=== PATIENT | male | born 1940 | race Caucasian/White ===

== ENCOUNTER 2016-09-27 16:12 | Emergency (ER) | payer OTHER, MEDICARE ==
[~2016-09-27] VITALS: Ht 172.7 cm; Wt 63.5 kg
[~2016-09-27 16:12] MED LIST: /AUGM875TA OR; /ESOM40CA OR; /TIOT18INH; /TIOT18INH INH; /WARF25TA OR; ACET500C OR; ALBU83IN IN; ALBUTEROL INH; ANTI12.5; BABY81CH; CLAR5CHW OR; DEPA250T2 OR; DIVALPROEX ER PO; EFFE150C; EFFE150C OR; FISH1000 OR; FISHCAP PO; FLON0.05; FLUNISOLIDE 0.025%; FOLI1TAB; FORMOTEROL FUMARATE INH; FORMOTEROL INH; HYDROCODONE 7.5/500; HYDROCODONE 7.5/500 PO; LEVI20TA OR; LORATADINE PO; LOVA40TA OR; LYRI200C OR; LYRI75CA; LYRI75CA OR; MOMETASONE INH; MONTELUKAST; MONTELUKAST PO; MYSO50TA; NASONEX; NASONEX OR; NEUR300C OR; NEUR400C OR; NIAC500C; NIAC500T OR; OMEGA 3; OMEP20TA7 OR; PERC5TAB8; PERC5TAB8 OR; PRED10TA2 OR; PREG100CA OR; PRIM250T3 OR; RYZOLT OR; RYZOLT PO; SING10TA31 OR; SODI-399; SODIUM CHLORIDE; SOMA350T; TAGA200T; TEGR200T; TERA5CAP3 OR; TERAZOSIN HCL OR; THEO200T7 OR; THEOPHYLLINE PO; TIOTROPIUM; TIOTROPIUM INH; VARDENAFIL PO; VENL75TA2 OR; VITAMIN B COMPLE1; VITAMIN B COMPLE1 OR; ZEBE5TAB; ZEBE5TAB OR; ZEGERID; ZOCO40TA
[2016-09-27] MEDS ORDERED: LYRI100C10 PO (16:36)
[2016-09-27] MEDS ORDERED: PANT40TA2 PO (16:36)
[2016-09-27] MEDS ORDERED: HYDR10T PO (16:36)
[2016-09-27] MEDS ORDERED: B-12100010 PO (16:36)
[2016-09-27] MEDS ORDERED: FERR325T69 PO (16:36)
[2016-09-27] MEDS ORDERED: GABA-283 PO (16:36)
[2016-09-27] MEDS ORDERED: TRAM50TA2 PO (16:36)
[2016-09-27] MEDS ORDERED: VITA400C29 PO (16:36)
[2016-09-27] MEDS ORDERED: FISH1000 PO (16:36)
[2016-09-27] MEDS ORDERED: LIDO5DIS36 TD (16:36)
[2016-09-27] MEDS ORDERED: MOME50SP2 (16:36)
[2016-09-27] MEDS ORDERED: LORA10CA PO (16:36)
[2016-09-27] MEDS ORDERED: predniSONE 20 MG TAB PO ONE (17:15)
[2016-09-27] MEDS ORDERED: IPRATROPIUM 0.5MG/ALBUTEROL 2.5MG INH SOL UD 3ML (DUONEB)(J7620) NEB ONE (17:15)
--- NOTE | 2016-09-27 18:22 | REP ---
PA and lateral chest: Comparison is 07/12/2011. There are no infiltrates or effusions. I suspect there are bulla, particularly in the upper lobes, unchanged. There is mild parenchymal scarring in the upper lobes. Cardiac size is normal. The basil and mediastinum. There is scoliosis convex right. There is a right shoulder prosthesis. Impression: There are chronic findings without change from the prior study. There are no acute infiltrates or effusions. There are no masses. Signed by Adolfo Woodward MD 09/27/2016 06:13 P
[2016-09-27] MEDS ORDERED: PRED20TA PO (18:32)
[2016-09-27 18:41] VITALS: BP 112/71
== END 2016-09-27 18:47 | disposition home or self-care (01) ==
LOC: M ED 18:15
DX: J44.1 Chronic obstructive pulmonary disease with (acute) exacerbation (principal); I10 Essential (primary) hypertension; E78.00 Pure hypercholesterolemia, unspecified; K44.9 Diaphragmatic hernia without obstruction or gangrene; F43.10 Post-traumatic stress disorder, unspecified; F41.9 Anxiety disorder, unspecified; F32.9 Major depressive disorder, single episode, unspecified; Z87.891 Personal history of nicotine dependence; Z79.899 Other long term (current) drug therapy

== ENCOUNTER → 2016-12-05 | Outpatient (REF) | payer MEDICARE ==
[~2016-12-05] MED LIST changes: +B-12100010 PO; +FERR325T69 PO; +FISH1000 PO; +GABA-283 PO; +HYDR10T PO; +LIDO5DIS36 TD; +LORA10CA PO; +LYRI100C10 PO; +MOME50SP2; +PANT40TA2 PO; +PRED20TA PO; +TRAM50TA2 PO; +VITA400C29 PO
== END ==
LOC: M LAB REF 16:57
PROVIDERS: ATTEND Internal Medicine
DX: J44.9 Chronic obstructive pulmonary disease, unspecified (principal)

== ENCOUNTER → 2017-06-07 | Outpatient (REF) | payer MEDICARE ==
[~2017-06-07] MED LIST changes: +HYDR-643 PO; -HYDR10T PO; -LIDO5DIS36 TD; +LIDO5DIS41 TD; -LYRI100C10 PO; +PREG100CA PO; +VITA-110 PO; -VITA400C29 PO
== END ==
LOC: M LAB REF 18:07
PROVIDERS: ATTEND Internal Medicine
DX: J44.9 Chronic obstructive pulmonary disease, unspecified (principal)

== ENCOUNTER → 2017-12-11 | Outpatient (REF) | payer MEDICARE ==
[2017-12-11 19:32] LABS: THEOPHYLLINE LEVEL 6.5 UG/ML (10.0-20.0)
== END ==
LOC: M LAB REF 17:07
DX: J44.9 Chronic obstructive pulmonary disease, unspecified (principal)
CPT/HCPCS: 80198

== ENCOUNTER 2018-05-22 14:27 | Inpatient (IN) | payer MEDICARE ==
[2018-05-22 15:23] LABS: VENOUS BASE EXCESS 7.4 (-2.0-2.0); VENOUS HCO3 34.5 MEQ/L (23.0-27.0); VENOUS O2 SATURATION 61.9 % (60.0-80.0); VENOUS PARTIAL PRESSURE CO2 60.4 mmHg (38.0-50.0); VENOUS PARTIAL PRESSURE O2 30.7 mmHg (30.0-50.0); VENOUS PH 7.375 UNITS (7.330-7.430); VENOUS STANDARD HCO3 30.3 MEQ/L; VENOUS TOTAL CO2 36.4 MEQ/L (24.0-28.0)
[2018-05-22 15:26] LABS: BASO # 0.1 10^3/uL (0.0-0.2); BASO % 0.5 % (0.0-1.0); HEMATOCRIT 36.2 % (42.0-52.0); HEMOGLOBIN 12.2 g/dl (13.5-17.5); IMMATURE GRANULOCYTE % 0.5 % (0-3.0); LYMPH # 0.6 10^3/uL (1.5-4.5); LYMPH % 4.8 % (24.0-44.0); MEAN CORPUSCULAR HEMOGLOBIN 32.4 pg (27.0-33.0); MEAN CORPUSCULAR HGB CONC 33.7 g/dl (32.0-36.5); MONO # 1.2 10^3/uL (0.0-0.8); MONO % 9.6 % (0.0-5.0); NEUTROPHILS # 10.3 10^3/uL (1.8-7.7); NEUTROPHILS % 84.6 % (36.0-66.0); PLATELET COUNT, AUTOMATED 227 10^3/uL (150-450); RED BLOOD COUNT 3.77 10^6/uL (4.30-6.10); RED CELL DISTRIBUTION WIDTH 12.4 % (11.5-14.5); WHITE BLOOD COUNT 12.2 10^3/uL (4.0-10.0)
[2018-05-22 15:39] LABS: INR 1.11; PROTHROMBIN TIME 14.5 SECONDS (12.1-14.4)
[2018-05-22] MEDS: IPRATROPIUM 0.5MG/ALBUTEROL 2.5MG INH SOL UD 3ML (DUONEB)(J7620) NEB ×3 (15:45→23:05)
[2018-05-22] MEDS: ALBUTEROL SULFATE 2.5 MG/0.5 ML INH NEB SOLN INH (15:45)
[2018-05-22] MEDS: dexameTHASONE 20 MG/5 ML VIAL (J1100) IV (15:57)
[2018-05-22] MEDS: NS 500 ML IV ×2 (15:57→16:52)
[2018-05-22] MEDS: ACETAMINOPHEN TAB 650MG DOSE (2X325MG) PO (15:57)
[2018-05-22 15:58] LABS: LACTIC ACID SEPSIS PROTOCOL 1.7 MMOL/L (0.4-2.0)
[2018-05-22 16:07] LABS: ALBUMIN 3.4 GM/DL (3.2-5.2); ALBUMIN/GLOBULIN RATIO 1.03 (1.00-1.93); ALKALINE PHOSPHATASE 80 U/L (45-117); ALT/SGPT 23 U/L (12-78); ANION GAP 8 MEQ/L (8-16); AST/SGOT 20 U/L (7-37); BILIRUBIN,DIRECT 0.1 MG/DL (0.0-0.2); BILIRUBIN,TOTAL 0.3 MG/DL (0.2-1.0); BLOOD UREA NITROGEN 16 MG/DL (7-18); CALCIUM LEVEL 8.6 MG/DL (8.8-10.2); CARBON DIOXIDE LEVEL 31 MEQ/L (21-32); CHLORIDE LEVEL 99 MEQ/L (98-107); CK-MB VALUE MASS < 1.0 NG/ML (<3.6); CPK CREATINE PHOSPHOKINASE 110 U/L (39-308); CREATININE FOR GFR 0.95 MG/DL (0.70-1.30); GLOMERULAR FILTRATION RATE > 60.0 (>42); GLUCOSE, FASTING 104 MG/DL (70-100); MB/CK RELATIVE INDEX 0.91 (< OR =4); NT-PRO BNP 47 PG/ML (<450); POTASSIUM SERUM 4.3 MEQ/L (3.5-5.1); SODIUM LEVEL 138 MEQ/L (136-145); TOTAL PROTEIN 6.7 GM/DL (6.4-8.2); TROPONIN I < 0.02 NG/ML (< 0.10)
[2018-05-22 16:08] LABS: INFLUENZA A AMPLIFICATION NEGATIVE (NEGATIVE); INFLUENZA B AMPLIFICATION NEGATIVE (NEGATIVE)
[2018-05-22] MEDS: DOXYCYCLINE HYCLATE 100 MG in D5W MINI-BAG PLUS 100 ML IV (19:45)
[2018-05-22] MEDS ORDERED: ACETYLCYSTEINE 10% 30 ML VIAL INH (20:00)
[2018-05-22 20:35] LABS: MAGNESIUM LEVEL 1.8 MG/DL (1.8-2.4)
[2018-05-22 21:11] LABS: FERRITIN 605 NG/ML (26-388); IRON (FE) 18 UG/DL (65-175); PERCENT SATURATION 7.1 % (19.7-50.0); TOTAL IRON BINDING CAPACITY 253 UG/DL (250-450)
[2018-05-22 21:21] LABS: FOLATE 8.5 NG/ML; VITAMIN B12 LEVEL 1077 PG/ML
[2018-05-22] MEDS ORDERED: ACETYLCYSTEINE 20% 4 ML VIAL (200MG/ML) INH (21:57)
[2018-05-22] MEDS: ACETYLCYSTEINE 20% 4 ML VIAL (200MG/ML) INH (23:01)
[2018-05-22] MEDS: BUDESONIDE 0.5 MG/2 ML INHALATION SUSPENSION INH (23:01)
[2018-05-23] MEDS: PREGABALIN 100 MG CAP (LYRICA) PO ×3 (00:16→21:19)
[2018-05-23] MEDS: traMADol 50 MG TAB PO ×2 (00:17→21:19)
[2018-05-23] MEDS: tiZANidine 4 MG TAB PO ×2 (00:17→21:19)
[2018-05-23] MEDS: methylPREDNISolone INJ 125 MG/2 ML VIAL (J2930) IV ×4 (00:17→23:19)
[2018-05-23] MEDS: FERROUS GLUCONATE 324 MG TAB PO ×3 (00:18→21:19)
[2018-05-23] MEDS: VENLAFAXINE 37.5 MG TAB PO (00:18)
[2018-05-23] MEDS: hydrOXYzine 10 MG TAB PO ×3 (00:18→21:19)
[2018-05-23] MEDS: CYANOCOBALAMIN 500 MCG TAB PO ×3 (00:19→21:19)
[2018-05-23] MEDS: IPRATROPIUM 0.5MG/ALBUTEROL 2.5MG INH SOL UD 3ML (DUONEB)(J7620) NEB ×5 (04:33→20:55)
[2018-05-23 05:06] LABS: ABG BASE EXCESS 0.6 (-2.0-2.0); ABG O2 SATURATION 98.4 % (95.0-99.0); ABG PARTIAL PRESSURE CO2 44.9 mmHg (35.0-45.0); ABG PARTIAL PRESSURE O2 110.6 mmHg (75.0-100.0); ABG TOTAL CO2 27.4 MEQ/L (23.0-31.0); ABG pH (ARTERIAL) 7.381 UNITS (7.350-7.450)
[2018-05-23 05:51] LABS: HEMATOCRIT 31.9 % (42.0-52.0); HEMOGLOBIN 10.8 g/dl (13.5-17.5); MEAN CORPUSCULAR HEMOGLOBIN 31.8 pg (27.0-33.0); MEAN CORPUSCULAR HGB CONC 33.9 g/dl (32.0-36.5); MEAN CORPUSCULAR VOLUME 93.8 fl (80.0-96.0); PLATELET COUNT, AUTOMATED 212 10^3/uL (150-450); RED CELL DISTRIBUTION WIDTH 12.2 % (11.5-14.5); WHITE BLOOD COUNT 6.5 10^3/uL (4.0-10.0)
[2018-05-23 06:18] LABS: ANION GAP 10 MEQ/L (8-16); BLOOD UREA NITROGEN 18 MG/DL (7-18); CALCIUM LEVEL 8.9 MG/DL (8.8-10.2); CARBON DIOXIDE LEVEL 26 MEQ/L (21-32); CHLORIDE LEVEL 102 MEQ/L (98-107); CREATININE FOR GFR 0.95 MG/DL (0.70-1.30); GLOMERULAR FILTRATION RATE > 60.0 (>42); GLUCOSE, FASTING 197 MG/DL (70-100); POTASSIUM SERUM 3.8 MEQ/L (3.5-5.1); SODIUM LEVEL 138 MEQ/L (136-145)
[2018-05-23] MEDS: HEPARIN SOD (PORCINE) 5000 UNITS/ML VIAL SC ×3 (06:49→21:20)
[2018-05-23] MEDS: OMEGA-3 1000MG CAPSULE PO (09:17)
[2018-05-23] MEDS: DOXYCYCLINE HYCLATE 100 MG in D5W MINI-BAG PLUS 100 ML IV ×2 (09:17→19:53)
[2018-05-23] MEDS: SIMVASTATIN 40 MG TAB PO (09:17)
[2018-05-23] MEDS: PANTOPRAZOLE 40MG TAB (PROTONIX) PO (09:17)
[2018-05-23] MEDS: MONTELUKAST 10 MG TAB PO (09:18)
[2018-05-23] MEDS: GABAPENTIN 400 MG CAP PO (09:18)
[2018-05-23] MEDS: VITAMIN D (CHOLECALCIFEROL) 400 INTERNATIONAL UNITS TAB PO (09:18)
[2018-05-23] MEDS: ACETYLCYSTEINE 20% 4 ML VIAL (200MG/ML) INH ×2 (09:45→20:55)
[2018-05-23] MEDS: BUDESONIDE 0.5 MG/2 ML INHALATION SUSPENSION INH ×2 (09:45→20:55)
[2018-05-23] MEDS: VENLAFAXINE **XR** 75MG CAPSULE PO ×2 (10:33→21:19)
[2018-05-23] MEDS ORDERED: ISOVUE-370 76% 100ML VIAL (Q9967) As Ordered (14:18)
[2018-05-23 22:21] LABS: CPK CREATINE PHOSPHOKINASE 189 U/L (39-308); MB/CK RELATIVE INDEX 1.53 (< OR =4); TROPONIN I < 0.02 NG/ML (< 0.10)
[2018-05-24] MEDS: IPRATROPIUM 0.5MG/ALBUTEROL 2.5MG INH SOL UD 3ML (DUONEB)(J7620) NEB ×7 (00:49→22:58)
[2018-05-24] MEDS: HEPARIN SOD (PORCINE) 5000 UNITS/ML VIAL SC ×3 (05:17→20:24)
[2018-05-24 06:55] LABS: HEMATOCRIT 30.2 % (42.0-52.0); HEMOGLOBIN 10.3 g/dl (13.5-17.5); MEAN CORPUSCULAR HEMOGLOBIN 31.9 pg (27.0-33.0); MEAN CORPUSCULAR HGB CONC 34.1 g/dl (32.0-36.5); MEAN CORPUSCULAR VOLUME 93.5 fl (80.0-96.0); PLATELET COUNT, AUTOMATED 227 10^3/uL (150-450); RED BLOOD COUNT 3.23 10^6/uL (4.30-6.10); RED CELL DISTRIBUTION WIDTH 12.4 % (11.5-14.5); WHITE BLOOD COUNT 14.1 10^3/uL (4.0-10.0)
[2018-05-24 07:21] LABS: ANION GAP 8 MEQ/L (8-16); BLOOD UREA NITROGEN 19 MG/DL (7-18); CALCIUM LEVEL 9.1 MG/DL (8.8-10.2); CARBON DIOXIDE LEVEL 27 MEQ/L (21-32); CHLORIDE LEVEL 102 MEQ/L (98-107); CREATININE FOR GFR 0.85 MG/DL (0.70-1.30); GLOMERULAR FILTRATION RATE > 60.0 (>42); GLUCOSE, FASTING 141 MG/DL (70-100); POTASSIUM SERUM 4.3 MEQ/L (3.5-5.1); SODIUM LEVEL 137 MEQ/L (136-145)
[2018-05-24] MEDS: ACETYLCYSTEINE 20% 4 ML VIAL (200MG/ML) INH ×2 (07:56→20:34)
[2018-05-24] MEDS: BUDESONIDE 0.5 MG/2 ML INHALATION SUSPENSION INH ×2 (07:56→20:34)
[2018-05-24 08:06] LABS: TRANSFERRIN 188 mg/dL (200-370)
[2018-05-24] MEDS: SIMVASTATIN 40 MG TAB PO (08:51)
[2018-05-24] MEDS: VITAMIN D (CHOLECALCIFEROL) 400 INTERNATIONAL UNITS TAB PO (08:51)
[2018-05-24] MEDS: methylPREDNISolone INJ 125 MG/2 ML VIAL (J2930) IV ×2 (08:51→15:42)
[2018-05-24] MEDS: MONTELUKAST 10 MG TAB PO (08:51)
[2018-05-24] MEDS: hydrOXYzine 10 MG TAB PO ×2 (08:51→20:25)
[2018-05-24] MEDS: DOXYCYCLINE HYCLATE 100 MG in D5W MINI-BAG PLUS 100 ML IV (08:51)
[2018-05-24] MEDS: OMEGA-3 1000MG CAPSULE PO (08:51)
[2018-05-24] MEDS: PREGABALIN 100 MG CAP (LYRICA) PO ×2 (08:52→20:25)
[2018-05-24] MEDS: VENLAFAXINE **XR** 75MG CAPSULE PO ×2 (08:52→20:25)
[2018-05-24] MEDS: FERROUS GLUCONATE 324 MG TAB PO ×2 (08:52→20:25)
[2018-05-24] MEDS: GABAPENTIN 400 MG CAP PO (08:52)
[2018-05-24] MEDS: PANTOPRAZOLE 40MG TAB (PROTONIX) PO (08:52)
[2018-05-24] MEDS: CYANOCOBALAMIN 500 MCG TAB PO ×2 (08:52→20:25)
[2018-05-24] MEDS: tiZANidine 4 MG TAB PO (20:25)
[2018-05-25] MEDS: IPRATROPIUM 0.5MG/ALBUTEROL 2.5MG INH SOL UD 3ML (DUONEB)(J7620) NEB ×6 (04:00→23:10)
[2018-05-25] MEDS: methylPREDNISolone INJ 125 MG/2 ML VIAL (J2930) IV (05:26)
[2018-05-25] MEDS: HEPARIN SOD (PORCINE) 5000 UNITS/ML VIAL SC ×3 (05:26→21:15)
[2018-05-25 06:44] LABS: HEMATOCRIT 31.6 % (42.0-52.0); HEMOGLOBIN 10.7 g/dl (13.5-17.5); MEAN CORPUSCULAR HEMOGLOBIN 31.8 pg (27.0-33.0); MEAN CORPUSCULAR HGB CONC 33.9 g/dl (32.0-36.5); PLATELET COUNT, AUTOMATED 262 10^3/uL (150-450); RED BLOOD COUNT 3.36 10^6/uL (4.30-6.10); RED CELL DISTRIBUTION WIDTH 12.4 % (11.5-14.5); WHITE BLOOD COUNT 15.4 10^3/uL (4.0-10.0)
[2018-05-25 07:00] LABS: ANION GAP 4 MEQ/L (8-16); BLOOD UREA NITROGEN 21 MG/DL (7-18); CALCIUM LEVEL 9.4 MG/DL (8.8-10.2); CARBON DIOXIDE LEVEL 32 MEQ/L (21-32); CHLORIDE LEVEL 103 MEQ/L (98-107); CREATININE FOR GFR 0.78 MG/DL (0.70-1.30); GLOMERULAR FILTRATION RATE > 60.0 (>42); GLUCOSE, FASTING 137 MG/DL (70-100); POTASSIUM SERUM 4.2 MEQ/L (3.5-5.1); SODIUM LEVEL 139 MEQ/L (136-145)
[2018-05-25] MEDS: ACETYLCYSTEINE 20% 4 ML VIAL (200MG/ML) INH ×2 (07:10→20:40)
[2018-05-25] MEDS: BUDESONIDE 0.5 MG/2 ML INHALATION SUSPENSION INH ×2 (07:10→20:39)
[2018-05-25] MEDS: VITAMIN D (CHOLECALCIFEROL) 400 INTERNATIONAL UNITS TAB PO (09:01)
[2018-05-25] MEDS: OMEGA-3 1000MG CAPSULE PO (09:01)
[2018-05-25] MEDS: VENLAFAXINE **XR** 75MG CAPSULE PO ×2 (09:01→21:14)
[2018-05-25] MEDS: MONTELUKAST 10 MG TAB PO (09:01)
[2018-05-25] MEDS: PREGABALIN 100 MG CAP (LYRICA) PO ×2 (09:02→21:14)
[2018-05-25] MEDS: FERROUS GLUCONATE 324 MG TAB PO ×2 (09:02→21:14)
[2018-05-25] MEDS: CYANOCOBALAMIN 500 MCG TAB PO ×2 (09:02→21:14)
[2018-05-25] MEDS: SIMVASTATIN 40 MG TAB PO (09:02)
[2018-05-25] MEDS: PANTOPRAZOLE 40MG TAB (PROTONIX) PO (09:02)
[2018-05-25] MEDS: GABAPENTIN 400 MG CAP PO (09:02)
[2018-05-25] MEDS: hydrOXYzine 10 MG TAB PO ×2 (09:02→21:14)
[2018-05-25] MEDS: ACETAMINOPHEN TAB 650MG DOSE (2X325MG) PO (14:32)
[2018-05-25] MEDS: tiZANidine 4 MG TAB PO (21:14)
[2018-05-25] MEDS: predniSONE 20 MG TAB PO (21:14)
[2018-05-26] MEDS: IPRATROPIUM 0.5MG/ALBUTEROL 2.5MG INH SOL UD 3ML (DUONEB)(J7620) NEB ×4 (04:00→20:50)
[2018-05-26] MEDS: HEPARIN SOD (PORCINE) 5000 UNITS/ML VIAL SC ×3 (05:47→21:28)
[2018-05-26 06:49] LABS: HEMATOCRIT 30.4 % (42.0-52.0); HEMOGLOBIN 10.2 g/dl (13.5-17.5); MEAN CORPUSCULAR HEMOGLOBIN 32.2 pg (27.0-33.0); MEAN CORPUSCULAR HGB CONC 33.6 g/dl (32.0-36.5); MEAN CORPUSCULAR VOLUME 95.9 fl (80.0-96.0); PLATELET COUNT, AUTOMATED 254 10^3/uL (150-450); RED BLOOD COUNT 3.17 10^6/uL (4.30-6.10); RED CELL DISTRIBUTION WIDTH 12.7 % (11.5-14.5); WHITE BLOOD COUNT 11.9 10^3/uL (4.0-10.0)
[2018-05-26 07:08] LABS: ANION GAP 6 MEQ/L (8-16); BLOOD UREA NITROGEN 20 MG/DL (7-18); CALCIUM LEVEL 9.1 MG/DL (8.8-10.2); CARBON DIOXIDE LEVEL 32 MEQ/L (21-32); CHLORIDE LEVEL 101 MEQ/L (98-107); CREATININE FOR GFR 0.66 MG/DL (0.70-1.30); GLOMERULAR FILTRATION RATE > 60.0 (>42); GLUCOSE, FASTING 126 MG/DL (70-100); SODIUM LEVEL 139 MEQ/L (136-145)
[2018-05-26] MEDS: hydrOXYzine 10 MG TAB PO ×2 (08:35→21:26)
[2018-05-26] MEDS: GABAPENTIN 400 MG CAP PO (08:35)
[2018-05-26] MEDS: OMEGA-3 1000MG CAPSULE PO (08:35)
[2018-05-26] MEDS: PREGABALIN 100 MG CAP (LYRICA) PO ×2 (08:35→21:27)
[2018-05-26] MEDS: SIMVASTATIN 40 MG TAB PO (08:36)
[2018-05-26] MEDS: FERROUS GLUCONATE 324 MG TAB PO ×2 (08:36→21:27)
[2018-05-26] MEDS: PANTOPRAZOLE 40MG TAB (PROTONIX) PO (08:36)
[2018-05-26] MEDS: VENLAFAXINE **XR** 75MG CAPSULE PO ×2 (08:36→21:26)
[2018-05-26] MEDS: predniSONE 20 MG TAB PO (08:36)
[2018-05-26] MEDS: VITAMIN D (CHOLECALCIFEROL) 400 INTERNATIONAL UNITS TAB PO (08:36)
[2018-05-26] MEDS: MONTELUKAST 10 MG TAB PO (08:36)
[2018-05-26] MEDS: CYANOCOBALAMIN 500 MCG TAB PO ×2 (08:36→21:27)
[2018-05-26] MEDS: BUDESONIDE 0.5 MG/2 ML INHALATION SUSPENSION INH ×2 (08:46→20:50)
[2018-05-26] MEDS: ACETYLCYSTEINE 20% 4 ML VIAL (200MG/ML) INH ×2 (08:48→20:49)
[2018-05-26] MEDS: tiZANidine 4 MG TAB PO (21:26)
[2018-05-26] MEDS: ACETAMINOPHEN TAB 650MG DOSE (2X325MG) PO (22:03)
[2018-05-27] MEDS: IPRATROPIUM 0.5MG/ALBUTEROL 2.5MG INH SOL UD 3ML (DUONEB)(J7620) NEB ×6 (04:25→19:48)
[2018-05-27] MEDS: HEPARIN SOD (PORCINE) 5000 UNITS/ML VIAL SC ×3 (06:11→22:08)
[2018-05-27 06:13] LABS: HEMATOCRIT 32.8 % (42.0-52.0); HEMOGLOBIN 10.9 g/dl (13.5-17.5); MEAN CORPUSCULAR HEMOGLOBIN 31.7 pg (27.0-33.0); MEAN CORPUSCULAR HGB CONC 33.2 g/dl (32.0-36.5); MEAN CORPUSCULAR VOLUME 95.3 fl (80.0-96.0); PLATELET COUNT, AUTOMATED 270 10^3/uL (150-450); RED BLOOD COUNT 3.44 10^6/uL (4.30-6.10); RED CELL DISTRIBUTION WIDTH 12.5 % (11.5-14.5); WHITE BLOOD COUNT 12.4 10^3/uL (4.0-10.0)
[2018-05-27 06:39] LABS: ANION GAP 5 MEQ/L (8-16); BLOOD UREA NITROGEN 19 MG/DL (7-18); CALCIUM LEVEL 9.3 MG/DL (8.8-10.2); CARBON DIOXIDE LEVEL 36 MEQ/L (21-32); CHLORIDE LEVEL 98 MEQ/L (98-107); CREATININE FOR GFR 0.73 MG/DL (0.70-1.30); GLOMERULAR FILTRATION RATE > 60.0 (>42); GLUCOSE, FASTING 90 MG/DL (70-100); POTASSIUM SERUM 3.6 MEQ/L (3.5-5.1); SODIUM LEVEL 139 MEQ/L (136-145)
[2018-05-27] MEDS: CYANOCOBALAMIN 500 MCG TAB PO ×2 (09:14→20:43)
[2018-05-27] MEDS: FERROUS GLUCONATE 324 MG TAB PO ×2 (09:14→20:43)
[2018-05-27] MEDS: SIMVASTATIN 40 MG TAB PO (09:14)
[2018-05-27] MEDS: GABAPENTIN 400 MG CAP PO (09:14)
[2018-05-27] MEDS: MONTELUKAST 10 MG TAB PO (09:15)
[2018-05-27] MEDS: hydrOXYzine 10 MG TAB PO ×2 (09:15→20:44)
[2018-05-27] MEDS: VENLAFAXINE **XR** 75MG CAPSULE PO ×2 (09:15→20:44)
[2018-05-27] MEDS: VITAMIN D (CHOLECALCIFEROL) 400 INTERNATIONAL UNITS TAB PO (09:15)
[2018-05-27] MEDS: PREGABALIN 100 MG CAP (LYRICA) PO ×2 (09:15→20:43)
[2018-05-27] MEDS: PANTOPRAZOLE 40MG TAB (PROTONIX) PO (09:15)
[2018-05-27] MEDS: predniSONE 20 MG TAB PO (09:15)
[2018-05-27] MEDS: OMEGA-3 1000MG CAPSULE PO (09:15)
[2018-05-27] MEDS: BUDESONIDE 0.5 MG/2 ML INHALATION SUSPENSION INH ×2 (10:35→19:48)
[2018-05-27] MEDS: ACETYLCYSTEINE 20% 4 ML VIAL (200MG/ML) INH ×2 (10:35→19:48)
[2018-05-27] MEDS ORDERED: ISOVUE-370 76% 100ML VIAL (Q9967) As Ordered (12:44)
[2018-05-27] MEDS: cefTRIAXone SOD 1 GM in D5W MINI-BAG PLUS 50 ML IV (13:12)
[2018-05-27] MEDS ORDERED: SODIUM CHLORIDE NASAL 0.65% SPRAY BTL (OCEAN) (13:15)
[2018-05-27] MEDS ORDERED: ALBUTEROL 90 MCG/ACT 8GM HFA INHALER INH (13:15)
[2018-05-27] MEDS ORDERED: ALBUTEROL SULFATE 2.5 MG/0.5 ML INH NEB SOLN INH (13:15)
[2018-05-27] MEDS ORDERED: ACETAMINOPHEN 325 MG TAB PO (13:15)
[2018-05-27 13:40] LABS: ABG BASE EXCESS 9.3 (-2.0-2.0); ABG HCO3 34.9 MEQ/L (22.0-26.0); ABG O2 SATURATION 94.9 % (95.0-99.0); ABG PARTIAL PRESSURE CO2 52.1 mmHg (35.0-45.0); ABG PARTIAL PRESSURE O2 70.4 mmHg (75.0-100.0); ABG TOTAL CO2 36.5 MEQ/L (23.0-31.0); ABG pH (ARTERIAL) 7.444 UNITS (7.350-7.450)
[2018-05-27] MEDS ORDERED: AZITHROMYCIN INJ 500 MG, VIAL MATE ADAPTER 1 EACH in D5W 250 ML IV (14:00)
[2018-05-27] MEDS: VANCOMYCIN HCL 1,000 MG, VIAL MATE ADAPTER 1 EACH in D5W 250 ML IV ×2 (14:41→22:08)
[2018-05-27] MEDS: ROSUVASTATIN 10 MG TAB (CRESTOR) PO (17:15)
[2018-05-27] MEDS: traMADol 50 MG TAB PO (17:17)
[2018-05-27] MEDS: PIPERACILLIN/TAZOBACTAM SOD 3.375 GM in D5W MINI-BAG PLUS 50 ML IV (20:41)
[2018-05-27] MEDS: tiZANidine 4 MG TAB PO (20:43)
[2018-05-27] MEDS: FLUTICASONE PROP 0.05% NASAL SPRAY 16 GM (FLONASE) (20:43)
[2018-05-27] MEDS: THEOPHYLLINE (THEO-24) 100MG SR **CAPSULE PO (20:43)
[2018-05-27] MEDS ORDERED: THEOPHYLLINE PO (21:00)
[2018-05-27] MEDS ORDERED: VENLAFAXINE **XR** 75MG CAPSULE PO (21:00)
[2018-05-28] MEDS: IPRATROPIUM 0.5MG/ALBUTEROL 2.5MG INH SOL UD 3ML (DUONEB)(J7620) NEB ×7 (00:12→23:38)
[2018-05-28] MEDS: PIPERACILLIN/TAZOBACTAM SOD 3.375 GM in D5W MINI-BAG PLUS 50 ML IV ×4 (02:07→20:15)
[2018-05-28 05:26] LABS: HEMATOCRIT 31.6 % (42.0-52.0); HEMOGLOBIN 10.3 g/dl (13.5-17.5); MEAN CORPUSCULAR HGB CONC 32.6 g/dl (32.0-36.5); MEAN CORPUSCULAR VOLUME 98.1 fl (80.0-96.0); PLATELET COUNT, AUTOMATED 266 10^3/uL (150-450); RED BLOOD COUNT 3.22 10^6/uL (4.30-6.10); RED CELL DISTRIBUTION WIDTH 12.7 % (11.5-14.5); WHITE BLOOD COUNT 11.7 10^3/uL (4.0-10.0)
[2018-05-28 05:50] LABS: ANION GAP 5 MEQ/L (8-16); BLOOD UREA NITROGEN 17 MG/DL (7-18); CALCIUM LEVEL 8.2 MG/DL (8.8-10.2); CARBON DIOXIDE LEVEL 36 MEQ/L (21-32); CHLORIDE LEVEL 98 MEQ/L (98-107); CREATININE FOR GFR 0.78 MG/DL (0.70-1.30); GLOMERULAR FILTRATION RATE > 60.0 (>42); GLUCOSE, FASTING 121 MG/DL (70-100); POTASSIUM SERUM 3.3 MEQ/L (3.5-5.1); SODIUM LEVEL 139 MEQ/L (136-145)
[2018-05-28] MEDS: POTASSIUM CHLORIDE 10 MEQ SR TABLET PO ×2 (06:10→08:46)
[2018-05-28] MEDS: HEPARIN SOD (PORCINE) 5000 UNITS/ML VIAL SC ×3 (06:11→21:27)
[2018-05-28] MEDS: BENZONATATE 100 MG CAP PO (06:33)
[2018-05-28] MEDS: BUDESONIDE 0.5 MG/2 ML INHALATION SUSPENSION INH ×2 (07:27→19:57)
[2018-05-28] MEDS: ACETYLCYSTEINE 20% 4 ML VIAL (200MG/ML) INH ×2 (07:28→19:57)
[2018-05-28 07:39] LABS: MAGNESIUM LEVEL 2.2 MG/DL (1.8-2.4)
[2018-05-28] MEDS: predniSONE 20 MG TAB PO (08:44)
[2018-05-28] MEDS: ACETAMINOPHEN TAB 650MG DOSE (2X325MG) PO (08:44)
[2018-05-28] MEDS: VITAMIN B COMPLEX/VIT C CAP PO (08:44)
[2018-05-28] MEDS: VITAMIN D (CHOLECALCIFEROL) 400 INTERNATIONAL UNITS TAB PO (08:44)
[2018-05-28] MEDS: OMEGA-3 1000MG CAPSULE PO (08:45)
[2018-05-28] MEDS: PANTOPRAZOLE 40MG TAB (PROTONIX) PO (08:45)
[2018-05-28] MEDS: hydrOXYzine 10 MG TAB PO ×2 (08:45→20:16)
[2018-05-28] MEDS: THEOPHYLLINE (THEO-24) 100MG SR **CAPSULE PO ×2 (08:45→20:15)
[2018-05-28] MEDS: VENLAFAXINE **XR** 75MG CAPSULE PO ×2 (08:45→20:15)
[2018-05-28] MEDS: PREGABALIN 100 MG CAP (LYRICA) PO ×2 (08:46→20:16)
[2018-05-28] MEDS: CYANOCOBALAMIN 500 MCG TAB PO ×2 (08:46→20:16)
[2018-05-28] MEDS: ASCORBIC ACID 500 MG TAB PO (08:46)
[2018-05-28] MEDS: VANCOMYCIN HCL 1,000 MG, VIAL MATE ADAPTER 1 EACH in D5W 250 ML IV ×2 (08:46→21:26)
[2018-05-28] MEDS: GABAPENTIN 400 MG CAP PO (08:46)
[2018-05-28] MEDS: SIMVASTATIN 40 MG TAB PO (08:46)
[2018-05-28] MEDS: FERROUS GLUCONATE 324 MG TAB PO ×2 (08:46→20:16)
[2018-05-28] MEDS: MONTELUKAST 10 MG TAB PO (08:46)
[2018-05-28] MEDS: ROSUVASTATIN 10 MG TAB (CRESTOR) PO (17:45)
[2018-05-28] MEDS: FLUTICASONE PROP 0.05% NASAL SPRAY 16 GM (FLONASE) (20:15)
[2018-05-28] MEDS: tiZANidine 4 MG TAB PO (20:15)
[2018-05-29] MEDS: PIPERACILLIN/TAZOBACTAM SOD 3.375 GM in D5W MINI-BAG PLUS 50 ML IV ×4 (02:55→20:15)
[2018-05-29] MEDS: IPRATROPIUM 0.5MG/ALBUTEROL 2.5MG INH SOL UD 3ML (DUONEB)(J7620) NEB ×5 (04:00→20:25)
[2018-05-29 04:48] LABS: KETONE, URINE AUTO RFX NEGATIVE (NEGATIVE); LEUKOCYTE ESTERASE UR AUTO RFX NEGATIVE (NEGATIVE); NITRITE, URINE AUTO RFX NEGATIVE (NEGATIVE); RBC, URINE AUTO RFX 5 /HPF (0-3); SPECIFIC GRAVITY UR AUTO RFX 1.013 (1.002-1.035); SQUAM EPITHELIAL CELL UR AURFX 0 /HPF (0-6); WBC, URINE AUTO RFX 1 /HPF (0-3)
[2018-05-29] MEDS: VANCOMYCIN HCL 1,000 MG, VIAL MATE ADAPTER 1 EACH in D5W 250 ML IV ×3 (05:17→21:00)
[2018-05-29] MEDS: HEPARIN SOD (PORCINE) 5000 UNITS/ML VIAL SC ×3 (05:17→21:09)
[2018-05-29 05:34] LABS: HEMATOCRIT 30.3 % (42.0-52.0); MEAN CORPUSCULAR HEMOGLOBIN 31.7 pg (27.0-33.0); MEAN CORPUSCULAR VOLUME 96.2 fl (80.0-96.0); PLATELET COUNT, AUTOMATED 278 10^3/uL (150-450); RED BLOOD COUNT 3.15 10^6/uL (4.30-6.10); RED CELL DISTRIBUTION WIDTH 12.8 % (11.5-14.5); WHITE BLOOD COUNT 10.5 10^3/uL (4.0-10.0)
[2018-05-29] MEDS: traMADol ER 100MG TABLET (ULTRAM ER) PO (05:50)
[2018-05-29 05:53] LABS: ANION GAP 4 MEQ/L (8-16); BLOOD UREA NITROGEN 13 MG/DL (7-18); CALCIUM LEVEL 8.4 MG/DL (8.8-10.2); CARBON DIOXIDE LEVEL 36 MEQ/L (21-32); CHLORIDE LEVEL 97 MEQ/L (98-107); CREATININE FOR GFR 0.88 MG/DL (0.70-1.30); GLOMERULAR FILTRATION RATE > 60.0 (>42); GLUCOSE, FASTING 106 MG/DL (70-100); POTASSIUM SERUM 3.3 MEQ/L (3.5-5.1); SODIUM LEVEL 137 MEQ/L (136-145)
[2018-05-29] MEDS: ACETAMINOPHEN TAB 650MG DOSE (2X325MG) PO (06:14)
[2018-05-29] MEDS: POTASSIUM CHLORIDE 10 MEQ SR TABLET PO (06:27)
[2018-05-29] MEDS: BUDESONIDE 0.5 MG/2 ML INHALATION SUSPENSION INH ×2 (07:11→20:25)
[2018-05-29] MEDS: ACETYLCYSTEINE 20% 4 ML VIAL (200MG/ML) INH ×2 (07:11→20:25)
[2018-05-29] MEDS: PANTOPRAZOLE 40MG TAB (PROTONIX) PO (09:09)
[2018-05-29] MEDS: MONTELUKAST 10 MG TAB PO (09:09)
[2018-05-29] MEDS: SIMVASTATIN 40 MG TAB PO (09:09)
[2018-05-29] MEDS: GABAPENTIN 400 MG CAP PO (09:09)
[2018-05-29] MEDS: predniSONE 20 MG TAB PO (09:09)
[2018-05-29] MEDS: VENLAFAXINE **XR** 75MG CAPSULE PO ×2 (09:09→20:14)
[2018-05-29] MEDS: FERROUS GLUCONATE 324 MG TAB PO ×2 (09:09→20:14)
[2018-05-29] MEDS: ASCORBIC ACID 500 MG TAB PO (09:09)
[2018-05-29] MEDS: OMEGA-3 1000MG CAPSULE PO (09:09)
[2018-05-29] MEDS: VITAMIN D (CHOLECALCIFEROL) 400 INTERNATIONAL UNITS TAB PO (09:10)
[2018-05-29] MEDS: hydrOXYzine 10 MG TAB PO ×2 (09:10→20:14)
[2018-05-29] MEDS: THEOPHYLLINE (THEO-24) 100MG SR **CAPSULE PO ×2 (09:10→20:14)
[2018-05-29] MEDS: CYANOCOBALAMIN 500 MCG TAB PO ×2 (09:10→20:14)
[2018-05-29] MEDS: PREGABALIN 100 MG CAP (LYRICA) PO ×2 (09:10→20:14)
[2018-05-29] MEDS: VITAMIN B COMPLEX/VIT C CAP PO (09:10)
[2018-05-29] MEDS: ROSUVASTATIN 10 MG TAB (CRESTOR) PO (17:17)
[2018-05-29] MEDS: tiZANidine 4 MG TAB PO (20:14)
[2018-05-29] MEDS: FLUTICASONE PROP 0.05% NASAL SPRAY 16 GM (FLONASE) (20:16)
[2018-05-29 20:17] LABS: VANCOMYCIN LEVEL TROUGH 14.9 UG/ML (10.0-20.0)
[2018-05-30] MEDS: IPRATROPIUM 0.5MG/ALBUTEROL 2.5MG INH SOL UD 3ML (DUONEB)(J7620) NEB ×6 (00:19→20:41)
[2018-05-30] MEDS: PIPERACILLIN/TAZOBACTAM SOD 3.375 GM in D5W MINI-BAG PLUS 50 ML IV ×4 (02:00→20:00)
[2018-05-30] MEDS: VANCOMYCIN HCL 1,000 MG, VIAL MATE ADAPTER 1 EACH in D5W 250 ML IV ×3 (05:00→21:00)
[2018-05-30] MEDS: HEPARIN SOD (PORCINE) 5000 UNITS/ML VIAL SC ×3 (05:34→21:23)
[2018-05-30 05:55] LABS: HEMATOCRIT 30.6 % (42.0-52.0); HEMOGLOBIN 10.2 g/dl (13.5-17.5); MEAN CORPUSCULAR HEMOGLOBIN 31.7 pg (27.0-33.0); MEAN CORPUSCULAR HGB CONC 33.3 g/dl (32.0-36.5); PLATELET COUNT, AUTOMATED 288 10^3/uL (150-450); RED BLOOD COUNT 3.22 10^6/uL (4.30-6.10); RED CELL DISTRIBUTION WIDTH 12.7 % (11.5-14.5); WHITE BLOOD COUNT 11.1 10^3/uL (4.0-10.0)
[2018-05-30 06:13] LABS: ANION GAP 5 MEQ/L (8-16); BLOOD UREA NITROGEN 15 MG/DL (7-18); CALCIUM LEVEL 8.6 MG/DL (8.8-10.2); CARBON DIOXIDE LEVEL 34 MEQ/L (21-32); CHLORIDE LEVEL 98 MEQ/L (98-107); CREATININE FOR GFR 0.85 MG/DL (0.70-1.30); GLOMERULAR FILTRATION RATE > 60.0 (>42); GLUCOSE, FASTING 106 MG/DL (70-100); POTASSIUM SERUM 3.6 MEQ/L (3.5-5.1); SODIUM LEVEL 137 MEQ/L (136-145)
[2018-05-30] MEDS: ACETYLCYSTEINE 20% 4 ML VIAL (200MG/ML) INH ×2 (07:42→20:40)
[2018-05-30] MEDS: BUDESONIDE 0.5 MG/2 ML INHALATION SUSPENSION INH ×2 (07:42→20:40)
[2018-05-30] MEDS: MONTELUKAST 10 MG TAB PO (09:20)
[2018-05-30] MEDS: GABAPENTIN 400 MG CAP PO (09:20)
[2018-05-30] MEDS: FERROUS GLUCONATE 324 MG TAB PO ×2 (09:20→21:23)
[2018-05-30] MEDS: PREGABALIN 100 MG CAP (LYRICA) PO ×2 (09:20→21:22)
[2018-05-30] MEDS: ASCORBIC ACID 500 MG TAB PO (09:20)
[2018-05-30] MEDS: VITAMIN B COMPLEX/VIT C CAP PO (09:20)
[2018-05-30] MEDS: VITAMIN D (CHOLECALCIFEROL) 400 INTERNATIONAL UNITS TAB PO (09:20)
[2018-05-30] MEDS: CYANOCOBALAMIN 500 MCG TAB PO ×2 (09:21→21:23)
[2018-05-30] MEDS: THEOPHYLLINE (THEO-24) 100MG SR **CAPSULE PO ×2 (09:21→21:23)
[2018-05-30] MEDS: OMEGA-3 1000MG CAPSULE PO (09:21)
[2018-05-30] MEDS: VENLAFAXINE **XR** 75MG CAPSULE PO ×2 (09:21→21:22)
[2018-05-30] MEDS: hydrOXYzine 10 MG TAB PO ×2 (09:21→21:22)
[2018-05-30] MEDS: predniSONE 20 MG TAB PO (09:21)
[2018-05-30] MEDS: PANTOPRAZOLE 40MG TAB (PROTONIX) PO (09:21)
[2018-05-30] MEDS: traMADol 50 MG TAB PO ×2 (10:44→23:36)
[2018-05-30] MEDS: SLF 3 ML SYR IV ×2 (14:11→21:24)
[2018-05-30] MEDS: ROSUVASTATIN 10 MG TAB (CRESTOR) PO (17:04)
[2018-05-30] MEDS: FLUTICASONE PROP 0.05% NASAL SPRAY 16 GM (FLONASE) (21:00)
[2018-05-30] MEDS: tiZANidine 4 MG TAB PO (21:23)
[2018-05-31] MEDS: IPRATROPIUM 0.5MG/ALBUTEROL 2.5MG INH SOL UD 3ML (DUONEB)(J7620) NEB ×6 (00:24→21:25)
[2018-05-31] MEDS: PIPERACILLIN/TAZOBACTAM SOD 3.375 GM in D5W MINI-BAG PLUS 50 ML IV ×4 (02:00→20:18)
[2018-05-31] MEDS: VANCOMYCIN HCL 1,000 MG, VIAL MATE ADAPTER 1 EACH in D5W 250 ML IV ×3 (05:00→21:56)
[2018-05-31 05:33] LABS: HEMATOCRIT 30.8 % (42.0-52.0); HEMOGLOBIN 10.3 g/dl (13.5-17.5); MEAN CORPUSCULAR HEMOGLOBIN 31.6 pg (27.0-33.0); MEAN CORPUSCULAR HGB CONC 33.4 g/dl (32.0-36.5); MEAN CORPUSCULAR VOLUME 94.5 fl (80.0-96.0); PLATELET COUNT, AUTOMATED 273 10^3/uL (150-450); RED BLOOD COUNT 3.26 10^6/uL (4.30-6.10); RED CELL DISTRIBUTION WIDTH 12.9 % (11.5-14.5); WHITE BLOOD COUNT 10.9 10^3/uL (4.0-10.0)
[2018-05-31 05:51] LABS: ANION GAP 4 MEQ/L (8-16); BLOOD UREA NITROGEN 12 MG/DL (7-18); CALCIUM LEVEL 8.5 MG/DL (8.8-10.2); CARBON DIOXIDE LEVEL 33 MEQ/L (21-32); CHLORIDE LEVEL 100 MEQ/L (98-107); CREATININE FOR GFR 0.85 MG/DL (0.70-1.30); GLOMERULAR FILTRATION RATE > 60.0 (>42); GLUCOSE, FASTING 102 MG/DL (70-100); POTASSIUM SERUM 4.3 MEQ/L (3.5-5.1); SODIUM LEVEL 137 MEQ/L (136-145)
[2018-05-31] MEDS: SLF 3 ML SYR IV ×4 (06:00→21:57)
[2018-05-31] MEDS: HEPARIN SOD (PORCINE) 5000 UNITS/ML VIAL SC ×3 (06:00→20:18)
[2018-05-31] MEDS: BUDESONIDE 0.5 MG/2 ML INHALATION SUSPENSION INH ×2 (07:28→21:25)
[2018-05-31] MEDS: ACETYLCYSTEINE 20% 4 ML VIAL (200MG/ML) INH ×2 (07:28→21:25)
[2018-05-31] MEDS: THEOPHYLLINE (THEO-24) 100MG SR **CAPSULE PO ×2 (08:39→20:19)
[2018-05-31] MEDS: VITAMIN D (CHOLECALCIFEROL) 400 INTERNATIONAL UNITS TAB PO (08:39)
[2018-05-31] MEDS: VITAMIN B COMPLEX/VIT C CAP PO (08:39)
[2018-05-31] MEDS: GABAPENTIN 400 MG CAP PO (08:40)
[2018-05-31] MEDS: PREGABALIN 100 MG CAP (LYRICA) PO ×2 (08:40→20:18)
[2018-05-31] MEDS: OMEGA-3 1000MG CAPSULE PO (08:40)
[2018-05-31] MEDS: CYANOCOBALAMIN 500 MCG TAB PO ×2 (08:40→20:19)
[2018-05-31] MEDS: predniSONE 20 MG TAB PO (08:40)
[2018-05-31] MEDS: hydrOXYzine 10 MG TAB PO ×2 (08:40→20:19)
[2018-05-31] MEDS: VENLAFAXINE **XR** 75MG CAPSULE PO ×2 (08:40→20:19)
[2018-05-31] MEDS: ASCORBIC ACID 500 MG TAB PO (08:40)
[2018-05-31] MEDS: PANTOPRAZOLE 40MG TAB (PROTONIX) PO (08:40)
[2018-05-31] MEDS: FERROUS GLUCONATE 324 MG TAB PO ×2 (08:41→20:19)
[2018-05-31] MEDS: MONTELUKAST 10 MG TAB PO (08:41)
[2018-05-31] MEDS: ROSUVASTATIN 10 MG TAB (CRESTOR) PO (17:10)
[2018-05-31] MEDS: ACETAMINOPHEN TAB 650MG DOSE (2X325MG) PO (17:10)
[2018-05-31] MEDS: tiZANidine 4 MG TAB PO (20:19)
[2018-06-01] MEDS: IPRATROPIUM 0.5MG/ALBUTEROL 2.5MG INH SOL UD 3ML (DUONEB)(J7620) NEB ×4 (01:06→11:13)
[2018-06-01] MEDS: FLUTICASONE PROP 0.05% NASAL SPRAY 16 GM (FLONASE) (02:08)
[2018-06-01] MEDS: PIPERACILLIN/TAZOBACTAM SOD 3.375 GM in D5W MINI-BAG PLUS 50 ML IV ×2 (02:09→08:13)
[2018-06-01] MEDS: VANCOMYCIN HCL 1,000 MG, VIAL MATE ADAPTER 1 EACH in D5W 250 ML IV (04:53)
[2018-06-01] MEDS: HEPARIN SOD (PORCINE) 5000 UNITS/ML VIAL SC (04:57)
[2018-06-01] MEDS: SLF 3 ML SYR IV (04:57)
[2018-06-01 06:40] LABS: HEMATOCRIT 31.1 % (42.0-52.0); HEMOGLOBIN 10.2 g/dl (13.5-17.5); MEAN CORPUSCULAR HEMOGLOBIN 31.8 pg (27.0-33.0); MEAN CORPUSCULAR HGB CONC 32.8 g/dl (32.0-36.5); MEAN CORPUSCULAR VOLUME 96.9 fl (80.0-96.0); PLATELET COUNT, AUTOMATED 293 10^3/uL (150-450); RED BLOOD COUNT 3.21 10^6/uL (4.30-6.10)
[2018-06-01 07:00] LABS: ANION GAP 5 MEQ/L (8-16); BLOOD UREA NITROGEN 13 MG/DL (7-18); CALCIUM LEVEL 9.1 MG/DL (8.8-10.2); CARBON DIOXIDE LEVEL 35 MEQ/L (21-32); CHLORIDE LEVEL 98 MEQ/L (98-107); CREATININE FOR GFR 1.04 MG/DL (0.70-1.30); GLOMERULAR FILTRATION RATE > 60.0 (>42); GLUCOSE, FASTING 112 MG/DL (70-100); POTASSIUM SERUM 3.7 MEQ/L (3.5-5.1); SODIUM LEVEL 138 MEQ/L (136-145)
[2018-06-01] MEDS: ACETYLCYSTEINE 20% 4 ML VIAL (200MG/ML) INH (07:20)
[2018-06-01] MEDS: BUDESONIDE 0.5 MG/2 ML INHALATION SUSPENSION INH (07:20)
[2018-06-01] MEDS: predniSONE 20 MG TAB PO (08:13)
[2018-06-01] MEDS: OMEGA-3 1000MG CAPSULE PO (08:13)
[2018-06-01] MEDS: hydrOXYzine 10 MG TAB PO (08:13)
[2018-06-01] MEDS: PREGABALIN 100 MG CAP (LYRICA) PO (08:13)
[2018-06-01] MEDS: VITAMIN D (CHOLECALCIFEROL) 400 INTERNATIONAL UNITS TAB PO (08:13)
[2018-06-01] MEDS: VITAMIN B COMPLEX/VIT C CAP PO (08:13)
[2018-06-01] MEDS: MONTELUKAST 10 MG TAB PO (08:13)
[2018-06-01] MEDS: FERROUS GLUCONATE 324 MG TAB PO (08:13)
[2018-06-01] MEDS: ASCORBIC ACID 500 MG TAB PO (08:13)
[2018-06-01] MEDS: GABAPENTIN 400 MG CAP PO (08:13)
[2018-06-01] MEDS: VENLAFAXINE **XR** 75MG CAPSULE PO (08:14)
[2018-06-01] MEDS: PANTOPRAZOLE 40MG TAB (PROTONIX) PO (08:14)
[2018-06-01] MEDS: CYANOCOBALAMIN 500 MCG TAB PO (08:15)
[2018-06-01] MEDS: THEOPHYLLINE (THEO-24) 100MG SR **CAPSULE PO (08:15)
== END 2018-06-01 12:10 | disposition home or self-care (01) | DRG 190 ==
LOC: M PCU 05-27 13:30 → M MS5PR 05-31 10:30 → M MS4PR 05-23 11:13 → M ED 14:27 → M ED INP 20:13
DX: J44.1 Chronic obstructive pulmonary disease with (acute) exacerbation (principal); J18.9 Pneumonia, unspecified organism; J96.21 Acute and chronic respiratory failure with hypoxia; J96.22 Acute and chronic respiratory failure with hypercapnia; K21.9 Gastro-esophageal reflux disease without esophagitis; D50.9 Iron deficiency anemia, unspecified; I27.20 Pulmonary hypertension, unspecified; J44.0 Chronic obstructive pulmonary disease with (acute) lower respiratory infection; Z87.891 Personal history of nicotine dependence; Z66 Do not resuscitate; Z99.81 Dependence on supplemental oxygen; Z79.899 Other long term (current) drug therapy

== ENCOUNTER → 2018-12-13 | Outpatient (REF) | payer MEDICARE ==
[~2018-12-13] MED LIST changes: -/ESOM40CA OR; -/TIOT18INH; -/TIOT18INH INH; -/WARF25TA OR; +ACET1TAB55 PO; +ALBU0.63 INH; +ALBU83IN INH; +COUM1TAB18 OR; +CRES40TA PO; +DALI1TAB2 PO; +DICL1GEL TOP; +DICY20TA11 PO; +FERR32TA PO; +FLON1SPR; -GABA-283 PO; +GABA-845 PO; +LEVO750T13 PO; +LIDO5TD TD; +LOVA40TA PO; -MOME50SP2; +MOME50SP2 NARES; +MONT10TA2 PO; +NEXI1CAP3 OR; +OCEA0.654; +OMEP-221 PO; -PANT40TA2 PO; +PANT40TA3 PO; +PRED10TA2 PO; +SPIR1CAP; +SPIR1CAP INH; +STIO1AER INH; +THEO1CAP4 PO; +THEO200T11 PO; +THEO300T13 PO; +TIZA4CAP PO; +TRAM100T21 PO; +VENL-115 PO; +VENL150C43 PO; +VENTAER INH; +VITA50005 PO; +VITA500T PO; +VITATAB11 PO
[2018-12-13 13:53] LABS: FERRITIN 128 NG/ML (26-388); IRON (FE) 41 UG/DL (65-175); TOTAL IRON BINDING CAPACITY 274 UG/DL (250-450); TOTAL PROTEIN 6.3 GM/DL (6.4-8.2)
[2018-12-13 13:55] LABS: VITAMIN B12 LEVEL 1160 PG/ML
[2018-12-18 14:26] LABS: ALBUMIN 3.92 GM/DL (3.29-5.55); ALBUMIN % 62.3 % (55.8-66.1); ALPHA-1-GLOBULINS 0.38 GM/DL (0.17-0.41); ALPHA-2-GLOBULINS 0.71 GM/DL (0.42-0.99); ALPHA-2-GLOBULINS % 11.3 % (7.1-11.8); BETA-1-GLOBULINS 0.35 GM/DL (0.28-0.60); BETA-1-GLOBULINS % 5.5 % (4.7-7.2); BETA-2-GLOBULINS 0.29 GM/DL (0.19-0.55); BETA-2-GLOBULINS % 4.6 % (3.2-6.5); GAMMA GLOBULIN % 10.3 % (11.1-18.8); GAMMA GLOBULINS 0.65 GM/DL (0.65-1.58)
== END ==
LOC: M LAB REF 12:21
PROVIDERS: ATTEND Internal Medicine
DX: D64.9 Anemia, unspecified (principal)

== ENCOUNTER → 2019-07-22 | Outpatient (REF) | payer MEDICARE | LOC: M LAB REF 16:39 | PROVIDERS: ATTEND Internal Medicine | DX: J96.11 Chronic respiratory failure with hypoxia (principal) ==

== ENCOUNTER 2019-09-24 14:49 | Inpatient (IN) | payer MEDICARE ==
[~2019-09-24] VITALS: Ht 172.7 cm; Wt 50.6 kg
[~2019-09-24 14:49] MED LIST changes: -MONT10TA2 PO; +MONT10TA4 PO
[2019-09-24 15:41] LABS: BASO # 0.1 10^3/uL (0.0-0.2); BASO % 0.9 % (0.0-1.0); EOS # 0.1 10^3/uL (0.0-0.5); EOS % 0.9 % (0.0-3.0); HEMOGLOBIN 10.8 g/dl (13.5-17.5); LYMPH # 1.2 10^3/uL (1.5-5.0); LYMPH % 15.4 % (24.0-44.0); MEAN CORPUSCULAR HEMOGLOBIN 33.1 pg (27.0-33.0); MEAN CORPUSCULAR HGB CONC 31.8 g/dl (32.0-36.5); MEAN CORPUSCULAR VOLUME 104.3 fl (80.0-96.0); MONO # 0.7 10^3/uL (0.0-0.8); MONO % 8.9 % (0.0-5.0); NEUTROPHILS # 5.6 10^3/uL (1.5-8.5); NEUTROPHILS % 73.6 % (36.0-66.0); PLATELET COUNT, AUTOMATED 238 10^3/uL (150-450); RED BLOOD COUNT 3.26 10^6/uL (4.30-6.10); WHITE BLOOD COUNT 7.5 10^3/uL (4.0-10.0)
[2019-09-24] MEDS ORDERED: COMBIVENT RESPIMAT 100-20MCG INHALER 4GM INH ONE (16:00)
[2019-09-24] MEDS ORDERED: IPRATROPIUM 0.5MG/ALBUTEROL 2.5MG INH SOL UD 3ML (DUONEB)(J7620) NEB ONE (16:00)
[2019-09-24] MEDS ORDERED: methylPREDNISolone INJ 125 MG/2 ML VIAL (J2930) IV ONE (16:00)
[2019-09-24 16:11] LABS: ALBUMIN 3.6 GM/DL (3.2-5.2); ALT/SGPT 16 U/L (12-78); BILIRUBIN,DIRECT 0.1 MG/DL (0.0-0.2); BILIRUBIN,TOTAL 0.4 MG/DL (0.2-1.0); BLOOD UREA NITROGEN 16 MG/DL (7-18); CALCIUM LEVEL 9.4 MG/DL (8.8-10.2); CARBON DIOXIDE LEVEL 39 MEQ/L (21-32); CHLORIDE LEVEL 98 MEQ/L (98-107); CREATININE FOR GFR 0.61 MG/DL (0.70-1.30); GLOMERULAR FILTRATION RATE > 60.0 (>42); GLUCOSE, FASTING 90 MG/DL (70-100); POTASSIUM SERUM 4.2 MEQ/L (3.5-5.1); SODIUM LEVEL 138 MEQ/L (136-145); TOTAL PROTEIN 6.6 GM/DL (6.4-8.2)
--- NOTE | 2019-09-24 17:16 | REP ---
CHEST, SINGLE VIEW: Single view of the chest is performed and compared to prior study 05/22/2018. Bilateral scattered fibrotic changes are stable. No definite superimposed acute infiltrate is seen. There is right apical focal pleural and parenchymal fibrosis which is stable. Heart is normal in size. There is mild calcification of the thoracic aorta. Mediastinal silhouette is unchanged. Metallic prosthesis of the right humerus is again noted. IMPRESSION: Stable chronic findings without evidence of superimposed acute infiltrate. Electronically Signed by Adolfo Gonzales MD 09/25/2019 09:25 A
[2019-09-24] MEDS ORDERED: B-12100020 PO (17:25)
[2019-09-24] MEDS ORDERED: THEO1CAP4 PO (17:25)
[2019-09-24] MEDS ORDERED: VITAD400CA PO (17:25)
[2019-09-24] MEDS ORDERED: DICY10CA13 PO (17:25)
[2019-09-24] MEDS ORDERED: LORA-622 PO (17:25)
[2019-09-24] MEDS ORDERED: TRAM50TA2 PO (17:25)
[2019-09-24] MEDS ORDERED: VITA50005 PO (17:25)
[2019-09-24] MEDS ORDERED: ARIP1TAB10 PO (17:29)
[2019-09-24] MEDS ORDERED: ASMA220A INH (17:29)
[2019-09-24] MEDS ORDERED: NYST50SS SS (17:29)
[2019-09-24] MEDS ORDERED: FLOM0.4C39 PO (17:29)
[2019-09-24] MEDS ORDERED: hydrOXYzine 10 MG TAB PO PRN (17:45)
[2019-09-24] MEDS ORDERED: SODIUM CHLORIDE NASAL 0.65% SPRAY BTL (OCEAN) PRN (17:45)
--- NOTE | 2019-09-24 18:19 | HPEPDOC ---
[facility] Medical History & Physical Date of Admission Sep 24, 2019 Date of Service: Sep 24, 2019 Attending Physician: Annette Fields MD History and Physical CHIEF COMPLAINT: Shortness of breath HISTORY OF PRESENT ILLNESS: Patient is a 79-year-old male with past nuchal history of chronic respiratory fa ilure secondary to COPD on 3-4 L nasal cannula, history of tobacco use, history of a stress dose exposure, chronic low back pain, anxiety, depression, BPH who presented to [facility] with a chief complaint of increased shortness of breath since 08/20/2019. The patient stated that he began having increased work of breathing, some anterior chest pain along with feeling weaker since the time of onset. Chest pain is described as anterior, nonradiating to the neck or down the arm, 2-3 out of 10 at worst, dull in character. Alleviating factors include rest. Pain is worsened with coughing. He states he's felt this way several times over the past several years and has needed antibiotics to feel better. He complains of coughing up a brownyellow sputum intermittently over the past one month. His cough is not new; however, the amount of sputum that he has been producing is. He was prescribed antibiotics for this and it helped get rid of it. It returned shortly after he stopped antibiotics. He denies fevers, chills, sick contacts, recent travel, diarrhea, nausea, abdominal pain. He hasn't left his house in a month and a half. The patient went to see his primary care provider today who found an oxygen level high 70s. He was then sent to the emergency room for further evaluation. In the emergency room the patient was found to have a temperature of 90.8, pulse 73, blood pressure 144/71, respiratory rate 20, O2 sat 88% on 3 L nasal cannula. He was given high dose methylprednisolone, duo nebs but the patient states that he did not get much relief from this. He did not appear in acute distress. When attempted to be walked the patient desaturated again on 4 L to below 90%. The patient admitted to being weaker than normal and complained of some dizziness. On examination the patient had poor movement of air bilaterally, wheezing and scattered rhonchi throughout both lung almaraz. The patient was admitted as acute inpatient for acute on chronic respiratory failure, acute COPD exacerbation. REVIEW OF SYSTEMS: CONSTITUTIONAL: Denies unexplained weight gain or weight loss, loss of appetite, fever, night sweats EYES: Denies eye drainage, eye pain, visual changes, dry/irritated eye EARS, NOSE, MOUTH, THROAT: Denies difficulty hearing, ringing in ears, mouth sores, loose teeth, sore throat, facial numbness or pain NECK: Denies swollen glands CARDIOVASCULAR: Denies irregular heartbeat, racing heart, chest pains, swelling of feet or legs, pain in legs with walking RESPIRATORY: Deniesnight sweats, coughing up blood GASTROINTESTINAL: Denies abdominal pain, constipation, bloody stool, diarrhea, heartburn, nausea, vomiting GENITOURINARY: Denies painful urination, bloody urine, frequent urination, urgency, leaking urine, impotence MUSCULOSKELETAL: Denies joint pain, muscle pain, leg swelling INTEGUMENTARY: Denies rash, itching, new skin lesion, change in existing skin lesion, hair loss or increase, breast changes. NEUROLOGICAL: Denies headaches, numbness or tingling PSYCHIATRIC: Denies depression, anxiety, recurrent bad thoughts, mood swings, hallucinations PAST MEDICAL HISTORY: 1. COPD on 34 liters nasal cannula at baseline 2. Chronic respiratory failure 3. History of tobacco use 4. History of asbestos exposure 5. Anxiety 6. Depression 7. PTSD PAST SURGICAL HISTORY: 1. Right shoulder surgery 2. Left hip surgery FAMILY HISTORY: Father: Not much is known about his father in general Mother: Heart murmur, at 88 years old Siblings: Brothercancer, alive. Sister.cancer, alive. SOCIAL HISTORY: Smoker of one pack per day for 63 years, quit in August 2019. He currently uses nicotine patch. The patient denies alcohol or drug use. He lives alone in [place]. He is a DNR/DNI. ALLERGIES: No known drug allergies. HOME MEDICATIONS: Please see below. PHYSICAL EXAMINATION: CONSTITUTIONAL: No acute distress, resting comfortably, AAO x 3 EYES: PERRLA, EOM intact, corrective lenses are in place HENT, MOUTH: Normocephalic, atraumatic, moist mucous membranes, nasal cannula in place NECK: SUPPLE, no JVD, no lymphadenopathy, no carotid bruit CV: Regular rate and rhythm, S1S2 normal, no murmurs/rubs/gallops RESPIRATORY: Rhonchi bilaterally, expiratory wheezing bilaterally, decreased breath sounds bilaterally GI: BS positive in 4 quadrants, soft, nontender, nondistended, no rebound or guarding, no organomegaly : Deferred MUSCULOSKELETAL: Normal ROM. No cyanosis, clubbing, swelling, joint deformity, extremity edema INTEGUMENTARY: Intact, no rashes, no lesions, no erythema NEUROLOGIC: Cranial Nerves II-XII are intact, no focal deficits PSYCHIATRIC: Mood and affect are normal LABORATORY DATA: Please see below IMAGING: Chest x-ray: Stable chronic findings without evidence of superimposed acute infiltrate. ASSESSMENT: 79-year-old male admitted under inpatient status for acute on chronic respiratory failure, acute COPD exacerbation. PLAN: 1. Acute on chronic respiratory failure secondary to COPD exacerbation. C urrently saturating the low 90s on 4 L nasal cannula, status post DuoNeb treatments and methylprednisolone IV. Continue with supplemental oxygen, ceftriaxone, azithromycin, DuoNeb's around the clock, albuterol PRN, montelukast, theophylline, acapella Q2hrs while awake, sputum culture and respiratory ordered. Contact and droplet isolation. 2. COPD, GOLD 4. Please see above for treatment of exacerbation. Do not have home daliresp, mometasone to restart here. 3. Depression/Anxiety/PTSD. Stable. C/w home medications. 4. BPH. C/w tamsulosin. 5. Vitamin D deficiency. C/w home supplements. 6. GERD. PPI. 7. Iron deficiency anemia. C/w supplementation. 8. HLD. C/w statin. 9. Vitamin B12 deficiency. C/w supplementation. 10. DVT px. Enoxaparin SC daily. DISPOSITION: Admitted under inpatient status. Plan is discharge home when medically stable. Vital Signs Vital Signs Date Time Temp Pulse Resp B/P (MAP) Pulse Ox O2 Delivery O2 Flow Rate FiO2 09/24/19 16:16 91 Nasal Cannula 09/24/19 15:58 74 18 09/24/19 15:25 09/24/19 15:25 4.0 09/24/19 14:49 98.8 Laboratory Data Labs 24H Laboratory Tests 2 09/24/19 15:24: Immature Granulocyte % (Auto) 0.3, Neutrophils (%) (Auto) 73.6H, Lymphocytes (%) (Auto) 15.4L, Monocytes (%) (Auto) 8.9H, Eosinophils (%) (Auto) 0.9, Basophils (%) (Auto) 0.9, Neutrophils # (Auto) 5.6, Lymphocytes # (Auto) 1.2L, Monocytes # (Auto) 0.7, Eosinophils # (Auto) 0.1, Basophils # (Auto) 0.1, Nucleated Red Blood Cells % (auto) 0.0, Anion Gap 1L, Glomerular Filtration Rate > 60.0, Calcium Level 9.4, Total Bilirubin 0.4, Direct Bilirubin 0.1, Aspartate Amino Transf (AST/SGOT) 15, Alanine Aminotransferase (ALT/SGPT) 16, Alkaline Phosphatase 69, Total Protein 6.6, Albumin 3.6, Albumin/Globulin Ratio 1.20 CBC/BMP Laboratory Tests 09/24/19 15:24 Microbiology Microbiology 09/24/19 Blood Culture, Received Pending Home Medications Scheduled Aripiprazole (Aripiprazole) 15 Mg Tablet, 7.5 MG PO QPM Cyanocobalamin (Vitamin B-12) (B-12) 1,000 Mcg Tablet, 1,000 MCG PO BID Dicyclomine HCl (Dicyclomine HCl) 10 Mg Capsule, 10 MG PO BID WITH BREAKFAST AND DINNER Ergocalciferol (Vitamin D2) (Vitamin D2) 50,000 Units Cap, 50,000 UNITS PO Q2WK TAKES 1ST AND 15TH Ferrous Gluconate (Ferrous Gluconate) 324 Mg Tab, 324 MG PO BID Fluticasone Propionate (Flonase Allergy Relief) 50 Mcg/Act Spr, 2 SPRAYS NA QHS Gabapentin (Gabapentin) 400 Mg Cap, 400 MG PO DAILY Loratadine (Loratadine) 10 Mg Tablet, 10 MG PO DAILY Mometasone Furoate (Asmanex) 220 Mcg Aer.pow.ba, 2 PUFF INH BID Montelukast Sodium (Montelukast Sodium) 10 Mg Tab, 10 MG PO DAILY Terrell-3 Fatty Acids/Fish Oil (Fish Oil 1,000 mg Capsule) 1,000 Mg Cap, 2,000 MG PO DAILY Omeprazole (Omeprazole) 40 Mg Cap, 40 MG PO DAILY Pregabalin (Lyrica) 100 Mg Cap, 100 MG PO BID Roflumilast (Daliresp) 500 Mcg Tab, 500 MCG PO DAILY Rosuvastatin Calcium (Crestor) 40 Mg Tab, 40 MG PO QPM DINNERTIME Tamsulosin HCl (Flomax) 0.4 Mg Capsule, 0.4 MG PO QHS Theophylline Anhydrous (Neil-24) 300 Mg Cap.er.24h, 300 MG PO BID Tiotropium Br/Olodaterol HCl (Stiolto Respimat Inhal Toone) 1 Aer Aer, 2 PUFFS INH DAILY Venlafaxine HCl (Venlafaxine HCl ER) 150 Mg Cap, 150 MG PO QHS Vitamin D (Vitamin D3) 10 Mcg Tablet, 800 UNIT PO DAILY Scheduled PRN Albuterol Sulf (Albuterol Sulfate) 2.5 Mg/3 Ml Nebu, 2.5 MG INH Q6H PRN for ESTHER RTNESS OF BREATH Albuterol Sulfate (Ventolin Hfa) 108 Mcg/Act Aer, 2 PUFFS INH Q4H PRN for SHORTNESS OF BREATH Hydroxyzine HCl (Hydroxyzine HCl) 10 Mg Tab, 10 MG PO BID PRN for ANXIETY Lidocaine (Lidocaine) 5 % Pad, 1 PATCH TD DAILY PRN for PAIN APPLIES TO BACK Nystatin (Nystatin Oral Susp) 100,000 Unit/1 Ml Oral.susp, 5 ML SS TID PRN for THRUSH Sodium Chloride ([place]) 0.65 % Spr, 2 SPRAY NA QID PRN for NASAL DRYNESS EACH NOSTRIL Tramadol HCl (Tramadol HCl) 50 Mg Tablet, 100 MG PO DAILY PRN for PAIN Allergies Coded Allergies: No Known Allergies (Unverified , 09/24/19) A-FIB/CHADSVASC A-FIB History Current/History of A-Fib/PAF?: No Current PO Anticoag Therapy: No Age/Risk Factor Scoring CHADSVASC: CHADSVASC Response (Comments) Value Age Risk Factor Age >/= 75 years old 2 Gender Risk Factor Male 0 Hx of CHF No 0 Hx of HTN No 0 Hx of Stroke/TIA/or VTE No 0 Hx of Diabetes No 0 Hx of Vascular Disease No 0 Total 2 Treatment Other anticoagulant ordered: enoxaparin Annette Fields MD Sep 24, 2019 18:19
[2019-09-24 18:23] VITALS: BP 148/83
[2019-09-24 18:40] VITALS: O2SAT 97
[2019-09-24 18:42] LABS: FERRITIN 116 NG/ML (26-388); LDH LACTATE DEHYDROGENASE 154 U/L (87-241)
[2019-09-24] MEDS: NS 1,000 ML IV SCH (19:00)
[2019-09-24] MEDS: NICOTINE 14 MG/24 HR TRANSDERMAL TD SCH (19:08)
[2019-09-24] MEDS: ENOXAPARIN 30 MG/0.3 ML SYR (J1650) SC SCH (19:08)
[2019-09-24] MEDS: cefTRIAXone SOD 1 GM in D5W MINI-BAG PLUS 50 ML IV SCH (19:08)
[2019-09-24] MEDS: IPRATROPIUM 0.5MG/ALBUTEROL 2.5MG INH SOL UD 3ML (DUONEB)(J7620) NEB SCH (19:46)
[2019-09-24] MEDS: **NOTE PATIENT COMMENT** MISC XX SCH (21:00)
[2019-09-24] MEDS: AZITHROMYCIN INJ 500 MG, VIAL MATE ADAPTER 1 EACH in D5W 250 ML IV SCH (21:20)
[2019-09-24] MEDS: CYANOCOBALAMIN 500 MCG TAB PO SCH (21:21)
[2019-09-24] MEDS: FERROUS GLUCONATE 324 MG TAB PO SCH (21:21)
[2019-09-24] MEDS: THEOPHYLLINE (THEO-24) 100MG SR **CAPSULE PO SCH (21:21)
[2019-09-24] MEDS: PREGABALIN 100 MG CAP (LYRICA) PO SCH (21:21)
[2019-09-24] MEDS: ROSUVASTATIN 10 MG TAB (CRESTOR) PO SCH (21:21)
[2019-09-24] MEDS: TAMSULOSIN 0.4 MG CAP PO SCH (21:21)
[2019-09-24] MEDS: VENLAFAXINE **XR** 75MG CAPSULE PO SCH (21:21)
[2019-09-24] MEDS: FLUTICASONE PROP 0.05% NASAL SPRAY 16 GM (FLONASE) NARES SCH (21:22)
[2019-09-24] MEDS: traMADol 50 MG TAB PO PRN (21:23)
[2019-09-24 22:00] VITALS: BP 122/79; O2SAT 97
[2019-09-24] MEDS: ALBUTEROL SULFATE 2.5 MG/0.5 ML INH NEB SOLN NEB PRN (23:30)
[2019-09-25] MEDS: methylPREDNISolone INJ 125 MG/2 ML VIAL (J2930) IV SCH ×4 (00:39→23:35)
[2019-09-25] MEDS: IPRATROPIUM 0.5MG/ALBUTEROL 2.5MG INH SOL UD 3ML (DUONEB)(J7620) NEB SCH ×4 (03:08→19:43)
[2019-09-25] MEDS: ALBUTEROL SULFATE 2.5 MG/0.5 ML INH NEB SOLN NEB PRN ×2 (05:35→23:51)
[2019-09-25 06:00] VITALS: BP 126/75
[2019-09-25 06:00] LABS: HEMOGLOBIN 10.4 g/dl (13.5-17.5); MEAN CORPUSCULAR HEMOGLOBIN 31.8 pg (27.0-33.0); MEAN CORPUSCULAR HGB CONC 31.5 g/dl (32.0-36.5); MEAN CORPUSCULAR VOLUME 100.9 fl (80.0-96.0); PLATELET COUNT, AUTOMATED 237 10^3/uL (150-450); RED BLOOD COUNT 3.27 10^6/uL (4.30-6.10); WHITE BLOOD COUNT 4.4 10^3/uL (4.0-10.0)
[2019-09-25 06:28] LABS: ALBUMIN 3.3 GM/DL (3.2-5.2); ALT/SGPT 17 U/L (12-78); BILIRUBIN,TOTAL 0.3 MG/DL (0.2-1.0); BLOOD UREA NITROGEN 16 MG/DL (7-18); CALCIUM LEVEL 8.9 MG/DL (8.8-10.2); CARBON DIOXIDE LEVEL 38 MEQ/L (21-32); CHLORIDE LEVEL 97 MEQ/L (98-107); CREATININE FOR GFR 0.61 MG/DL (0.70-1.30); GLOMERULAR FILTRATION RATE > 60.0 (>42); GLUCOSE, FASTING 131 MG/DL (70-100); SODIUM LEVEL 137 MEQ/L (136-145); TOTAL PROTEIN 6.3 GM/DL (6.4-8.2); TROPONIN I < 0.02 NG/ML (< 0.10)
[2019-09-25] MEDS: NS 1,000 ML IV SCH ×2 (08:16→18:46)
[2019-09-25] MEDS: CYANOCOBALAMIN 500 MCG TAB PO SCH ×2 (08:17→20:58)
[2019-09-25] MEDS: DICYCLOMINE 10 MG CAP PO SCH ×2 (08:17→17:20)
[2019-09-25] MEDS: THEOPHYLLINE (THEO-24) 100MG SR **CAPSULE PO SCH ×2 (08:17→20:58)
[2019-09-25] MEDS: ENOXAPARIN 30 MG/0.3 ML SYR (J1650) SC SCH (08:17)
[2019-09-25] MEDS: VITAMIN D (CHOLECALCIFEROL) 400 INTERNATIONAL UNITS TAB PO SCH (08:17)
[2019-09-25] MEDS: GABAPENTIN 400 MG CAP PO SCH (08:17)
[2019-09-25] MEDS: OMEPRAZOLE 20 MG CAP PO SCH (08:17)
[2019-09-25] MEDS: PREGABALIN 100 MG CAP (LYRICA) PO SCH ×2 (08:17→20:58)
[2019-09-25] MEDS: LORATADINE 10 MG TAB PO SCH (08:17)
[2019-09-25] MEDS: MONTELUKAST 10 MG TAB PO SCH (08:17)
[2019-09-25] MEDS: FERROUS GLUCONATE 324 MG TAB PO SCH ×2 (08:17→20:58)
[2019-09-25] MEDS: NICOTINE 14 MG/24 HR TRANSDERMAL TD SCH (08:18)
[2019-09-25] MEDS: LIDOCAINE 5% (LIDODERM) PATCH TD SCH (08:18)
--- NOTE | 2019-09-25 10:32 | ECGEPIP ---
[facility] - ED Test Date: 2019-09-24 Pat Name: ROSALIND CASE Department: Room: - Gender: Male Lamp Inspector: ARNULFO : 1940 Requested By: REG JOVEL Order Number: [id number] Reading MD: Hieu Gomes Measurements Intervals [place] Rate: 65 P: 78 CO: 154 QRS: 66 QRSD: 76 T: 78 QT: 368 QTc: 383 Interpretive Statements SINUS RHYTHM RATE CHANGE COMPARED TO 05/23/18 Electronically Signed on 09-25-2019 10:32:20 EDT by Hieu Gomes
[2019-09-25 14:00] VITALS: BP 114/59
--- NOTE | 2019-09-25 18:06 | IPNPDOC ---
Date Seen The patient was seen on 09/25/19. Progress Note SUBJECTIVE: Patient is currently on home O2 at 3 L NC; however, remains rhonchorous. Physical therapy evaluate him today and found him unsafe to return home at this current time. He has home health aides 2 times a week for 2 hours but they feel he would benefit from continued rehabilitation prior to returning home pending progress. The patient appears more comfortable sitting at the bedside chair this morning and denies chest pain, increased shortness of breath, nausea, vomiting, cough. OBJECTIVE: VITAL SIGNS: Please see below PHYSICAL EXAMINATION: CONSTITUTIONAL: No acute distress, resting comfortably at bedside chair, AAO x 3 EYES: PERRLA, EOM intact, corrective lenses are in place HENT, MOUTH: Normocephalic, atraumatic, moist mucous membranes, nasal cannula in place NECK: SUPPLE, no JVD, no lymphadenopathy, no carotid bruit CV: Regular rate and rhythm, S1S2 normal, no murmurs/rubs/gallops RESPIRATORY: Rhonchi bilaterally-improved from admission, expiratory wheezing bilaterally mild, decreased breath sounds bilaterally GI: BS positive in 4 quadrants, soft, nontender, nondistended, no rebound or guarding, no organomegaly : Deferred MUSCULOSKELETAL: Normal ROM. No cyanosis, clubbing, swelling, joint deformity, extremity edema INTEGUMENTARY: Intact, no rashes, no lesions, no erythema NEUROLOGIC: Cranial Nerves II-XII are intact, no focal deficits PSYCHIATRIC: Mood and affect are normal LABORATORY DATA: Please see below IMAGING: No new imaging. ASSESSMENT: 79-year-old male admitted under inpatient status for acute on chronic respiratory failure, acute COPD exacerbation. PLAN: 1. Acute on chronic respiratory failure secondary to COPD exacerbation. Resp panel neg. Currently saturating well on 3 L nasal cannula. Continue with supplemental oxygen, ceftriaxone, azithromycin, DuoNeb's around the clock, albuterol PRN, montelukast, theophylline, acapella Q2hrs while awake. 2. COPD exacerbation, GOLD 4. Please see above for treatment of exacerbation. Consider deescalating steroids in the AM if further improved. Do not have home daliresp, mometasone to restart here. 3. Physical deconditioning. Would benefit from continued inpatient rehab services. PT/OT. 4. Depression/Anxiety/PTSD. Stable. C/w home medications. 5. BPH. C/w tamsulosin. 6. Vitamin D deficiency. C/w home supplements. 7. GERD. PPI. 8. Iron deficiency anemia. C/w supplementation. 9. HLD. C/w statin. 10. Vitamin B12 deficiency. C/w supplementation. 11. DVT px. Enoxaparin SC daily. DISPOSITION: Admitted under inpatient status. Plan is discharge home when me dically stable. VS, I&O, 24H, Fishbone Vital Signs/I&O Vital Signs Date Time Temp Pulse Resp B/P (MAP) Pulse Ox O2 Delivery O2 Flow Rate FiO2 09/25/19 14:00 97.9 80 20 114/59 (77) 98 Nasal Cannula 3.0 I&O- Last 24 Hours up to 6 AM 09/25/19 06:00 Intake Total 1610 ml Output Total 1050 ml Balance 560 ml Laboratory Data 24H LABS Laboratory Tests 2 09/24/19 20:33: Troponin I < 0.02 09/25/19 05:37: Troponin I < 0.02, Nucleated Red Blood Cells % (auto) 0.0, Anion Gap 2L, Glomerular Filtration Rate > 60.0, Calcium Level 8.9, Total Bilirubin 0.3, Aspartate Amino Transf (AST/SGOT) 16, Alanine Aminotransferase (ALT/SGPT) 17, Al kaline Phosphatase 67, Total Protein 6.3L, Albumin 3.3, Albumin/Globulin Ratio 1.10 CBC/BMP Laboratory Tests 09/25/19 05:37 Microbiology Microbiology 09/24/19 Respiratory Virus Panel (PCR) (LORY) - Final, Complete 09/24/19 Blood Culture - Preliminary, Resulted No growth after 24 hours . All specim... Current Medications Current Medications Medications (Trade) Dose Ordered Sig/Nelson Route PRN Reason Start Time Stop Time Status Last Admin Dose Admin Albuterol Sulfate (Proventil Neb) 2.5 mg Q2HP PRN NEB SOB/WHEEZING 09/24/19 17:45 09/25/19 05:35 Albuterol/ Ipratropium (Duoneb (Ipr 0.5mg/Alb 2.5mg)) 3 ml RQ6H NEB 09/24/19 20:00 09/25/19 14:34 Azithromycin 500 mg/IV Miscellaneous Supplies 1 each/ Dextrose 255 ml @ 255 mls/hr Q24H IV 09/24/19 20:00 09/24/19 21:20 Ceftriaxone Sodium 1 gm/ Dextrose 50 ml @ 100 mls/hr Q24H IV 09/24/19 19:00 09/24/19 19:08 Cyanocobalamin (Vitamin B12) 1,000 mcg BID PO 09/24/19 21:00 09/25/19 08:17 Dicyclomine HCl (Bentyl) 10 mg BIDWM PO 09/25/19 08:00 09/25/19 17:20 Enoxaparin Sodium (Lovenox) 30 mg DAILY SC 09/24/19 09:00 09/25/19 08:17 Ferrous Gluconate (Fergon) 324 mg BID PO 09/24/19 21:00 09/25/19 08:17 Fluticasone Propionate (Flonase 0.05% Nasal [place]) 2 spray QHS NARES 09/24/19 21:00 09/24/19 21:22 Gabapentin (Neurontin) 400 mg DAILY PO 09/25/19 09:00 09/25/19 08:17 Home Med (Med Rec Complete!) ASDIRECTED XX 09/24/19 17:30 09/24/19 17:31 DC Hydroxyzine HCl (Atarax) 10 mg BIDP PRN PO ANXIETY/AGITATION 09/24/19 17:45 Lidocaine (Lidoderm Patch) 1 patch DAILY TD 09/25/19 09:00 09/25/19 08:18 Loratadine (Claritin) 10 mg DAILY PO 09/25/19 09:00 09/25/19 08:17 Methylprednisolone (SOLUmedrol) 60 mg Q8H IV 09/25/19 00:00 09/25/19 17:20 Montelukast Sodium (Singulair) 10 mg DAILY PO 09/25/19 09:00 09/25/19 08:17 Nicotine (Nicoderm Cq 14mg) 1 patch DAILY TD 09/24/19 09:00 09/25/19 08:18 Non-Formulary Medication ( See Comment Field Below ) REMOVE LIDODERM PATCH DAILY@21 XX 09/24/19 21:00 Omeprazole (PriLOSEC) 40 mg DAILY PO 09/25/19 09:00 09/25/19 08:17 Pregabalin (Lyrica) 100 mg BID PO 09/24/19 21:00 09/25/19 08:17 Rosuvastatin Calcium (Crestor) 40 mg QHS PO 09/24/19 21:00 09/24/19 21:21 Sodium Chloride 1,000 ml @ 80 mls/hr [id number] IV 09/24/19 17:45 09/25/19 08:16 Sodium Chloride ([place] Nasal [place]) 2 spray Q6HP PRN NA NASAL DRYNESS 09/24/19 17:45 Tamsulosin HCl (Flomax) 0.4 mg QHS PO 09/24/19 21:00 09/24/19 21:21 Theophylline (Neil-24) 300 mg BID PO 09/24/19 21:00 09/25/19 08:17 Tramadol HCl (Ultram) 100 mg DAILYPRN PRN PO PAIN OR DISCOMFORT 09/24/19 17:45 09/24/19 21:23 Venlafaxine HCl (Effexor Xr) 150 mg QHS PO 09/24/19 21:00 09/24/19 21:21 Vitamin D (Drisdol) 50,000 units Q14D@09 PO 10/02/19 09:00 Vitamin D (Vitamin D) 800 units DAILY PO 09/25/19 09:00 09/25/19 08:17 Allergies Coded Allergies: No Known Allergies (Unverified , 09/24/19) Annette Fields MD Sep 25, 2019 18:06
[2019-09-25] MEDS: cefTRIAXone SOD 1 GM in D5W MINI-BAG PLUS 50 ML IV SCH (18:45)
[2019-09-25] MEDS: AZITHROMYCIN INJ 500 MG, VIAL MATE ADAPTER 1 EACH in D5W 250 ML IV SCH (20:57)
[2019-09-25] MEDS: TAMSULOSIN 0.4 MG CAP PO SCH (20:58)
[2019-09-25] MEDS: VENLAFAXINE **XR** 75MG CAPSULE PO SCH (20:58)
[2019-09-25] MEDS: FLUTICASONE PROP 0.05% NASAL SPRAY 16 GM (FLONASE) NARES SCH (20:58)
[2019-09-25] MEDS: ROSUVASTATIN 10 MG TAB (CRESTOR) PO SCH (20:58)
[2019-09-25] MEDS: **NOTE PATIENT COMMENT** MISC XX SCH (20:59)
[2019-09-25] MEDS: traMADol 50 MG TAB PO PRN (21:00)
[2019-09-25 22:00] VITALS: BP 128/74; O2SAT 96
[2019-09-25] MEDS: guaiFENesin ER 600 MG TAB PO SCH (23:35)
[2019-09-26] MEDS: IPRATROPIUM 0.5MG/ALBUTEROL 2.5MG INH SOL UD 3ML (DUONEB)(J7620) NEB SCH ×2 (02:29→07:59)
[2019-09-26 06:00] VITALS: BP 130/78
[2019-09-26 06:09] LABS: HEMATOCRIT 29.4 % (42.0-52.0); HEMOGLOBIN 9.5 g/dl (13.5-17.5); MEAN CORPUSCULAR HEMOGLOBIN 32.2 pg (27.0-33.0); MEAN CORPUSCULAR HGB CONC 32.3 g/dl (32.0-36.5); MEAN CORPUSCULAR VOLUME 99.7 fl (80.0-96.0); PLATELET COUNT, AUTOMATED 235 10^3/uL (150-450); RED BLOOD COUNT 2.95 10^6/uL (4.30-6.10); WHITE BLOOD COUNT 10.3 10^3/uL (4.0-10.0)
[2019-09-26 06:32] LABS: ALBUMIN 3.4 GM/DL (3.2-5.2); ALT/SGPT 16 U/L (12-78); BILIRUBIN,TOTAL 0.2 MG/DL (0.2-1.0); BLOOD UREA NITROGEN 21 MG/DL (7-18); CALCIUM LEVEL 8.7 MG/DL (8.8-10.2); CARBON DIOXIDE LEVEL 36 MEQ/L (21-32); CHLORIDE LEVEL 98 MEQ/L (98-107); CREATININE FOR GFR 0.67 MG/DL (0.70-1.30); GLOMERULAR FILTRATION RATE > 60.0 (>42); GLUCOSE, FASTING 120 MG/DL (70-100); POTASSIUM SERUM 3.9 MEQ/L (3.5-5.1); SODIUM LEVEL 138 MEQ/L (136-145); TOTAL PROTEIN 6.2 GM/DL (6.4-8.2)
[2019-09-26] MEDS: NS 1,000 ML IV SCH (08:12)
[2019-09-26] MEDS: NICOTINE 14 MG/24 HR TRANSDERMAL TD SCH (08:12)
[2019-09-26] MEDS: THEOPHYLLINE (THEO-24) 100MG SR **CAPSULE PO SCH (08:13)
[2019-09-26] MEDS: LIDOCAINE 5% (LIDODERM) PATCH TD SCH (08:13)
[2019-09-26] MEDS: VITAMIN D (CHOLECALCIFEROL) 400 INTERNATIONAL UNITS TAB PO SCH (08:13)
[2019-09-26] MEDS: ENOXAPARIN 30 MG/0.3 ML SYR (J1650) SC SCH (08:13)
[2019-09-26] MEDS: FERROUS GLUCONATE 324 MG TAB PO SCH (08:14)
[2019-09-26] MEDS: LORATADINE 10 MG TAB PO SCH (08:14)
[2019-09-26] MEDS: DICYCLOMINE 10 MG CAP PO SCH (08:14)
[2019-09-26] MEDS: PREGABALIN 100 MG CAP (LYRICA) PO SCH (08:14)
[2019-09-26] MEDS: CYANOCOBALAMIN 500 MCG TAB PO SCH (08:14)
[2019-09-26] MEDS: guaiFENesin ER 600 MG TAB PO SCH (08:14)
[2019-09-26] MEDS: MONTELUKAST 10 MG TAB PO SCH (08:14)
[2019-09-26] MEDS: GABAPENTIN 400 MG CAP PO SCH (08:14)
[2019-09-26] MEDS: OMEPRAZOLE 20 MG CAP PO SCH (08:14)
[2019-09-26] MEDS ORDERED: predniSONE 20 MG TAB PO SCH (09:00)
[2019-09-26] MEDS: traMADol 50 MG TAB PO PRN (09:40)
[2019-09-26] MEDS ORDERED: NICO14PA TD (10:26)
[2019-09-26] MEDS ORDERED: PRED20TA PO (10:26)
--- NOTE | 2019-09-26 14:51 | DS.PDOC ---
Discharge Summary General Date of Admission Sep 24, 2019 at 17:13 Date of Discharge 09/26/19 Primary Care Physician: A Attending Physician: Annette Fields MD Discharge Summary HISTORY OF PRESENT ILLNESS: Patient is a 79-year-old male with past nuchal history of chronic respiratory failure secondary to COPD on 3-4 L nasal cannula, history of tobacco use, history of a stress dose exposure, chronic low back pain, anxiety, depression, BPH who presented to [facility] with a chief complaint of increased shortness of breath since 08/20/2019. The patient stated that he began having increased work of breathing, some anterior chest pain along with feeling weaker since the time of onset. Chest pain is described as anterior, nonradiating to the neck or down the arm, 2-3 out of 10 at worst, dull in character. Alleviating factors include rest. Pain is worsened with coughing. He states he's felt this way several times over the past several years and has needed antibiotics to feel better. He complains of coughing up a brownyellow sputum intermittently over the past one month. His cough is not new; however, the amount of sputum that he has been producing is. He was prescribed antibiotics for this and it helped get rid of it. It returned shortly after he stopped antibiotics. He denies fevers, chills, sick contacts, recent travel, diarrhea, nausea, abdominal pain. He hasn't left his house in a month and a half. The patient went to see his primary care provider today who found an oxygen level high 70s. He was then sent to the emergency room for further evaluation. In the emergency room the patient was found to have a temperature of 90.8, pulse 73, blood pressure 144/71, respiratory rate 20, O2 sat 88% on 3 L nasal cannula. He was given high dose methylprednisolone, duo nebs but the patient states that he did not get much relief from this. He did not appear in acute distress. When attempted to be walked the patient desaturated again on 4 L to below 90%. The patient admitted to being weaker than normal and complained of some dizziness. On examination the patient had poor movement of air bilaterally, wheezing and scattered rhonchi throughout both lung almaraz. The patient was admitted as acute inpatient for acute on chronic respiratory failure, acute COPD exacerbation. HOSPITAL COURSE: The patient continued with IV steroids for 48 hours. He was later transitioned to oral prednisone 60 mg daily. He was assessed by physical therapy who felt him to be unsafe to return back to his independent living situation. Recommended continued rehabilitation. He was brought down from 4 L to 3 L within 24 hours of his hospitalization, this is his home amount of oxygen. According to his daughter the patient does have some memory loss at times but is not having diagnosis of dementia at baseline. We have noticed him slightly confused during his hospital stay here; however, we cannot rule out this is secondary to high- dose steroids administration. Due to the patient's marked improvement during his hospital stay, the decision was made to discharge him to [facility] for continued rehabiliation and treatment. At the time of discharge the patient denied any increased shortness of breath, chest pain, nausea, vomiting, fevers or chills. REVIEW OF SYSTEMS: CONSTITUTIONAL: Denies unexplained weight gain or weight loss, loss of appetite, fever, night sweats EYES: Denies eye drainage, eye pain, visual changes, dry/irritated eye EARS, NOSE, MOUTH, THROAT: Denies difficulty hearing, ringing in ears, mouth sores, loose teeth, sore throat, facial numbness or pain NECK: Denies swollen glands CARDIOVASCULAR: Denies irregular heartbeat, racing heart, chest pains, swelling of feet or legs, pain in legs with walking RESPIRATORY: Denies night sweats, coughing up blood GASTROINTESTINAL: Denies abdominal pain, constipation, bloody stool, diarrhea, heartburn, nausea, vomiting GENITOURINARY: Denies painful urination, bloody urine, frequent urination, urgency, leaking urine, impotence MUSCULOSKELETAL: Denies joint pain, muscle pain, leg swelling INTEGUMENTARY: Denies rash, itching, new skin lesion, change in existing skin lesion, hair loss or increase, breast changes. NEUROLOGICAL: Denies headaches, numbness or tingling PSYCHIATRIC: Denies depression, anxiety, recurrent bad thoughts, mood swings, hallucinations PAST MEDICAL HISTORY: 1. COPD on 34 liters nasal cannula at baseline 2. Chronic respiratory failure 3. History of tobacco use 4. History of asbestos exposure 5. Anxiety 6. Depression 7. PTSD PAST SURGICAL HISTORY: 1. Right shoulder surgery 2. Left hip surgery FAMILY HISTORY: Father: Not much is known about his father in general Mother: Heart murmur, at 88 years old Siblings: Brothercancer, alive. Sister.cancer, alive. SOCIAL HISTORY: Smoker of one pack per day for 63 years, quit in August 2019. He currently uses nicotine patch. The patient denies alcohol or drug use. He lives alone in [place]. He is a DNR/DNI. ALLERGIES: No known drug allergies. HOME MEDICATIONS: Please see below. PHYSICAL EXAMINATION: CONSTITUTIONAL: No acute distress, resting comfortably, AAO x 2, pleasantly confused at times EYES: PERRLA, EOM intact, corrective lenses are in place HENT, MOUTH: Normocephalic, atraumatic, moist mucous membranes, nasal cannula in place NECK: SUPPLE, no JVD, no lymphadenopathy, no carotid bruit CV: Regular rate and rhythm, S1S2 normal, no murmurs/rubs/gallops RESPIRATORY: No wheezing, rhonchi or rales, increased aeration on auscultation GI: BS positive in 4 quadrants, soft, nontender, nondistended, no rebound or guarding, no organomegaly : Deferred MUSCULOSKELETAL: Normal ROM. No cyanosis, clubbing, swelling, joint deformity, extremity edema INTEGUMENTARY: Intact, no rashes, no lesions, no erythema NEUROLOGIC: Cranial Nerves II-XII are intact, no focal deficits LABORATORY DATA: Please see below IMAGING: Chest x-ray: Stable chronic findings without evidence of superimposed acute infiltrate. ASSESSMENT: 79-year-old male admitted under inpatient status for acute on chronic respiratory failure, acute COPD exacerbation much improved. PLAN: 1. Acute on chronic respiratory failure secondary to COPD exacerbation. Much improved. Currently saturating well on home O2 amount, 3 L NC. Continue with supplemental oxygen, DuoNeb, albuterol, montelukast, theophylline, daliresp, mometasone, prednisone taper over 1 week. 2. COPD, GOLD 4. Please see above for treatment of exacerbation. 3. Memory loss, confusion. Acute with history of some memory loss according to family. Cannot r/o increased confusion due to steroids. Pleasant;however, i mpulsive at times. Would recommend to redirect whenever possible and may see improvement as steroids are weaned. 4. Depression/Anxiety/PTSD. Stable. C/w home medications. 5. BPH. C/w tamsulosin. 6. Vitamin D deficiency. C/w home supplements. 7. GERD. PPI. 8. Iron deficiency anemia. C/w supplementation. 9. HLD. C/w statin. 10. Vitamin B12 deficiency. C/w supplementation. DISPOSITION: Plan is discharge to [facility] today. Ultimately, after rehab, plan is to hopefully discharge home to prior independent living situation. TOTAL DISCHARGE TIME: 25 mins Vital Signs/I&Os Vital Signs Date Time Temp Pulse Resp B/P (MAP) Pulse Ox O2 Delivery O2 Flow Rate FiO2 09/26/19 10:10 17 Nasal Cannula 2.0 09/26/19 06:00 98.2 84 130/78 (95) 95 I&O- Last 24 Hours up to 6 AM 09/26/19 06:00 Intake Total 4945 ml Output Total 2400 ml Balance 2545 ml Laboratory Data Labs 24H Laboratory Tests 2 09/26/19 05:42: Nucleated Red Blood Cells % (auto) 0.0, Anion Gap 4L, Glomerular Filtration Rate > 60.0, Calcium Level 8.7L, Total Bilirubin 0.2, Aspartate Amino Transf (AST/SGOT) 15, Alanine Aminotransferase (ALT/SGPT) 16, Alkaline Phosphatase 59, Total Protein 6.2L, Albumin 3.4, Albumin/Globulin Ratio 1.21 CBC/BMP Laboratory Tests 09/26/19 05:42 Microbiology Microbiology 09/24/19 Respiratory Virus Panel (PCR) ([facility]) - Final, Complete 09/24/19 Blood Culture - Preliminary, Resulted No growth after 24 hours . All specim... Discharge Medications Scheduled Aripiprazole (Aripiprazole) 15 Mg Tablet, 7.5 MG PO QPM, (Reported) Cyanocobalamin (Vitamin B-12) (B-12) 1,000 Mcg Tablet, 1,000 MCG PO BID, (Reported) Dicyclomine HCl (Dicyclomine HCl) 10 Mg Capsule, 10 MG PO BID, (Reported) WITH BREAKFAST AND DINNER Ergocalciferol (Vitamin D2) (Vitamin D2) 50,000 Units Cap, 50,000 UNITS PO Q2WK, (Reported) TAKES 1ST AND 15TH Ferrous Gluconate (Ferrous Gluconate) 324 Mg Tab, 324 MG PO BID, (Reported) Fluticasone Propionate (Flonase Allergy Relief) 50 Mcg/Act Spr, 2 SPRAYS NA QHS, (Reported) Gabapentin (Gabapentin) 400 Mg Cap, 400 MG PO DAILY, (Reported) Loratadine (Loratadine) 10 Mg Tablet, 10 MG PO DAILY, (Reported) Mometasone Furoate (Asmanex) 220 Mcg Aer.pow.ba, 2 PUFF INH BID, (Reported) Montelukast Sodium (Montelukast Sodium) 10 Mg Tab, 10 MG PO DAILY, (Reported) Nicotine (Nicotine Patch) 14 Mg Patch.td24, 1 PATCH TD DAILY [place]as[place]-3 Fatty Acids/Fish Oil (Fish Oil 1,000 mg Capsule) 1,000 Mg Cap, 2,000 MG PO DAILY, (Reported) Omeprazole (Omeprazole) 40 Mg Cap, 40 MG PO DAILY, (Reported) Prednisone (Prednisone) 20 Mg Tablet, 60 MG PO DAILY Suggest prednisone taper over 7 days: 60 mg PO x 3 days, 40 mg PO x 3 days, 20 mg PO x 1 day Pregabalin (Lyrica) 100 Mg Cap, 100 MG PO BID, (Reported) Roflumilast (Daliresp) 500 Mcg Tab, 500 MCG PO DAILY, (Reported) Rosuvastatin Calcium (Crestor) 40 Mg Tab, 40 MG PO QPM, (Reported) DINNERTIME Tamsulosin HCl (Flomax) 0.4 Mg Capsule, 0.4 MG PO QHS, (Reported) Theophylline Anhydrous (Neil-24) 300 Mg Cap.er.24h, 300 MG PO BID, (Reported) Tiotropium Br/Olodaterol HCl (Stiolto Respimat Inhal [place]) 1 Aer Aer, 2 PUFFS INH DAILY, (Reported) Venlafaxine HCl (Venlafaxine HCl ER) 150 Mg Cap, 150 MG PO QHS, (Reported) Vitamin D (Vitamin D3) 10 Mcg Tablet, 800 UNIT PO DAILY, (Reported) Scheduled PRN Albuterol Sulf (Albuterol Sulfate) 2.5 Mg/3 Ml Nebu, 2.5 MG INH Q6H PRN for SHORTNESS OF BREATH, (Reported) Albuterol Sulfate (Ventolin Hfa) 108 Mcg/Act Aer, 2 PUFFS INH Q4H PRN for SHORTNESS OF BREATH, (Reported) Hydroxyzine HCl (Hydroxyzine HCl) 10 Mg Tab, 10 MG PO BID PRN for ANXIETY, (Reported) Lidocaine (Lidocaine) 5 % Pad, 1 PATCH TD DAILY PRN for PAIN, (Reported) APPLIES TO BACK Nystatin (Nystatin Oral Susp) 100,000 Unit/1 Ml Oral.susp, 5 ML SS TID PRN for THRUSH, (Reported) Sodium Chloride ([place]) 0.65 % Spr, 2 SPRAY NA QID PRN for NASAL DRYNESS, (Reported) EACH NOSTRIL Tramadol HCl (Tramadol HCl) 50 Mg Tablet, 100 MG PO DAILY PRN for PAIN, (Reported) Allergies Coded Allergies: No Known Allergies (Unverified , 09/24/19) Annette Fields MD Sep 26, 2019 14:51
[2019-10-02] MEDS ORDERED: VITAMIN D 50,000 UNITS CAPSULE (ERGOCALCIFEROL 1.25MG) PO SCH (09:00)
== END 2019-09-26 12:54 | DRG 189 ==
LOC: M ED 14:49 → M ED INP 17:13 → ENRESERV 17:23 → M MSPAV 18:13
PROVIDERS: ADMIT Internal Medicine; ATTEND Internal Medicine
DX: J96.20 Acute and chronic respiratory failure, unspecified whether with hypoxia or hypercapnia (principal); J44.1 Chronic obstructive pulmonary disease with (acute) exacerbation; N40.0 Benign prostatic hyperplasia without lower urinary tract symptoms; M54.5 Low back pain; F41.9 Anxiety disorder, unspecified; F32.9 Major depressive disorder, single episode, unspecified; Z87.891 Personal history of nicotine dependence; F43.10 Post-traumatic stress disorder, unspecified; E55.9 Vitamin D deficiency, unspecified; D50.9 Iron deficiency anemia, unspecified; E53.8 Deficiency of other specified B group vitamins; Z79.899 Other long term (current) drug therapy; K21.9 Gastro-esophageal reflux disease without esophagitis

== ENCOUNTER → 2019-10-01 | Outpatient (REF) ==
[~2019-10-01] MED LIST changes: +ARIP1TAB10 PO; +ASMA220A INH; +B-12100020 PO; +DICY10CA13 PO; +FLOM0.4C39 PO; +LORA-622 PO; +NICO14PA TD; +NYST50SS SS; +VITA-243 PO; -VITA500T PO; +VITAD400CA PO
[2019-10-01 10:26] LABS: HEMATOCRIT 33.6 % (42.0-52.0); HEMOGLOBIN 10.5 g/dl (13.5-17.5); MEAN CORPUSCULAR HEMOGLOBIN 32.3 pg (27.0-33.0); MEAN CORPUSCULAR HGB CONC 31.3 g/dl (32.0-36.5); MEAN CORPUSCULAR VOLUME 103.4 fl (80.0-96.0); PLATELET COUNT, AUTOMATED 225 10^3/uL (150-450); RED BLOOD COUNT 3.25 10^6/uL (4.30-6.10); WHITE BLOOD COUNT 7.4 10^3/uL (4.0-10.0)
[2019-10-01 10:48] LABS: BLOOD UREA NITROGEN 14 MG/DL (7-18); CALCIUM LEVEL 8.5 MG/DL (8.8-10.2); CARBON DIOXIDE LEVEL 36 MEQ/L (21-32); CHLORIDE LEVEL 97 MEQ/L (98-107); CREATININE FOR GFR 0.76 MG/DL (0.70-1.30); GLOMERULAR FILTRATION RATE > 60.0 (>42); GLUCOSE, FASTING 180 MG/DL (70-100); POTASSIUM SERUM 3.5 MEQ/L (3.5-5.1); SODIUM LEVEL 139 MEQ/L (136-145)
== END ==
PROVIDERS: ATTEND Internal Medicine
DX: J44.9 Chronic obstructive pulmonary disease, unspecified (principal)

== ENCOUNTER → 2019-10-07 | Outpatient (REF) | payer MEDICARE ==
[2019-10-07 09:49] LABS: HEMATOCRIT 35.5 % (42.0-52.0); HEMOGLOBIN 11.2 g/dl (13.5-17.5); MEAN CORPUSCULAR HEMOGLOBIN 32.5 pg (27.0-33.0); MEAN CORPUSCULAR HGB CONC 31.5 g/dl (32.0-36.5); MEAN CORPUSCULAR VOLUME 102.9 fl (80.0-96.0); PLATELET COUNT, AUTOMATED 224 10^3/uL (150-450); RED BLOOD COUNT 3.45 10^6/uL (4.30-6.10); WHITE BLOOD COUNT 9.7 10^3/uL (4.0-10.0)
[2019-10-07 10:14] LABS: BLOOD UREA NITROGEN 11 MG/DL (7-18); CALCIUM LEVEL 8.7 MG/DL (8.8-10.2); CARBON DIOXIDE LEVEL 38 MEQ/L (21-32); CHLORIDE LEVEL 95 MEQ/L (98-107); CREATININE FOR GFR 0.82 MG/DL (0.70-1.30); GLOMERULAR FILTRATION RATE > 60.0 (>42); GLUCOSE, FASTING 140 MG/DL (70-100); POTASSIUM SERUM 3.7 MEQ/L (3.5-5.1); SODIUM LEVEL 137 MEQ/L (136-145)
== END ==
PROVIDERS: ATTEND Internal Medicine
DX: J44.9 Chronic obstructive pulmonary disease, unspecified (principal)

== ENCOUNTER → 2019-12-11 | Outpatient (REF) | payer MEDICARE ==
[~2019-12-11] MED LIST changes: +B-CO1TAB12 PO; +GABA-1171 PO; +PANT40TA29 PO; -PANT40TA3 PO
== END ==
LOC: M LAB REF 16:47
PROVIDERS: ATTEND Internal Medicine
DX: J44.1 Chronic obstructive pulmonary disease with (acute) exacerbation (principal); J96.11 Chronic respiratory failure with hypoxia

== ENCOUNTER 2020-04-02 10:48 | Inpatient (IN) | payer MEDICARE ==
[~2020-04-02] VITALS: Ht 170.2 cm; Wt 56.0 kg
[~2020-04-02 10:48] MED LIST changes: -B-CO1TAB12 PO; -GABA-1171 PO
--- NOTE | 2020-04-02 11:24 | REPVR ---
PROCEDURE INFORMATION: Exam: CT Head Without Contrast Exam date and time: 04/02/2020 11:15 AM Age: 79 years old Clinical indication: Altered mental status/memory loss TECHNIQUE: Imaging protocol: Computed tomography of the head without contrast. Radiation optimization: All CT scans at this facility use at least one of these dose optimization techniques: automated exposure control; mA and/or kV adjustment per patient size (includes targeted exams where dose is matched to clinical indication); or iterative reconstruction. COMPARISON: No relevant prior studies available. FINDINGS: Brain: There is no acute intracranial hemorrhage. There are no extra-axial fluid collections. There is mild lucency in the cerebral white matter, likely microvascular disease although non-specific. [place] white differentiation is intact. There is no mass effect or midline shift. Cerebral ventricles: The ventricles and sulci are enlarged, consistent with age-related volume loss / atrophy. No hydrocephalus. Bones/joints: No acute fracture. Paranasal sinuses: There is no significant mucosal thickening in paranasal sinuses. No air-fluid levels. 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 Mastoid air cells: No significant mastoid effusion. Vasculature: There is vascular calcification. Soft tissues: Unremarkable as visualized. Other findings: No evidence of mass. IMPRESSION: 1. No evidence of acute intracranial abnormality. No evidence of acute infarction, hemorrhage, or mass. 2. Senescent changes. Electronically signed by: Charisse Molina On 04/02/2020 11:24:05 AM
--- NOTE | 2020-04-02 11:52 | REPVR ---
PROCEDURE INFORMATION: Exam: XR Chest, 1 View Exam date and time: 04/02/2020 11:42 AM Age: 79 years old Clinical indication: Pain; Other: Altered mental status TECHNIQUE: Imaging protocol: XR of the chest Views: 1 view. COMPARISON: [facility] PORTABLE CHEST X-RAY 09/24/2019 3:07 PM FINDINGS: Lungs: The lungs are hyperexpanded and there are bullous and fibrotic changes greatest in pulmonary apices. No evidence of consolidation or pneumonia. Pleural space: No significant visible pleural effusion. No pneumothorax. Heart/Mediastinum: No significant cardiomegaly. Vasculature: The aorta is calcified and unfolded. The aorta is calcified and unfolded. Bones/joints: Degenerative changes are present in the spine. Right shoulder replacement. IMPRESSION: No acute consolidation or acute finding. Chronic changes as described. Electronically signed by: Charisse Molina On 04/02/2020 11:51:51 AM
[2020-04-02 12:04] LABS: BASO # 0.1 10^3/uL (0.0-0.2); BASO % 1.1 % (0.0-1.0); EOS # 0.2 10^3/uL (0.0-0.5); EOS % 3.3 % (0.0-3.0); HEMATOCRIT 33.3 % (42.0-52.0); HEMOGLOBIN 10.6 g/dl (13.5-17.5); LYMPH # 1.2 10^3/uL (1.5-5.0); LYMPH % 17.1 % (24.0-44.0); MEAN CORPUSCULAR HEMOGLOBIN 31.5 pg (27.0-33.0); MEAN CORPUSCULAR HGB CONC 31.8 g/dl (32.0-36.5); MEAN CORPUSCULAR VOLUME 99.1 fl (80.0-96.0); MONO # 0.7 10^3/uL (0.0-0.8); MONO % 10.2 % (0.0-5.0); NEUTROPHILS # 4.9 10^3/uL (1.5-8.5); PLATELET COUNT, AUTOMATED 246 10^3/uL (150-450); RED BLOOD COUNT 3.36 10^6/uL (4.30-6.10); WHITE BLOOD COUNT 7.3 10^3/uL (4.0-10.0)
[2020-04-02 12:10] LABS: VENOUS BASE EXCESS 9.3 (-2.0-2.0); VENOUS HCO3 38.4 MEQ/L (23.0-27.0); VENOUS O2 SATURATION 66.3 % (60.0-80.0); VENOUS PARTIAL PRESSURE CO2 80.4 mmHg (38.0-50.0); VENOUS PARTIAL PRESSURE O2 36.9 mmHg (30.0-50.0); VENOUS PH 7.297 UNITS (7.330-7.430); VENOUS STANDARD HCO3 32.4 MEQ/L; VENOUS TOTAL CO2 40.9 MEQ/L (24.0-28.0)
[2020-04-02 12:44] LABS: ALBUMIN 3.7 GM/DL (3.2-5.2); ALT/SGPT 20 U/L (12-78); BILIRUBIN,DIRECT 0.1 MG/DL (0.0-0.2); BILIRUBIN,TOTAL 0.3 MG/DL (0.2-1.0); BLOOD UREA NITROGEN 6 MG/DL (7-18); CALCIUM LEVEL 9.8 MG/DL (8.8-10.2); CARBON DIOXIDE LEVEL 38 MEQ/L (21-32); CHLORIDE LEVEL 98 MEQ/L (98-107); CREATININE FOR GFR 0.76 MG/DL (0.70-1.30); GLOMERULAR FILTRATION RATE > 60.0 (>42); GLUCOSE, FASTING 88 MG/DL (70-100); POTASSIUM SERUM 3.7 MEQ/L (3.5-5.1); SODIUM LEVEL 139 MEQ/L (136-145); TOTAL PROTEIN 6.5 GM/DL (6.4-8.2)
[2020-04-02] MEDS ORDERED: POTASSIUM CHLORIDE 10 MEQ SR TABLET PO ONE (13:15)
[2020-04-02] MEDS ORDERED: B-CO1TAB12 PO (14:55)
[2020-04-02] MEDS ORDERED: ACETAMINOPHEN TAB 650MG DOSE (2X325MG) PO PRN (15:00)
[2020-04-02] MEDS ORDERED: ALBUTEROL SULFATE 2.5 MG/0.5 ML INH NEB SOLN INH PRN (16:30)
[2020-04-02] MEDS ORDERED: FLUTICASONE PROP 0.05% NASAL SPRAY 16 GM (FLONASE) PRN (16:30)
[2020-04-02] MEDS ORDERED: ISOVUE-370 76% 100ML VIAL As Ordered ONE (17:00)
--- NOTE | 2020-04-02 17:42 | REPVR ---
PROCEDURE INFORMATION: Exam: CT Angiography Head With Contrast Exam date and time: 04/02/2020 5:09 PM Age: 79 years old Clinical indication: Other: AMS; Additional info: R/O posterior circulation issues in setting of AMS TECHNIQUE: Imaging protocol: Computed tomography angiography of the head with intravenous contrast. 3D rendering (Not supervised by radiologist): MIP and/or 3D reconstructed images were created by the technologist. Radiation optimization: All CT scans at this facility use at least one of these dose optimization techniques: automated exposure control; mA and/or kV adjustment per patient size (includes targeted exams where dose is matched to clinical indication); or iterative reconstruction. Contrast material: ISOVUE 370; Contrast volume: 75 ml; Contrast route: INTRAVENOUS (IV); COMPARISON: CT Head without contrast 04/02/2020 11:10 AM FINDINGS: ANTERIOR CIRCULATION: Right internal carotid artery: Calcific atherosclerotic changes of the intracranial right internal carotid artery without evidence of hemodynamically significant stenosis. Right middle cerebral artery: No occlusion or significant stenosis. No aneurysm. Right anterior cerebral artery: No occlusion or significant stenosis. No aneurysm. Left internal carotid artery: Calcific atherosclerotic changes of the intracranial left internal carotid artery without evidence of hemodynamically significant stenosis. Left middle cerebral artery: No occlusion or significant stenosis. No aneurysm. Left anterior cerebral artery: No occlusion or significant stenosis. No aneurysm. POSTERIOR CIRCULATION: Right vertebral artery: No occlusion or significant stenosis. No aneurysm. Left vertebral artery: No occlusion or significant stenosis. No aneurysm. Basilar artery: No occlusion or significant stenosis. No aneurysm. Right posterior cerebral artery: No occlusion or significant stenosis. No aneurysm. Left posterior cerebral artery: No occlusion or significant stenosis. No aneurysm. IMPRESSION: No intracranial arterial occlusion or significant stenosis. Electronically signed by: Christos Kaminski On 04/02/2020 17:42:01 PM
--- NOTE | 2020-04-02 17:44 | HPEPDOC ---
[facility] Medical History & Physical Date of Admission Apr 02, 2020 Date of Service: Apr 02, 2020 Primary Care Physician: Jr Ruiz Collins Attending Physician: AUGUSTINE WALTON MD History and Physical CHIEF COMPLAINT: Weakness and falls. HISTORY OF PRESENT ILLNESS: Mr. Feliciano is a 79 yo M with a PMHx of COPD, chronic neck and back pain, depression/PTSD, and anxiety that presented to the ED today with his daughter from an outpatient PCP appointment where the provider encouraged pt to go to the ED because he appeared to be altered. The pt is not a great historian so much of the information was obtained from his daughter Tomasa. The daughter says the pt fell 6 times this morning at home and has had worsening cognitive ability for about 1 month, most especially when he wakes. The pt did not injure himself from these falls - - 4 of the 6 falls were witnessed and his rear end was the main point of initial contact with carpeted surfaces. According to the daughter, he has also recently been having nighttime urinary incontinence and ambulating with a "shuffling" gait. She says he lifts his feet up off the ground and then shuffles a bit until the next step. The pt admits to blurry vision to arose during our evaluation in the ED, episodic tingling in his hands and feet, and back pain (chronic). Pt denies weight loss, fevers, chills, nausea, vomiting, or diarrhea. Pt is AAOx3. In the ED, other than hypokalemia (sK 3.2), his labs (CBC, metabolic panel, vbg, tsh, ammonia, lactic acid) were unremarkable. EKG also unremarkable and imaging (CT head and cxr) showed no acute pathology. PAST MEDICAL HISTORY: 1. COPD on 4L 24/ baseline 2. Anxiety 3. Depression 4. PTSD PAST SURGICAL HISTORY: 1. R shoulder replacement 2. L hip replacement 3. Hernia repair 4. 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 REVIEW OF SYSTEMS: CONSTITUTIONAL: Denies weight loss, fever, chills, nausea, vomiting, diarrhea. HEENT: Admits to blurred vision. Denies sore throat, rhinorrhea, ear pain. CARDIOVASCULAR: Admits to chest heaviness. Denies chest pain, tightness, palpitations. RESPIRATORY: Admits to baseline SOB. Denies worse shortness of breath, cough, sputum production. GASTROINTESTINAL: Denies nausea, vomiting, diarrhea, constipation. GENITOURINARY: Denies dysuria, hematuria. SKIN: Denies new rashes, lesions. MUSCULOSKELETAL: Admits to chronic back and neck pain. Denies other joint, muscle pain. NEUROLOGICAL: Denies dizziness, sensory changes. HOME MEDICATIONS: Please see below. PHYSICAL EXAMINATION: VITAL SIGNS: Temperature 98.3 , pulse 83, respiratory rate 24, blood pressure 109/64, pulse oximetry 94% on 4L nasal cannula. GENERAL APPEARANCE: Elderly gentleman lying comfortably upright in bed. No acute distress. A&O x3. HEENT: NC, AT, no conjunctival pallor. PERRLA. No scleral icterus, no pharyngeal erythema, MMM, no upper teeth present, and brownish discoloration over tongue surface. NECK: Thin neck with prominent vasculature but no significant JVD appreciated. No lymphadenopathy. Trachea midline. CARDIOVASCULAR: Very distant heart sounds made appreciating for m/r/g difficult. NL s1, s2. Rate and rhythm appear regular. LUNGS: Receiving 4L O2 via NC. Decreased breath sounds bilaterally, with relatively poor respiratory effort and diminished tidal volume. From what was auscultated, no rales, wheezes, or rhonchi appreciated. Symmetric chest expansion. No accessory muscle use. ABDOMEN: soft, nontender, nondistended, bowel sounds present in all quadrants. No guarding or rigidity. EXTREMITIES: Thin LE which are free of edema BL. 2+ radial and posterior pulses BL. Moderate clubbing of fingertips bilaterally. Cap refill approximately 3 sec. 5/5 Upper extremity muscle strength B/L, 4/5 LE muscle strength B/L. NEUROLOGICAL: Slight vertical nystagmus on EOMI, poor short term recall, CN III- XII in tact, no focal deficits, heel-green and finger to nose testing a bit slow but completed satisfactorily. Resting tremor noted in BL upper extremities. AAOx3. Gait not assessed in ED due to fall risk. PSYCHIATRIC: Normal mood and affect. LABORATORY DATA: See below. IMAGING: -CT HEAD 04/02/2020: Impression "1. No evidence of acute intracranial abnormality. No evidence of acute infarction, hemorrhage, or mass. 2. Senescent changes." -CXR 04/02/2020: Impression "Lungs: The lungs are hyperexpanded and there are bullous and fibrotic changes greatest in pulmonary apices. No evidence of consolidation or pneumonia. Pleural space: No significant visible pleural effusion. No pneumothorax. Heart/Mediastinum: No significant cardiomegaly. Vasculature: The aorta is calcified and unfolded. The aorta is calcified and unfolded. Bones/joints: Degenerative changes are present in the spine. Right shoulder replacement. No acute consolidation or acute finding. Chronic changes as described." MICROBIOLOGY: Please see below. ASSESSMENT: Mr. Feliciano is a 79 yo M with a PMHx of COPD, anxiety, PTSD, and depression that presented to the ED at the recommendation of his PCP with his daughter due reports from the daughter that the pt had 6 falls this morning and has had cognitive decline for the past month, found to have unremarkable head CT and CXR, concerning for progressive decline due to polypharmacy vs dementia process. PLAN: #. Progressive cognitive decline 2/2 polypharmacy vs posterior circulation issues. - At home pt was taking Effexor and Gabapentin; Holding Effexor, decreased gabapentin to 100 mg qhs. - Metabolic causes ruled out; Lactic acid 0.5, ammonia 11, TSH 1.25, Na 139, K 3.7. - No signs or symptoms of infection; WBC 7.3. - Ordered a CTA brain and brain MRI to rule out posterior circulation issues. #. O2 dependent COPD - Not currently in exacerbation. - Saturation has been at baseline. - Titrate O2 to saturation of 88-92%. - Continue home Singulair, theophylline, and albuterol. #. Recent falls 2/2 to polypharmacy vs posterior circulation issues vs orthostatic hypotension. - Fall precautions. - Ordered orthostats. - Pt on telemetry. #. Anxiety, Depression, PTSD - Continue Abilify. - Held home hydroxyzine for now. #. Chronic neck and back pain - PRN acetaminophen. - Home gabapentin dose decreased to 100 mg qhs. DVT Prophylaxis: Lovenox 40mg daily. Vital Signs Vital Signs Date Time Temp Pulse Resp B/P (MAP) Pulse Ox O2 Delivery O2 Flow Rate FiO2 04/02/20 15:12 68 18 100 Nasal Cannula 4.0 04/02/20 15:00 110/63 (79) 04/02/20 10:48 98.3 Laboratory Data Labs 24H Laboratory Tests 2 04/02/20 11:42: Immature Granulocyte % (Auto) 0.3, Neutrophils (%) (Auto) 68.0H, Lymphocytes (%) (Auto) 17.1L, Monocytes (%) (Auto) 10.2H, Eosinophils (%) (Auto) 3.3H, Basophils (%) (Auto) 1.1H, Neutrophils # (Auto) 4.9, Lymphocytes # (Auto) 1.2L, Monocytes # (Auto) 0.7, Eosinophils # (Auto) 0.2, Basophils # (Auto) 0.1, Nucleated Red Blood Cells % (auto) 0.0, Blood Gas Bicarbonate Standard 32.4, Venous Blood pH 7.297L, Venous Blood Partial Pressure CO2 80.4H, Venous Blood Partial Pressure O2 36.9, Venous Blood Total Carbon Dioxide 40.9H, Venous Blood HCO3 38.4H, Venous Blood Oxygen Saturation 66.3, Venous Blood Base Excess 9.3H, Anion Gap 3L, Glomerular Filtration Rate > 60.0, Lactic Acid Level 0.5, Calcium Level 9.8, Total Bilirubin 0.3, Direct Bilirubin 0.1, Aspartate Amino Transf (AST/SGOT) 21, Alanine Aminotransferase (ALT/SGPT) 20, Alkaline Phosphatase 78, Ammonia 11, Total Protein 6.5, Albumin 3.7, Albumin/Globulin Ratio 1.3, Thyroid Stimulating Hormone (TSH) 1.250 04/02/20 11:54: Urine Color YELLOW, Urine Appearance HAZY, Urine pH 7.0, Urine Specific Parnell 1.003, Urine Protein NEGATIVE, Urine Glucose (UA) NEGATIVE, Urine Ketones NEGATIVE, Urine Blood NEGATIVE, Urine Nitrite NEGATIVE, Urine Bilirubin NEGATIVE, Urine Urobilinogen 0.2, Urine Leukocyte Esterase NEGATIVE, Urine WBC (Auto) 1, Urine RBC (Auto) 2, Urine Hyaline Casts (Auto) 0, Urine Bacteria (Auto) NEGATIVE, Urine Squamous Epithelial Cells 0, Urine Sperm (Auto) 04/02/20 12:00: POC Glucose (Misc Panel) 83, POC Sodium (Misc Panel) 143, POC Potassium (Misc Panel) 3.2L, POC Chloride (Misc Panel) 98, POC Total CO2 (Misc Panel) 32.0H, POC Blood Urea Nitrogen (Misc Panel 4L, POC Ionized Calcium (Misc Panel) 4.9, POC Creatinine (Misc Panel) 0.6, POC Hematocrit (Misc Panel) 28.0L 04/02/20 12:04: POC Troponin I (Misc) 0.00 CBC/BMP Laboratory Tests 04/02/20 11:42 Microbiology Microbiology 04/02/20 Blood Culture, Received Pending Home Medications Scheduled Aripiprazole (Aripiprazole) 15 Mg Tablet, 7.5 MG PO DAILY B-Complex with Vitamin C (Vitamin B Complex-Vitamin C) 1 Each Tablet, 1 TAB PO DAILY Cyanocobalamin (Vitamin B-12) (B-12) 1,000 Mcg Tablet, 1,000 MCG PO BID Dicyclomine HCl (Dicyclomine HCl) 10 Mg Capsule, 10 MG PO BID WITH BREAKFAST AND DINNER Ergocalciferol (Vitamin D2) (Vitamin D2) 50,000 Units Cap, 50,000 UNITS PO Q2WK TAKES 1ST AND 15TH Ferrous Gluconate (Ferrous Gluconate) 324 Mg Tab, 324 MG PO BID Gabapentin (Gabapentin) 400 Mg Cap, 400 MG PO QHS Loratadine (Loratadine) 10 Mg Tablet, 10 MG PO DAILY Mometasone Furoate (Asmanex) 220 Mcg Aer.pow.ba, 2 PUFF INH BID Montelukast Sodium (Montelukast Sodium) 10 Mg Tab, 10 MG PO DAILY [place]-3 Fatty Acids/Fish Oil (Fish Oil 1,000 mg Capsule) 1,000 Mg Cap, 1,000 MG PO BID Omeprazole (Omeprazole) 40 Mg Cap, 40 MG PO DAILY Roflumilast (Daliresp) 500 Mcg Tab, 500 MCG PO DAILY Rosuvastatin Calcium (Crestor) 40 Mg Tab, 40 MG PO QPM DINNERTIME Tamsulosin HCl (Flomax) 0.4 Mg Capsule, 0.4 MG PO QHS Theophylline Anhydrous (Neil-24) 300 Mg Cap.er.24h, 300 MG PO BID Tiotropium Br/Olodaterol HCl (Stiolto Respimat Inhal [place]) 1 Aer Aer, 2 PUFFS INH DAILY Venlafaxine HCl (Venlafaxine HCl ER) 150 Mg Cap, 150 MG PO BID Scheduled PRN Albuterol Sulf (Albuterol Sulfate) 2.5 Mg/3 Ml Nebu, 2.5 MG INH Q6H PRN for SHORTNESS OF BREATH Albuterol Sulfate (Ventolin Hfa) 108 Mcg/Act Aer, 2 PUFFS INH Q4H PRN for SHORTNESS OF BREATH Fluticasone Propionate (Flonase Allergy Relief) 50 Mcg/Act Spr, 2 SPRAYS NA QHS PRN for ALLERGIES Hydroxyzine HCl (Hydroxyzine HCl) 10 Mg Tab, 10 MG PO BID PRN for ANXIETY Sodium Chloride ([place]) 0.65 % Spr, 2 SPRAY NA QID PRN for NASAL DRYNESS EACH NOSTRIL Allergies Coded Allergies: No Known Allergies (Unverified , 04/02/20) GME ATTESTATION GME ATTESTATION My faculty preceptor for this patient encounter was physically present during the encounter and was fully available. All aspects of the patient interview, examination, medical decision making process, and medical care plan development were reviewed and approved by the faculty preceptor. The faculty preceptor is aware and concurs with the plan as stated in the body of this note and will attest to such by his/her cosignature. ATTENDING NOTE Patient was seen and examined by me personally with the residents and the students. Agree with the above assessment and plan. CARMINA RATLIFF OMS-3 Apr 02, 2020 17:44 AUGUSTINE WALTON MD Apr 03, 2020 14:11
[2020-04-02 17:50] VITALS: BP 130/74
[2020-04-02] MEDS ORDERED: PILL CUTTER 1 EACH XX PRN (18:15)
[2020-04-02] MEDS: DICYCLOMINE 10 MG CAP PO SCH (18:35)
--- NOTE | 2020-04-02 19:34 | ECGEPIP ---
[facility] - ED Test Date: 2020-04-02 Pat Name: ROSALIND CASE Department: Room: - Gender: Male Clinical Support Manager: manny : 1940 Requested By: Laura Bar Order Number: [id number] Reading MD: Hieu Gomes Measurements Intervals [place]bain Rate: 68 P: 84 MD: 170 QRS: 66 QRSD: 86 T: 72 QT: 381 QTc: 406 Interpretive Statements SINUS RHYTHM BASELINE ARTIFACT AFFECTS INTERPRETATION SIMILAR TO 09/24/19 Electronically Signed on 04-02-2020 19:33:54 EDT by Hieu Gomes
[2020-04-02 20:00] VITALS: BP 111/65
[2020-04-02] MEDS: FERROUS GLUCONATE 324 MG TAB PO SCH (21:35)
[2020-04-02] MEDS: GABAPENTIN 100 MG CAP PO SCH (21:36)
[2020-04-02] MEDS: TAMSULOSIN 0.4 MG CAP PO SCH (21:36)
[2020-04-02] MEDS: ROSUVASTATIN 10 MG TAB (CRESTOR) PO SCH (21:36)
[2020-04-02] MEDS: THEOPHYLLINE (THEO-24) 100MG SR **CAPSULE PO SCH (21:36)
--- NOTE | 2020-04-02 21:48 | REPVR ---
PROCEDURE INFORMATION: Exam: MR Head Without Contrast Exam date and time: 04/02/2020 9:12 PM Age: 79 years old Clinical indication: Other: R/O post circulation issues in setting of AMS TECHNIQUE: Imaging protocol: MR of the head without contrast. COMPARISON: CT Head without contrast 04/02/2020 11:10 AM FINDINGS: Patient motion. Age-related volume loss. Major vascular flow voids at the skull base are preserved. No extra-axial fluid collection. Mild nonspecific white matter gliosis, probable chronic microvascular ischemia. No midline shift or intracranial mass effect. No cerebral edema or pathologic susceptibility. No diffusion restriction. Visualized paranasal sinuses and mastoid air cells are clear. IMPRESSION: No acute intracranial abnormality. Electronically signed by: Brayan Oscar On 04/02/2020 21:48:18 PM
[2020-04-02 22:00] VITALS: O2SAT 99
[2020-04-02 23:00] VITALS: O2SAT 80
[2020-04-02 23:46] VITALS: BP_SYST 117; BP_SYST 177; BP_DIAS 73
[2020-04-03] VITALS (21 sets, daily range): BP systolic 74–121; BP diastolic 50–72; O2SAT 91–99
[2020-04-03 05:30] LABS: MEAN CORPUSCULAR HEMOGLOBIN 32.2 pg (27.0-33.0); MEAN CORPUSCULAR HGB CONC 32.3 g/dl (32.0-36.5); MEAN CORPUSCULAR VOLUME 99.7 fl (80.0-96.0); PLATELET COUNT, AUTOMATED 224 10^3/uL (150-450); RED BLOOD COUNT 3.11 10^6/uL (4.30-6.10); WHITE BLOOD COUNT 6.6 10^3/uL (4.0-10.0)
[2020-04-03 05:53] LABS: ALBUMIN 3.1 GM/DL (3.2-5.2); ALT/SGPT 17 U/L (12-78); BILIRUBIN,TOTAL 0.2 MG/DL (0.2-1.0); BLOOD UREA NITROGEN 7 MG/DL (7-18); CARBON DIOXIDE LEVEL 36 MEQ/L (21-32); CHLORIDE LEVEL 101 MEQ/L (98-107); CREATININE FOR GFR 0.71 MG/DL (0.70-1.30); GLOMERULAR FILTRATION RATE > 60.0 (>42); GLUCOSE, FASTING 109 MG/DL (70-100); POTASSIUM SERUM 4.1 MEQ/L (3.5-5.1); SODIUM LEVEL 141 MEQ/L (136-145); TOTAL PROTEIN 5.7 GM/DL (6.4-8.2)
[2020-04-03] MEDS: ENOXAPARIN 40MG/0.4ML SYRINGE (J1650 PER 10MG) SC SCH (09:08)
[2020-04-03] MEDS: FERROUS GLUCONATE 324 MG TAB PO SCH ×2 (09:09→20:57)
[2020-04-03] MEDS: ARIPiprazole 15 MG TAB (AbiLIFY) PO SCH (09:09)
[2020-04-03] MEDS: DICYCLOMINE 10 MG CAP PO SCH ×2 (09:09→17:24)
[2020-04-03] MEDS: VITAMIN B COMPLEX/VIT C CAP PO SCH (09:09)
[2020-04-03] MEDS: THEOPHYLLINE (THEO-24) 100MG SR **CAPSULE PO SCH ×2 (09:09→20:56)
[2020-04-03] MEDS: MONTELUKAST 10 MG TAB PO SCH (09:09)
[2020-04-03] MEDS: LORATADINE 10 MG TAB PO SCH (09:09)
--- NOTE | 2020-04-03 14:18 | IPNPDOC ---
Text Note Date of Service The patient was seen on 04/03/20. NOTE HPI: Mr. Feliciano is a 79 yo M with a PMHx of O2 dependent COPD that presented to the ED with his daughter due to altered mental status. SUBJECTIVE: No acute events overnight. Pt states that he still feels short of breath. He complains of pain in his back and R hip. He denies any fevers, chills, sweats, nausea, vomiting, or diarrhea. Pt was AAOx3 on exam. OBJECTIVE: VITAL SIGNS: Please see below. GENERAL APPEARANCE: Elderly gentleman lying comfortably upright in bed. No acute distress. A&O x3. HEENT: NC, AT, no conjunctival pallor. PERRLA. No scleral icterus, no pharyngeal erythema, MMM, brownish discoloration over tongue surface. NECK: Thin neck with prominent vasculature but no significant JVD appreciated. No lymphadenopathy. Trachea midline. CARDIOVASCULAR: Very distant heart sounds made appreciating for m/r/g difficult. NL s1, s2. Rate and rhythm appear regular. LUNGS: Receiving 2L O2 via NC and saturating at 97%. Decreased breath sounds bilaterally, with relatively poor respiratory effort and diminished tidal volume. From what was auscultated, no rales, wheezes, or rhonchi appreciated. Symmetric chest expansion. No accessory muscle use. ABDOMEN: soft, nontender, nondistended, bowel sounds present in all quadrants. No guarding or rigidity. EXTREMITIES: Thin LE which are free of edema BL. 2+ radial and posterior pulses BL. Moderate clubbing of fingertips bilaterally. Cap refill approximately 3 sec. 5/5 Upper extremity muscle strength B/L, 4/5 LE muscle strength B/L. NEUROLOGICAL: Poor short term recall, CN III-XII in tact, no focal deficits. Re sting tremor noted in BL upper extremities. AAOx3. Gait not assessed due to fall risk. PSYCHIATRIC: Normal mood and affect. LABORATORY: please see below. MICROBIOLOGY: 1 blood culture shows no growth at 24 hrs. IMAGING: -CTA HEAD 04/02/2020: Impression "No intracranial arterial occlusion or si gnificant stenosis." -MRI BRAIN 04/02/2020: Impression "No acute intracranial abnormality." -CT HEAD 04/02/2020: Impression "1. No evidence of acute intracranial abnormality. No evidence of acute infarction, hemorrhage, or mass. 2. Senescent changes." -CXR 04/02/2020: Impression "Lungs: The lungs are hyperexpanded and there are bullous and fibrotic changes greatest in pulmonary apices. No evidence of consolidation or pneumonia. Pleural space: No significant visible pleural effusion. No pneumothorax. Heart/Mediastinum: No significant cardiomegaly. Vasculature: The aorta is calcified and unfolded. The aorta is calcified and unfolded. Bones/joints: Degenerative changes are present in the spine. Right shoulder replacement. No acute consolidation or acute finding. Chronic changes as described." ASSESSMENT/PLAN: Mr. Feliciano is a 79 yo M with a PMHx of COPD, anxiety, PTSD, and depression that presented to the ED at the recommendation of his PCP with his daughter due reports from the daughter that the pt had fallen 6 times in one morning and has had cognitive decline for the past month, found to have unremarkable head CT and CXR, concerning for progressive decline due to polypharmacy vs dementia process. #. Progressive cognitive decline 2/2 polypharmacy vs dementia process -Pt's effexor still being held; Gabapentin initially reduced to 100 mg qhs, now increased to 200 mg qhs -Metabolic causes ruled out -No signs or symptoms of infection -CTA brain and brain MRI were normal therefore ruling out posterior circulation issues. -Pt has a resting tremor, autonomic dysfunction (orthostatic hypotension), cognitive fluctuations, and inappropriate interactions with female staff members, concerning for Parkinson's dementia vs Lewy body dementia. Will require further workup as an outpatient. #. O2 dependent COPD -Not currently in exacerbation. -Saturation has been at baseline. -Titrate O2 saturation to 88-92%. -Continue home singulair, theophylline, and albuterol. #. Recent falls 2/2 to orthostatic hypotension -Positive orthostats -Fall precautions. -No acute events on telemetry. #. Anxiety, Depression, PTSD -Continue Abilify -Continue to hold home hydroxyzine. #. Chronic neck and back pain -PRN acetaminophen -Gabapentin increased to 200 mg qhs DVT Prophylaxis: Lovenox 40 mg daily. DISPOSITION: Pt will require rehabilitation or placement. VS,Fishbone, I+O VS, Fishbone, I+O Laboratory Tests 04/03/20 05:05 Vital Signs Date Time Temp Pulse Resp B/P (MAP) Pulse Ox O2 Delivery O2 Flow Rate FiO2 04/03/20 12:00 97.7 74 18 102/55 (71) 100 Nasal Cannula 2.0 I&O- Last 24 Hours up to 6 AM 04/03/20 06:00 Intake Total 1080 ml Output Total 725 ml Balance 355 ml GME ATTESTATION GME ATTESTATION My faculty preceptor for this patient encounter was physically present during the encounter and was fully available. All aspects of the patient interview, examination, medical decision making process, and medical care plan development were reviewed and approved by the faculty preceptor. The faculty preceptor is aware and concurs with the plan as stated in the body of this note and will attest to such by his/her cosignature. CARMINA RATLIFF OMS-3 Apr 03, 2020 13:51 ELIECER ANDERSON MD Apr 03, 2020 16:20
[2020-04-03] MEDS: ROSUVASTATIN 10 MG TAB (CRESTOR) PO SCH (20:55)
[2020-04-03] MEDS: TAMSULOSIN 0.4 MG CAP PO SCH (20:55)
[2020-04-03] MEDS: GABAPENTIN 100 MG CAP PO SCH (20:57)
[2020-04-04] VITALS (9 sets, daily range): BP systolic 98–137; BP diastolic 56–73
[2020-04-04] MEDS: DICYCLOMINE 10 MG CAP PO SCH ×2 (08:11→18:34)
[2020-04-04] MEDS: THEOPHYLLINE (THEO-24) 100MG SR **CAPSULE PO SCH ×2 (08:11→20:12)
[2020-04-04] MEDS: MONTELUKAST 10 MG TAB PO SCH (08:11)
[2020-04-04] MEDS: VITAMIN B COMPLEX/VIT C CAP PO SCH (08:11)
[2020-04-04] MEDS: FERROUS GLUCONATE 324 MG TAB PO SCH ×2 (08:11→20:12)
[2020-04-04] MEDS: ARIPiprazole 15 MG TAB (AbiLIFY) PO SCH (08:11)
[2020-04-04] MEDS: ENOXAPARIN 40MG/0.4ML SYRINGE (J1650 PER 10MG) SC SCH (08:12)
[2020-04-04] MEDS: LORATADINE 10 MG TAB PO SCH (08:12)
--- NOTE | 2020-04-04 12:05 | IPNPDOC ---
Text Note Date of Service The patient was seen on 04/04/20. NOTE SUBJECTIVE: -No acute events overnight. -Upset that he cannot go home yet, irritable -Otherwise no fevers, chills, sweats, nausea, vomiting, or diarrhea. OBJECTIVE: VITAL SIGNS: Please see below. GENERAL APPEARANCE: Elderly gentleman lying comfortably in no acute distress. A&O x3. Head: NCAT Eyes: Anicteric, non injected, PERRLA, EOMI ENT: mildly dry MM NECK: no JVD appreciated, supple and thin CARDIOVASCULAR: RRR, no mrg LUNGS: 2L O2 via NC and saturating at 98%. Poor effort but otherwise clear with scattered wheezing without karrie crackles or rhonchi ABDOMEN: Normoactive sounds, soft, nontender, nondistended EXTREMITIES: WWP, no edema NEUROLOGICAL: AOx3, CN III-XII in tact, no focal deficits. PSYCHIATRIC: Irritable. AOx3 LABORATORY: please see below. Reviewed. MICROBIOLOGY: Bcx NGTD IMAGING: -CTA HEAD 04/02/2020: Impression "No intracranial arterial occlusion or significant stenosis." -MRI BRAIN 04/02/2020: Impression "No acute intracranial abnormality." -CT HEAD 04/02/2020: Impression "1. No evidence of acute intracranial abnormality. No evidence of acute infarction, hemorrhage, or mass. 2. Senescent changes." -CXR 04/02/2020: Impression "Lungs: The lungs are hyperexpanded and there are bullous and fibrotic changes greatest in pulmonary apices. No evidence of consolidation or pneumonia. Pleural space: No significant visible pleural effusion. No pneumothorax. Heart/Mediastinum: No significant cardiomegaly. Vasculature: The aorta is calcified and unfolded. The aorta is calcified and unfolded. Bones/joints: Degenerative changes are present in the spine. Right shoulder replacement. No acute consolidation or acute finding. Chronic changes as described." ASSESSMENT/PLAN: 79 yo M with COPD on home 4L at baseline, anxiety, PTSD, and depression who presented to the ED at the recommendation of his PCP with his daughter due reports from the daughter that the pt had fallen 6 times in one morning and has had cognitive decline for the past month, found to have unremarkable head CT, MRI, vascular imaging and infectious workup, concerning for progressive decline due to dementia vs. polypharmacy #. Progressive cognitive decline c/f polypharmacy vs undiagnosed dementia -Team is holding effexor, reduced gabapentin now at 200 mg qhs -Metabolic and infectious etiologies thus far remain negative -CTA brain and brain MRI r/o CVA -Pt has a resting tremor, autonomic dysfunction (orthostatic hypotension- without fluids given this admission to this point), cognitive fluctuations, and inappropriate interactions with female staff members, concerning for Parkinson's dementia vs Lewy body dementia. Will defer to neurology further workup as an outpatient. #COPD with chronic hypoxemic respiratory failure -Not currently in exacerbation. -Saturation has been at baseline. -Titrate O2 saturation to 88-92%. -Continue home singulair, theophylline, and albuterol. -dc continuous O2 monitoring #. Recent falls 2/2 to orthostatic hypotension -Positive orthostats --> will give a fluid challenge for clinical dehydration i/s/o poor PO and dry on examination --> 1L at 100cc/hr and recheck orthostatics with AM vitals tomorrow -Fall precautions -No acute events on telemetry --> dc tele #. Anxiety, Depression, PTSD -Continue Abilify -Continue to hold home hydroxyzine. #. Chronic neck and back pain -PRN acetaminophen -Gabapentin 200 mg qhs DVT Prophylaxis: Lovenox 40 mg daily. DISPOSITION: Pt will require rehabilitation or placement. PFS consulted. VS,Gemini, I+O VS, Gemini, I+O Vital Signs Date Time Temp Pulse Resp B/P (MAP) Pulse Ox O2 Delivery O2 Flow Rate FiO2 04/04/20 11:04 94 98/60 (73) 04/04/20 08:00 2.0 04/04/20 08:00 98.5 20 98 Nasal Cannula I&O- Last 24 Hours up to 6 AM 04/04/20 06:00 Intake Total 1038 ml Output Total 1550 ml Balance -512 ml CHERRIE PICKARD MD Apr 04, 2020 12:05
[2020-04-04] MEDS: NS 1,000 ML IV SCH ×3 (12:25→22:38)
[2020-04-04] MEDS: ALBUTEROL 90 MCG/ACT 8GM HFA INHALER INH PRN ×2 (18:20→23:32)
[2020-04-04] MEDS: TAMSULOSIN 0.4 MG CAP PO SCH (20:12)
[2020-04-04] MEDS: GABAPENTIN 100 MG CAP PO SCH (20:12)
[2020-04-04] MEDS: ROSUVASTATIN 10 MG TAB (CRESTOR) PO SCH (20:13)
[2020-04-05 04:00] VITALS: BP_SYST 113; BP_SYST 119; BP_SYST 135; BP_DIAS 65; BP_DIAS 66; BP_DIAS 71
[2020-04-05 05:01] LABS: HEMATOCRIT 30.4 % (42.0-52.0); HEMOGLOBIN 9.5 g/dl (13.5-17.5); MEAN CORPUSCULAR HEMOGLOBIN 30.9 pg (27.0-33.0); MEAN CORPUSCULAR HGB CONC 31.3 g/dl (32.0-36.5); PLATELET COUNT, AUTOMATED 220 10^3/uL (150-450); RED BLOOD COUNT 3.07 10^6/uL (4.30-6.10); WHITE BLOOD COUNT 6.9 10^3/uL (4.0-10.0)
[2020-04-05] MEDS: ALBUTEROL 90 MCG/ACT 8GM HFA INHALER INH PRN (07:13)
[2020-04-05 08:00] VITALS: BP_SYST 103; BP_SYST 117; BP_SYST 82; BP_DIAS 40; BP_DIAS 64
[2020-04-05] MEDS: VITAMIN B COMPLEX/VIT C CAP PO SCH (08:17)
[2020-04-05] MEDS: LORATADINE 10 MG TAB PO SCH (08:17)
[2020-04-05] MEDS: THEOPHYLLINE (THEO-24) 100MG SR **CAPSULE PO SCH ×2 (08:17→20:07)
[2020-04-05] MEDS: FERROUS GLUCONATE 324 MG TAB PO SCH ×2 (08:17→20:06)
[2020-04-05] MEDS: MONTELUKAST 10 MG TAB PO SCH (08:17)
[2020-04-05] MEDS: DICYCLOMINE 10 MG CAP PO SCH ×2 (08:17→18:13)
[2020-04-05] MEDS: ARIPiprazole 15 MG TAB (AbiLIFY) PO SCH (08:18)
[2020-04-05] MEDS: ENOXAPARIN 40MG/0.4ML SYRINGE (J1650 PER 10MG) SC SCH (08:18)
[2020-04-05 08:38] VITALS: BP 116/59
--- NOTE | 2020-04-05 10:28 | IPNPDOC ---
Text Note Date of Service The patient was seen on 04/05/20. NOTE SUBJECTIVE: -No acute events overnight. -Otherwise no fevers, chills, sweats, nausea, vomiting, or diarrhea. OBJECTIVE: VITAL SIGNS: Please see below. Continues to be orthostatic GENERAL APPEARANCE: Elderly gentleman lying comfortably in no acute distress. A&O x3. Head: NCAT Eyes: Anicteric, non injected, PERRLA, EOMI ENT: mildly dry MM NECK: no JVD appreciated, supple and thin CARDIOVASCULAR: RRR, no mrg LUNGS: 2L O2 via NC and saturating at 98%. Clear without karrie crackles, rhonchi or wheezing ABDOMEN: Normoactive sounds, soft, nontender, nondistended EXTREMITIES: WWP, no edema NEUROLOGICAL: AOx3, CN III-XII in tact, no focal deficits. PSYCHIATRIC: AOx3 LABORATORY: please see below. Reviewed. MICROBIOLOGY: Bcx NGTD IMAGING: -CTA HEAD 04/02/2020: Impression "No intracranial arterial occlusion or significant stenosis." -MRI BRAIN 04/02/2020: Impression "No acute intracranial abnormality." -CT HEAD 04/02/2020: Impression "1. No evidence of acute intracranial abnormality. No evidence of acute infarction, hemorrhage, or mass. 2. Senescent changes." -CXR 04/02/2020: Impression "Lungs: The lungs are hyperexpanded and there are bullous and fibrotic changes greatest in pulmonary apices. No evidence of consolidation or pneumonia. Pleural space: No significant visible pleural effusion. No pneumothorax. Heart/Mediastinum: No significant cardiomegaly. Vasculature: The aorta is calcified and unfolded. The aorta is calcified and unfolded. Bones/joints: Degenerative changes are present in the spine. Right shoulder replacement. No acute consolidation or acute finding. Chronic changes as described." ASSESSMENT/PLAN: 79 yo M with COPD on home 4L at baseline, anxiety, PTSD, and depression who presented to the ED at the recommendation of his PCP with his daughter due reports from the daughter that the pt had fallen 6 times in one morning and has had cognitive decline for the past month, found to have unremarkable head CT, MRI, vascular imaging and infectious workup, concerning for progressive decline due to dementia vs. polypharmacy. #. Progressive cognitive decline c/f polypharmacy vs undiagnosed dementia -Prior teaching team held effexor, reduced gabapentin now at 200 mg qhs -Metabolic and infectious etiologies thus far remain negative -CTA brain and brain MRI r/o CVA -Pt has a resting tremor, autonomic dysfunction (orthostatic hypotension- without fluids given this admission to this point), cognitive fluctuations, and inappropriate interactions with female staff members, concerning for Parkinson's dementia vs Lewy body dementia. Will defer to neurology further workup as an outpatient. #COPD with chronic hypoxemic respiratory failure -Not currently in exacerbation. -Saturation has been at baseline. -Titrate O2 saturation to 88-92%. -Continue home singulair, theophylline, and albuterol. #. Recent falls 2/2 to orthostatic hypotension -Positive orthostats despite fluids -Fall precautions -No acute events on telemetry, was discontinued on 04/04 #. Anxiety, Depression, PTSD -Continue Abilify -Continue to hold home hydroxyzine. #. Chronic neck and back pain -PRN acetaminophen -Gabapentin 200 mg qhs DVT Prophylaxis: Lovenox 40 mg daily. DISPOSITION: PT/OT final recs. PFS consulted. Will need outpatient neurology re matthew. VS,Kelseye, I+O VS, Fishbone, I+O Laboratory Tests 04/05/20 04:43 Vital Signs Date Time Temp Pulse Resp B/P (MAP) Pulse Ox O2 Delivery O2 Flow Rate FiO2 04/05/20 08:44 2.0 04/05/20 08:38 85 116/59 (78) 04/05/20 08:00 98.1 18 98 Nasal Cannula I&O- Last 24 Hours up to 6 AM 04/05/20 06:00 Intake Total 2140 ml Output Total 2300 ml Balance -160 ml CHERRIE PICKARD MD Apr 05, 2020 09:13
[2020-04-05 15:58] VITALS: BP 124/71
[2020-04-05 20:00] VITALS: BP_SYST 113; BP_SYST 125; BP_SYST 133; BP_DIAS 64; BP_DIAS 75; BP_DIAS 88
[2020-04-05] MEDS: TAMSULOSIN 0.4 MG CAP PO SCH (20:06)
[2020-04-05] MEDS: GABAPENTIN 100 MG CAP PO SCH (20:06)
[2020-04-05] MEDS: ROSUVASTATIN 10 MG TAB (CRESTOR) PO SCH (20:07)
[2020-04-06 04:00] VITALS: BP_SYST 108; BP_SYST 112; BP_SYST 117; BP_DIAS 59; BP_DIAS 67; BP_DIAS 74
[2020-04-06] MEDS: SLF 3 ML SYR IV SCH ×3 (06:00→22:29)
[2020-04-06 07:46] VITALS: BP 122/64
[2020-04-06] MEDS ORDERED: SLF 3 ML SYR IV PRN (08:00)
[2020-04-06] MEDS: LORATADINE 10 MG TAB PO SCH (10:08)
[2020-04-06] MEDS: MONTELUKAST 10 MG TAB PO SCH (10:08)
[2020-04-06] MEDS: FERROUS GLUCONATE 324 MG TAB PO SCH ×2 (10:08→20:05)
[2020-04-06] MEDS: ENOXAPARIN 40MG/0.4ML SYRINGE (J1650 PER 10MG) SC SCH (10:08)
[2020-04-06] MEDS: DICYCLOMINE 10 MG CAP PO SCH ×2 (10:18→18:00)
[2020-04-06] MEDS: VITAMIN B COMPLEX/VIT C CAP PO SCH (10:18)
[2020-04-06] MEDS: THEOPHYLLINE (THEO-24) 100MG SR **CAPSULE PO SCH ×2 (10:18→20:05)
[2020-04-06] MEDS: ARIPiprazole 15 MG TAB (AbiLIFY) PO SCH (10:20)
[2020-04-06 11:57] VITALS: BP_SYST 107; BP_SYST 112; BP_SYST 116; BP_DIAS 62; BP_DIAS 64; BP_DIAS 65
[2020-04-06 12:00] VITALS: BP 112/62
--- NOTE | 2020-04-06 12:45 | IPN ---
DATE: 04/06/2020 SUBJECTIVE: Eron was seen while rounding for the hospitalist. Admitted with altered mental status. Probably has some Parkinsonian type problems versus Lewy body dementia. Per nursing staff, his behavior towards staff has improved. I spoke with his daughter, Tomasa, today who plans on just going home with 24/7 care once arrangements were made through [facility]. Patient has a storage administrator through the [facility], who is also interested in getting involved with the discharge process. He has his home O2 at 4 liters nasal cannula. OBJECTIVE: VITAL SIGNS: Blood pressure 122/64, pulse 82, respiratory rate 18, afebrile. GENERAL APPEARANCE: Alert. He is talking to his daughter on the phone. Behavior was normal. LUNGS: Clear. HEART: Rhythm regular. ABDOMEN: Soft and nontender. EXTREMITIES: Trace peripheral edema. Tremor of both upper extremities. LABORATORY DATA: No labs ordered for today. ASSESSMENT: Altered mental status with tremor, orthostatic hypotension, cognitive fluctuation, inappropriate interactions with female medical staff. PLAN: We will consult neurology, daughter would like neurology to see him in hospital, and we put a consult in for Dr. Arita. I have also communicated with Brayan Christensen from [facility] who will be arranging a meeting with Tomasa, physical and occupational therapists, and hospitalist so that the patient can be safely transferred to a home setting. Brayan Christensen from [facility] was also aware that the [facility] has a storage administrator and they can interface before discharge as well. Plan discharge for tomorrow after this all comes together. [place]
[2020-04-06 15:45] VITALS: BP 123/74
[2020-04-06 20:00] VITALS: BP_SYST 118; BP_SYST 134; BP_SYST 140; BP_DIAS 63; BP_DIAS 73; BP_DIAS 79
[2020-04-06] MEDS: GABAPENTIN 100 MG CAP PO SCH (20:05)
[2020-04-06] MEDS: TAMSULOSIN 0.4 MG CAP PO SCH (20:05)
[2020-04-06] MEDS: ROSUVASTATIN 10 MG TAB (CRESTOR) PO SCH (20:05)
[2020-04-07 04:00] VITALS: BP_SYST 114; BP_SYST 125; BP_SYST 126; BP_DIAS 66; BP_DIAS 72; BP_DIAS 73
[2020-04-07] MEDS: SLF 3 ML SYR IV SCH ×2 (06:09→14:10)
[2020-04-07 07:52] VITALS: BP 112/64
[2020-04-07] MEDS ORDERED: GABA-1171 PO (08:35)
[2020-04-07] MEDS: DICYCLOMINE 10 MG CAP PO SCH (09:43)
[2020-04-07] MEDS: VITAMIN B COMPLEX/VIT C CAP PO SCH (09:43)
[2020-04-07] MEDS: THEOPHYLLINE (THEO-24) 100MG SR **CAPSULE PO SCH (09:43)
[2020-04-07] MEDS: ARIPiprazole 15 MG TAB (AbiLIFY) PO SCH (09:43)
[2020-04-07] MEDS: FERROUS GLUCONATE 324 MG TAB PO SCH (09:44)
[2020-04-07] MEDS: MONTELUKAST 10 MG TAB PO SCH (09:44)
[2020-04-07] MEDS: LORATADINE 10 MG TAB PO SCH (09:44)
[2020-04-07] MEDS: ENOXAPARIN 40MG/0.4ML SYRINGE (J1650 PER 10MG) SC SCH (09:44)
--- NOTE | 2020-04-07 17:37 | DS.PDOC ---
Discharge Summary General Date of Admission Apr 02, 2020 at 14:44 Date of Discharge 04/07/20 Attending Physician: Annette Fields MD Discharge Summary HISTORY OF PRESENT ILLNESS: Mr. Feliciano is a 79 yo M with a PMHx of COPD, chronic neck and back pain, depression/PTSD, and anxiety that presented to the ED today with his daughter from an outpatient PCP appointment where the provider encouraged pt to go to the ED because he appeared to be altered. The pt is not a great historian so much of the information was obtained from his daughter Tomasa. The daughter says the pt fell 6 times this morning at home and has had worsening cognitive ability for about 1 month, most especially when he wakes. The pt did not injure himself from these falls - - 4 of the 6 falls were witnessed and his rear end was the main point of initial contact with carpeted surfaces. According to the daughter, he has also recently been having nighttime urinary incontinence and ambulating with a "shuffling" gait. She says he lifts his feet up off the ground and then shuffles a bit until the next step. The pt admits to blurry vision to arose during our evaluation in the ED, episodic tin gling in his hands and feet, and back pain (chronic). Pt denies weight loss, fevers, chills, nausea, vomiting, or diarrhea. Pt is AAOx3. In the ED, other than hypokalemia (sK 3.2), his labs (CBC, metabolic panel, vbg, tsh, ammonia, lactic acid) were unremarkable. EKG also unremarkable and imaging (CT head and cxr) showed no acute pathology. patient was admitted for altered mental status workup HOSPITAL COURSE: Progressive cognitive decline likely 2/2 to mild cognitive impairment vs. mild dementia per neurology. There was not a concern for a pathological disease per neuro (i.e Parkinson's or Lewy Body dementia). Medications modified this hospital stay. Metabolic and infectious etiologies thus negative, Vit B12 wnl. CTA brain and brain MRI, CT head ruled out CVA. Per neuro, recommend MRI cervical and thoracic spine as o/p. They will be happy to see after discharge. Discharged home with f/u with PCP. At discharge, patient had no acute complaints. PAST MEDICAL HISTORY: 1. COPD on 4L 24/7 baseline 2. Anxiety 3. Depression 4. PTSD PAST SURGICAL HISTORY: 1. R shoulder replacement 2. L hip replacement 3. Hernia repair 4. 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 DISCHARGE MEDICATIONS: Please see below. PHYSICAL EXAMINATION: VS: please see below GENERAL APPEARANCE: Elderly gentleman lying comfortably in no acute distress. A&O x3. Head: NCAT Eyes: Anicteric, non injected, PERRLA, EOMI ENT: mildly dry MM NECK: no JVD appreciated, supple and thin CARDIOVASCULAR: RRR, no mrg LUNGS: 2L O2 via NC and saturating at 98%. Clear without karrie crackles, rhonchi or wheezing ABDOMEN: Normoactive sounds, soft, nontender, nondistended EXTREMITIES: WWP, no edema NEUROLOGICAL: AOx3, CN III-XII in tact, no focal deficits. PSYCHIATRIC: AOx3 LABORATORY: please see below. Reviewed. MICROBIOLOGY: Bcx NGTD IMAGING: -CTA HEAD 04/02/2020: Impression "No intracranial arterial occlusion or significant stenosis." -MRI BRAIN 04/02/2020: Impression "No acute intracranial abnormality." -CT HEAD 04/02/2020: Impression "1. No evidence of acute intracranial abnormality. No evidence of acute infarction, hemorrhage, or mass. 2. Senescent changes." -CXR 04/02/2020: Impression "Lungs: The lungs are hyperexpanded and there are bullous and fibrotic changes greatest in pulmonary apices. No evidence of consolidation or pneumonia. Pleural space: No significant visible pleural effusion. No pneumothorax. Heart/Mediastinum: No significant cardiomegaly. Vascu lature: The aorta is calcified and unfolded. The aorta is calcified and unfolded. Bones/joints: Degenerative changes are present in the spine. Right shoulder replacement. No acute consolidation or acute finding. Chronic changes as described." ASSESSMENT: 79 yo M with COPD on home 4L at baseline, anxiety, PTSD, and depression who presented to the ED at the recommendation of his PCP with his daughter due reports from the daughter that the pt had fallen 6 times in one morning and has had cognitive decline for the past month, found to have unremarkable head CT, MRI, vascular imaging and infectious workup, concerning for progressive decline due to dementia, mild cognitive decline. PLAN: Progressive cognitive decline likely 2/2 to mild cognitive impairment vs. mild dementia per neurology. There was not a concern for a pathological disease per neuro (i.e Parkinson's or Lewy Body dementia). -Medications modified this hospital stay. -Metabolic and infectious etiologies thus far remain negative -Vit B12 wnl -CTA brain and brain MRI r/o CVA -PT/OT evaluated -Per neuro, recommend MRI cervical and thoracic spine as o/p. Happy to see after discharge. COPD with chronic hypoxemic respiratory failure -Not currently in exacerbation. -Saturation has been at baseline. -Titrate O2 saturation to 88-92%. -Continue home meds Recent falls 2/2 to orthostatic hypotension -Positive orthostats this hosptial stay but improved -Fall precautions -No acute events on telemetry, was discontinued on 04/04 Anxiety, Depression, PTSD -Continue home meds Chronic neck and back pain -Stable -Gabapentin qhs DISPOSITION: Discharged today after discussion PFS had with daughter. To f/u with PCP after d/c. TIME SPENT ON DISCHARGE: Greater than 30 minutes. Vital Signs/I&Os Vital Signs Date Time Temp Pulse Resp B/P (MAP) Pulse Ox O2 Delivery O2 Flow Rate FiO2 04/07/20 08:00 2.0 04/07/20 07:52 98.6 80 20 112/64 (80) 95 Nasal Cannula I&O- Last 24 Hours up to 6 AM0 04/07/20 06:00 Intake Total 1250 ml Output Total 650 ml Balance 600 ml Laboratory Data Labs 24H Laboratory Tests 2 04/07/20 08:59: Vitamin B12 Level 464 Microbiology Microbiology 04/02/20 Blood Culture - Preliminary, Resulted No Growth after 72 hours. All specime... 04/02/20 Blood Culture - Final, Complete NO GROWTH AFTER 5 DAYS Discharge Medications Scheduled Aripiprazole (Aripiprazole) 15 Mg Tablet, 7.5 MG PO DAILY, (Reported) B-Complex with Vitamin C (Vitamin B Complex-Vitamin C) 1 Each Tablet, 1 TAB PO DAILY, (Reported) Cyanocobalamin (Vitamin B-12) (B-12) 1,000 Mcg Tablet, 1,000 MCG PO BID, (Reported) Dicyclomine HCl (Dicyclomine HCl) 10 Mg Capsule, 10 MG PO BID, (Reported) WITH BREAKFAST AND DINNER Ergocalciferol (Vitamin D2) (Vitamin D2) 50,000 Units Cap, 50,000 UNITS PO Q2WK, (Reported) TAKES 1ST AND 15TH Ferrous Gluconate (Ferrous Gluconate) 324 Mg Tab, 324 MG PO BID, (Reported) Gabapentin (Gabapentin) 100 Mg Capsule, 100 MG PO QHS Loratadine (Loratadine) 10 Mg Tablet, 10 MG PO DAILY, (Reported) Mometasone Furoate (Asmanex) 220 Mcg Aer.pow.ba, 2 PUFF INH BID, (Reported) Montelukast Sodium (Montelukast Sodium) 10 Mg Tab, 10 MG PO DAILY, (Reported) Goltry-3 Fatty Acids/Fish Oil (Fish Oil 1,000 mg Capsule) 1,000 Mg Cap, 1,000 MG PO BID, (Reported) Omeprazole (Omeprazole) 40 Mg Cap, 40 MG PO DAILY, (Reported) Roflumilast (Daliresp) 500 Mcg Tab, 500 MCG PO DAILY, (Reported) Rosuvastatin Calcium (Crestor) 40 Mg Tab, 40 MG PO QPM, (Reported) DINNERTIME Tamsulosin HCl (Flomax) 0.4 Mg Capsule, 0.4 MG PO QHS, (Reported) Theophylline Anhydrous (Neil-24) 300 Mg Cap.er.24h, 300 MG PO BID, (Reported) Tiotropium Br/Olodaterol HCl (Stiolto Respimat Inhal [place]) 1 Aer Aer, 2 PUFFS INH DAILY, (Reported) Venlafaxine HCl (Venlafaxine HCl ER) 150 Mg Cap, 150 MG PO BID, (Reported) Scheduled PRN Albuterol Sulf (Albuterol Sulfate) 2.5 Mg/3 Ml Nebu, 2.5 MG INH Q6H PRN for SHORTNESS OF BREATH, (Reported) Albuterol Sulfate (Ventolin Hfa) 108 Mcg/Act Aer, 2 PUFFS INH Q4H PRN for SHORTNESS OF BREATH, (Reported) Fluticasone Propionate (Flonase Allergy Relief) 50 Mcg/Act Spr, 2 SPRAYS NA QHS PRN for ALLERGIES, (Reported) Sodium Chloride (Amite) 0.65 % Spr, 2 SPRAY NA QID PRN for NASAL DRYNESS, (Reported) EACH NOSTRIL Allergies Coded Allergies: No Known Allergies (Unverified , 04/02/20) Annette Fields MD Apr 07, 2020 17:37
== END 2020-04-07 15:57 | disposition home or self-care (01) | DRG 312 ==
LOC: M ED 10:48 → M ED INP 14:44 → ENRESERV 15:46 → M PCU 17:55
PROVIDERS: ADMIT Internal Medicine; ATTEND Internal Medicine
DX: I95.1 Orthostatic hypotension (principal); J96.11 Chronic respiratory failure with hypoxia; R29.6 Repeated falls; J44.9 Chronic obstructive pulmonary disease, unspecified; F41.9 Anxiety disorder, unspecified; R53.1 Weakness; F32.9 Major depressive disorder, single episode, unspecified; F43.10 Post-traumatic stress disorder, unspecified; M54.2 Cervicalgia; R26.89 Other abnormalities of gait and mobility; Z66 Do not resuscitate; F03.90 Unspecified dementia, unspecified severity, without behavioral disturbance, psychotic disturbance, mood disturbance, and anxiety; Z96.611 Presence of right artificial shoulder joint; Z96.642 Presence of left artificial hip joint; Z98.49 Cataract extraction status, unspecified eye; Z87.891 Personal history of nicotine dependence; Z99.81 Dependence on supplemental oxygen; Z79.899 Other long term (current) drug therapy

== ENCOUNTER 2020-06-01 14:31 | Inpatient (IN) | payer MEDICARE ==
[~2020-06-01] VITALS: Ht 177.8 cm; Wt 54.5 kg
[~2020-06-01 14:31] MED LIST changes: +B-CO1TAB12 PO; +GABA-1171 PO; -MONT10TA4 PO; +MONT5TAB2 PO
[2020-06-01 15:30] LABS: ABG BASE EXCESS 4.4 (-2.0-2.0); ABG O2 SATURATION 99.2 % (95.0-99.0); ABG PARTIAL PRESSURE CO2 49.9 mmHg (35.0-45.0); ABG PARTIAL PRESSURE O2 167.7 mmHg (75.0-100.0); ABG STANDARD HCO3 28.4 MEQ/L (22.0-26.0); ABG TOTAL CO2 31.5 MEQ/L (23.0-31.0); ABG pH (ARTERIAL) 7.397 UNITS (7.350-7.450)
[2020-06-01 15:41] LABS: BASO # 0.1 10^3/uL (0.0-0.2); BASO % 0.9 % (0.0-1.0); EOS # 0.2 10^3/uL (0.0-0.5); EOS % 2.7 % (0.0-3.0); HEMATOCRIT 32.5 % (42.0-52.0); HEMOGLOBIN 10.3 g/dl (13.5-17.5); LYMPH # 1.3 10^3/uL (1.5-5.0); LYMPH % 17.2 % (24.0-44.0); MEAN CORPUSCULAR HEMOGLOBIN 30.5 pg (27.0-33.0); MEAN CORPUSCULAR HGB CONC 31.7 g/dl (32.0-36.5); MEAN CORPUSCULAR VOLUME 96.2 fl (80.0-96.0); MONO # 0.8 10^3/uL (0.0-0.8); MONO % 10.1 % (0.0-5.0); NEUTROPHILS # 5.3 10^3/uL (1.5-8.5); NEUTROPHILS % 68.7 % (36.0-66.0); PLATELET COUNT, AUTOMATED 247 10^3/uL (150-450); RED BLOOD COUNT 3.38 10^6/uL (4.30-6.10); WHITE BLOOD COUNT 7.7 10^3/uL (4.0-10.0)
[2020-06-01 16:05] LABS: OSMOLALITY SERUM 292 MOSM/KG (280-301)
--- NOTE | 2020-06-01 16:17 | REP ---
INDICATION: Altered Mental Status. COMPARISON: Comparison CT study of the brain is from April 02, 2020. Comparison MRI study is from April 02, 2020.. TECHNIQUE: Helical scanning is acquired. 5 mm axial images were reformatted. Coronal MPR images were generated. FINDINGS: Bone window settings demonstrate an intact bony calvarium. There is no evidence of skull fracture or incidental bony calvarial lesion. The visualized paranasal sinuses appear clear. No intraorbital abnormality is seen. On soft tissue window setting images; the lateral, third, and fourth ventricles are normal in size and position. Gonzales-white differentiation pattern is normal above and below the tentorium. There are is no evidence of intracranial hemorrhage. No mass, edema, infarction, or midline shift is seen. No extra-axial fluid collection is appreciated. Vascular calcification, generalized volume loss, and minimal small vessel changes are again noted. IMPRESSION: No acute intracranial abnormality. Vascular calcification and mild generalized volume loss again noted.. <Electronically signed by Mitesh Valencia > 06/01/20 [id number]
--- NOTE | 2020-06-01 16:21 | REP ---
INDICATION: Altered Mental Status. COMPARISON: Comparison chest x-ray April 02, 2020. TECHNIQUE: Portable upright AP chest radiograph. FINDINGS: The lungs are well inflated and free of infiltrate. Pleural angles are sharp. Heart size is normal. Pulmonary vasculature is not increased. There are some chronic markings in the right upper lobe region consistent with pleuroparenchymal fibrosis unchanged from comparison study of 02 April and 24 September 2019. A prosthetic right shoulder is noted. Oxygen delivery tubing and monitoring electrodes are seen. Heart is not enlarged. Pulmonary vasculature is not increased. IMPRESSION: No acute infiltrate. Mild hyperinflation. Chronic pleuroparenchymal fibrosis right lung apex. No acute disease.. <Electronically signed by Mitesh Valencia > 06/01/20 [id number]
[2020-06-01 16:23] LABS: ALBUMIN 3.6 GM/DL (3.2-5.2); ALT/SGPT 20 U/L (12-78); BILIRUBIN,DIRECT 0.2 MG/DL (0.0-0.2); BILIRUBIN,TOTAL 0.4 MG/DL (0.2-1.0); BLOOD UREA NITROGEN 17 MG/DL (7-18); CALCIUM LEVEL 9.8 MG/DL (8.8-10.2); CARBON DIOXIDE LEVEL 33 MEQ/L (21-32); CHLORIDE LEVEL 104 MEQ/L (98-107); CPK CREATINE PHOSPHOKINASE 201 U/L (39-308); CREATININE FOR GFR 0.81 MG/DL (0.70-1.30); GLOMERULAR FILTRATION RATE > 60.0 (>42); GLUCOSE, FASTING 84 MG/DL (70-100); POTASSIUM SERUM 3.4 MEQ/L (3.5-5.1); SODIUM LEVEL 140 MEQ/L (136-145); THYROID STIMULATING HORMONE 0.729 uIU/ML (0.358-3.740); TOTAL PROTEIN 6.8 GM/DL (6.4-8.2); TROPONIN I < 0.02 NG/ML (< 0.10)
[2020-06-01] MEDS ORDERED: LIDOCAINE 2% 5ML JELLY UROJET TOP ONE (16:30)
[2020-06-01 16:59] LABS: ACETAMINOPHEN LEVEL < 2.0 UG/ML (10.0-30.0); ETHYL ALCOHOL (ETHANOL) < 0.003 % (0.000-0.010); SALICYLATE LEVEL < 1.7 MG/DL (5.0-30.0)
[2020-06-01] MEDS ORDERED: PREG100CA PO (17:17)
[2020-06-01] MEDS ORDERED: ISOVUE-370 76% 100ML VIAL As Ordered ONE (17:22)
[2020-06-01 18:10] LABS: AMPHETAMINES LEVEL URINE NEGATIVE (NEGATIVE); BARBITURATES URINE NEGATIVE (NEGATIVE); BENZODIAZEPINES URINE NEGATIVE (NEGATIVE); CANNABINOIDS URINE NEGATIVE (NEGATIVE); COCAINE METABOLITE URINE NEGATIVE (NEGATIVE); METHADONE URINE NEGATIVE (NEGATIVE); OPIATES URINE NEGATIVE (NEGATIVE); PHENCYCLIDINE URINE NEGATIVE (NEGATIVE)
--- NOTE | 2020-06-01 18:30 | REPVR ---
PROCEDURE INFORMATION: Exam: CT Abdomen And Pelvis With Contrast Exam date and time: 06/01/2020 4:41 PM Age: 79 years old Clinical indication: Pain; Other: Pelvic; Additional info: Pelvic pain TECHNIQUE: Imaging protocol: Computed tomography of the abdomen and pelvis with intravenous contrast. Radiation optimization: All CT scans at this facility use at least one of these dose optimization techniques: automated exposure control; mA and/or kV adjustment per patient size (includes targeted exams where dose is matched to clinical indication); or iterative reconstruction. Contrast material: ISOVUE 370; Contrast volume: 100 ml; Contrast route: INTRAVENOUS (IV); COMPARISON: No relevant prior studies available. FINDINGS: Lungs: Scarring at the right lung base. Emphysematous changes in the visualized lung bases. Liver: Enhancement in the right hepatic lobe measuring 2.6 x 1.7 cm. Gallbladder and bile ducts: Normal. No calcified stones. No ductal dilation. Pancreas: Normal. No ductal dilation. Spleen: Cyst in the spleen measuring 1.2 cm. Adrenal glands: Normal. No mass. Kidneys and ureters: Normal. No hydronephrosis. Stomach and bowel: Diverticulosis of the sigmoid colon. Appendix: No evidence of appendicitis. Intraperitoneal space: Unremarkable. No free air. No significant fluid collection. Vasculature: Atherosclerotic calcification of the abdominal aorta. No abdominal aortic aneurysm. Lymph nodes: Unremarkable. No enlarged lymph nodes. Urinary bladder: Unremarkable as visualized. Reproductive: Unremarkable as visualized. Bones/joints: Left total hip arthroplasty. Streak artifact from the left hip arthroplasty obscures the images in the pelvis. Scoliosis of the lumbar spine with convexity to the left. Multilevel degenerative disc disease. Soft tissues: Unremarkable. IMPRESSION: Nonspecific enhancement in the right hepatic lobe measuring 2.6 x 1.7 cm, findings may represent transient hepatic arterial enhancement. Further evaluation with CT or MRI with contrast can be obtained with liver protocol on an nonemergent basis. No acute abnormality of the abdomen and pelvis. Electronically signed by: Jake Lindsay On 06/01/2020 18:30:50 PM
[2020-06-01 18:55] LABS: RSV AMPLIFICATION NEGATIVE (NEGATIVE)
[2020-06-01] MEDS: ALBUTEROL SULFATE 2.5 MG/0.5 ML INH NEB SOLN INH SCH (20:00)
[2020-06-01] MEDS ORDERED: NS 1,000 ML IV SCH (20:54)
[2020-06-01] MEDS ORDERED: ALBUTEROL 90 MCG/ACT 8GM HFA INHALER INH PRN (21:00)
[2020-06-01] MEDS ORDERED: PREGABALIN 50 MG CAP (LYRICA) PO ONE (21:00)
[2020-06-01] MEDS ORDERED: ACETAMINOPHEN TAB 650MG DOSE (2X325MG) PO PRN (21:00)
[2020-06-01] MEDS ORDERED: OMEPRAZOLE 20 MG CAP PO ONE (21:15)
--- NOTE | 2020-06-01 21:18 | HPEPDOC ---
General Date of Admission Date of Service: Jun 01, 2020 Primary Care Physician: Jr Ruiz Collins Attending Physician: Fredy Dooley MD Chief Complaint The patient is a 79-year-old male admitted with a reason for visit of AMS. Source: Family, RN/, Old records Exam Limitations: Clinical conditions (the patient would answer yes/no questions, but unreliably) History of Present Illness [facility]. Felician[facility] come in and set his medications up for him. Around 05/22 he ran out of all of his medications and they did not get them to him for an additional 6 days. Roughly 05/28 they brought him his medications and he began taking his medications again at the ful l prescribed doses. For the last 24-48 hours his daughter, that he lives with, has noted altered mental status. For example he has been having auditory hallucinations and comments on the children in the house. He also attempted to drive his pillow somewhere in the car. And he has been disoriented to time. Home Medications Scheduled Albuterol Sulf (Albuterol Sulfate) 2.5 Mg/3 Ml Nebu, 2.5 MG INH Q6H, (Reported) B-Complex with Vitamin C (Vitamin B Complex-Vitamin C) 1 Each Tablet, 1 TAB PO DAILY, (Reported) Cyanocobalamin (Vitamin B-12) (B-12) 1,000 Mcg Tablet, 1,000 MCG PO BID, (Reported) Ferrous Gluconate (Ferrous Gluconate) 324 Mg Tab, 324 MG PO BID, (Reported) Loratadine (Loratadine) 10 Mg Tablet, 10 MG PO DAILY, (Reported) Montelukast Sodium (Montelukast Sodium) 10 Mg Tab, 10 MG PO DAILY, (Reported) [place]-3 Fatty Acids/Fish Oil (Fish Oil 1,000 mg Capsule) 1,000 Mg Cap, 1,000 MG PO BID, (Reported) Omeprazole (Omeprazole) 40 Mg Cap, 40 MG PO DAILY, (Reported) Pregabalin (Lyrica) 100 Mg Capsule, 100 MG PO DAILY, (Reported) Roflumilast (Daliresp) 500 Mcg Tab, 500 MCG PO DAILY, (Reported) Rosuvastatin Calcium (Crestor) 40 Mg Tab, 40 MG PO QPM, (Reported) DINNERTIME Tamsulosin HCl (Flomax) 0.4 Mg Capsule, 0.4 MG PO QHS, (Reported) Theophylline Anhydrous (Neil-24) 300 Mg Cap.er.24h, 300 MG PO BID, (Reported) Venlafaxine HCl (Venlafaxine HCl ER) 150 Mg Cap, 300 MG PO DAILY, (Reported) Scheduled PRN Albuterol Sulfate (Ventolin Hfa) 108 Mcg/Act Aer, 2 PUFFS INH Q4H PRN for S HORTNESS OF BREATH, (Reported) Allergies Coded Allergies: No Known Allergies (Unverified , 04/02/20) Past Medical History Medical History COPD on 4L of oxygen baseline Anxiety Depression PTSD Surgical History R shoulder replacement L hip replacement Hernia repair Cataract surgery Family History Mother: , arrhythmia Siblings: Brother- CAD s/p 3 cardiac stents Children: Daughter- Bipolar disorder, COPD Social History Children: 2 daughters Employment: Retired [employer] Tobacco use: Former smoker, exact quit date unknown but within last few months and he has at least a 50 pack/yr hx ETOH: Denies Illicit drug use: Denies IV drug use: Denies Other relevant social factors: Lives with daughter (Tomasa) and her A-FIB/CHADSVASC A-FIB History Current/History of A-Fib/PAF?: No Current PO Anticoag Therapy: No Review of Systems Other systems Unobtainable because of his confused state Physical Examination General Exam: Positive: Alert (but confused), Cooperative, No Acute Distress Eye Exam: Positive: PERRLA, Conjunctiva & lids normal; Negative: Sclera icteric ENT Exam: Positive: Atraumatic, Mucous membr. moist/pink, Pharynx Normal, Other ENT (edentulous) Neck Exam: Positive: Supple; Negative: thyromegaly, Lymphadenopathy Chest Exam: Positive: Wheezing (end expiratory wheezing), Diminished, Other (increased AP diameter) Heart Exam: Positive: Rate Normal, Regular Rhythm, Normal S1, Normal S2, Other (distant heart tones); Negative: Murmurs, Rubs Abdomen Exam: Positive: Normal bowel sounds, Soft; Negative: Tenderness, Hepatospenomegaly Extremity Exam: Negative: Clubbing, Cyanosis, Edema Skin Exam: Positive: Nl turgor and temperature Neuro Exam: Positive: Normal Tone; Negative: Normal Speech Psych Exam: Negative: Mental status NL, Memory Intact, Oriented x 3 Other physical findings There is some sort of a step-off lesion around his upper lumbar spine. This appears to be chronic. There is no point tenderness. Vital Signs Vital Signs Date Time Temp Pulse Resp B/P (MAP) Pulse Ox O2 Delivery O2 Flow Rate FiO2 06/01/20 20:46 67 100 06/01/20 20:45 136/77 (96) 06/01/20 14:31 98.8 28 Nasal Cannula 4.0 Laboratory Data Labs 24H Laboratory Tests 2 06/01/20 15:14: Immature Granulocyte % (Auto) 0.4, Neutrophils (%) (Auto) 68.7H, Lymphocytes (%) (Auto) 17.2L, Monocytes (%) (Auto) 10.1H, Eosinophils (%) (Auto) 2.7, Basophils (%) (Auto) 0.9, Neutrophils # (Auto) 5.3, Lymphocytes # (Auto) 1.3L, Monocytes # (Auto) 0.8, Eosinophils # (Auto) 0.2, Basophils # (Auto) 0.1, Nucleated Red B lood Cells % (auto) 0.0, Anion Gap 3L, Glomerular Filtration Rate > 60.0, Osmolality 292, Lactic Acid Level 1.0, Calcium Level 9.8, Total Bilirubin 0.4, Direct Bilirubin 0.2, Aspartate Amino Transf (AST/SGOT) 18, Alanine Aminotransferase (ALT/SGPT) 20, Alkaline Phosphatase 87, Ammonia 12, Total Crea ana Kinase 201, Creatine Kinase MB 2.0, Creatine Kinase MB Relative Index 1.00, Troponin I < 0.02, Total Protein 6.8, Albumin 3.6, Albumin/Globulin Ratio 1.1, Thyroid Stimulating Hormone (TSH) 0.729, Salicylates Level < 1.7L, Acetaminophen Level < 2.0L, Ethyl Alcohol Level < 0.003 06/01/20 15:16: Blood Gas Bicarbonate Standard 28.4H, Arterial Blood pH 7.397, Arterial Blood P artial Pressure CO2 49.9H, Arterial Blood Partial Pressure O2 167.7H, Arterial Blood Total CO2 31.5H, Arterial Blood HCO3 30.0H, Arterial Blood Base Excess 4.4H, Arterial Blood Oxygen Saturation 99.2H 06/01/20 17:04: Urine Color YELLOW, Urine Appearance HAZY, Urine pH 5.0, Urine Specific [place] 1.024, Urine Protein NEGATIVE, Urine Glucose (UA) NEGATIVE, Urine Ketones TRACEH, Urine Blood 1+H, Urine Nitrite NEGATIVE, Urine Bilirubin NEGATIVE, Urine Urobilinogen 2.0H, Urine Leukocyte Esterase NEGATIVE, Urine WBC (Auto) 2, Urine RBC (Auto) 13H, Urine Hyaline Casts (Auto) 1, Urine Bacteria (Auto) NEGATIVE, Urine Squamous Epithelial Cells 0, Urine Transitional Epithelial Cells 3, Urine Calcium Oxalate Cryst (Auto) SMALL, Urine Mucus (Auto) SMALL, Urine Sperm (Auto) , Urine Opiates Screen NEGATIVE, Urine Methadone Screen NEGATIVE, Urine Barbiturates Screen NEGATIVE, Urine Phencyclidine Screen NEGATIVE, Urine Amphetamines Screen NEGATIVE, Urine Benzodiazepines Screen NEGATIVE, Urine Cocaine Metabolite Screen NEGATIVE, Urine Cannabinoids Screen NEGATIVE 06/01/20 17:22: Ammonia 16 06/01/20 17:49: Coronavirus (COVID-19)(PCR) NEGATIVE, Influenza Type A (RT-PCR) NEGATIVE, Influenza Type B (RT-PCR) NEGATIVE, Respiratory Syncytial Virus (PCR) NEGATIVE CBC/BMP Laboratory Tests 06/01/20 15:14 Microbiology Microbiology 06/01/20 Blood Culture, Received Pending 06/01/20 Blood Culture, Received Pending Problems (1) Altered mental status Status: Acute Problem Specific Plan: Monitor Clinically Problem Text: His clinical evaluation has been unrevealing. This leads me to believe that the cause of his alteration in mental status is the resumption of his medications at full dose without tapering up for some of them. I decided to reduce his venlafaxine to 150 mg for the next 2 days and then resume his usual dose of 300 mg daily. Have also decided to move his Lyrica to the evening and to give him 50 mg tomorrow, 75 mg the next day, and finally resume 100 mg th ereafter. Hopefully these changes will give his brain that time to catch up and resolve his delirium. (2) COPD (chronic obstructive pulmonary disease) Status: Chronic Problem Specific Plan: Monitor Clinically Problem Text: He has chronic difficult to control COPD. I continued his current regimen including when necessary's. We should monitor him carefully. (3) Anxiety Status: Chronic Problem Text: I believe that adjustments in his medications for this condition may help resolve his delirium. If this does not work we may need to come up with another solution for him. (4) Depression Status: Chronic Problem Text: I believe that adjustments in his medications for this condition may help resolve his delirium. If this does not work we may need to come up with another solution for him. (5) PTSD (post-traumatic stress disorder) Status: Chronic Problem Text: I believe that adjustments in his medications for this condition may help resolve his delirium. If this does not work we may need to come up with another solution for him. Plan / VTE VTE Prophylaxis Ordered?: Yes Plan Advanced Directives: MOLST Form is available, Do Not Resuscitate (DNR), Health Care Proxy (HCP) (his daughter, Tomasa Arora [phone], is his alternate decision maker and his other daughter (Ema Liu) is the backup) Fredy Dooley MD Jun 01, 2020 21:17
[2020-06-01 23:20] VITALS: BP 140/77
[2020-06-02] MEDS: FERROUS GLUCONATE 324 MG TAB PO SCH ×3 (00:24→20:07)
[2020-06-02] MEDS: TAMSULOSIN 0.4 MG CAP PO SCH ×2 (00:24→20:07)
[2020-06-02] MEDS: ROSUVASTATIN 10 MG TAB (CRESTOR) PO SCH ×2 (00:25→17:32)
[2020-06-02] MEDS: ALBUTEROL SULFATE 2.5 MG/0.5 ML INH NEB SOLN INH SCH ×5 (01:51→18:16)
[2020-06-02] MEDS: THEOPHYLLINE (THEO-24) 100MG SR **CAPSULE PO SCH ×3 (02:03→20:07)
--- NOTE | 2020-06-02 05:50 | ECGEPIP ---
[facility] - ED Test Date: 2020-06-01 Pat Name: ROSALIND CASE Department: Room: - Gender: Male [employer]: : 1940 Requested By: Hieu Haro Order Number: [id number] Reading MD: Hieu Gomes Measurements Intervals [place] Rate: 75 P: 71 MT: 164 QRS: 66 QRSD: 90 T: 76 QT: 390 QTc: 436 Interpretive Statements SINUS RHYTHM POOR R WAVE PROGRESSION SIMILAR TO 04/02/20 Electronically Signed on 06-02-2020 5:50:29 EST by Hieu Gomes
[2020-06-02 06:00] VITALS: BP 114/67
[2020-06-02] MEDS ORDERED: SLF 3 ML SYR IV PRN (06:30)
[2020-06-02 07:12] LABS: MEAN CORPUSCULAR HGB CONC 31.3 g/dl (32.0-36.5); MEAN CORPUSCULAR VOLUME 96.1 fl (80.0-96.0); PLATELET COUNT, AUTOMATED 226 10^3/uL (150-450); RED BLOOD COUNT 3.33 10^6/uL (4.30-6.10); WHITE BLOOD COUNT 8.9 10^3/uL (4.0-10.0)
[2020-06-02 07:31] LABS: BLOOD UREA NITROGEN 18 MG/DL (7-18); CALCIUM LEVEL 9.4 MG/DL (8.8-10.2); CARBON DIOXIDE LEVEL 28 MEQ/L (21-32); CHLORIDE LEVEL 106 MEQ/L (98-107); CREATININE FOR GFR 0.68 MG/DL (0.70-1.30); GLOMERULAR FILTRATION RATE > 60.0 (>42); GLUCOSE, FASTING 63 MG/DL (70-100); POTASSIUM SERUM 3.2 MEQ/L (3.5-5.1); SODIUM LEVEL 140 MEQ/L (136-145)
[2020-06-02] MEDS: VITAMIN B COMPLEX/VIT C CAP PO SCH (08:33)
[2020-06-02] MEDS: MONTELUKAST 10 MG TAB PO SCH (08:34)
[2020-06-02] MEDS: LORATADINE 10 MG TAB PO SCH (08:34)
[2020-06-02] MEDS: VENLAFAXINE **XR** 75MG CAPSULE PO SCH (08:34)
[2020-06-02] MEDS: ENOXAPARIN 40MG/0.4ML SYRINGE (J1650 PER 10MG) SC SCH (08:35)
[2020-06-02] MEDS ORDERED: POTASSIUM CHLORIDE 10 MEQ SR TABLET PO ONE (09:00)
--- NOTE | 2020-06-02 11:22 | IPNPDOC ---
Subjective Date Seen The patient was seen on 06/02/20. Subjective Chief Complaint/HPI Pt was seen at bedside this am. He is AAOx2. He states that he is a little dizzy that's worse when he gets up from the bed. Orthostatics will be ordered. Denies loss of consciousness, headaches, vision loss, CP, SOB, abdominal pain. He's a COPD-er and has home oxygen which he usually uses 3L of. He's currently satting at 98% on 3.5 L and i have put in a titration order on the O2 to 88%-92%. REVIEW OF SYSTEMS: Constitutional: No fevers, chills, malaise, fatigue ENT/Mouth: No Hearing Changes, No Ear Pain, Nasal Congestion, Sinus Pain, H oarseness, sore throat, Rhinorrhea, swallowing Difficulty Cardiovascular: Reports some chest pain in center of his chest, off-and-on Respiratory: No Cough, O2 dependent and uses home O2 usu set at 3L Gastrointestinal: No n/v/d or constipation, No Pain, Heartburn, Anorexia, Dysphagia, Hematochezia, or Melena Genitourinary: No Dysuria Musculoskeletal: No Arthralgias, Myalgias, Joint Swelling, Joint Stiffness, Back Pain,Neck Pain Skin: No Skin Lesions Neuro: No Weakness, Numbness, Paresthesias, Loss of Consciousness, Syncope, Dizziness, Headache,Coordination Changes, Recent Falls Psych: No Anxiety/Panic, Depression, Insomnia, Personality Changes, or Delusions Heme/Lymph: No Bruising, Bleeding,Transfusions History, or Lymphadenopathy Endocrine: No Polyuria, or Polydipsia PHYSICAL EXAM: VITAL SIGNS: Stable. See below GENERAL: alert and oriented, in no apparent distress, pleasant and conversant in full sentences. HEENT: PERRL, EOMI, Oral mucous membranes are moist without lesions. NECK: The patient has no noted JVD. No adenopathy is appreciated. No thyromegaly CHEST/LUNGS: Currently on 3.5 L of NC and satting well; expiratory wheezes heard clearly on the upper lung almaraz There is no tenderness to the chest wall. HEART: Regular rate and rhythm. No murmurs, rubs, or gallops are appreciated. Distal pulses are 2+. No carotid bruits appreciated. ABDOMEN: Soft, nontender, and nondistended. Bowel sounds are positive. No organomegaly is appreciated. No masses are appreciated. There are no peritoneal signs. There is no [place] sign. EXTREMITIES: There is chronic venous stasis and vascular edema in bilateral lower extremities SKIN: The remainder of the patients skin is warm and dry, without rashes or lesions. PSYCHIATRIC: AAO x 2, normal mood/affect NEUROLOGIC: The patient has 5/5 strength to the upper and lower extremities bilaterally. Sensation is intact throughout. Deep tendon reflexes are 2+ in all four extremities. There are no deficits to the cranial nerves IMAGING: No new imaging LABS: see below Objective Physical Examination General Exam: Positive: Alert (but confused), Cooperative, No Acute Distress Eye Exam: Positive: PERRLA, Conjunctiva & lids normal; Negative: Sclera icteric ENT Exam: Positive: Atraumatic, Mucous membr. moist/pink, Pharynx Normal, Other ENT (edentulous) Neck Exam: Positive: Supple; Negative: thyromegaly, Lymphadenopathy Chest Exam: Positive: Wheezing (end expiratory wheezing), Diminished, Other (increased AP diameter) Heart Exam: Positive: Rate Normal, Regular Rhythm, Normal S1, Normal S2, Other (distant heart tones); Negative: Murmurs, Rubs Abdomen Exam: Positive: Normal bowel sounds, Soft; Negative: Tenderness, Hepatospenomegaly Extremity Exam: Negative: Clubbing, Cyanosis, Edema Skin Exam: Positive: Nl turgor and temperature Neuro Exam: Positive: Normal Tone; Negative: Normal Speech Psych Exam: Negative: Mental status NL, Memory Intact, Oriented x 3 Assessment /Plan Assessment This is a 79 y/o elderly gentleman who has a Hx of PTSD, depression, and an oxygen dependent COPD-er who presents to [facility] ER due to Altered Mental Status. He refills his meds through the [facility] system and was not able to get them refilled on time and this lag may have been the cause of his altered mentation. Of note, he lives at home with his daughter who is his primary multi care technician. Patient may need placement per case mgmt. #Altered Mental Status - possibly 2/2 medications - AAOx2 - Dizziness- orthostatics pending - No focal neuro deficits - Dose of medications reduced on admission - Will continue to monitor #Hx of COPD - has hx of exacerbations - O2 dependent on 3L at home - No exacerbation at this time - O2 NC to titrate O2 between 88%-92% - O2 sat is 98% on 3.5L NC this am- titrating down to the above parameters - continue home meds #Hx of Depression - Continue Effexor # Hypercholesterolemia - continue rosuvastatin #Dizziness - likely 2/2 to orthostatic cause - Pending orthostatics #GERD - continue prilosec #BPH - continue flomax DVT ppx: lovenox GI ppx: Omeprazole fluids: NS @80cc/h for 1L Code status: DNR/DNI Disposition: placement per case mgmt Plan/VTE VTE Prophylaxis Ordered?: Yes VS, I&O, 24H, Fishbone Vital Signs/I&O Vital Signs Date Time Temp Pulse Resp B/P (MAP) Pulse Ox O2 Delivery O2 Flow Rate FiO2 06/02/20 08:10 3.0 06/02/20 06:00 98.1 102 18 114/67 (83) 93 Nasal Cannula I&O- Last 24 Hours up to 6 AM 06/02/20 05:59 Intake Total 200 ml Output Total 0 ml Balance 200 ml Laboratory Data 24H LABS Laboratory Tests 2 06/01/20 15:14: Immature Granulocyte % (Auto) 0.4, Neutrophils (%) (Auto) 68.7H, Lymphocytes (%) (Auto) 17.2L, Monocytes (%) (Auto) 10.1H, Eosinophils (%) (Auto) 2.7, Basophils (%) (Auto) 0.9, Neutrophils # (Auto) 5.3, Lymphocytes # (Auto) 1.3L, Monocytes # (Auto) 0.8, Eosinophils # (Auto) 0.2, Basophils # (Auto) 0.1, Nucleated Red Blood Cells % (auto) 0.0, Anion Gap 3L, Glomerular Filtration Rate > 60.0, Osmolality 292, Lactic Acid Level 1.0, Calcium Level 9.8, Total Bilirubin 0.4, Direct Bilirubin 0.2, Aspartate Amino Transf (AST/SGOT) 18, Alanine Aminotransferase (ALT/SGPT) 20, Alkaline Phosphatase 87, Ammonia 12, Total Cr eatine Kinase 201, Creatine Kinase MB 2.0, Creatine Kinase MB Relative Index 1.00, Troponin I < 0.02, Total Protein 6.8, Albumin 3.6, Albumin/Globulin Ratio 1.1, Thyroid Stimulating Hormone (TSH) 0.729, Salicylates Level < 1.7L, Acetaminophen Level < 2.0L, Ethyl Alcohol Level < 0.003 06/01/20 15:16: Blood Gas Bicarbonate Standard 28.4H, Arterial Blood pH 7.397, Arterial Blood Partial Pressure CO2 49.9H, Arterial Blood Partial Pressure O2 167.7H, Arterial Blood Total CO2 31.5H, Arterial Blood HCO3 30.0H, Arterial Blood Base Excess 4.4H, Arterial Blood Oxygen Saturation 99.2H 06/01/20 17:04: Urine Color YELLOW, Urine Appearance HAZY, Urine pH 5.0, Urine Specific [place] 1.024, Urine Protein NEGATIVE, Urine Glucose (UA) NEGATIVE, Urine Ketones TRACE H, Urine Blood 1+H, Urine Nitrite NEGATIVE, Urine Bilirubin NEGATIVE, Urine Urobilinogen 2.0H, Urine Leukocyte Esterase NEGATIVE, Urine WBC (Auto) 2, Urine RBC (Auto) 13H, Urine Hyaline Casts (Auto) 1, Urine Bacteria (Auto) NEGATIVE, Urine Squamous Epithelial Cells 0, Urine Transitional Epithelial Cells 3, Urine Calcium Oxalate Cryst (Auto) SMALL, Urine Mucus (Auto) SMALL, Urine Sperm (Auto) , Urine Opiates Screen NEGATIVE, Urine Methadone Screen NEGATIVE, Urine Barbiturates Screen NEGATIVE, Urine Phencyclidine Screen NEGATIVE, Urine Amphetamines Screen NEGATIVE, Urine Benzodiazepines Screen NEGATIVE, Urine Cocaine Metabolite Screen NEGATIVE, Urine Cannabinoids Screen NEGATIVE 06/01/20 17:22: Ammonia 16 06/01/20 17:49: Coronavirus (COVID-19)(PCR) NEGATIVE, Influenza Type A (RT-PCR) NEGATIVE, Influenza Type B (RT-PCR) NEGATIVE, Respiratory Syncytial Virus (PCR) NEGATIVE 06/02/20 06:42: Nucleated Red Blood Cells % (auto) 0.0, Anion Gap 6L, Glomerular Filtration Rate > 60.0, Calcium Level 9.4 CBC/BMP Laboratory Tests 06/01/20 15:14 06/02/20 06:42 Microbiology Microbiology 06/01/20 Blood Culture, Received Pending 06/01/20 Blood Culture, Received Pending GME ATTESTATION GME ATTESTATION My faculty preceptor for this patient encounter was physically present during the encounter and was fully available. All aspects of the patient interview, examination, medical decision making process, and medical care plan development were reviewed and approved by the faculty preceptor. The faculty preceptor is aware and concurs with the plan as stated in the body of this note and will attest to such by his/her cosignature. ATTENDING NOTE I, Diana Santiago, have independently examined this patient and performed my own physical exam, as well as reviewed the documentation and edited where necessary. I have discussed in detail with the resident / student the findings and plan of treatment as documented by the resident / student and edited their note. I agree with their findings and treatment plan and have edited their documentation. I will continue to follow the patient during this hospital stay. Viji Armendariz DO Jun 02, 2020 11:22 DIANA SANTIAGO MD Jun 02, 2020 14:55
[2020-06-02 11:32] VITALS: BP_SYST 102; BP_SYST 83; BP_SYST 88; BP_DIAS 53; BP_DIAS 55; BP_DIAS 58
[2020-06-02] MEDS: NS 1,000 ML IV SCH (12:00)
[2020-06-02] MEDS: SLF 3 ML SYR IV SCH ×2 (13:35→20:07)
[2020-06-02 14:00] VITALS: BP 93/57
[2020-06-02 17:28] VITALS: BP 120/65
[2020-06-02] MEDS ORDERED: PREGABALIN 75 MG CAP(LYRICA) PO ONE (21:00)
[2020-06-02 22:00] VITALS: BP 113/64
[2020-06-03] MEDS: NS 1,000 ML IV SCH (00:06)
[2020-06-03] MEDS: SLF 3 ML SYR IV SCH (00:06)
[2020-06-03] MEDS: ALBUTEROL SULFATE 2.5 MG/0.5 ML INH NEB SOLN INH SCH ×2 (01:52→05:59)
[2020-06-03 06:00] VITALS: BP 134/69
[2020-06-03] MEDS ORDERED: POTASSIUM CHLORIDE 10 MEQ SR TABLET PO ONE (07:45)
[2020-06-03] MEDS ORDERED: VENL150C43 PO (08:54)
[2020-06-03] MEDS: LORATADINE 10 MG TAB PO SCH (09:09)
[2020-06-03] MEDS: ENOXAPARIN 40MG/0.4ML SYRINGE (J1650 PER 10MG) SC SCH (09:09)
[2020-06-03] MEDS: VENLAFAXINE **XR** 75MG CAPSULE PO SCH (09:09)
[2020-06-03] MEDS: FERROUS GLUCONATE 324 MG TAB PO SCH (09:09)
[2020-06-03] MEDS: THEOPHYLLINE (THEO-24) 100MG SR **CAPSULE PO SCH (09:09)
[2020-06-03] MEDS: VITAMIN B COMPLEX/VIT C CAP PO SCH (09:09)
[2020-06-03] MEDS: MONTELUKAST 10 MG TAB PO SCH (09:09)
--- NOTE | 2020-06-03 10:02 | DS.PDOC ---
Discharge Summary General Date of Admission Jun 01, 2020 at 20:54 Date of Discharge 06/03/2020 Attending Physician: DIANA SANTIAGO MD Discharge Summary PROCEDURES PERFORMED DURING STAY: [None]. ADMITTING DIAGNOSES: 1. AMS DISCHARGE DIAGNOSES: 1. toxic encephalopathy 2/2 to med compliance COMPLICATIONS/CHIEF COMPLAINT: Altered Mental Status. HISTORY OF PRESENT ILLNESS AND HOSPITAL COURSE: This is a 79 y/o elderly gentleman who has a Hx of PTSD, depression, and an oxygen dependent COPD-er who presents to [facility] ER due to Altered Mental Status. He refills his meds through the [facility] system and was not able to get them refilled on time and this lag may have been the cause of his altered mentation. Of note, he lives at home with his daughter who is his primary day care aide. Patient's mentation continued to improve during hospitalization. Patient's is at baseline mentation at discharge. Pt is O2 dependent and has home O2 which he uses 3L so there's a component of chronic respiratory failure as patient is a chronic COPD-er. However, there was no acute exacerbation of his COPD during this admission; he was able to maintain sats above 96% on 3L and was able to lower his O2 requirements to titrate b/t 88%-92%. He's not short of breath on room air while eating his breakfast this am prior to discharge. Pt is discharged with services so that he can be as compliant with his medications as possible. PFS has had discussion with family about attaining medications and family will continue to provide 24/7 care. Patient has been discharged home with services and instructions to follow-up with his primary care provider within next 7 days DISCHARGE MEDICATIONS: Please see below. ALLERGIES: Please see below. PHYSICAL EXAMINATION ON DISCHARGE: PHYSICAL EXAM: VITAL SIGNS: Stable. See below GENERAL: alert and oriented, in no apparent distress, pleasant and conversant in full sentences. HEENT: PERRL, EOMI, Oral mucous membranes are moist without lesions. NECK: The patient has no noted JVD. No adenopathy is appreciated. No thyromegaly CHEST/LUNGS: No wheezing appreciated; is maintaining sats on RA without SOB. There is no tenderness to the chest wall. HEART: Regular rate and rhythm. No murmurs, rubs, or gallops are appreciated. Distal pulses are 2+. No carotid bruits appreciated. ABDOMEN: Soft, nontender, and nondistended. Bowel sounds are positive. No organomegaly is appreciated. No masses are appreciated. There are no peritoneal signs. There is no Wilson sign. EXTREMITIES: There is chronic venous stasis and vascular edema in bilateral lower extremities SKIN: The remainder of the patients skin is warm and dry, without rashes or lesions. PSYCHIATRIC: Awake / alert, normal mood/affect NEUROLOGIC: The patient has 5/5 strength to the upper and lower extremities bilaterally. Sensation is intact throughout. Deep tendon reflexes are 2+ in all four extremities. There are no deficits to the cranial nerves LABORATORY DATA: Please see below. IMAGING: CT ab/pelvis IMPRESSION: No acute abnormality of the abdomen and pelvis. XR chest IMPRESSION: No acute infiltrate. Mild hyperinflation. Chronic pleuroparenchymal fibrosis right lung apex. No acute disease. CT head w/o ctx IMPRESSION: No acute intracranial abnormality. Vascular calcification and mild generalized volume loss again noted. PROGNOSIS: Fair ACTIVITY: As tolerated DIET: 2g Na ITEMS TO FOLLOWUP ON ON OUTPATIENT: 1. Follow up with PCP within 3-5 days of hospital discharge DISCHARGE CONDITION:Fair TIME SPENT ON DISCHARGE: 35 minutes. Vital Signs/I&Os Vital Signs Date Time Temp Pulse Resp B/P (MAP) Pulse Ox O2 Delivery O2 Flow Rate FiO2 06/03/20 09:00 1.5 06/03/20 06:00 98.2 71 18 134/69 (90) 95 Nasal Cannula I&O- Last 24 Hours up to 6 AM 06/03/20 06:00 Intake Total 2725 ml Output Total 1400 ml Balance 1325 ml Microbiology Microbiology 06/01/20 Blood Culture - Preliminary, Resulted No growth after 24 hours . All specim... 06/01/20 Blood Culture - Preliminary, Resulted No growth after 24 hours . All specim... Discharge Medications Scheduled Albuterol Sulf (Albuterol Sulfate) 2.5 Mg/3 Ml Nebu, 2.5 MG INH Q6H, (Reported) B-Complex with Vitamin C (Vitamin B Complex-Vitamin C) 1 Each Tablet, 1 TAB PO DAILY, (Reported) Cyanocobalamin (Vitamin B-12) (B-12) 1,000 Mcg Tablet, 1,000 MCG PO BID, (Reported) Ferrous Gluconate (Ferrous Gluconate) 324 Mg Tab, 324 MG PO BID, (Reported) Loratadine (Loratadine) 10 Mg Tablet, 10 MG PO DAILY, (Reported) Montelukast Sodium (Montelukast Sodium) 10 Mg Tab, 10 MG PO DAILY, (Reported) Ceres-3 Fatty Acids/Fish Oil (Fish Oil 1,000 mg Capsule) 1,000 Mg Cap, 1,000 MG PO BID, (Reported) Omeprazole (Omeprazole) 40 Mg Cap, 40 MG PO DAILY, (Reported) Pregabalin (Lyrica) 100 Mg Capsule, 100 MG PO DAILY, (Reported) Roflumilast (Daliresp) 500 Mcg Tab, 500 MCG PO DAILY, (Reported) Rosuvastatin Calcium (Crestor) 40 Mg Tab, 40 MG PO QPM, (Reported) DINNERTIME Tamsulosin HCl (Flomax) 0.4 Mg Capsule, 0.4 MG PO QHS, (Reported) Theophylline Anhydrous (Neil-24) 300 Mg Cap.er.24h, 300 MG PO BID, (Reported) Venlafaxine HCl (Venlafaxine HCl ER) 150 Mg Cap, 150 MG PO DAILY Scheduled PRN Albuterol Sulfate (Ventolin Hfa) 108 Mcg/Act Aer, 2 PUFFS INH Q4H PRN for SHORTNESS OF BREATH, (Reported) Allergies Coded Allergies: No Known Allergies (Unverified , 04/02/20) GME ATTESTATION GME ATTESTATION My faculty preceptor for this patient encounter was physically present during the encounter and was fully available. All aspects of the patient interview, examination, medical decision making process, and medical care plan development were reviewed and approved by the faculty preceptor. The faculty preceptor is aware and concurs with the plan as stated in the body of this note and will attest to such by his/her cosignature. ATTENDING NOTE I, Diana Santiago, have independently examined this patient and performed my own physical exam, as well as reviewed the documentation and edited where necessary. I have discussed in detail with the resident / student the findings and plan of treatment as documented by the resident / student and edited their note. I agree with their findings and treatment plan and have edited their docume ntation. I will continue to follow the patient during this hospital stay. Time spent on discharge 35 minutes Viji Armendariz DO Jun 03, 2020 10:02 DIANA SANTIAGO MD Jun 03, 2020 15:59
[2020-06-03] MEDS ORDERED: PREGABALIN 100 MG CAP (LYRICA) PO SCH (21:00)
[2020-06-04] MEDS ORDERED: VENLAFAXINE **XR** 75MG CAPSULE PO SCH (09:00)
== END 2020-06-03 12:04 | disposition home health service (06) | DRG 92 ==
LOC: M ED 14:31 → M ED INP 20:54 → ENRESERV 23:17 → M MS5PR 06-02 00:15
PROVIDERS: ADMIT Family Medicine; ATTEND Internal Medicine
DX: G92 Toxic encephalopathy (principal); J96.10 Chronic respiratory failure, unspecified whether with hypoxia or hypercapnia; J44.9 Chronic obstructive pulmonary disease, unspecified; F41.9 Anxiety disorder, unspecified; F32.9 Major depressive disorder, single episode, unspecified; F43.10 Post-traumatic stress disorder, unspecified; K21.9 Gastro-esophageal reflux disease without esophagitis; T50.915A Adverse effect of multiple unspecified drugs, medicaments and biological substances, initial encounter; T50.916A Underdosing of multiple unspecified drugs, medicaments and biological substances, initial encounter; E78.00 Pure hypercholesterolemia, unspecified; Z66 Do not resuscitate; Z96.642 Presence of left artificial hip joint; Z98.49 Cataract extraction status, unspecified eye; R42 Dizziness and giddiness; N40.0 Benign prostatic hyperplasia without lower urinary tract symptoms; Z87.891 Personal history of nicotine dependence; Z99.81 Dependence on supplemental oxygen; Z79.899 Other long term (current) drug therapy; Z20.828 Contact with and (suspected) exposure to other viral communicable diseases; Z91.128 Patient's intentional underdosing of medication regimen for other reason; Z96.611 Presence of right artificial shoulder joint

== ENCOUNTER → 2020-09-18 | Outpatient (REF) | payer MEDICARE, OTHER ==
[~2020-09-18] MED LIST changes: +MONT10TA10 PO; -MONT5TAB2 PO
== END ==
LOC: M LAB REF 12:17
PROVIDERS: ATTEND Internal Medicine
DX: J44.1 Chronic obstructive pulmonary disease with (acute) exacerbation (principal); J96.11 Chronic respiratory failure with hypoxia

== ENCOUNTER → 2021-03-10 | Outpatient (REF) | payer MEDICARE, OTHER ==
[~2021-03-10] MED LIST changes: +ERGO500029 PO; +GABA-283 PO; -GABA-845 PO
== END ==
LOC: M LAB REF 16:18
PROVIDERS: ATTEND Internal Medicine
DX: J44.1 Chronic obstructive pulmonary disease with (acute) exacerbation (principal); J96.11 Chronic respiratory failure with hypoxia

== ENCOUNTER 2021-05-15 17:38 | Inpatient (IN) | payer MEDICARE, OTHER ==
[~2021-05-15] VITALS: Ht 177.8 cm; Wt 55.0 kg
[2021-05-15] MEDS ORDERED: ACETAMINOPHEN 325 MG TAB PO ONE (17:55)
--- NOTE | 2021-05-15 18:28 | REP ---
INDICATION: DYSPNEA/COUGH COMPARISON: 06/01/2020 TECHNIQUE: Portable AP view of the chest FINDINGS: Mediastinum and cardiac silhouette are stable. Advanced chronic emphysematous changes and scattered scarring/fibrosis again noted. There is superimposed right lower lobe airspace disease. No effusion. No pneumothorax. IMPRESSION: Right lower lobe infiltrate. <Electronically signed by Sawyer Blevins > 05/15/21 [id number]
[2021-05-15] MEDS ORDERED: AZITHROMYCIN INJ 500 MG, VIAL MATE ADAPTER 1 EACH in NS 250 ML IV ONE (18:35)
[2021-05-15] MEDS ORDERED: cefTRIAXone SOD 2 GM in D5W MINI-BAG PLUS 50 ML IV ONE (18:35)
[2021-05-15 18:47] LABS: BASO % 0.1 % (0.0-1.0); HEMATOCRIT 32.2 % (42.0-52.0); HEMOGLOBIN 10.7 g/dl (13.5-17.5); LYMPH # 0.2 10^3/uL (1.5-5.0); LYMPH % 1.8 % (24.0-44.0); MEAN CORPUSCULAR HEMOGLOBIN 31.9 pg (27.0-33.0); MEAN CORPUSCULAR HGB CONC 33.2 g/dl (32.0-36.5); MEAN CORPUSCULAR VOLUME 96.1 fl (80.0-96.0); MONO # 0.4 10^3/uL (0.0-0.8); MONO % 2.9 % (2.0-8.0); NEUTROPHILS # 11.6 10^3/uL (1.5-8.5); NEUTROPHILS % 94.8 % (36.0-66.0); PLATELET COUNT, AUTOMATED 129 10^3/uL (150-450); RED BLOOD COUNT 3.35 10^6/uL (4.30-6.10); WHITE BLOOD COUNT 12.2 10^3/uL (4.0-10.0)
[2021-05-15 19:40] LABS: BILIRUBIN,DIRECT 0.3 MG/DL (0.0-0.2); BILIRUBIN,TOTAL 0.6 MG/DL (0.2-1.0); CALCIUM LEVEL 8.5 MG/DL (8.8-10.2); CREATININE FOR GFR 1.95 MG/DL (0.70-1.30); GLOMERULAR FILTRATION RATE 35.6 (>42); POTASSIUM SERUM 2.9 MEQ/L (3.5-5.1); THYROID STIMULATING HORMONE 0.428 uIU/ML (0.358-3.740); THYROXINE (T4) 11.1 UG/DL (4.5-12.0); TOTAL PROTEIN 6.4 GM/DL (6.4-8.2)
[2021-05-15] MEDS ORDERED: KCL 10MEQ/100ML SWI (KRUN) 10 MEQ in IV 1 EA IV ONE (19:45)
[2021-05-15] MEDS ORDERED: POTASSIUM CHLORIDE 10MEQ SR TABLET PO ONE ×2 (19:45→20:50)
[2021-05-15] MEDS ORDERED: NS 1,000 ML IV ONE (19:50)
--- OUTSIDE RECORDS SUMMARY | 2021-05-15 19:59 | CCD | Continuity of Care Document ---
Author Author Eron Ruiz MD Organization Unknown Address [address] [address] Phone [phone] Care Team Providers Care Legal Secretary Receptionist Name Role Phone [facility] AUTM Unavailable Troy Ruiz JR, MD AUTM Unavailable [facility] AUTM [phone] Problems Active Problems Provider Date Chronic obstructive lung disease Troy Ruiz MD Onset : 10/17/2011 Pure hypercholesterolemia Troy Ruiz MD Onset: 10/16 Anemia Rajni Elizabeth D.O. Onset: 2011 Gastroesophageal reflux disease Troy Ruiz MD Onset: 10/17/2011 Acute cor pulmonale Troy Ruiz MD Onset: 10/17/2011 Paroxysmal supraventricular tachycardia Bella Eric Onset: 10/17/2011 Essential hypertension Troy uRiz MD Onset: 10/17/19 12 Social History Type Date Description Comments Sex Unknown ETOH Use Denies alcohol use Tobacco Use Start: Unknown End: Unknown Patient is a former smoker SMOKED FOR 55YRS 1 DYLLAN A DAY Allergies, Adverse Reactions, Alerts Active Allergies Criticality Reaction | Severity Comments Date Zocor Unable to assess criticality 06/29/2012 Medications Active Medications SIG Qnty Indications Ordering Provide r Date Midodrine HCL 2.5mg Tablets 1 by mouth two times a day 180tabs Troy Ruiz MD 09/18/[address] 1 by mouth every day Troy Ruiz MD 06/25/2020 Neil-24 300mg Caps ER 24HR 1 twice daily Troy Ruiz MD 06/25/2020 Ventolin HFA 108(90Base) mcg/Act A erosol 2 puffs four times a day as needed 18gm Troy murguia MD 06/04/2018 Albuterol Sulfate 0.63mg/3ML Nebul izer 1 four times a day 120units Troy Ruiz MD 6 Multivitamins Tablets 1 po q d Troy Ruiz MD 09/13/2010 Effexor XR 150mg Caps ER 24HR 1 by mouth every day 30caps Troy Ruiz MD 04/30/2009 Tamsulosin HCL 0.4mg Capsules 1 daily 1/2 hour after same meal Unknown Rosuvastatin Calcium 40mg Tablets 1 by mouth every day Unknown Daliresp 500mcg Tablets 1 by mouth every day Unknown Loratadine 10mg Tablets 1 by mouth every day Unknown Acetaminophen 325mg Tablets 2 tabs by mouth as needed every 4 hours for pain or fever mdd=3 grams Unknown Saline Mist [place] 0.65% Solution 2 sprays each nostril daily as needed for congestion 4 times per day Unknown Montelukast Sodium 10mg Tablets take one tablet by mouth daily Unknown Fish Oil Burp-Less 1000mg Capsules 2 by mouth daily Unknown Ferrous Gluconate 324(38Fe) mg Tab lets 1 by mouth twice every day Unknown 000 Vitamin B12 1000mcg Tablets ER by mouth twice a day Unknown Vitamin B Complex Tablets 1 by mouth every day Unknown Ergocalciferol [id number] Powder 1 po every 2 weeks on the & Unknown Medications Administered in Office Medication SIG Qnty Indications Ordering Provider Date Administration Of Flu Vaccine Inj kayliion GAMA Lipscomb JR 020 Administration Of Flu Vaccine Inj rachel Ruiz MD 03/19/2018 Administration Of Flu Vaccine Inj rachel Ruiz MD 04/22/2015 Administration Of Flu Vaccine Inj rachel Ruiz MD 03/16/2011 Administration Of Flu Vaccine Inj rachel Ruiz MD 04/24/2009 Administration Of Flu Vaccine Inj rachel Ruiz MD 04/21/2008 Administration Of Flu Vaccine Inj rachel Ruiz MD 04/04/2005 Administration Of Flu Vaccine Inj rachel Ruiz MD 04/23/2004 Administration Of Flu Vaccine Inj rachel Ruiz MD 04/24/2003 Administration Of Flu Vaccine Inj rachel Ruiz MD 05/06/2002 Administration Of Flu Vaccine Inj rachel Ruiz MD 04/25/2001 Administration Of Flu Vaccine Inj rachel Ruiz MD 06/02/2000 Immunizations CPT Code Status Date Vaccine Lot # [id number] Given 04/02/2020 Influenza Vaccin e Quadrivalent Preser/Antibiotic Free Im Use [id number] Given 03/19/2018 Influenza Virus Vaccine, Quadrivalent (Cciiv4), Derived From 3 Given 06/07/2017 Pneumovax 23 [id number] Q2037 Given 04/22/2015 Fluvirin Virus Vaccine 10196 01 06504 Given 07/28/2014 Prevnar 13 [id number] Q2037 Given 03/16/2011 Fluvirin Virus Vaccine 80856 Given 04/24/2009 Influenza Virus Vaccine 08729 Given 04/21/2008 Influenza Virus Vaccine 17132 Given 04/04/2005 Pneumovax 23 53281 Given 04/04/2005 Influenza Virus Vaccine 67832 Given 04/23/2004 Influenza Virus Vaccine 72419 Given 04/24/2003 Influenza Virus Vaccine 72548 Given 05/06/2002 Influenza Virus Vaccine 38824 Given 04/25/2001 Influenza Virus Vaccine 05139 Given 06/02/2000 Influenza Virus Vaccine 33670 Given 03/25/1993 Influenza Virus Vaccine Vital Signs Date Vital Result Comment 03/10/2021 10:46am BP Systolic 110 mmHg BP Diastolic 70 mmHg BP Systolic Lying Down 90 mmHg laying down BP Diastolic Lying Down 58 mmHg laying down BP Systolic Sitting 80 mmHg sitting BP Diastolic Sitting 50 mmHg sitting BP Systolic Standing 78 mmHg standing BP Diastolic Standing 60 mmHg standing Heart Rate 91 /min Height 67.5 inches 5'7.50" Weight 118.12 lb O2 % BldC Oximetry 99 % With O2 @ 3L BMI (Body Mass Index) 18.2 kg/m2 09/18/2020 10:14am BP Systolic 108 mmHg BP Diastolic 68 mmHg Heart Rate 82 /min Height 67.5 inches 5'7.50" Weight 128.00 lb O2 % BldC Oximetry 94 % 3 liters BMI (Body Mass Index) 19.7 kg/m2 Results Test Acquired Date Facility Test Result H/L Range Note Laboratory test finding 03/10/2021 [facility] [address] [place] [address] [phone] Theophylline Level 9.3 UG/ML Low 10.0-20.0 Complete Blood Count 03/10/2021 [facility] Laborer Heading: [place] [address] [phone] WBC 7.3 x10*3/UL 4.1 - 10.9 RBC 3.28 x10*6/UL Low 4.20 - 6.30 Hemoglobin 10.9 g/dL Low 12.0 - 18.0 Hematocrit 31.6 % Low 37.0 - 51.0 MCV 96.4 fL 80.0 - 97.0 MCH 33.4 pg High 26.0 - 32.0 MCHC 34.7 g/dL 31.0 - 38.0 RDW 13.4 % 11.6 - 13.7 PLT 277 x10*3/UL 140 - 440 MPV 7.3 FL Low 7.8 - 11.0 Lymph % 17.6 % 10.0 - 58.5 Mid % 4.5 % 1.7 - 9.3 Neut % 77.9 % 37.0 - 92.0 Lymph # 1.2 x10*3/UL 0.6 - 4.1 Mid # 0.4 x10*3/UL 0.1 - 0.6 Neut # 5.7 x10*3/UL 2.0 - 7.8 Comprehensive Chem Profile 03/10/2021 [facility] Laborer Heading: [place] [address] [phone] Glucose 95 mg/dL 74 - 99 1 BUN 17 mg/dL 7 - 18 Creatinine 0.8 mg/dL 0.6 - 1.3 Sodium 144 mEq/L 136 - 145 Potassium 3.7 mEq/L 3.5 - 5.1 Chloride 105 mEq/L 98 - 107 Carbon Dioxide 35 mEq/L High 21 - 32 2 Calcium 9.6 mg/dL 8.5 - 10.1 Alk. Phosphatase 54 mg/dL 46 - 116 Total Bilirubin 0.3 mg/dL 0.2 - 1.0 Ast (Sgot) 21 U/L 15 - 37 Alt (SGPT) 23 U/L 12 - 78 Albumin 3.8 g/dL 3.4 - 5.0 Total Protein 6.6 g/dL 6.4 - 8.2 A/G Ratio 1.36 CALC 1.00 - 1.90 GFR >= 60 mL/min >60 GFR >= 60 mL/min >60 3 Lipid Profile 03/10/2021 [facility] Laborer Heading: [place] [address] [phone] Cholesterol 133 mg/dL 131 - 200 Triglycerides 65 mg/dL 30 - 150 HDL Cholesterol 67 mg/dL High 35 - 60 LDL (Calculated) 53 CALC 50 - 159 Laboratory test finding 09/18/2020 [facility] [address] [place] [address] [phone] Theophylline Level 8.0 UG/ML Low 10.0-20.0 Complete Blood Count 09/18/2020 [facility] Laborer Heading: [place] [address] [phone] WBC 6.6 x10*3/UL 4.1 - 10.9 RBC 3.72 x10*6/UL Low 4.20 - 6.30 Hemoglobin 11.5 g/dL Low 12.0 - 18.0 4 Hematocrit 33.6 % Low 37.0 - 51.0 MCV 90.2 fL 80.0 - 97.0 MCH 30.8 pg 26.0 - 32.0 MCHC 34.2 g/dL 31.0 - 38.0 RDW 13.3 % 11.6 - 13.7 PLT 276 x10*3/UL 140 - 440 MPV 7.2 FL Low 7.8 - 11.0 Lymph % 20.2 % 10.0 - 58.5 Mid % 5.5 % 1.7 - 9.3 Neut % 74.3 % 37.0 - 92.0 Lymph # 1.3 x10*3/UL 0.6 - 4.1 Mid # 0.4 x10*3/UL 0.1 - 0.6 Neut # 4.9 x10*3/UL 2.0 - 7.8 Basic Metabolic Panel 09/18/2020 [facility] Laborer Heading: [place] [address] [phone] Glucose 73 mg/dL Low 74 - 99 5 BUN 17 mg/dL 7 - 18 Creatinine 0.8 mg/dL 0.6 - 1.3 Sodium 144 mEq/L 136 - 145 Potassium 3.6 mEq/L 3.5 - 5.1 Chloride 104 mEq/L 98 - 107 Carbon Dioxide 31 mEq/L 21 - 32 Calcium 9.7 mg/dL 8.5 - 10.1 GFR >= 60 mL/min >60 GFR >= 60 mL/min >60 6 1 100-125 mg/dL PRE-DIABET ES/FASTING >126 mg/dL DIABETES/FASTING 2 NOTE: RESULT VERIFIED. 3 CHRONIC KIDNEY DISEASE STAGI NG PER NKF STAGE I & II GFR >= 60 NORMAL TO MILDLY DECREASED STAGE III GFR 30-59 MODERATELY DECREASED STAGE IV GFR 15-29 SEVERELY DECREASED STAGE V GFR <15 VERY LITTLE GFR LEFT ESRD GFR <15 ON JUNIOR JAVA DEVELOPER 4 NOTE: RESULT VERIFIED. 5 100-125 mg/dL PRE-DIABET ES/FASTING >126 mg/dL DIABETES/FASTING 6 CHRONIC KIDNEY DISEASE STAGI NG PER NKF STAGE I & II GFR >= 60 NORMAL TO MILDLY DECREASED STAGE III GFR 30-59 MODERATELY DECREASED STAGE IV GFR 15-29 SEVERELY DECREASED STAGE V GFR <15 VERY LITTLE GFR LEFT ESRD GFR <15 ON JUNIOR JAVA DEVELOPER Procedures Date Code Description Status 03/10/2021 39160 Office/Outpatient Established Mo d MDM 30-39 Min Completed 09/18/2020 82901 Office/Outpatient Established Mo d MDM 30-39 Min Completed 05/03/2011 794616783 Bone Mineral Density Test Comple irma 08/28/2008 175232443 Bone Mineral Density Test Comple irma 07/14/1999 [id number] Colonoscopy Completed Medical Devices Description No Information Available Encounters Type Date Location Provider Dx Diagnosis Office Visit 03/10/2021 11:00a [facility] Troy Ruiz MD I10 Essential (primary) hypertension E78.00 Pure hypercholesterolemia, u nspecified J44.9 Chronic obstructive pulmonar y disease, unspecified J96.11 Chronic respiratory failure with hypoxia Z99.81 Dependence on supplemental o xygen Z13.89 Encounter for screening for other disorder Office Visit 09/18/2020 10:20a [facility] Troy Ruiz MD J44.9 Chronic obstructive pulmonary disease, u nspecified J96.11 Chronic respiratory failure with hypoxia Z99.81 Dependence on supplemental o xygen M48.07 Spinal stenosis, lumbosacral region I10 Essential (primary) hyperten cj E78.00 Pure hypercholesterolemia, u nspecified F32.9 Major depressive disorder, s jason episode, unspecified Assessments Date Code Description Provider 03/10/2021 I10 Essential (primary) hypertension Troy Ruiz MD 03/10/2021 E78.00 Pure hypercholesterolemia, unspe cified Troy Ruiz MD 03/10/2021 J44.9 Chronic obstructive pulmonary di sease, unspecified Troy Ruiz MD 03/10/2021 J96.11 Chronic respiratory failure with hypoxia Troy Ruiz MD 03/10/2021 Z99.81 Dependence on supplemental oxyge n Troy Ruiz MD 03/10/2021 Z13.89 Encounter for screening for othe r disorder Troy Ruiz MD 09/18/2020 J44.9 Chronic obstructive pulmonary di sease, unspecified Troy Ruiz MD 09/18/2020 J96.11 Chronic respiratory failure with hypoxia Troy Ruiz MD 09/18/2020 Z99.81 Dependence on supplemental oxyge n Troy Ruiz MD 09/18/2020 M48.07 Spinal stenosis, lumbosacral reg ion Troy Ruiz MD 09/18/2020 I10 Essential (primary) hypertension Troy Ruiz MD 09/18/2020 E78.00 Pure hypercholesterolemia, unspe cified Troy Ruiz MD 09/18/2020 F32.9 Major depressive disorder, singl e episode, unspecified Troy Ruiz MD Plan of Treatment Future Appointment(s):* 09/08/2021 11:00 am - Troy Ruiz MD at [facility] 03/10/2021 - Troy Ruiz MD* I10 Essential (primary) hypertension* Comments:* Hypertension at JNC-8 guidelines * E78.00 Pure hypercholesterolemia, unspecified * J44.9 Chronic obstructive pulmonary disease, unspecified * J96.11 Chronic respiratory failure with hypoxia * Z99.81 Dependence on supplemental oxygen * Z13.89 Encounter for screening for other disorder Functional Status Description No Information Available Mental Status Description No Information Available Referrals Description No Information Available
--- OUTSIDE RECORDS SUMMARY | 2021-05-15 19:59 | CCD | Continuity of Care Document ---
Author Author Eron Ruiz MD Organization Unknown Address [address] [address] Phone [phone] Care Team Providers Care Film Printer Name Role Phone [facility] AUTM Unavailable Troy Ruiz JR, MD AUTM Unavailable [facility] AUTM [phone] Problems Active Problems Provider Date Chronic obstructive lung disease Troy Ruiz MD Onset : 10/17/2011 Pure hypercholesterolemia Troy Ruiz MD Onset: 10/16 Anemia Rajni Elizabeth D.O. Onset: 2011 Gastroesophageal reflux disease Troy Ruiz MD Onset: 10/17/2011 Acute cor pulmonale Troy Ruiz MD Onset: 10/17/2011 Paroxysmal supraventricular tachycardia Bella Eric Onset: 10/17/2011 Essential hypertension Troy Ruiz MD Onset: 10/17/19 12 Social History Type [...] or fever mdd=3 grams Unknown Saline Mist [place] 0.65% Solution 2 sprays each nostril daily [...] 1 by mouth every day Unknown Ergocalciferol [id number] Powder 1 po every 2 weeks on [...] CPT Code Status Date Vaccine Lot # [id number] Given 04/02/2020 Influenza Vaccin e Quadrivalent Preser/Antibiotic Free Im Use [id number] 62880 Given 03/19/2018 Influenza Virus Vaccine, Quadrivalent (Cciiv4), Derived From 0 Given 06/07/2017 Pneumovax 23 [id number] Q2037 Given 04/22/2015 Fluvirin Virus Vaccine 96422 01 35023 Given 07/28/2014 Prevnar 13 [id number] Q2037 Given 03/16/2011 Fluvirin Virus Vaccine 98896 Given 04/24/2009 Influenza Virus Vaccine 80775 Given 04/21/2008 Influenza Virus Vaccine 33004 Given 04/04/2005 Pneumovax 23 77503 Given 04/04/2005 Influenza Virus Vaccine 01279 Given 04/23/2004 Influenza Virus Vaccine 68050 Given 04/24/2003 Influenza Virus Vaccine 05687 Given 05/06/2002 Influenza Virus Vaccine 29233 Given 04/25/2001 Influenza Virus Vaccine 51487 Given 06/02/2000 Influenza Virus Vaccine 59341 Given 03/25/1993 Influenza Virus Vaccine Vital Signs [...] H/L Range Note Laboratory test finding 03/10/2021 [facility] [address] [place] [address] [phone] Theophylline Level 9.3 UG/ML Low 10.0-20.0 Complete Blood Count 03/10/2021 [facility] Card Checker: [place] [address] [phone] WBC 7.3 x10*3/UL 4.1 - 10.9 RBC [...] 2.0 - 7.8 Comprehensive Chem Profile 03/10/2021 [facility] Card Checker: [place] [address] [phone] Glucose 95 mg/dL 74 - 99 1 [...] 60 mL/min >60 3 Lipid Profile 03/10/2021 [facility] Card Checker: [place] [address] [phone] Cholesterol 133 mg/dL 131 - 200 Triglycerides 65 mg/dL 30 - 150 HDL Cholesterol 67 mg/dL High 35 - 60 LDL (Calculated) 53 CALC 50 - 159 Laboratory test finding 09/18/2020 [facility] [address] [place] [address] [phone] Theophylline Level 8.0 UG/ML Low 10.0-20.0 Complete Blood Count 09/18/2020 [facility] Card Checker: [place] [address] [phone] WBC 6.6 x10*3/UL 4.1 - 10.9 RBC [...] 2.0 - 7.8 Basic Metabolic Panel 09/18/2020 [facility] Card Checker: [place] [address] [phone] Glucose 73 mg/dL Low 74 - 99 [...] LITTLE GFR LEFT ESRD GFR <15 ON MOLD SANDER 4 NOTE: RESULT VERIFIED. 5 100-125 mg/dL PRE-DIABET ES/FASTING >126 mg/dL DIABETES/FASTING 6 CHRONIC KIDNEY DISEASE STAGI NG PER NKF STAGE I & II GFR >= 60 NORMAL TO MILDLY DECREASED STAGE III GFR 30-59 MODERATELY DECREASED STAGE IV GFR 15-29 SEVERELY DECREASED STAGE V GFR <15 VERY LITTLE GFR LEFT ESRD GFR <15 ON MOLD SANDER Procedures Date Code Description Status 09/18/2020 47190 Office/Outpatient Established Mo d MDM 30-39 Min Completed 05/03/2011 [id number] Bone Mineral Density Test Comple irma 08/28/2008 [id number] Bone Mineral Density Test Comple irma 07/14/1999 [id number] Colonoscopy Completed Medical Devices Description No Information Available Encounters Type Date Location Provider Dx Diagnosis Office Visit 09/18/2020 10:20a [facility] Ruiz MD J44.9 Chronic obstructive pulmonary disease, u nspecified J96.11 Chronic respiratory failure with hypoxia Z99.81 Dependence on supplemental o xygen M48.07 Spinal stenosis, lumbosacral region I10 Essential (primary) hyperten cj E78.00 Pure hypercholesterolemia, u nspecified F32.9 Major depressive disorder, s jason episode, unspecified Assessments Date Code Description Provider 03/10/2021 M48.07 Spinal stenosis, lumbosacral reg ion Troy Ruiz MD 03/10/2021 I10 Essential (primary) hypertension Troy Ruiz MD 03/10/2021 E78.00 Pure hypercholesterolemia, unspe cified Troy Ruiz MD 03/10/2021 J44.9 Chronic obstructive pulmonary di sease, unspecified Troy Ruiz MD 03/10/2021 J96.11 Chronic respiratory failure with hypoxia Troy Ruiz MD 03/10/2021 Z99.81 Dependence on supplemental oxyge n Troy Ruiz MD 09/18/2020 J44.9 Chronic obstructive [...] 11:00 am - Troy Ruiz MD at [facility] 03/10/2021 - Troy Ruiz MD* M48.07 Spinal stenosis, lumbosacral region * I10 Essential (primary) hypertension* Comments:* Hypertension at JNC-8 guidelines * E78.00 Pure hypercholesterolemia, unspecified * J44.9 Chronic obstructive pulmonary disease, unspecified * J96.11 Chronic respiratory failure with hypoxia * Z99.81 Dependence on supplemental oxygen Functional Status Description No Information Available Mental Status Description No Information Available Referrals Description No Information Available
--- OUTSIDE RECORDS SUMMARY | 2021-05-15 20:00 | CCD | Continuity of Care Document ---
Author Author Eron Ruiz MD Organization Unknown Address [address] [address] Phone [phone] Care Team Providers Care Vp Genetic Name Role Phone [facility] AUTM Unavailable Troy Ruiz JR, MD AUTM Unavailable [facility] AUTM [phone] Problems Active Problems Provider Date Chronic obstructive [...] fever mdd=3 grams Unknown Saline Mist [place] 0.65% Solution 2 sprays each nostril daily [...] 1 by mouth every day Unknown Ergocalciferol [id number] Powder 1 po every 2 weeks on [...] CPT Code Status Date Vaccine Lot # [id number] Given 04/02/2020 Influenza Vaccin e Quadrivalent Preser/Antibiotic Free Im Use 633842 92088 Given 03/19/2018 Influenza Virus Vaccine, Quadrivalent (Cciiv4), Derived From 3 Given 06/07/2017 Pneumovax 23 [id number] Q2037 Given 04/22/2015 Fluvirin Virus Vaccine 77099 01 68729 Given 07/28/2014 Prevnar 13 [id number] Q2037 Given 03/16/2011 Fluvirin Virus Vaccine 61017 Given 04/24/2009 Influenza Virus Vaccine 34649 Given 04/21/2008 Influenza Virus Vaccine 02732 Given 04/04/2005 Pneumovax 23 38343 Given 04/04/2005 Influenza Virus Vaccine 33816 Given 04/23/2004 Influenza Virus Vaccine 09631 Given 04/24/2003 Influenza Virus Vaccine 92103 Given 05/06/2002 Influenza Virus Vaccine 67455 Given 04/25/2001 Influenza Virus Vaccine 64006 Given 06/02/2000 Influenza Virus Vaccine 21751 Given 03/25/1993 Influenza Virus Vaccine Vital Signs [...] H/L Range Note Laboratory test finding 03/10/[address] [address] [phone] Theophylline Level <pending> Laboratory test finding 09/18/2020 [place] 2333807 [phone] Theophylline Level 8.0 UG/ML Low 10.0-20.0 Complete Blood Count 09/18/2020 [facility] Private Branch Exchange Repairer: [place] [address] [phone] WBC 6.6 x10*3/UL 4.1 - 10.9 RBC 3.72 x10*6/UL Low 4.20 - 6.30 Hemoglobin 11.5 g/dL Low 12.0 - 18.0 1 Hematocrit 33.6 % Low 37.0 - 51.0 [...] 2.0 - 7.8 Basic Metabolic Panel 09/18/2020 [facility] Private Branch Exchange Repairer: [place] [address] [phone] Glucose 73 mg/dL Low 74 - 99 2 BUN 17 mg/dL 7 - 18 Creatinine 0.8 mg/dL 0.6 - 1.3 Sodium 144 mEq/L 136 - 145 Potassium 3.6 mEq/L 3.5 - 5.1 Chloride 104 mEq/L 98 - 107 Carbon Dioxide 31 mEq/L 21 - 32 Calcium 9.7 mg/dL 8.5 - 10.1 GFR >= 60 mL/min >60 GFR >= 60 mL/min >60 3 1 NOTE: RESULT VERIFIED. 2 100-125 mg/dL PRE-DIABET ES/FASTING >126 mg/dL DIABETES/FASTING 3 CHRONIC KIDNEY DISEASE STAGI NG PER NKF STAGE I & II GFR >= 60 NORMAL TO MILDLY DECREASED STAGE III GFR 30-59 MODERATELY DECREASED STAGE IV GFR 15-29 SEVERELY DECREASED STAGE V GFR <15 VERY LITTLE GFR LEFT ESRD GFR <15 ON ACADEMIC ASSISTANT Procedures Date Code Description Status 09/18/2020 93354 Office/Outpatient Established Mo d MDM 30-39 Min Completed 05/03/2011 [id number] Bone Mineral Density Test Comple [facility] 08/28/2008 [id number] Bone Mineral Density Test Comple [facility] 07/14/1999 [id number] Colonoscopy Completed Medical Devices Description No Information Available Encounters Type Date Location Provider Dx Diagnosis Office Visit 09/18/2020 10:20a [facility] Troy Ruiz MD J44.9 Chronic [...] J44.9 Chronic obstructive pulmonary di sease, unspecified rToy Ruiz MD 03/10/2021 J96.11 Chronic respiratory failure [...] 11:00 am - Troy Ruiz MD at [facility] 03/10/2021 - Troy Ruiz MD* [...]
--- OUTSIDE RECORDS SUMMARY | 2021-05-15 20:00 | CCD | Continuity of Care Document ---
Author Author Nurse #Eron Laird Organization Unknown Address [address] [place] [address] Phone Unavailable Care Team Providers Care Metal Sander And Finisher Name Role Phone [facility] AUTM Unavailable Troy Ruiz JR, MD AUTM Unavailable [facility] AUTM [phone] Problems Active Problems Provider Date Chronic obstructive lung disease Troy Ruiz MD Onset : 10/17/2011 Pure hypercholesterolemia Troy Ruiz MD Onset: 10/16 Anemia Rajnisol Elizabeth D.O. Onset: 2011 Gastroesophageal reflux disease [...] 1 four times a day 120units Troy uRiz MD 6 Multivitamins Tablets 1 po q [...] or fever mdd=3 grams Unknown Saline Mist [place] 0.65% Solution 2 sprays each nostril daily [...] 1 by mouth every day Unknown Ergocalciferol [id number] Powder 1 po every 2 weeks on the & Unknown Medications Administered in Office Medication SIG Qnty Indications Ordering Provider Date Administration Of Flu Vaccine Inj ection GAMA Lipscomb JR 020 Administration Of Flu Vaccine Inj kayliion Troy Ruiz MD 03/19/2018 Administration Of Flu Vaccine Inj kayliion Troy Ruiz MD 04/22/2015 Administration Of Flu Vaccine Inj rachel Ruiz MD 03/16/2011 Administration Of Flu Vaccine Inj kayliion Troy Ruiz MD 04/24/2009 Administration Of Flu Vaccine Inj rachel Ruzi MD 04/21/2008 Administration Of Flu Vaccine Inj ection Simmons F. Joseph,MD 04/04/2005 Administration Of Flu Vaccine Inj rachel Ruiz MD 04/23/2004 Administration Of Flu Vaccine Inj rachel Ruiz MD 04/24/2003 Administration Of Flu Vaccine Inj rachel Ruiz MD 05/06/2002 Administration Of Flu Vaccine Inj rachel Ruiz MD 04/25/2001 Administration Of Flu Vaccine Inj rachel Ruiz MD 06/02/2000 Immunizations CPT Code Status Date Vaccine Lot # 91240 Given 04/02/2020 Influenza Vaccin e Quadrivalent Preser/Antibiotic Free Im Use [id number] 74958 Given 03/19/2018 Influenza Virus Vaccine, Quadrivalent (Cciiv4), Derived From 6 Given 06/07/2017 Pneumovax 23 [id number] Q2037 Given 04/22/2015 Fluvirin Virus Vaccine 74581 01 79654 Given 07/28/2014 Prevnar 13 [id number] Q2037 Given 03/16/2011 Fluvirin Virus Vaccine 76768 Given 04/24/2009 Influenza Virus Vaccine 56180 Given 04/21/2008 Influenza Virus Vaccine 69083 Given 04/04/2005 Pneumovax 23 10493 Given 04/04/2005 Influenza Virus Vaccine 97126 Given 04/23/2004 Influenza Virus Vaccine 40754 Given 04/24/2003 Influenza Virus Vaccine 52812 Given 05/06/2002 Influenza Virus Vaccine 13374 Given 04/25/2001 Influenza Virus Vaccine 23519 Given 06/02/2000 Influenza Virus Vaccine 63449 Given 03/25/1993 Influenza Virus Vaccine Vital Signs [...] H/L Range Note Laboratory test finding 03/10/[address] [address] [phone] Theophylline Level <pending> Laboratory test finding 09/18/[address] [address] [phone] Theophylline Level 8.0 UG/ML Low 10.0-20.0 Complete Blood Count 09/18/2020 [facility] Material Handling Crew Supervisor: [place] [address] [phone] WBC 6.6 x10*3/UL 4.1 - 10.9 RBC [...] 2.0 - 7.8 Basic Metabolic Panel 09/18/2020 [facility] Material Handling Crew Supervisor: [place] [address] [phone] Glucose 73 mg/dL Low 74 - 99 [...] LITTLE GFR LEFT ESRD GFR <15 ON OCCUPATIONAL HEALTH PROFESSIONAL Procedures Date Code Description Status 09/18/2020 77522 Office/Outpatient Established Mo d MDM 30-39 Min Completed 05/03/2011 [id number] Bone Mineral Density Test Comple [facility] 08/28/2008 [id number] Bone Mineral Density Test Comple ir[facility] 07/14/1999 [id number] Colonoscopy Completed Medical Devices Description No Information Available Encounters Type Date Location Provider Dx Diagnosis Office Visit 09/18/2020 10:20a [facility] Troy Ruiz MD J44.9 Chronic [...] 11:00 am - Troy [facility]iz MD at [facility] 03/10/2021 - Troy Ruiz MD* M48.07 [...]
--- OUTSIDE RECORDS SUMMARY | 2021-05-15 20:00 | CCD | Continuity of Care Document ---
Author Author Nurse #Eron Laird Organization Unknown Address [address] [place] [address] Phone Unavailable Care Team Providers Care Social Scientist Name Role Phone [facility] AUTM Unavailable Troy Ruiz JR, MD AUTM Unavailable [facility] AUTM [phone] Problems Active Problems Provider Date Chronic obstructive [...] or fever mdd=3 grams Unknown Saline Mist [place] 0.65% Solution 2 sprays each nostril daily [...] 1 by mouth every day Unknown Ergocalciferol [id number] Powder 1 po every 2 weeks on [...] CPT Code Status Date Vaccine Lot # 14900 Given 04/02/2020 Influenza Vaccin e Quadrivalent Preser/Antibiotic Free Im Use 950842 06617 Given 03/19/2018 Influenza Virus Vaccine, Quadrivalent (Cciiv4), Derived From 2 Given 06/07/2017 Pneumovax 23 [id number] Q2037 Given 04/22/2015 Fluvirin Virus Vaccine 27169 01 33298 Given 07/28/2014 Prevnar 13 [id number] Q2037 Given 03/16/2011 Fluvirin Virus Vaccine 79650 Given 04/24/2009 Influenza Virus Vaccine 62041 Given 04/21/2008 Influenza Virus Vaccine 74548 Given 04/04/2005 Pneumovax 23 93121 Given 04/04/2005 Influenza Virus Vaccine 26956 Given 04/23/2004 Influenza Virus Vaccine 62463 Given 04/24/2003 Influenza Virus Vaccine 63175 Given 05/06/2002 Influenza Virus Vaccine 29954 Given 04/25/2001 Influenza Virus Vaccine 26121 Given 06/02/2000 Influenza Virus Vaccine 42404 Given 03/25/1993 Influenza Virus Vaccine Vital Signs [...] H/L Range Note Laboratory test finding 03/10/[address] [address] [phone] Theophylline Level <pending> Laboratory test finding 09/18/[address] [address] [phone] Theophylline Level 8.0 UG/ML Low 10.0-20.0 Complete Blood Count 09/18/2020 [facility] Tactical Deception Plans Officer: [place] [address] [phone] WBC 6.6 x10*3/UL 4.1 - 10.9 RBC [...] 2.0 - 7.8 Basic Metabolic Panel 09/18/2020 [facility] Tactical Deception Plans Officer: [place] [address] [phone] Glucose 73 mg/dL Low 74 - 99 [...] LITTLE GFR LEFT ESRD GFR <15 ON MEDICAL CODING AUDITOR Procedures Date Code Description Status 09/18/2020 17172 Office/Outpatient Established Mo d MDM 30-39 Min Completed 05/03/2011 [id number] Bone Mineral Density Test Comple [facility] 08/28/2008 [id number] Bone Mineral Density Test Comple irma 07/14/1999 [id number] Colonoscopy Completed Medical Devices Description No Information Available Encounters Type Date Location Provider Dx Diagnosis Office Visit 09/18/2020 10:20a [facility] Troy Ruiz MD J44.9 Chronic [...] 11:00 am - Troy Ruiz MD at [facility] 03/10/2021 - Troy Ruiz MD* M48.07 [...]
--- OUTSIDE RECORDS SUMMARY | 2021-05-15 20:00 | CCD | Continuity of Care Document ---
Author Author Eron Ruiz MD Organization Unknown Address [address] [address] Phone [phone] Care Team Providers Care Welder Apprentice Gas Name Role Phone [facility] AUTM Unavailable Troy Ruiz JR, MD AUTM Unavailable [facility] AUTM [phone] Problems Active Problems Provider Date Chronic obstructive [...] or fever mdd=3 grams Unknown Saline Mist [place] 0.65% Solution 2 sprays each nostril daily [...] 1 by mouth every day Unknown Ergocalciferol [id number] Powder 1 po every 2 weeks on [...] 04/23/2004 Administration Of Flu Vaccine Inj rachel Ruzi MD 04/24/2003 Administration Of Flu Vaccine Inj rachel Ruiz MD 05/06/2002 Administration Of Flu Vaccine Inj rachel Ruiz MD 04/25/2001 Administration Of Flu Vaccine Inj rachel Ruiz MD 06/02/2000 Immunizations CPT Code Status Date Vaccine Lot # 76999 Given 04/02/2020 Influenza Vaccin e Quadrivalent Preser/Antibiotic Free Im Use 107127 81426 Given 03/19/2018 Influenza Virus Vaccine, Quadrivalent (Cciiv4), Derived From 7 Given 06/07/2017 Pneumovax 23 [id number] Q2037 Given 04/22/2015 Fluvirin Virus Vaccine 98500 01 66431 Given 07/28/2014 Prevnar 13 [id number] Q2037 Given 03/16/2011 Fluvirin Virus Vaccine 46488 Given 04/24/2009 Influenza Virus Vaccine 07867 Given 04/21/2008 Influenza Virus Vaccine 65929 Given 04/04/2005 Pneumovax 23 70757 Given 04/04/2005 Influenza Virus Vaccine 14142 Given 04/23/2004 Influenza Virus Vaccine 64851 Given 04/24/2003 Influenza Virus Vaccine 01663 Given 05/06/2002 Influenza Virus Vaccine 07888 Given 04/25/2001 Influenza Virus Vaccine 78783 Given 06/02/2000 Influenza Virus Vaccine 70993 Given 03/25/1993 Influenza Virus Vaccine Vital Signs [...] H/L Range Note Laboratory test finding 03/10/2021 [facility] [address] [place] [address] [phone] Theophylline Level 9.3 UG/ML Low 10.0-20.0 Complete Blood Count 03/10/2021 [facility] Electrical Parts Reconditioner: [place] [address] [phone] WBC 7.3 x10*3/UL 4.1 - 10.9 RBC [...] 2.0 - 7.8 Comprehensive Chem Profile 03/10/2021 [facility] Electrical Parts Reconditioner: [place] [address] [phone] Glucose 95 mg/dL 74 - 99 1 [...] 60 mL/min >60 3 Lipid Profile 03/10/2021 [facility] Electrical Parts Reconditioner: [place] [address] [phone] Cholesterol 133 mg/dL 131 - 200 Triglycerides 65 mg/dL 30 - 150 HDL Cholesterol 67 mg/dL High 35 - 60 LDL (Calculated) 53 CALC 50 - 159 Laboratory test finding 09/18/2020 [facility] [address] [place] [address] [phone] Theophylline Level 8.0 UG/ML Low 10.0-20.0 Complete Blood Count 09/18/2020 [facility] Electrical Parts Reconditioner: [place] [address] [phone] WBC 6.6 x10*3/UL 4.1 - 10.9 RBC [...] 2.0 - 7.8 Basic Metabolic Panel 09/18/2020 [facility] Electrical Parts Reconditioner: [place] [address] [phone] Glucose 73 mg/dL Low 74 - 99 [...] LITTLE GFR LEFT ESRD GFR <15 ON SUPERVISOR POULTRY PROCESSING 4 NOTE: RESULT VERIFIED. 5 100-125 mg/dL PRE-DIABET ES/FASTING >126 mg/dL DIABETES/FASTING 6 CHRONIC KIDNEY DISEASE STAGI NG PER NKF STAGE I & II GFR >= 60 NORMAL TO MILDLY DECREASED STAGE III GFR 30-59 MODERATELY DECREASED STAGE IV GFR 15-29 SEVERELY DECREASED STAGE V GFR <15 VERY LITTLE GFR LEFT ESRD GFR <15 ON SUPERVISOR POULTRY PROCESSING Procedures Date Code Description Status 09/18/2020 77586 Office/Outpatient Established Mo d MDM 30-39 Min Completed 05/03/2011 [id number] Bone Mineral Density Test Comple ir[facility] 08/28/2008 [id number] Bone Mineral Density Test Comple irma 07/14/1999 [id number] Colonoscopy Completed Medical Devices Description No Information Available Encounters Type Date Location Provider Dx Diagnosis Office Visit 09/18/2020 10:20a [facility] Ruiz MD J44.9 Chronic obstructive [...] 11:00 am - Troy Ruiz MD at [facility] 03/10/2021 - Troy Ruiz MD* [...]
--- OUTSIDE RECORDS SUMMARY | 2021-05-15 20:00 | CCD | Continuity of Care Document ---
Author Author Nurse #Eron Laird Organization Unknown Address [address] [place] [address] Phone Unavailable Care Team Providers Care Laundry Machine Mechanic Name Role Phone [facility] AUTM Unavailable Troy Ruiz JR, MD AUTM Unavailable [facility] AUTM [phone] Problems Active Problems Provider Date Chronic obstructive [...] or fever mdd=3 grams Unknown Saline Mist [place] 0.65% Solution 2 sprays each nostril daily [...] 1 by mouth every day Unknown Ergocalciferol [id number] Powder 1 po every 2 weeks on [...] CPT Code Status Date Vaccine Lot # 73548 Given 04/02/2020 Influenza Vaccin e Quadrivalent Preser/Antibiotic Free Im Use [id number] 67001 Given 03/19/2018 Influenza Virus Vaccine, Quadrivalent (Cciiv4), Derived From 3 Given 06/07/2017 Pneumovax 23 [id number] Q2037 Given 04/22/2015 Fluvirin Virus Vaccine 87729 01 21435 Given 07/28/2014 Prevnar 13 [id number] Q2037 Given 03/16/2011 Fluvirin Virus Vaccine 60831 Given 04/24/2009 Influenza Virus Vaccine 67228 Given 04/21/2008 Influenza Virus Vaccine 39094 Given 04/04/2005 Pneumovax 23 75454 Given 04/04/2005 Influenza Virus Vaccine 56370 Given 04/23/2004 Influenza Virus Vaccine 04629 Given 04/24/2003 Influenza Virus Vaccine 89543 Given 05/06/2002 Influenza Virus Vaccine 98577 Given 04/25/2001 Influenza Virus Vaccine 88616 Given 06/02/2000 Influenza Virus Vaccine 73061 Given 03/25/1993 Influenza Virus Vaccine Vital Signs [...] H/L Range Note Laboratory test finding 03/10/2021 [facility] [address] [place] [address] [phone] Theophylline Level <pending> Complete Blood Count 03/10/2021 [facility] Limo Driver: [place] [address] [phone] WBC 7.3 x10*3/UL 4.1 - 10.9 RBC [...] 2.0 - 7.8 Comprehensive Chem Profile 03/10/2021 [facility] Moore Limo Driver: [place] [address] [phone] Glucose 95 mg/dL 74 - 99 1 [...] 60 mL/min >60 3 Lipid Profile 03/10/2021 [facility] Limo Driver: Dr Troy Ruiz [place], [place] [address] [phone] Cholesterol 133 mg/dL 131 - 200 Triglycerides 65 mg/dL 30 - 150 HDL Cholesterol 67 mg/dL High 35 - 60 LDL (Calculated) 53 CALC 50 - 159 Laboratory test finding 09/18/2020 [facility] [address] [place] [address] [phone] Theophylline Level 8.0 UG/ML Low 10.0-20.0 Complete Blood Count 09/18/2020 [facility] Limo Driver: [place] [address] [phone] WBC 6.6 x10*3/UL 4.1 - 10.9 RBC [...] 2.0 - 7.8 Basic Metabolic Panel 09/18/2020 [facility] Limo Driver: [place] [address] [phone] Glucose 73 mg/dL Low 74 - 99 [...] LITTLE GFR LEFT ESRD GFR <15 ON HHA 4 NOTE: RESULT VERIFIED. 5 100-125 mg/dL PRE-DIABET ES/FASTING >126 mg/dL DIABETES/FASTING 6 CHRONIC KIDNEY DISEASE STAGI NG PER NKF STAGE I & II GFR >= 60 NORMAL TO MILDLY DECREASED STAGE III GFR 30-59 MODERATELY DECREASED STAGE IV GFR 15-29 SEVERELY DECREASED STAGE V GFR <15 VERY LITTLE GFR LEFT ESRD GFR <15 ON HHA Procedures Date Code Description Status 09/18/2020 65984 Office/Outpatient Established Mo d MDM 30-39 Min Completed 05/03/2011 [id number] Bone Mineral Density Test [facility] 08/28/2008 [id number] Bone Mineral Density Test [facility] 07/14/1999 [id number] Colonoscopy Completed Medical Devices Description No Information Available Encounters Type Date Location Provider Dx Diagnosis Office Visit 09/18/2020 10:20a [facility] Troy Ruiz MD J44.9 Chronic [...] 11:00 am - Troy Ruiz MD at [facility] 03/10/2021 - Troy Ruiz MD* [...]
--- OUTSIDE RECORDS SUMMARY | 2021-05-15 20:00 | CCD | Continuity of Care Document ---
Author Author Eron Ruiz MD Organization Unknown Address [address] [address] Phone [phone] Care Team Providers Care Clinical Physician Assistant Name Role Phone [facility] AUTM Unavailable Troy Ruiz JR, MD AUTM Unavailable [facility] AUTM [phone] Problems Active Problems Provider Date Chronic obstructive [...] or fever mdd=3 grams Unknown Saline Mist [place] 0.65% Solution 2 sprays each nostril daily [...] 1 by mouth every day Unknown Ergocalciferol [id number] Powder 1 po every 2 weeks on [...] CPT Code Status Date Vaccine Lot # 67953 Given 04/02/2020 Influenza Vaccin e Quadrivalent Preser/Antibiotic Free Im Use [id number] 79530 Given 03/19/2018 Influenza Virus Vaccine, Quadrivalent (Cciiv4), Derived From 2 Given 06/07/2017 Pneumovax 23 [id number] Q2037 Given 04/22/2015 Fluvirin Virus Vaccine 38805 01 84691 Given 07/28/2014 Prevnar 13 [id number] Q2037 Given 03/16/2011 Fluvirin Virus Vaccine 51531 Given 04/24/2009 Influenza Virus Vaccine 49471 Given 04/21/2008 Influenza Virus Vaccine 78648 Given 04/04/2005 Pneumovax 23 16708 Given 04/04/2005 Influenza Virus Vaccine 14501 Given 04/23/2004 Influenza Virus Vaccine 42638 Given 04/24/2003 Influenza Virus Vaccine 77909 Given 05/06/2002 Influenza Virus Vaccine 68153 Given 04/25/2001 Influenza Virus Vaccine 49730 Given 06/02/2000 Influenza Virus Vaccine 49867 Given 03/25/1993 Influenza Virus Vaccine Vital Signs [...] H/L Range Note Laboratory test finding 03/10/2021 [facility] [address] [place] [address] [phone] Theophylline Level <pending> Complete Blood Count 03/10/2021 [facility] jannie andrade Manager Domestic: [place] [address] [phone] WBC 7.3 x10*3/UL 4.1 - 10.9 RBC [...] 2.0 - 7.8 Comprehensive Chem Profile 03/10/2021 [facility] jannie Moore Manager Domestic: [place] [address] [phone] Glucose 95 mg/dL 74 - 99 1 [...] 60 mL/min >60 3 Lipid Profile 03/10/2021 [facility] Manager Domestic: [place] [address] [phone] Cholesterol 133 mg/dL 131 - 200 Triglycerides 65 mg/dL 30 - 150 HDL Cholesterol 67 mg/dL High 35 - 60 LDL (Calculated) 53 CALC 50 - 159 Laboratory test finding 09/18/2020 [facility] [address] [place] [address] [phone] Theophylline Level 8.0 UG/ML Low 10.0-20.0 Complete Blood Count 09/18/2020 [facility] Manager Domestic: [place] [address] [phone] WBC 6.6 x10*3/UL 4.1 - 10.9 RBC [...] 2.0 - 7.8 Basic Metabolic Panel 09/18/2020 [facility] Manager Domestic: [place] [address] [phone] Glucose 73 mg/dL Low 74 - 99 [...] LITTLE GFR LEFT ESRD GFR <15 ON HOSPITAL CODER 4 NOTE: RESULT VERIFIED. 5 100-125 mg/dL PRE-DIABET ES/FASTING >126 mg/dL DIABETES/FASTING 6 CHRONIC KIDNEY DISEASE STAGI NG PER NKF STAGE I & II GFR >= 60 NORMAL TO MILDLY DECREASED STAGE III GFR 30-59 MODERATELY DECREASED STAGE IV GFR 15-29 SEVERELY DECREASED STAGE V GFR <15 VERY LITTLE GFR LEFT ESRD GFR <15 ON HOSPITAL CODER Procedures Date Code Description Status 09/18/2020 34290 Office/Outpatient Established Mo d MDM 30-39 Min Completed 05/03/2011 [id number] Bone Mineral Density Test [facility] irma 08/28/2008 [id number] Bone Mineral Density Test Comple [facility] 07/14/1999 [id number] Colonoscopy Completed Medical Devices Description No Information Available Encounters Type Date Location Provider Dx Diagnosis Office Visit 09/18/2020 10:20a [facility] J44.9 Chronic obstructive pulmonary disease, [...] 11:00 am - Troy Ruiz MD at [facility] 03/10/2021 - Troy Ruiz MD* [...]
--- OUTSIDE RECORDS SUMMARY | 2021-05-15 20:00 | CCD | Continuity of Care Document ---
Author Author Eron Ruiz MD Organization Unknown Address [address] [address] Phone [phone] Care Team Providers Care Director Of Radio Services Name Role Phone [facility] AUTM Unavailable Troy Ruiz JR, MD AUTM Unavailable [facility] AUTM [phone] Problems Active Problems Provider Date Chronic obstructive [...] fever mdd=3 grams Unknown Saline Mist [place] 0.65% Solution 2 sprays each nostril daily [...] 1 by mouth every day Unknown Ergocalciferol [id number] Powder 1 po every 2 weeks on [...] CPT Code Status Date Vaccine Lot # [id number] Given 04/02/2020 Influenza Vaccin e Quadrivalent Preser/Antibiotic Free Im Use [id number] Given 03/19/2018 Influenza Virus Vaccine, Quadrivalent (Cciiv4), Derived From 1 Given 06/07/2017 Pneumovax 23 [id number] Given 04/22/2015 Fluvirin Virus Vaccine 22088 01 09329 Given 07/28/2014 Prevnar 13 [id number] Given 03/16/2011 Fluvirin Virus Vaccine 11509 Given 04/24/2009 Influenza Virus Vaccine 17782 Given 04/21/2008 Influenza Virus Vaccine 86030 Given 04/04/2005 Pneumovax 23 06009 Given 04/04/2005 Influenza Virus Vaccine 10141 Given 04/23/2004 Influenza Virus Vaccine 81439 Given 04/24/2003 Influenza Virus Vaccine 90990 Given 05/06/2002 Influenza Virus Vaccine 26124 Given 04/25/2001 Influenza Virus Vaccine 08378 Given 06/02/2000 Influenza Virus Vaccine 37290 Given 03/25/1993 Influenza Virus Vaccine Vital Signs [...] H/L Range Note Laboratory test finding 03/10/2021 [facility] [address] [place] [address] [phone] Theophylline Level <pending> Complete Blood Count 03/10/2021 [facility] Leaf Blender: [place] [address] [phone] WBC 7.3 x10*3/UL 4.1 - 10.9 RBC [...] 2.0 - 7.8 Comprehensive Chem Profile 03/10/2021 [facility]: [place] [address] [phone] Glucose 95 mg/dL 74 - 99 1 [...] 60 mL/min >60 3 Lipid Profile 03/10/2021 [facility] Leaf Blender: [place] [address] [phone] Cholesterol 133 mg/dL 131 - 200 Triglycerides 65 mg/dL 30 - 150 HDL Cholesterol 67 mg/dL High 35 - 60 LDL (Calculated) 53 CALC 50 - 159 Laboratory test finding 09/18/2020 [facility] [address] [place] [address] [phone] Theophylline Level 8.0 UG/ML Low 10.0-20.0 Complete Blood Count 09/18/2020 [facility] Leaf Blender: [place] [address] [phone] WBC 6.6 x10*3/UL 4.1 - 10.9 RBC [...] 2.0 - 7.8 Basic Metabolic Panel 09/18/2020 [facility] Leaf Blender: [place] [address] [phone] Glucose 73 mg/dL Low 74 - 99 [...] LITTLE GFR LEFT ESRD GFR <15 ON PARTS CLERK 4 NOTE: RESULT VERIFIED. 5 100-125 mg/dL PRE-DIABET ES/FASTING >126 mg/dL DIABETES/FASTING 6 CHRONIC KIDNEY DISEASE STAGI NG PER NKF STAGE I & II GFR >= 60 NORMAL TO MILDLY DECREASED STAGE III GFR 30-59 MODERATELY DECREASED STAGE IV GFR 15-29 SEVERELY DECREASED STAGE V GFR <15 VERY LITTLE GFR LEFT ESRD GFR <15 ON PARTS CLERK Procedures Date Code Description Status 09/18/2020 40471 Office/Outpatient Established Mo d MDM 30-39 Min Completed 05/03/2011 [id number] Bone Mineral Density Test [facility] irma 08/28/2008 [id number] Bone Mineral Density Test Comple [facility] 07/14/1999 [id number] Colonoscopy Completed Medical Devices Description No Information Available Encounters Type Date Location Provider Dx Diagnosis Office Visit 09/18/2020 10[facility]20[facility] J44.9 Chronic obstructive [...] 11:00 am - Troy Ruiz MD at [facility] 03/10/2021 - Troy Ruiz MD* [...]
--- OUTSIDE RECORDS SUMMARY | 2021-05-15 20:00 | CCD | Continuity of Care Document ---
Author Author Eron Ruiz MD Organization Unknown Address [address] [address] Phone [phone] Care Team Providers Care Gore Stitcher Name Role Phone [facility] AUTM Unavailable Troy Ruiz JR, MD AUTM Unavailable [facility] AUTM [phone] Problems Active Problems Provider Date Chronic obstructive [...] or fever mdd=3 grams Unknown Saline Mist [place] 0.65% Solution 2 sprays each nostril daily [...] 1 by mouth every day Unknown Ergocalciferol [id number] Powder 1 po every 2 weeks on [...] CPT Code Status Date Vaccine Lot # [id number] Given 04/02/2020 Influenza Vaccin e Quadrivalent Preser/Antibiotic Free Im Use [id number] 70404 Given 03/19/2018 Influenza Virus Vaccine, Quadrivalent (Cciiv4), Derived From 2 Given 06/07/2017 Pneumovax 23 [id number] Q2037 Given 04/22/2015 Fluvirin Virus Vaccine 15373 01 64486 Given 07/28/2014 Prevnar 13 [id number] Q2037 Given 03/16/2011 Fluvirin Virus Vaccine 04690 Given 04/24/2009 Influenza Virus Vaccine 52061 Given 04/21/2008 Influenza Virus Vaccine 32068 Given 04/04/2005 Pneumovax 23 51923 Given 04/04/2005 Influenza Virus Vaccine 36851 Given 04/23/2004 Influenza Virus Vaccine 03914 Given 04/24/2003 Influenza Virus Vaccine 84488 Given 05/06/2002 Influenza Virus Vaccine 97566 Given 04/25/2001 Influenza Virus Vaccine 10468 Given 06/02/2000 Influenza Virus Vaccine 20166 Given 03/25/1993 Influenza Virus Vaccine Vital Signs [...] H/L Range Note Laboratory test finding 03/10/[address] [address] [phone] Theophylline Level <pending> Laboratory test finding 09/18/2020 [place] [id number] [phone] Theophylline Level 8.0 UG/ML Low 10.0-20.0 Complete Blood Count 09/18/2020 [facility] Heel Builder Machine: [place] [address] [phone] WBC 6.6 x10*3/UL 4.1 - 10.9 RBC [...] 2.0 - 7.8 Basic Metabolic Panel 09/18/2020 [facility] Heel Builder Machine: [place] [address] [phone] Glucose 73 mg/dL Low 74 - 99 [...] LITTLE GFR LEFT 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 Troy Ruiz MD J44.9 Chronic [...] 11:00 am - Troy Ruiz MD at [facility] 03/10/2021 - Troy Ruiz MD* [...]
--- OUTSIDE RECORDS SUMMARY | 2021-05-15 20:01 | CCD ---
Author Author [facility] Organization [facility] Address Unknown Phone Unavailable Care Team Providers Care Attendant Honor Bar Name Role Phone Adams, Nuria AGRICULTURAL EXTENSION OFFICER Unavailable Unavailable Adams, Nuria AGRICULTURAL EXTENSION OFFICER Unavailable Unavailable Adams, Nuria AGRICULTURAL EXTENSION OFFICER Unavailable Unavailable Adams, Nuria AGRICULTURAL EXTENSION OFFICER Unavailable Unavailable Adams, Nuria AGRICULTURAL EXTENSION OFFICER Unavailable Unavailable Adams, Nuria AGRICULTURAL EXTENSION OFFICER Unavailable Unavailable Adams, Nuria AGRICULTURAL EXTENSION OFFICER Unavailable Unavailable Adams, Nuria AGRICULTURAL EXTENSION OFFICER Unavailable Unavailable Adams, Nuria AGRICULTURAL EXTENSION OFFICER Unavailable Unavailable Adams, Nuria AGRICULTURAL EXTENSION OFFICER Unavailable Unavailable Adams, Nuria AGRICULTURAL EXTENSION OFFICER Unavailable Unavailable Adams, Nuria AGRICULTURAL EXTENSION OFFICER Unavailable Unavailable Adams, Nuria AGRICULTURAL EXTENSION OFFICER Unavailable Unavailable Hilda VELEZ AGRICULTURAL EXTENSION OFFICER Unavailable Unavailable Hilda VELEZ AGRICULTURAL EXTENSION OFFICER Unavailable Unavailable Hilda VELEZ AGRICULTURAL EXTENSION OFFICER Unavailable Unavailable Hilda VELEZ AGRICULTURAL EXTENSION OFFICER Unavailable Unavailable Hilda VELEZ AGRICULTURAL EXTENSION OFFICER Unavailable Unavailable Hilda VELEZ AGRICULTURAL EXTENSION OFFICER Unavailable Unavailable Hilda VELEZ AGRICULTURAL EXTENSION OFFICER Unavailable Unavailable Hilad VELEZ AGRICULTURAL EXTENSION OFFICER Unavailable Unavailable Hilda VELEZ AGRICULTURAL EXTENSION OFFICER Unavailable Unavailable Hilda VELEZ AGRICULTURAL EXTENSION OFFICER Unavailable Unavailable Hilda VELEZ AGRICULTURAL EXTENSION OFFICER Unavailable Unavailable Hilda VELEZ AGRICULTURAL EXTENSION OFFICER Unavailable Unavailable LAROCK, Hilda MECHE AGRICULTURAL EXTENSION OFFICER Unavailable Unavailable LAROCK, Hilda MCGREGOR AGRICULTURAL EXTENSION OFFICER Unavailable Unavailable LAROCK, Hilda MCGREGOR AGRICULTURAL EXTENSION OFFICER Unavailable Unavailable LAROCK, Hilda MCGREGOR AGRICULTURAL EXTENSION OFFICER Unavailable Unavailable LAROCK, Hilda MCGREGOR AGRICULTURAL EXTENSION OFFICER Unavailable Unavailable LAROCK, Hilda MCGREGOR AGRICULTURAL EXTENSION OFFICER Unavailable Unavailable LAROCK, Hilda MCGREGOR AGRICULTURAL EXTENSION OFFICER Unavailable Unavailable LAROCK, Hilda MCGREGOR AGRICULTURAL EXTENSION OFFICER Unavailable Unavailable LAROCK, Hilda MCGREGOR AGRICULTURAL EXTENSION OFFICER Unavailable Unavailable LAROCK, Hilda MCGREGOR AGRICULTURAL EXTENSION OFFICER Unavailable Unavailable PICKERAL JR, J CESAR PA-C Unavailable Unavailable PICKERAL JR, J CESAR PA-C Unavailable Unavailable PICKERAL JR, J CESAR PA-C Unavailable Unavailable PICKERAL JR, J CESAR PA-C Unavailable Unavailable PICKERAL JR, J CESAR PA-C Unavailable Unavailable PICKERAL JR, J CESAR PA-C Unavailable Unavailable PICKERAL JR, J CESAR PA-C Unavailable Unavailable PICKERAL JR, J CESAR PA-C Unavailable Unavailable PICKERAL JR, J CESAR PA-C Unavailable Unavailable PICKERAL JR, J CESAR PA-C Unavailable Unavailable PICKERAL JR, J CESAR PA-C Unavailable Unavailable PICKERAL JR, J CESAR PA-C Unavailable Unavailable PICKERAL JR, J CESAR PA-C Unavailable Unavailable PICKERAL JR, J CESAR PA-C Unavailable Unavailable PICKERAL JR, J CESAR PA-C Unavailable Unavailable PICKERAL JR, J CESAR PA-C Unavailable Unavailable PICKERAL JR, J CESAR PA-C Unavailable Unavailable PICKERAL JR, J CESAR PA-C Unavailable Unavailable PICKERAL JR, J CESAR PA-C Unavailable Unavailable PICKERAL JR, J CESAR PA-C Unavailable Unavailable PICKERAL JR, J CESAR PA-C Unavailable Unavailable PICKERAL JR, J CESAR PA-C Unavailable Unavailable PICKERAL JR, J CESAR PA-C Unavailable Unavailable PICKERAL JR, J CESAR PA-C Unavailable Unavailable PICKERAL JR, J CESAR PA-C Unavailable Unavailable PICKERAL JR, J CESAR PA-C Unavailable Unavailable PICKERAL JR, J CESAR PA-C Unavailable Unavailable Gabriela Ruiz MD Unavailable Unavailable Gabriela Ruiz MD Unavailable Unavailable Gabriela Ruiz MD Unavailable Unavailable Gabriela Ruiz MD Unavailable Unavailable Gabriela Ruiz MD Unavailable Unavailable Gabriela Ruiz MD Unavailable Unavailable Gabriela Ruiz MD Unavailable Unavailable Gabriela Ruiz MD Unavailable Unavailable Gabriela Ruiz MD Unavailable Unavailable Gabriela Ruiz MD Unavailable Unavailable Gabriela Ruiz MD Unavailable Unavailable Gabriela Ruiz MD Unavailable Unavailable Gabriela Ruiz MD Unavailable Unavailable Gabriela Ruiz MD Unavailable Unavailable JosephGabriela MD Unavailable Unavailable JosephGabriela MD Unavailable Unavailable JosephGabriela MD Unavailable Unavailable [place] MD Unavailable Unavailable JosephGabriela MD Unavailable Unavailable [place]ela MD Unavailable Unavailable JosephGabriela MD Unavailable Unavailable [place]Gab[place]ela MD Unavailable Unavailable [place]ela MD Unavailable Unavailable [place]Gabriela MD Unavailable Unavailable JosephGabriela MD Unavailable Unavailable JosephGabriela MD Unavailable Unavailable [place]Gabriela MD Unavailable Unavailable [place]Gabriela MD Unavailable Unavailable [place]Gabriela MD Unavailable Unavailable [place]Gabriela MD Unavailable Unavailable [place]Gabriela MD Unavailable Unavailable [place]Gabriela MD Unavailable Unavailable JosephGabriela MD Unavailable Unavailable [place]Gabriela MD Unavailable Unavailable [place]Gabriela MD Unavailable Unavailable JosephGabriela MD Unavailable Unavailable JosephGabriela MD Unavailable Unavailable JosephGabriela MD Unavailable Unavailable JosephGabriela MD Unavailable Unavailable JosephGabriela MD Unavailable Unavailable [place]Gab[place]ela MD Unavailable Unavailable JosephGabriela MD Unavailable Unavailable [place]Gabriela MD Unavailable Unavailable [place]Gabriela MD Unavailable Unavailable [place]Gabriela MD Unavailable Unavailable JosephGabriela MD Unavailable Unavailable [place]Gabriela MD Unavailable Unavailable JosephGabriela MD Unavailable Unavailable JosephGabriela villar MD Unavailable Unavailable JosephGabriela villar MD Unavailable Unavailable JosephGabriela MD Unavailable Unavailable JosephGabriela MD Unavailable Unavailable [place] villar MD Unavailable Unavailable JosephGabriela MD Unavailable Unavailable [place] villar MD Unavailable Unavailable [place] villar MD Unavailable Unavailable JosephGabriela villar MD Unavailable Unavailable [place]Gabriela MD Unavailable Unavailable [place]Gabriela MD Unavailable Unavailable [place]Gabriela MD Unavailable Unavailable [place]Gabriela MD Unavailable Unavailable JosephGabriela MD Unavailable Unavailable OjsephGabriela MD Unavailable Unavailable JosephGabriela MD Unavailable Unavailable [place]Gabriela MD Unavailable Unavailable JosephGabriela MD Unavailable Unavailable [place]Gabriela MD Unavailable Unavailable JosephGabriela MD Unavailable Unavailable JosephGabriela MD Unavailable Unavailable [place]Gabriela MD Unavailable Unavailable Joseph, Gabriela Simmons MD Unavailable Unavailable [place], Gabriela Simmons MD Unavailable Unavailable Joseph, Gabriela Simmons MD Unavailable Unavailable Joseph, Gabriela Simmons MD Unavailable Unavailable Joseph, Gabriela Simmons MD Unavailable Unavailable [place], Gabriela Simmons MD Unavailable Unavailable [place]Gabriela MD Unavailable Unavailable [place], Gabriela Simmons MD Unavailable Unavailable [place], Gabriela Simmons MD Unavailable Unavailable Joseph, Gabriela Simmons MD Unavailable Unavailable [place], Gabriela Simmons MD Unavailable Unavailable [place], Gabriela Simmons MD Unavailable Unavailable [place], Gabriela Simmons MD Unavailable Unavailable [place], F Troy ROMERO Unavailable Unavailable Joseph, F Troy ROMEOR Unavailable Unavailable Joseph, F Troy ROMERO Unavailable Unavailable BAILEY, G EDWARD RPA Unavailable Unavailable BAILEY, G EDWARD RPA Unavailable Unavailable BAILEY, G EDWARD RPA Unavailable Unavailable ABILEY, G EDWARD RPA Unavailable Unavailable BAILEY, G EDWARD RPA Unavailable Unavailable BAILEY, G EDWARD RPA Unavailable Unavailable BAILEY, G EDWARD RPA Unavailable Unavailable BAILEY, G EDWARD RPA Unavailable Unavailable BAILEY, G EDWARD RPA Unavailable Unavailable BAILEY, G EDWARD RPA Unavailable Unavailable BAILEY, G EDWARD RPA Unavailable Unavailable BAILEY, G EDWARD RPA Unavailable Unavailable BAILEY, G EDWARD RPA Unavailable Unavailable BAILEY, G EDWARD RPA Unavailable Unavailable BAILEY, G EDWARD RPA Unavailable Unavailable BAILEY, G EDWARD RPA Unavailable Unavailable BAILEY, G EDWARD RPA Unavailable Unavailable BAILEY, G EDWARD RPA Unavailable Unavailable BAILEY, G EDWARD RPA Unavailable Unavailable BAILEY, G EDWARD RPA Unavailable Unavailable BAILEY, G EDWARD RPA Unavailable Unavailable BAILEY, G EDWARD RPA Unavailable Unavailable BAILEY, G EDWARD RPA Unavailable Unavailable BAILEY, G EDWARD RPA Unavailable Unavailable BAILEY, G EDWARD RPA Unavailable Unavailable BAILEY, G EDWARD RPA Unavailable Unavailable BAILEY, G EDWARD RPA Unavailable Unavailable BAILEY, G EDWARD RPA Unavailable Unavailable BAILEY, G EDWARD RPA Unavailable Unavailable BAILEY, G EDWARD RPA Unavailable Unavailable BAILEY, G EDWARD RPA Unavailable Unavailable BAILEY, G EDWARD RPA Unavailable Unavailable BAILEY, G EDWARD RPA Unavailable Unavailable BAILEY, G EDWARD RPA Unavailable Unavailable BAILEY, G EDWARD RPA Unavailable Unavailable BAILEY, G EDWARD RPA Unavailable Unavailable BAILEY, G EDWARD RPA Unavailable Unavailable Vicente Arita MD Unavailable Unavailable Vicente Arita MD Unavailable Unavailable Vicente Arita MD Unavailable Unavailable Vicente Arita MD Unavailable Unavailable Vicente Arita MD Unavailable Unavailable Vicente Arita MD Unavailable Unavailable Vicente Arita MD Unavailable Unavailable Vicente Ariat MD Unavailable Unavailable Vicente Arita MD Unavailable Unavailable Juan J O [place] Unavailable Unavailable Vicente Arita MD Unavailable Unavailable Vicenet Arita MD Unavailable Unavailable Vicente Arita MD Unavailable Unavailable Vicente Arita MD Unavailable Unavailable Vicente Arita MD Unavailable Unavailable Vicente Arita MD Unavailable Unavailable Vicente Arita MD Unavailable Unavailable Vicente Arita MD Unavailable Unavailable Vicente Arita MD Unavailable Unavailable Vicente Arita MD Unavailable Unavailable Vicente Arita MD Unavailable Unavailable Vicente Arita MD Unavailable Unavailable Vicente Arita MD Unavailable Unavailable Vicente Arita MD Unavailable Unavailable Vicente Arita MD Unavailable Unavailable Vicente Arita MD Unavailable Unavailable Vicente Arita MD Unavailable Unavailable Vicente Arita MD Unavailable Unavailable Vicente Arita MD Unavailable Unavailable Vicente Arita MD Unavailable Unavailable Vicente Arita MD Unavailable Unavailable Vicente Arita MD Unavailable Unavailable Vicente Arita MD Unavailable Unavailable Vicente Arita MD Unavailable Unavailable Vicente Arita MD Unavailable Unavailable Vicente Arita MD Unavailable Unavailable Vicente Arita MD Unavailable Unavailable Vicente Arita MD Unavailable Unavailable Vicente Arita MD Unavailable Unavailable Vicente Arita MD Unavailable Unavailable Vicente Arita MD Unavailable Unavailable Vicente Arita MD Unavailable Unavailable Vicente Arita MD Unavailable Unavailable Vicente Arita MD Unavailable Unavailable Vicente Arita MD Unavailable Unavailable Vicente Arita MD Unavailable Unavailable Juan J, O Samah MD Unavailable Unavailable Juan J, O Samah MD Unavailable Unavailable Juan J, O Samah MD Unavailable Unavailable Juan J, O Samah MD Unavailable Unavailable Juan J, O Samah MD Unavailable Unavailable Juan J, O Samah MD Unavailable Unavailable Juan J, O Samah MD Unavailable Unavailable Juan J, O Samah MD Unavailable Unavailable Juan J, O Samah MD Unavailable Unavailable Juan J, O Samah MD Unavailable Unavailable Juan J, O Samah MD Unavailable Unavailable Juan J, O Samah MD Unavailable Unavailable Juan J, O Samah MD Unavailable Unavailable Juan J, O Samah MD Unavailable Unavailable Juan J, O Samah MD Unavailable Unavailable Juan J, O Samah MD Unavailable Unavailable Juan J, O Samah MD Unavailable Unavailable Juan J, O Samah MD Unavailable Unavailable Juan J, O Samah MD Unavailable Unavailable Juan J, O Samah MD Unavailable Unavailable Juan J, O Samah MD Unavailable Unavailable Juan J, O Samah MD Unavailable Unavailable Juan J, O Samah MD Unavailable Unavailable Juan J, O Samah MD Unavailable Unavailable Juan J, O Samah MD Unavailable Unavailable Juan J, O Samah MD Unavailable Unavailable Juan J, O Samah MD Unavailable Unavailable Juan J, O Samah MD Unavailable Unavailable Juan J, O Samah MD Unavailable Unavailable Juan J, O Samah MD Unavailable Unavailable Juan J, O Samah MD Unavailable Unavailable Juan J, O Samah MD Unavailable Unavailable Juan J, O Samah MD Unavailable Unavailable Re-disclosure Warning The records that you are about to access may contain information from federally-assisted alcohol or drug abuse programs. If such information is present, then the following federally mandated warning applies: This information has been disclosed to you from records protected by federal confidentiality rules (42 CFR part 2). The federal rules prohibit you from making any further disclosure of this information unless further disclosure is expressly permitted by the written consent of the person to whom it pertains or as otherwise permitted by 42 CFR part 2. A general authorization for the release of medical or other information is NOT sufficient for this purpose. The Federal rules restrict any use of the information to criminally investigate or prosecute any alcohol or drug abuse patient.The records that you are about to access may contain highly sensitive health information, the redisclosure of which is protected by Article 27-F of the [facility] Public Health law. If you continue you may have access to information: Regarding HIV / AIDS; Provided by facilities licensed or operated by the [facility] Office of Mental Health; or Provided by the [facility] Office for People With Developmental Disabilities. If such information is present, then the following [facility] mandated warning applies: This information has been disclosed to you from confidential records which are protected by state law. State law prohibits you from making any further disclosure of this information without the specific written consent of the person to whom it pertains, or as otherwise permitted by law. Any unauthorized further disclosure in violation of state law may result in a fine or half-way sentence or both. A general authorization for the release of medical or other information is NOT sufficient authorization for further disc losure. Encounters Encounter Providers Location Date Indications Data Source(s ) Outpatient Attender: Troy Costa 0 03/10/2021 11:00:00 AM EDT [facility] ([facility] ) Outpatient Attender: MECHE VELEZ NP 09/2020 12:51:03 PM EDT - 01/20/2021 01:33:56 PM EDT [facility] ([facility] ) Outpatient Attender: ROSALIND BAILEY RPA 12/04 01:25:31 PM EDT - 12/04/2020 02:51:56 PM EDT [facility] ([facility] ) Outpatient Attender: Troy Costa 0 09/18/2020 10:20:00 AM EDT [facility] ([facility] ) Outpatient Attender: Mikaela Arita MD [facility] 09/17/2020 11:30:00 AM EDT [facility] ([facility]) Outpatient Attender: Troy Costa 0 06/25/2020 07:00:00 AM EST [facility] ([facility] ) Outpatient Attender: Mikaela Arita MD [facility] 06/15/2020 08:00:00 AM EST [facility] ([facility]) Outpatient Attender: Nuria cerda 05/27/2020 03:45:00 PM EST [facility] ([facility]) Outpatient Attender: Troy Costa 1 10:40:00 AM EDT [facility] ([facility] ) Outpatient Attender: CESAR Costa 1 10:00:00 AM EDT [facility] ([facility] ) Immunizations Vaccine Date Status Description Data Source(s) Influenza, injectable, MDCK, preservative free, destiny valent 04/02/2020 10:14:00 AM EDT completed [facility] ([facility]) Medications Medication Brand Name Start Date Product Form Dose Route Admi nistrative Instructions Pharmacy Instructions Status Indications Reaction Description Data Source(s) midodrine hydrochloride 2.5 MG Oral Tablet Midodrine HCL 09/18/2020 12:00:00 AM EDT ORAL active [facility] ([facility]) Omeprazole 40 MG Delayed Release Oral Capsule Omeprazole 06/25/2020 12:00:00 AM EST ORAL active [facility] ([facility]) Omeprazole 40 MG Delayed Release Oral Capsule Omeprazole 06/25/2020 12:00:00 AM EST ORAL completed [facility] ([facility]) Theophylline 300 MG Extended Release Oral Capsule [Neil-24] Neil-24 06/25/2020 12:00:00 AM EST active M [facility] ([facility]) Doxycycline Monohydrate 100 MG Oral Tablet Doxycycline Monoh ydrate 05/27/2020 12:00:00 AM EST ORAL active [facility] ([facility] Administration Of Flu Vaccine 04/02/2020 12:00:00 AM EDT completed [facility] ([facility]) Medication administered onsite pregabalin 100 MG Oral Capsule [Lyrica] Lyrica 12/11/2019 12:00:00 AM EDT completed [facility] ([facility]) Insurance Providers Payer name Policy type / Coverage type Policy ID Covered republican ID Covered republican's relationship to burr Policy Burr Plan Information [employer] Compensation [id number] Self B [id number] [employer] Workers Compensation [id number] Self [employer] Compensation [id number] Self [id number] [employer] Compensation [id number] Self B [id number] [employer] Workers Compensation [id number] Self B [id number] [employer] Workers Compensation [id number] [id number] Self B [id number] [employer] Workers Compensation [id number] [id number] Self B [id number] [employer] Compensation [id number] [id number] Self B [id number] [employer] Compensation [id number] Self [id number] [employer] Workers Compensation [id number] Self B [id number] [employer] Workers Compensation [id number] [id number] Self B [id number] [facility] Insurance [facility] Workers Compensation [id number] Self [id number] [facility] Insurance [facility] Workers Compensation [id number] Self [id number] [facility] Insurance [facility] Workers Compensation [id number] Self [id number] [facility] Insurance [facility] Workers Compensation [id number] Self [id number] [facility] Insurance [facility] Workers Compensation [id number] Self [id number] [facility] Insurance [facility] Workers Compensation [id number] Self [id number] [facility] Insurance [facility] Workers Compensation [id number] Self [id number] [facility] Insurance [facility] Workers Compensation [id number] Self 1 [id number] [facility] Insurance [facility] Workers Compensation [id number] Self 1 [id number] [facility] Insurance [facility] Workers Compensation [id number] Self [id number] [facility] Insurance [facility] Workers Compensation [id number] Self [facility] Insurance [facility] Workers Compensation [id number] Self Medicare Natl Govt Servic Medicare Primary [id number] Self [id number] Medicare Natl Govt Servic Medicare Primary [id number] [id number] Self [id number] Medicare Natl Govt Servic Medicare Primary [id number] Self [id number] [facility] [id number] SP [id number] [facility] [id number] SP [id number] Medicare Natl Govt Servic Medicare Primary [id number] Self [id number] Medicare Natl Govt Servic Medicare Primary [id number] [id number] Self [id number] Medicare Natl Govt Servic Medicare Primary [id number] [id number] Self [id number] Medicare Natl Govt Servic Medicare Primary [id number] [id number] Self [id number] Medicare Natl Govt Servic Medicare Primary [id number] Self Medicare Natl Govt Servic Medicare Primary [id number] [id number] Self [id number] A Medicare Natl Govt Servic Medicare Primary [id number] [id number] Self [id number] Medicare Natl Govt Servic Medicare Primary [id number] Self 1 [id number] [employer] [place] [employer] Optum VA Plan/ 0751 Self [id number] [facility] Medicare Medicare Part B [id number] Self [id number] [facility] [employer] [id number] Self [id number] [facility] [id number] [facility] Opt [facility] Part B [id number] Self MEDICARE [id number] SP [id number] A95 'S ADMINISTRATION [id number] SP [id number] [facility] HEALTH CARE OPTIONS [id number] SP [id number] MEDICARE C [id number] S [id number] [id number] AAR O [id number] S [id number] [facility] [id number] Self [id number] [facility] [id number] Self [id number] [employer] [id number] S [id number] ANSI-Other [id number] ANSI-Other [id number] [place] [employer] Part B [id number] Self [id number] [facility] [id number] Self [id number] ANSI-Other [id number] ANSI-Other [id number] ANSI-Other [id number] ANSI-Other [id number] ANSI-Other [id number] [place] [employer] [place] [employer] Part B [id number] Self [id number] [facility] Opt Med[employer] Part B [id number] Self 0 [id number] 11 [place] [facility] [place] [employer] Part B [id number] Self [id number] [facility] Opt Med[employer] Part B [id number] 11 [id number] Self 0 [id number] 11 MEDICARE [id number] SP [id number] A MEDICARE C [id number] S [id number] A [place] [facility] [place] [employer] Part B [id number] Self [id number] [facility] Opt [employer] Part B [id number] 11 [id number] Self 0 [id number] 11 [place] [facility] [place] [employer] Part B [id number] Self [id number] [facility] Opt [facility] Part B [id number] 11 [id number] Self 0 [id number] 11 [place] [employer] Part B [id number] Self [id number] [facility] Opt [facility] Part B [id number] 11 [id number] Self 0 [id number] 11 [place] [employer] Part B [id number] Self [id number] [facility] Opt [facility] Part B [id number] 11 [id number] Self 0 [id number] 11 [place] [facility] [place] [employer] Part B [id number] Self [id number] [facility] Part B [id number] 11 [id number] Self 0 [id number] 11 [place] [employer] Part B [id number] Self [id number] [facility] Opt [facility] Part B [id number] 11 [id number] Self 0 [id number] 11 [facility] CHOICE [id number] SP [id number] [employer] OPTIONS [id number] SP [id number] [employer] [employer] Compensation [id number] Se lf Chana Of [facility] Part B [id number] Self G STATE INSURANCE FUND [id number] SP [id number] Problems, Conditions, and Diagnoses Code Display Name Description Problem Type Effective Dates Data Source(s) 853220282 Altered mental status Altered mental status Problem 06/15/2020 12:00:00 AM EST [facility] ([facility], ) [id number] Low back pain Low back pain Problem 06/15/2020 12:00:00 AM EST [facility] ([facility], ) [id number] Malaise and fatigue Malaise and fatigue Problem 1 08/16/2019 12:00:00 AM EST [facility] ([facility]) [id number] Abnormal gait Abnormal gait Problem 06/15/2020 12:00:00 AM EST [facility] ([facility]) Surgeries/Procedures Procedure Description Date Indications Data Source(s) OFFICE OUTPATIENT VISIT 25 MINUTES 03/10/2021 12:00:00 AM EDT [facility] ([facility]) OFFICE OUTPATIENT VISIT 25 MINUTES 09/18/2020 12:00:00 AM EDT [facility] ([facility]) TSTG ANS FUNCJ CARDIOVAGAL INNERVAJ PARASYMP 1 12:00:00 AM EST [facility] ([facility], ) TSTG ANS FUNCJ CARDIOVAGAL INNERVAJ PARASYMP 1 12:00:00 AM EST [facility] ([facility], ) TESTING AUTONOMIC NERVOUS SYSTEM FUNCTION 07/08/2020 1 2:00:00 AM EST [facility] ([facility], ) TESTING AUTONOMIC NERVOUS SYSTEM FUNCTION 07/08/2020 1 2:00:00 AM EST [facility] ([facility]) MRI BRAIN BRAIN STEM W/O CONTRAST MATERIAL 06/24/2020 12:00:00 AM EST [facility] ([facility], ) MRI BRAIN BRAIN STEM W/O CONTRAST MATERIAL 06/24/2020 12:00:00 AM EST [facility] ([facility]) MRI SPINAL CANAL CERVICAL W/O CONTRAST MATRL 1 12:00:00 AM EST [facility] ([facility], ) MRI SPINAL CANAL CERVICAL W/O CONTRAST MATRL 12:00:00 AM EST [facility] ([facility], ) MRI Spine Thoracic W/O Contrast 06/24/2020 12:00:00 AM EST [facility] ([facility], ) MRI Spine Thoracic W/O Contrast 06/24/2020 12:00:00 AM EST [facility] ([facility], ) FALLS RISK ASSESSMENT DOCUMENTED 06/15/2020 12:00:00 A M EST [facility] ([facility], ) Results ID Date Data Source [id number] 03/10/2021 11:40:00 AM EDT [facility] ([facility]) Name Value Range Interpretation Code Description Data Shira rce(s) Supporting Document(s) Theophylline [Mass/volume] in Serum or Plasma 9.3 UG/ML 10.0-20.0 [facility] ([facility]) ID Date Data Source [id number] 03/10/2021 11:38:00 AM EDT [facility] ([facility]) Name Value Range Interpretation Code Description Data Shira rce(s) Supporting Document(s) Cholesterol [Mass/volume] in Serum or Plasma 133 mg/dL 131-200 [facility] ([facility]) Triglyceride [Mass/volume] in Serum or Plasma 65 mg/dL 30-150 [facility] ([facility]) Cholesterol in HDL [Mass/volume] in Serum or Plasma 67 mg/dL 35-60 [facility] ([facility]) Cholesterol in LDL [Mass/volume] in Serum or Plasma by calcu lation 53 CALC 50-159 [facility] ([facility]) ID Date Data Source [id number] 03/10/2021 11:38:00 AM EDT [facility] ([facility]) Name Value Range Interpretation Code Description Data Shira rce(s) Supporting Document(s) Urea nitrogen [Mass/volume] in Serum or Plasma 17 mg/dL 7-18 [facility] ([facility]) Glucose [Mass/volume] in Serum or Plasma 95 mg/dL 74-99 [facility] ([facility]) 100-125 mg/dL PRE-DIABETES/FASTING >126 mg/dL DIABETES/FASTING Creatinine 0.8 mg/dL 0.6-1.3 [facility] Sodium [Moles/volume] in Serum or Plasma 144 meq/L 136-145 [facility] ([facility]) Potassium [Moles/volume] in Serum or Plasma 3.7 meq/L 3.5-5.1 [facility] ([facility]) Carbon dioxide, total [Moles/volume] in Serum or Plasma 35 meq/L 21 -32 [facility] ([facility]) NOTE: RESULT VERIFIED. Chloride [Moles/volume] in Serum or Plasma 105 meq/L 98-107 [facility] ([facility]) Calcium [Mass/volume] in Serum or Plasma 9.6 mg/dL 8.5-10.1 [facility] ([facility]) Total Bilirubin 0.3 mg/dL 0.2-1.0 [facility] ([facility]) Alkaline phosphatase isoenzyme [Units/volume] in Serum or Pl asma 54 mg/dL 46-116 [facility] ([facility]) Aspartate aminotransferase [Enzymatic activity/volume] in Serum or Plasma 21 U/L 15-37 [facility] ([facility] ) Alanine aminotransferase [Enzymatic activity/volume] in Seru m or Plasma 23 U/L 12-78 [facility] ([facility]) Albumin [Mass/volume] in Serum or Plasma 3.8 g/dL 3.4-5.0 [facility] ([facility]) Proteinase 3 Ab [Units/volume] in Serum 6.6 g/dL 6.4-8.2 [facility] ([facility]) A/G Ratio 1.36 CALC 1.00-1.90 [facility]) Glomerular filtration rate/1.73 sq M pre dicted among blacks [Volume Rate/Area] in Serum or Plasma by Creatinine-based formula (MDRD) Laboratory test result [facility] [place] <content>CHRONIC KIDNEY DISEASE STAGING PER NKF</content>
<content></content>
<content>STAGE I & II GFR >= 60 NORMAL TO MILDLY DECREASED</content>
<content>STAGE III GFR 30-59 MODERATELY DECREASED</content>
<content>STAGE IV GFR 15-29 SEVERELY DECREASED</content>
<content>STAGE V GFR <15 VERY LITTLE GFR LEFT</content>
<content>ESRD GFR <15 ON SHIPPING CLERK CRATING</content>
<content></content> Glomerular filtration rate/1.73 sq M pre dicted among non-blacks [Volume Rate/Area] in Serum or Plasma by Creatinine-based formula (MDRD) Laboratory test result [facility] ([facility] ) ID Date Data Source [id number] 03/10/2021 11:38:00 AM EDT [facility] [place] Name Value Range Interpretation Code Description Data Shira rce(s) Supporting Document(s) Leukocytes [#/volume] in Blood by Automated count 7.3 x10*3/UL 4.1-10 .9 [facility] ([facility] [place] Erythrocytes [#/volume] in Blood by Automated count 3.28 x10*6/UL 4.2 0-6.30 [facility] ([facility] [place] Hemoglobin [Mass/volume] in Blood 10.9 g/dL 12.0-18.0 [facility] ([facility] [place] MCV 96.4 fL 80.0-97.0 [facility]) Hematocrit [Volume Fraction] of Blood by Automated count 31.6 % 3 7.0-51.0 [facility] [place] Erythrocyte distribution width [Ratio] by Automated count 13.4 % 11.6-13.7 [facility] ([facility]) MCH 33.4 pg 26.0-32.0 [facility]) MCHC 34.7 g/dL 31.0-38.0 [facility]) Lymph % 17.6 % 10.0-58.5 [facility] ([facility]) MPV 7.3 FL 7.8-11.0 [facility] ([facility]) Platelets [#/volume] in Blood by Automated count 277 x10*3/UL 140-440 [facility] ([facility]) Lymph # 1.2 x10*3/UL 0.6-4.1 [facility] ([facility]) Neut % 77.9 % 37.0-92.0 [facility]) Mid % 4.5 % 1.7-9.3 [facility] Neut # 5.7 x10*3/UL 2.0-7.8 [facility] ([facility]) Mid # 0.4 x10*3/UL 0.1-0.6 [facility] ([facility]) ID Date Data Source [id number] 12/04/2020 12:40:00 PM EDT [facility] Name Value Range Interpretation Code Description Data Shira rce(s) Supporting Document(s) SARS-CoV-2 RNA Resp Ql MABEL+probe NOT DETECTED [facility] This lab was ordered by [facility] and re ported by [place] [facility]. ID Date Data Source [id number] 09/18/2020 10:09:00 AM EDT [facility] ([facility]) Name Value Range Interpretation Code Description Data Shira rce(s) Supporting Document(s) Theophylline [Mass/volume] in Serum or Plasma 8.0 UG/ML 10.0-20.0 [facility] ([facility]) ID Date Data Source [id number] 09/18/2020 10:08:00 AM EDT [facility] ([facility]) Name Value Range Interpretation Code Description Data Shira rce(s) Supporting Document(s) Creatinine 0.8 mg/dL 0.6-1.3 [facility] Glucose [Mass/volume] in Serum or Plasma 73 mg/dL 74-99 [facility] ([facility]) 100-125 mg/dL PRE-DIABETES/FASTING >126 mg/dL DIABETES/FASTING Urea nitrogen [Mass/volume] in Serum or Plasma 17 mg/dL 7-18 [facility] ([facility]) Potassium [Moles/volume] in Serum or Plasma 3.6 meq/L 3.5-5.1 [facility] ([facility]) Chloride [Moles/volume] in Serum or Plasma 104 meq/L 98-107 [facility] ([facility]) Sodium [Moles/volume] in Serum or Plasma 144 meq/L 136-145 [facility] [place] Carbon dioxide, total [Moles/volume] in Serum or Plasma 31 meq/L 21 -32 [facility] ([facility]) Glomerular filtration rate/1.73 sq M pre dicted among non-blacks [Volume Rate/Area] in Serum or Plasma by Creatinine-based formula (MDRD) Laboratory test result [facility] ([facility] ) Calcium [Mass/volume] in Serum or Plasma 9.7 mg/dL 8.5-10.1 [facility] [place] Glomerular filtration rate/1.73 sq M pre dicted among blacks [Volume Rate/Area] in Serum or Plasma by Creatinine-based formula (MDRD) Laboratory test result [facility] ([facility]) <content>CHRONIC KIDNEY DISEASE STAGING PER NKF</content>
<content></content>
<content>STAGE I & II GFR >= 60 NORMAL TO MILDLY DECREASED</content>
<content>STAGE III GFR 30-59 MODERATELY DECREASED</content>
<content>STAGE IV GFR 15-29 SEVERELY DECREASED</content>
<content>STAGE V GFR <15 VERY LITTLE GFR LEFT</content>
<content>ESRD GFR <15 ON SHIPPING CLERK CRATING</content>
<content></content> ID Date Data Source [id number] 09/18/2020 10:08:00 AM EDT [facility] ([facility] [place] Name Value Range Interpretation Code Description Data Shira rce(s) Supporting Document(s) Leukocytes [#/volume] in Blood by Automated count 6.6 x10*3/UL 4.1-10 .9 [facility] [place] Erythrocytes [#/volume] in Blood by Automated count 3.72 x10*6/UL 4.2 0-6.30 [facility] [place] Hemoglobin [Mass/volume] in Blood 11.5 g/dL 12.0-18.0 [facility] [place] NOTE: RESULT VERIFIED. Hematocrit [Volume Fraction] of Blood by Automated count 33.6 % 3 7.0-51.0 [facility] [place] MCV 90.2 fL 80.0-97.0 [facility] ([facility]) Erythrocyte distribution width [Ratio] by Automated count 13.3 % 11.6-13.7 [facility] ([facility]) MCHC 34.2 g/dL 31.0-38.0 [facility] ([facility]) MCH 30.8 pg 26.0-32.0 [facility] ([facility]) Lymph % 20.2 % 10.0-58.5 [facility] ([facility]) Platelets [#/volume] in Blood by Automated count 276 x10*3/UL 140-440 [facility] ([facility]) MPV 7.2 FL 7.8-11.0 [facility] ([facility]) Neut % 74.3 % 37.0-92.0 [facility] ([facility]) Lymph # 1.3 x10*3/UL 0.6-4.1 [facility] ([facility]) Mid % 5.5 % 1.7-9.3 [facility] ([facility]) Neut # 4.9 x10*3/UL 2.0-7.8 [facility] ([facility]) Mid # 0.4 x10*3/UL 0.1-0.6 [facility] ([facility]) ID Date Data Source [id number] 06/25/2020 08:33:00 AM EST [facility] ([facility]) Name Value Range Interpretation Code Description Data Shira rce(s) Supporting Document(s) Glucose [Mass/volume] in Serum or Plasma 94 mg/dL 74-99 [facility] ([facility]) 100-125 mg/dL PRE-DIABETES/FASTING >126 mg/dL DIABETES/FASTING Urea nitrogen [Mass/volume] in Serum or Plasma 14 mg/dL 7-18 [facility] ([facility]) Creatinine 0.8 mg/dL 0.6-1.3 [facility] ([facility]) Potassium [Moles/volume] in Serum or Plasma 4.1 meq/L 3.5-5.1 [facility] ([facility]) Sodium [Moles/volume] in Serum or Plasma 141 meq/L 136-145 [facility] ([facility]) Chloride [Moles/volume] in Serum or Plasma 102 meq/L 98-107 [facility] ([facility]) Carbon dioxide, total [Moles/volume] in Serum or Plasma 36 meq/L 21 -32 [facility] ([facility]) Calcium [Mass/volume] in Serum or Plasma 9.6 mg/dL 8.5-10.1 [facility] ([facility]) Alkaline phosphatase isoenzyme [Units/volume] in Serum or Pl asma 100 mg/dL 46-116 [facility] ([facility]) Aspartate aminotransferase [Enzymatic activity/volume] in Serum or Plasma 15 U/L 15-37 [facility] ([facility] ) Total Bilirubin 0.3 mg/dL 0.2-1.0 [facility] ([facility]) Alanine aminotransferase [Enzymatic activity/volume] in Seru m or Plasma 17 U/L 12-78 [facility] ([facility]) Albumin [Mass/volume] in Serum or Plasma 3.5 g/dL 3.4-5.0 [facility] ([facility]) Proteinase 3 Ab [Units/volume] in Serum 6.7 g/dL 6.4-8.2 [facility] ([facility]) A/G Ratio 1.09 CALC 1.00-1.90 [facility]) Glomerular filtration rate/1.73 sq M pre dicted among non-blacks [Volume Rate/Area] in Serum or Plasma by Creatinine-based formula (MDRD) Laboratory test result [facility] ([facility] ) Glomerular filtration rate/1.73 sq M pre dicted among blacks [Volume Rate/Area] in Serum or Plasma by Creatinine-based formula (MDRD) Laboratory test result [facility] ([facility]) <content>CHRONIC KIDNEY DISEASE STAGING PER NKF</content>
<content></content>
<content>STAGE I & II GFR >= 60 NORMAL TO MILDLY DECREASED</content>
<content>STAGE III GFR 30-59 MODERATELY DECREASED</content>
<content>STAGE IV GFR 15-29 SEVERELY DECREASED</content>
<content>STAGE V GFR <15 VERY LITTLE GFR LEFT</content>
<content>ESRD GFR <15 ON SHIPPING CLERK CRATING</content>
<content></content> ID Date Data Source [id number] 06/25/2020 08:33:00 AM EST [facility] ([facility]) Name Value Range Interpretation Code Description Data Shira rce(s) Supporting Document(s) Leukocytes [#/volume] in Blood by Automated count 8.9 x10*3/UL 4.1-10 .9 [facility] ([facility]) Erythrocytes [#/volume] in Blood by Automated count 3.34 x10*6/UL 4.2 0-6.30 [facility] ([facility]) Hematocrit [Volume Fraction] of Blood by Automated count 30.2 % 3 7.0-51.0 [facility] ([facility]) Hemoglobin [Mass/volume] in Blood 10.6 g/dL 12.0-18.0 [facility] ([facility]) MCV 90.3 fL 80.0-97.0 [facility] MCH 31.8 pg 26.0-32.0 [facility] MCHC 35.2 g/dL 31.0-38.0 [facility] Erythrocyte distribution width [Ratio] by Automated count 13.0 % 11.6-13.7 [facility] ([facility]) Platelets [#/volume] in Blood by Automated count 293 x10*3/UL 140-440 [facility] ([facility]) MPV 7.4 FL 7.8-11.0 [facility] Mid % 4.7 % 1.7-9.3 [facility] Lymph % 16.4 % 10.0-58.5 [facility] Neut % 78.9 % 37.0-92.0 [facility] Lymph # 1.4 x10*3/UL 0.6-4.1 [facility] ([facility]) Neut # 7.0 x10*3/UL 2.0-7.8 [facility] ([facility]) Mid # 0.5 x10*3/UL 0.1-0.6 [facility] ([facility]) ID Date Data Source [id number] 06/01/2020 05:49:00 PM EST [facility] ([facility]) Name Value Range Interpretation Code Description Data Shira rce(s) Supporting Document(s) Influenza A Amplification Laboratory test result [facility] [place] Negative results do not preclude influen za or RSV virus infection and should not be used as the sole basis for treatment or other patient management decisions. RSV Amplification Laboratory test result [facility] ([facility]) Negative results do not preclude influen za or RSV virus infection and should not be used as the sole basis for treatment or other patient management decisions. Influenza B Amplification Laboratory test result [facility] ([facility] [place] Negative results do not preclude influen za or RSV virus infection and should not be used as the sole basis for treatment or other patient management decisions. Laboratory test finding (navigational concept) Laboratory test result [facility] ([facility] [place] A false negative result may occur if a s pecimen is improperly collected, transported or handled. False negative results may also occur if inadequate numbers of organisms are present in the specimen. As with any molecular test, mutations within the target regions of Xpert X[employer] SARS-CoV-2 could affect primer and/or probe binding resulting in failure to detect the presence of virus. This test cannot rule out diseases caused by other bacterial or viral pathogens. DISCLAIMER: Testing was performed using the [employer] SARS-CoV-2 test. This test was developed and its performance characteristics determined by [employer]. This test has not been FDA cleared or approved. This test has been authorized by FDA under an Emergency Use Authorization (EUA). This test is only authorized for the duration of time the declaration that circumstances exist justifying the authorization of the emergency use of in vitro diagnostic tests for detection of SARS-CoV-2 virus and/or diagnosis of COVID-19 infection under section 564(b)(1) of the Act, 21 U.S.C. 360bbb-3(b)(1), unless the authorization is terminated or revoked sooner. ID Date Data Source [id number] 06/01/2020 05:49:00 PM EST [facility] Name Value Range Interpretation Code Description Data Shira rce(s) Supporting Document(s) SARS coronavirus 2 RNA [Presence] in Res piratory specimen by MABEL with probe detection [facility] This lab was ordered by [facility] a nd reported by [facility]. ID Date Data Source [id number] 06/01/2020 05:22:00 PM EST [facility] ([facility] [place] Name Value Range Interpretation Code Description Data Shira rce(s) Supporting Document(s) Ammonia [Mass/volume] in Blood 16 uMOL/L [facility] ([facility] [place] ID Date Data Source [id number] 06/01/2020 05:04:00 PM EST [facility] ([facility] [place] Name Value Range Interpretation Code Description Data Shira rce(s) Supporting Document(s) Appearance, Urine RFX Laboratory test result [facility] ([facility] [place] Color, Urine RFX Laboratory test result [facility] ([facility] [place] PH,Urine RFX 5.0 units 5.0-9.0 [facility] ([facility] [place] Specific [place] Ur Auto RFX 1.024 1.002-1.035 [facility] ([facility] [place] Protein, Urine Auto RFX Laboratory test result [facility] ([facility] [place] Glucose, Urine (Ua) Auto RFX Laboratory test result [facility] ([facility] [place] Urobilinogen, Urine Auto RFX 2.0 mg/dL 0.0-2.0 [facility] ([facility] [place] Ketone, Urine Auto RFX Laboratory test result [facility] [place] Bilirubin, Urine Auto RFX Laboratory test result [facility] ([facility] [place] Nitrite, Urine Auto RFX Laboratory test result [facility] ([facility] [place] Leukocyte Esterase Ur Auto RFX Laboratory test result [facility] ([facility] [place] Blood, Urine Blood RFX Laboratory test result [facility] [place] WBC, Urine Auto RFX 2 /HPF 0-3 [facility] ([facility]) RBC, Urine Auto RFX 13 /HPF 0-3 [facility] ([facility]) Bacteria, Urine Auto RFX Laboratory test result [facility] [place] Transitional Epithelial AU RFX 3 /HPF [facility] ([facility] [place] Squam Epithelial Cell Ur Aurfx 0 /HPF 0-6 [facility] [place] Mucus, Urine RFX Laboratory test result [facility] [place] Hyaline Cast, Urine Auto RFX 1 /LPF 0-1 [facility] [place] Calcium Oxalate Crystals RFX Laboratory test result [facility] ([facility]) ID Date Data Source [id number] 06/01/2020 05:04:00 PM EST [facility] ([facility] [place] Name Value Range Interpretation Code Description Data Shira rce(s) Supporting Document(s) Amphetamines Level Urine Laboratory test result [facility] ([facility] [place] Barbiturates Urine Laboratory test result [facility] ([facility] [place] Benzodiazepines Urine Laboratory test result [facility] ([facility] [place] Cannabinoids Urine Laboratory test result [facility] [place]) Cocaine Metabolite Urine Laboratory test result [facility] [place]) Methadone Urine Laboratory test result [facility] [place] Phencyclidine Urine Laboratory test result [facility] [place] ALL PRESUMPTIVE POSITIVE FINDINGS AR E UNCONFIRMED THRESHOLD IN NG/ML AMPHETAMINES/METHAMPHET 1000 BARBITURATES 200 BENZODIAZEPINES 200 CANNABINOIDS (THC) 50 COCAINE METABOLITE 300 METHADONE 300 OPIATES 300 PHENCYCLIDINE 25 RESULTS ARE FOR MEDICAL PURPOSES ONLY. ALL URINE SPECIMENS WILL BE SAVED FOR 3 DAYS. IF CONFIRMATION OF A PRESUMPTIVE POSITIVE SCREEN RESULT IS DESIRED, CALL CHEMISTRY ([phone]) AND REQUEST URINE TO BE SENT TO REFERENCE LAB. FOR A LIST OF CLOSELY RELATED COMPOUNDS PLEASE CALL THE LAB. Opiates Urine Laboratory test result [facility] ([facility] [place] ID Date Data Source [id number] 06/01/2020 03:16:00 PM EST MED[facility] ([facility] [place] Name Value Range Interpretation Code Description Data Shira rce(s) Supporting Document(s) ABG pH (Arterial) 7.397 units 7.350-7.450 [facility] ( [facility] [place]) ABG Partial Pressure Co2 49.9 [facility] 35.0-45.0 [facility] ABG Partial Pressure O2 167.7 mmHg 75.0-100.0 [facility] NT ([facility]) ABG Total Co2 31.5 meq/L 23.0-31.0 [facility] ([facility]) ABG Hco3 30.0 meq/L 22.0-26.0 [facility] ([facility]) ABG Base Excess 4.4 [facility] ([facility]) ABG Standard Hco3 28.4 meq/L 22.0-26.0 [facility] ([facility]) ABG O2 Saturation 99.2 % 95.0-99.0 [facility] ([facility]) ID Date Data Source [id number] 06/01/2020 03:14:00 PM EST MED[facility] ([facility]) Name Value Range Interpretation Code Description Data Shira rce(s) Supporting Document(s) White Blood Count 7.7 10 4.0-10.0 [facility] ([facility]) Red Blood Count 3.38 10 4.30-6.10 [facility] ([facility]) Hemoglobin 10.3 g/dL 13.5-17.5 [facility] ([facility]) Hematocrit 32.5 % 42.0-52.0 [facility] ([facility]) Mean Corpuscular Volume 96.2 fl 80.0-96.0 [facility] ([facility]) Mean Corpuscular Hemoglobin 30.5 pg 27.0-33.0 [facility] ([facility]) Mean Corpuscular HGB Conc 31.7 g/dL 32.0-36.5 MEDE NT ([facility]) Red Cell Distribution Width 12.3 % 11.5-14.5 ME [facility] ([facility]) Platelet Count, Automated 247 10 150-450 [facility] NT ([facility]) Lymph % 17.2 % 24.0-44.0 [facility] ([facility]) Neutrophils % 68.7 % 36.0-66.0 MED[facility] ([facility]) [place] % 10.1 % 0.0-5.0 [facility] ([facility] Eos % 2.7 % 0.0-3.0 [facility] ([facility] Baso % 0.9 % 0.0-1.0 [facility] Nucleated Red Blood Cell % 0.0 % 0-0 [facility] ([facility]) Immature Granulocyte % 0.4 % 0-3.0 [facility] ([facility]) Neutrophils # 5.3 10 1.5-8.5 [facility] ([facility]) Lymph # 1.3 10 1.5-5.0 [facility] ([facility] Eos # 0.2 10 0.0-0.5 [facility] [place] # 0.8 10 0.0-0.8 [facility] ([facility]) Baso # 0.1 10 0.0-0.2 [facility] ID Date Data Source [id number] 06/01/2020 03:14:00 PM EST MED[facility] ([facility]) Name Value Range Interpretation Code Description Data Shira rce(s) Supporting Document(s) Ammonia [Mass/volume] in Blood 12 uMOL/L [facility] ([facility]) Lactate [Mass/volume] in Serum or Plasma 1.0 mmol/L 0.4-2.0 [facility] ([facility]) Y/N query for Sepsis Lactate Rule: Y ID Date Data Source [id number] 06/01/2020 03:14:00 PM EST MED[facility] ([facility]) Name Value Range Interpretation Code Description Data Shira rce(s) Supporting Document(s) CPK Creatine Phosphokinase 201 U/L 39-308 [facility] ([facility]) CK-MB Value Mass 2.0 ng/mL [facility] ([facility]) Troponin I Laboratory test result [facility] ([facility] [place]) <content>Troponin I Reference Interval f or Siemens [place] LOCI:</content>
<content></content>
<content>99th Percentile= 0.00-0.045 ng/ml</content>
<content></content>
<content>Risk Stratification:</content>
<content><= 0.10 ng/ml Decreased Risk for Adverse Clinical</content>
<content>Events.</content>
<content>0.10-1.50 ng/ml Increased Risk for Adverse Clinical</content>
<content>Events. Evaluation of additional</content>
<content>criterion and/or repeat testing in 2-6</content>
<content>hours is suggested to rule out myocardial</content>
<content>damage.</content>
<content>>= 1.50 ng/ml Indicative of Myocardial Injury.</content>
<content></content> MB/CK Relative Index 1.00 MED[facility] ([facility]) <content>DIAGNOSIS CRITERIA</content>
<content>MMB ng/ml Relative Index (RI)</content>
<content>NON-AMI < or = 5 N/A</content>
<content>ESTRELLA ZONE > 5 < or = 4</content>
<content>AMI > 5 > 4</content>
<content></content> ID Date Data Source [id number] 06/01/2020 03:14:00 PM EST MED[facility] ([facility]) Name Value Range Interpretation Code Description Data Shira rce(s) Supporting Document(s) Blood Urea Nitrogen 17 mg/dL 7-18 [facility] ([facility]) Glucose, Fasting 84 mg/dL 70-100 [facility] ([facility]) Glomerular Filtration Rate Laboratory test result [facility] ([facility]) <content>Units are mL/min/1.73 m2</content>
<content></content>
<content>Chronic Kidney Disease Staging per NKF:</content>
<content></content>
<content>Stage I & II GFR >=60 Normal to Mildly Decreased</content>
<content>Stage III GFR 30- 59 Moderately Decreased</content>
<content>Stage IV GFR 15-29 Severely Decreased</content>
<content>Stage V GFR <15 Very Little GFR Left</content>
<content>ESRD GFR <15 on SHIPPING CLERK CRATING</content>
<content></content> Creatinine For GFR 0.81 mg/dL 0.70-1.30 [facility] ([facility]) Potassium Serum 3.4 meq/L 3.5-5.1 [facility] ([facility]) Sodium Level 140 meq/L 136-145 [facility] ([facility]) Chloride Level 104 meq/L 98-107 [facility] ([facility]) Carbon Dioxide Level 33 meq/L 21-32 [facility] ([facility]) Calcium Level 9.8 mg/dL 8.8-10.2 [facility] ([facility]) Anion Gap 3 meq/L 8-16 [facility] ([facility]) ID Date Data Source [id number] 06/01/2020 03:14:00 PM EST MED[facility] ([facility]) Name Value Range Interpretation Code Description Data Shira rce(s) Supporting Document(s) Osmolality of Serum or Plasma 292 MOSM/KG 280-301 [facility] ([facility]) Ethanol [Mass/volume] in Serum or Plasma Laboratory test result 0.000 -0.010 [facility] ([facility]) Salicylates [Mass/volume] in Serum or Plasma Laboratory test result 5.0-30.0 [facility] ([facility]) Acetaminophen [Mass/volume] in Serum or Plasma Laboratory test r esult 10.0-30.0 [facility] ([facility] [place] Thyrotropin [Units/volume] in Serum or Plasma by Detec tion limit <= 0.05 mIU/L 0.729 uIU/ML 0.358-3.740 [facility] ([facility] ) ID Date Data Source [id number] 06/01/2020 03:14:00 PM EST MED[facility] ([facility]) Name Value Range Interpretation Code Description Data Shira rce(s) Supporting Document(s) Ast/Sgot 18 U/L 7-37 [facility] Alt/SGPT 20 U/L 12-78 [facility] ([facility]) Alkaline Phosphatase 87 U/L 45-117 [facility] ([facility] [place] Bilirubin,Total 0.4 mg/dL 0.2-1.0 [facility] ([facility] [place]) Bilirubin,Direct 0.2 mg/dL 0.0-0.2 [facility] ([facility] [place] Total Protein 6.8 GM/DL 6.4-8.2 [facility] ([facility] [place]) Albumin/Globulin Ratio 1.1 [facility] ([facility] [place]) Albumin 3.6 GM/DL 3.2-5.2 [facility] ([facility]) ID Date Data Source [id number] 05/27/2020 12:00:00 AM EST [facility] Name Value Range Interpretation Code Description Data Shira rce(s) Supporting Document(s) SARS coronavirus 2 Ag [facility] This lab was ordered by [facility] and reported by [facility]. ID Date Data Source [id number] 04/02/2020 12:04:00 PM EDT [facility] ([facility]) Name Value Range Interpretation Code Description Data Shira rce(s) Supporting Document(s) Laboratory test finding (navigational concept) 0.00 ng/mL 0.00-0.08 [facility] ([facility] [place]) ID Date Data Source [id number] 04/02/2020 12:00:00 PM EDT [facility] ([facility] [place] Name Value Range Interpretation Code Description Data Shira rce(s) Supporting Document(s) Laboratory test finding (navigational concept) 28.0 % 38.0-51.0 [facility] ([facility]) Laboratory test finding (navigational concept) 83 mg/dL 70-105 [facility] ([facility]) Laboratory test finding (navigational concept) 143 meq/L 136-145 [facility] ([facility]) Laboratory test finding (navigational concept) 3.2 meq/L 3.5-5.1 [facility] ([facility]) Laboratory test finding (navigational concept) 4.9 mg/dL 4.5-5.3 [facility] ([facility]) Laboratory test finding (navigational concept) 98 meq/L 98-109 [facility] ([facility] [place] Laboratory test finding (navigational concept) 32.0 MM/L 23.0-27.0 [facility] ([facility] [place]) Laboratory test finding (navigational concept) 4 mg/dL 8-26 [facility] ([facility] [place]) Laboratory test finding (navigational concept) 0.6 mg/dL 0.6-1.3 [facility] ([facility] [place]) ID Date Data Source [id number] 04/02/2020 11:54:00 AM EDT [facility] ([facility] [place] Name Value Range Interpretation Code Description Data Shira rce(s) Supporting Document(s) Appearance, Urine RFX Laboratory test result [facility] ([facility] [place]) Color, Urine RFX Laboratory test result [facility] ([facility] [place]) PH,Urine RFX 7.0 units 5.0-9.0 [facility] ([facility] [place]) Specific [place] Ur Auto RFX 1.003 1.002-1.035 [facility] ([facility] [place]) Protein, Urine Auto RFX Laboratory test result [facility] ([facility]) Glucose, Urine (Ua) Auto RFX Laboratory test result [facility] ([facility] [place]) Ketone, Urine Auto RFX Laboratory test result [facility] ([facility]) Urobilinogen, Urine Auto RFX 0.2 mg/dL 0.0-2.0 [facility] ([facility] [place]) Nitrite, Urine Auto RFX Laboratory test result [facility] ([facility] [place]) Bilirubin, Urine Auto RFX Laboratory test result [facility] ([facility]) Leukocyte Esterase Ur Auto RFX Laboratory test result [facility] ([facility]) Blood, Urine Blood RFX Laboratory test result [facility] ([facility] [place]) WBC, Urine Auto RFX 1 /HPF 0-3 [facility] ([facility] [place] RBC, Urine Auto RFX 2 /HPF 0-3 [facility] ([facility] [place]) Bacteria, Urine Auto RFX Laboratory test result [facility] ([facility]) Squam Epithelial Cell Ur Aurfx 0 /HPF 0-6 [facility] ([facility]) Hyaline Cast, Urine Auto RFX 0 /LPF 0-1 [facility] ([facility]) ID Date Data Source [id number] 04/02/2020 11:42:00 AM EDT [facility] ([facility] [place]) Name Value Range Interpretation Code Description Data Shira rce(s) Supporting Document(s) Thyrotropin [Units/volume] in Serum or Plasma by Detec tion limit <= 0.05 mIU/L 1.250 uIU/ML 0.358-3.740 [facility] ([facility] [place] [facility] ID Date Data Source [id number] 04/02/2020 11:42:00 AM EDT [facility] ([facility] [place] Name Value Range Interpretation Code Description Data Shira rce(s) Supporting Document(s) Blood Urea Nitrogen 6 mg/dL 7-18 [facility] ([facility]) Glucose, Fasting 88 mg/dL 70-100 [facility] ([facility] [place] Creatinine For GFR 0.76 mg/dL 0.70-1.30 [facility] ([facility] [place]) Glomerular Filtration Rate Laboratory test result [facility] ([facility]) <content>Units are mL/min/1.73 m2</content>
<content></content>
<content>Chronic Kidney Disease Staging per NKF:</content>
<content></content>
<content>Stage I & II GFR >=60 Normal to Mildly Decreased</content>
<content>Stage III GFR 30- 59 Moderately Decreased</content>
<content>Stage IV GFR 15-29 Severely Decreased</content>
<content>Stage V GFR <15 Very Little GFR Left</content>
<content>ESRD GFR <15 on SHIPPING CLERK CRATING</content>
<content></content> Sodium Level 139 meq/L 136-145 [facility] ([facility]) Potassium Serum 3.7 meq/L 3.5-5.1 [facility] ([facility]) Chloride Level 98 meq/L 98-107 [facility] ([facility]) Carbon Dioxide Level 38 meq/L 21-32 [facility] ([facility]) Anion Gap 3 meq/L 8-16 [facility] ([facility]) Calcium Level 9.8 mg/dL 8.8-10.2 [facility] ([facility]) ID Date Data Source [id number] 04/02/2020 11:42:00 AM EDT [facility] ([facility] [place] Name Value Range Interpretation Code Description Data Shira rce(s) Supporting Document(s) Ast/Sgot 21 U/L 7-37 [facility] ([facility]) Alkaline Phosphatase 78 U/L 45-117 [facility] ([facility] [place] Alt/SGPT 20 U/L 12-78 [facility] ([facility]) Bilirubin,Total 0.3 mg/dL 0.2-1.0 [facility] ([facility]) Bilirubin,Direct 0.1 mg/dL 0.0-0.2 [facility] ([facility]) Total Protein 6.5 GM/DL 6.4-8.2 [facility] ([facility]) Albumin/Globulin Ratio 1.3 [facility] ([facility] [place]) Albumin 3.7 GM/DL 3.2-5.2 [facility] ([facility]) ID Date Data Source [id number] 04/02/2020 11:42:00 AM EDT [facility] ([facility]) Name Value Range Interpretation Code Description Data Shira rce(s) Supporting Document(s) Lactate [Mass/volume] in Serum or Plasma 0.5 mmol/L 0.4-2.0 [facility] ([facility]) Y/N query for Sepsis Lactate Rule: Y Ammonia [Mass/volume] in Blood 11 uMOL/L [facility] ([facility] [place]) ID Date Data Source [id number] 04/02/2020 11:42:00 AM EDT [facility] ([facility] [place] Name Value Range Interpretation Code Description Data Shira rce(s) Supporting Document(s) Venous PH 7.297 units 7.330-7.430 [facility] ([facility]) Venous Partial Pressure Co2 80.4 mmHg 38.0-50.0 [facility] ([facility]) Venous Partial Pressure O2 36.9 mmHg 30.0-50.0 [facility] ([facility]) Venous Total Co2 40.9 meq/L 24.0-28.0 [facility] ([facility]) Venous Hco3 38.4 meq/L 23.0-27.0 [facility] ([facility]) Venous Base Excess 9.3 [facility] ([facility]) Venous Standard Hco3 32.4 meq/L [facility] ( [facility]) Venous O2 Saturation 66.3 % 60.0-80.0 [facility] ([facility]) ID Date Data Source [id number] 04/02/2020 11:42:00 AM EDT [facility] ([facility]) Name Value Range Interpretation Code Description Data Shira rce(s) Supporting Document(s) White Blood Count 7.3 10 4.0-10.0 [facility] ([facility]) Hemoglobin 10.6 g/dL 13.5-17.5 [facility] ([facility]) Red Blood Count 3.36 10 4.30-6.10 [facility] ([facility]) Hematocrit 33.3 % 42.0-52.0 [facility] ([facility]) Mean Corpuscular Volume 99.1 fl 80.0-96.0 [facility] ([facility]) Mean Corpuscular Hemoglobin 31.5 pg 27.0-33.0 [facility] ([facility]) Mean Corpuscular HGB Conc 31.8 g/dL 32.0-36.5 [facility] NT ([facility]) Red Cell Distribution Width 12.2 % 11.5-14.5 [facility] ([facility]) Platelet Count, Automated 246 10 150-450 [facility] ([facility]) Neutrophils % 68.0 % 36.0-66.0 [facility] ([facility]) [place] % 10.2 % 0.0-5.0 [facility] ([facility]) Lymph % 17.1 % 24.0-44.0 [facility] ([facility]) Eos % 3.3 % 0.0-3.0 [facility] ([facility]) Baso % 1.1 % 0.0-1.0 [facility] ([facility]) Nucleated Red Blood Cell % 0.0 % 0-0 [facility] ([facility]) Immature Granulocyte % 0.3 % 0-3.0 [facility] ([facility]) Neutrophils # 4.9 10 1.5-8.5 [facility] ([facility]) Lymph # 1.2 10 1.5-5.0 [facility] ([facility]) [place] # 0.7 10 0.0-0.8 [facility] ([facility]) Eos # 0.2 10 0.0-0.5 [facility] ([facility]) Baso # 0.1 10 0.0-0.2 [facility] ([facility]) ID Date Data Source [id number] 04/02/2020 11:41:00 AM EDT [facility] ([facility]) Name Value Range Interpretation Code Description Data Shira rce(s) Supporting Document(s) Venous PH 7.297 units 7.330-7.430 [facility] ([facility]) Venous Partial Pressure O2 36.9 mmHg 30.0-50.0 [facility] ([facility]) Venous Partial Pressure Co2 80.4 mmHg 38.0-50.0 [facility] Venous Total Co2 40.9 meq/L 24.0-28.0 [facility] ([facility]) Venous Base Excess 9.3 [facility] ([facility]) Venous Hco3 38.4 meq/L 23.0-27.0 [facility] ([facility]) Venous Standard Hco3 32.4 meq/L [facility] ( [facility]) Venous O2 Saturation 66.3 % 60.0-80.0 [facility] ([facility] Procedure Social History Code Duration Value Status Description Data Source(s ) Smoking 05/27/2020 12:00:00 AM EST Patient is a former smoker completed Patient is a former smoker [facility] ([facility]) Vital Signs ID Date Data Source [id number] Name Value Range Interpretation Code Description Data Source(s) Diastolic blood pressure 70 mm[Hg] 70 mm[Hg] [facility] ([facility]) Systolic blood pressure 110 mm[Hg] 110 mm[Hg] [facility] ([facility]) Systolic blood pressure--supine 90 mm[Hg] 90 m m[Hg] [facility] ([facility]) laying down Diastolic blood pressure--supine 58 mm[Hg] 58 mm[Hg] [facility] ([facility]) laying down Oxygen saturation in Arterial blood by Pulse oximetry 99 % 99 % [facility] ([facility]) With O2 @ 3L Body mass index (BMI) [Ratio] 18.2 kg/m2 18.2 k g/m2 [facility] ([facility]) Systolic blood pressure--sitting 80 mm[Hg] 80 mm[Hg] [facility] ([facility]) sitting Diastolic blood pressure--sitting 50 mm[Hg] 50 mm[Hg] [facility] ([facility]) sitting Systolic blood pressure--standing 78 mm[Hg] 78 mm[Hg] [facility] ([facility]) standing Diastolic blood pressure--standing 60 mm[Hg] 6 0 mm[Hg] [facility] ([facility]) standing Heart rate 91 /min 91 /min [facility] ([facility]) Body height 67.5 [in_i] 67.5 [in_i] [facility] ([facility]) 5'7.50" Body weight 118.12 [lb_av] 118.12 [lb_av] [facility] ([facility]) Systolic blood pressure 108 mm[Hg] 108 [facility]] [facility] Diastolic blood pressure 68 mm[Hg] 68 mm[Hg] [facility] ([facility]) Heart rate 82 /min 82 /min [facility] ([facility]) Body height 67.5 [in_i] 67.5 [in_i] [facility] ([facility]) 5'7.50" Body weight 128.00 [lb_av] 128.00 [lb_av] [facility] ([facility]) Oxygen saturation in Arterial blood by Pulse oximetry 94 % 94 % [facility] ([facility]) 3 liters Body mass index (BMI) [Ratio] 19.7 kg/m2 19.7 k g/m2 [facility] ([facility]) Respiratory rate 12 /min 12 /min [facility] ( [facility]) Body height 68 [in_i] 68 [in_i] [facility] ([facility]) 5'8" Body weight 135.00 [lb_av] 135.00 [lb_av] [facility] T ([facility]) Body mass index (BMI) [Ratio] 20.5 kg/m2 20.5 k g/m2 [facility] ([facility]) [place] body weight 154 [lb_av] 154 [lb_av] [facility] T ([facility]) Systolic blood pressure 100 mm[Hg] 100 mm[Hg] M [facility] ([facility]) Diastolic blood pressure 58 mm[Hg] 58 mm[Hg] [facility] ([facility]) Heart rate 98 /min 98 /min [facility] ([facility]) Body height 67.5 [in_i] 67.5 [in_i] [facility] ([facility]) 5'7.50" Body weight 127.00 [lb_av] 127.00 [lb_av] [facility] ([facility]) Body mass index (BMI) [Ratio] 19.6 kg/m2 19.6 k g/m2 [facility] ([facility]) Oxygen saturation in Arterial blood by Pulse oximetry 92 % 92 % [facility] ([facility]) 4 liters Body height 68 [in_i] 68 [in_i] [facility] ([facility]) 5'8" Body weight 135.00 [lb_av] 135.00 [lb_av] [facility] T ([facility]) Body mass index (BMI) [Ratio] 20.5 kg/m2 20.5 k g/m2 [facility] ([facility]) [place] body weight 154 [lb_av] 154 [lb_av] [facility] ([facility]) Body mass index (BMI) [Ratio] 20.1 kg/m2 20.1 k g/m2 [facility] ([facility] [place]) Systolic blood pressure 124 mm[Hg] 124 mm[Hg] M [facility] ([facility]) Diastolic blood pressure 78 mm[Hg] 78 mm[Hg] [facility] ([facility]) Heart rate 86 /min 86 /min [facility] ([facility] [place], [facility]) Respiratory rate 20 /min 20 /min [facility] ( [facility] [place], [facility]) Oxygen saturation in Arterial blood by Pulse oximetry 96 % 96 % [facility] ([facility], [facility]) Body temperature 98.1 [degF] 98.1 [degF] [facility] ([facility] [place], [facility]) Body weight 140.00 [lb_av] 140.00 [lb_av] [facility] T ([facility], [facility]) Body height 70 [in_i] 70 [in_i] [facility] ([facility]) 5'10" Body mass index (BMI) [Ratio] 20.1 kg/m2 20.1 k g/m2 [facility] ([facility]) Heart rate 74 /min 74 /min [facility] ([facility]) Body height 67.5 [in_i] 67.5 [in_i] [facility] ([facility]) 5'7.50" Body weight 130.00 [lb_av] 130.00 [lb_av] MEDEN T ([facility]) Oxygen saturation in Arterial blood by Pulse oximetry 99 % 99 % MEDENT ([facility]) Systolic blood pressure 92 mm[Hg] 92 mm[Hg] M EDENT ([facility]) Diastolic blood pressure 58 mm[Hg] 58 mm[Hg] MEDENT ([facility]) Heart rate 80 /min 80 /min MEDENT ([facility]) Body height 67.5 [in_i] 67.5 [in_i] MEDENT ([facility]) 5'7.50" Body weight 129.00 [lb_av] 129.00 [lb_av] MEDEN T ([facility]) Oxygen saturation in Arterial blood by Pulse oximetry 97 % 97 % MEDENT ([facility]) 4 liters Body mass index (BMI) [Ratio] 19.9 kg/m2 19.9 k g/m2 [facility] [place]
--- NOTE | 2021-05-15 20:24 | HPEPDOC ---
[facility] Medical History & Physical Date of Admission May 15, 2021 Date of Service: May 15, 2021 Primary Care Physician: Jr Ruiz Collins Attending Physician: SULEMA ARNOLD MD History and Physical TIME OF SERVICE 835PM CHIEF COMPLAINT:confusion HISTORY OF PRESENT ILLNESS: a 80 yr old M has dementia and lives with his daughter; the patient and most of his family members are vaccinated. Yesterday he wouldn't eat and was less interactive with his family, because he had a fever, and confusion they sent him to the ER for evaluation. At the time of my assessment none of his family members were at the bedside, the patient was alert, denied having an pain and couldn't provide any meaningful history. 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 PHYSICAL EXAMINATION: Vital Signs Date Time Temp Pulse Resp B/P (MAP) Pulse Ox O2 Delivery O2 Flow Rate FiO2 05/15/21 17:50 102.6 105 26 122/65 (84) 91 Nasal Cannula 4.0 GENERAL APPEARANCE: slim build / appears anxious HEENT: temporal wasting / mucus membranes moist and pink CARDIOVASCULAR: tachycardic/ NMRG LUNGS: CTAB on RA ABDOMEN: scaphoid : he is wearing a diaper MUSCULOSKELETAL: he has muscle wasting of the biceps, triceps and quadriceps NEUROLOGICAL: hearing loss / speech not dysarthric PSYCHIATRIC: A&O to person LABORATORY DATA: 05/15/21 22:39 IMAGING: Chest xray "IMPRESSION: Right lower lobe infiltrate." Renal US "IMPRESSION: 1. No hydronephrosis or acute findings. 2. Nonspecific debris in the urinary bladder. Correlation with urinalysis may be beneficial." MICROBIOLOGY: + COVID ASSESSMENT: is a 80 yr old M w COPD/Emphysema, Hearing Loss, Depression/ Anxiety who is admitted for COVID PNA & JULIEN. PLAN: 1. 1 COVID-19 Plan: admit to ICU / continuous pulse ox / supplemental O2 (target O2 sats between 92-95%) / contact & air borne precautions /instructed the patient to lie down in a prone position as much as possible / f/u repeat plts (if low indicates bad prognosis), CRP (if high indicates bad prognosis), INR, BMP (40% of pts with COVID develop JULIEN) , INR, D-dimer, PT, PTT, fibrinogen (if patient has DIC indicates bad prognosis), ferritin, LDH, troponins (if elevated will need Echo to r/o viral cardiomyopathy) / VBG to assess the degree of hypoxemia / bc he has CF c/w PNA we will start abx for CAP pending procalcitonin, sputum cx, strep pneumo, legionella & mycoplasma, MRSA to r/o bacterial PNA / IV steroids & Remdesivir 2 Sepsis 2/2 CAP He has tachycardia, tachypnea and elevated WBC Plan: continuous pulse ox & supplemental O2/ f/u knight cx / Ceftriaxone & Doxyclcine 3 Acute Renal Failure: monitor UOP / IVF / f/u renal panel, CK, Ulytes / renal US / hold nephrotoxic drugs 4 Encephalopathy due to illness vs Delirium? i/s/o Dementia: call family in the morning to obtain collateral info / neurochecks 5 COPD/Emphysema / Chronic O2 dependent respiratory failure without exacerbation: c/w hand held inhalers 6 Bicytopenia: f/u CBC 7 Essential HTN: hold BP meds bc his PB is low 8 Mild Hypokalemia: KCl 9 Dysphagia: D5NS w FSBS pending swallow eval 10 Depression/ Anxiety: hold meds pending swallow eval DVT px w lovenox and ASA Dispo: home after at least 2 midnight's stay Home Medications Scheduled Albuterol Sulf (Albuterol Sulfate) 2.5 Mg/3 Ml Nebu, 2.5 MG INH Q6H Aripiprazole (Abilify) 15 Mg Tablet, 15 MG PO DAILY B-Complex with Vitamin C (Vitamin B Complex-Vitamin C) 1 Each Tablet, 1 TAB PO DAILY Cyanocobalamin (Vitamin B-12) (B-12) 1,000 Mcg Tablet, 1,000 MCG PO BID Dicyclomine HCl (Dicyclomine HCl) 10 Mg Capsule, 20 MG PO DAILY Ergocalciferol (Vitamin D2) (Vitamin D2) 50,000 Units Cap, 1 CAP PO Q2WK Ferrous Gluconate (Ferrous Gluconate) 324 Mg Tab, 324 MG PO BID Fluticasone Propionate (Flonase Allergy Relief) 9.9 Ml [place].susp, 2 SPRAY NARES QHS Loratadine (Loratadine) 10 Mg Tablet, 10 MG PO DAILY Mometasone Furoate (Asmanex) 220 Mcg Aer.pow.ba, 2 PUFFS INH BID Montelukast Sodium (Montelukast Sodium) 10 Mg Tab, 10 MG PO DAILY Olodaterol HCl (Striverdi Respimat) 4 Gm Mist.inhal, 2 PUFFS INH DAILY [place]-3 Fatty Acids/Fish Oil (Fish Oil 1,000 mg Capsule) 1,000 Mg Cap, 1,000 MG PO BID Omeprazole (Omeprazole) 40 Mg Cap, 40 MG PO DAILY Pregabalin (Lyrica) 100 Mg Capsule, 100 MG PO DAILY Roflumilast (Daliresp) 500 Mcg Tab, 500 MCG PO DAILY Rosuvastatin Calcium (Crestor) 40 Mg Tab, 40 MG PO QPM DINNERTIME Tamsulosin HCl (Flomax) 0.4 Mg Capsule, 0.4 MG PO QHS Theophylline Anhydrous (Neil-24) 300 Mg Cap.er.24h, 300 MG PO BID Venlafaxine HCl (Effexor Xr) 150 Mg Cap.er.24h, 300 MG PO DAILY Scheduled PRN Albuterol Sulfate (Ventolin Hfa) 108 Mcg/Act Aer, 2 PUFFS INH Q4H PRN for SHORTNESS OF BREATH Sodium Chloride (Costilla) 104 Ml [place], 2 SPRAY NA QID PRN for CONGE EACH NOSTRIL Allergies Coded Allergies: No Known Allergies (Unverified , 04/02/20) A-FIB/CHADSVASC A-FIB History Current/History of A-Fib/PAF?: No Current PO Anticoag Therapy: No SULEMA ARNOLD MD May 15, 2021 20:24
[2021-05-15] MEDS ORDERED: VANCOMYCIN HCL 1,000 MG, VIAL MATE ADAPTER 1 EACH in NS 250 ML IV SCH (20:35)
[2021-05-15] MEDS ORDERED: methylPREDNISolone 125MG 2ML VIAL IV STA (20:35)
[2021-05-15] MEDS ORDERED: ALBUTEROL SULFATE 2.5 MG/0.5 ML INH NEB SOLN NEB PRN (20:35)
[2021-05-15] MEDS ORDERED: ABIL1TAB12 PO (20:44)
[2021-05-15] MEDS ORDERED: ERGO500029 PO (20:44)
[2021-05-15] MEDS ORDERED: OCEA0.654 (20:44)
[2021-05-15] MEDS ORDERED: STRI1AER2 INH (20:44)
[2021-05-15] MEDS ORDERED: FLON1SPR NARES (20:44)
[2021-05-15] MEDS ORDERED: ASMA220A INH (20:44)
[2021-05-15] MEDS ORDERED: EFFE150C2 PO (20:44)
[2021-05-15] MEDS ORDERED: DICY1CAP8 PO (20:44)
[2021-05-15] MEDS ORDERED: HOME MED LIST COMPLETE! XX SCH (20:45)
--- OUTSIDE RECORDS SUMMARY | 2021-05-15 21:11 | CCD ---
Author Author [facility] Organization [facility] Address Unknown Phone Unavailable Care Team Providers Care Coater Operator Name Role Phone Adams, Nuria TRAFFIC EXPERT Unavailable Unavailable Adams, Nuria TRAFFIC EXPERT Unavailable Unavailable Adams, Nuria TRAFFIC EXPERT Unavailable Unavailable Adams, Nuria TRAFFIC EXPERT Unavailable Unavailable Adams, Nuria TRAFFIC EXPERT Unavailable Unavailable Adams, Nuria TRAFFIC EXPERT Unavailable Unavailable Adams, Nuria TRAFFIC EXPERT Unavailable Unavailable Adams, Nuria TRAFFIC EXPERT Unavailable Unavailable Adams, Nuria TRAFFIC EXPERT Unavailable Unavailable Adams, Nuria TRAFFIC EXPERT Unavailable Unavailable Adams, Nuria TRAFFIC EXPERT Unavailable Unavailable Adams, Nuria TRAFFIC EXPERT Unavailable Unavailable Adams, Nuria TRAFFIC EXPERT Unavailable Unavailable Hilda VELEZ TRAFFIC EXPERT Unavailable Unavailable Hilda VELEZ TRAFFIC EXPERT Unavailable Unavailable Hilda VELEZ TRAFFIC EXPERT Unavailable Unavailable Hilda VELEZ TRAFFIC EXPERT Unavailable Unavailable Hilda VELEZ TRAFFIC EXPERT Unavailable Unavailable Hilda VELEZ TRAFFIC EXPERT Unavailable Unavailable Hilda VELEZ TRAFFIC EXPERT Unavailable Unavailable Hilda VELEZ TRAFFIC EXPERT Unavailable Unavailable Hilda VELEZ TRAFFIC EXPERT Unavailable Unavailable Hilda VELEZ TRAFFIC EXPERT Unavailable Unavailable Hilda VELEZ TRAFFIC EXPERT Unavailable Unavailable Hilda VELEZ TRAFFIC EXPERT Unavailable Unavailable LAROCK, Hilda MECHE TRAFFIC EXPERT Unavailable Unavailable LAROCK, Hilda MCGREGOR TRAFFIC EXPERT Unavailable Unavailable LAROCK, Hilda MCGREGOR TRAFFIC EXPERT Unavailable Unavailable LAROCK, Hilda MCGREGOR TRAFFIC EXPERT Unavailable Unavailable LAROCK, Hilda MCGREGOR TRAFFIC EXPERT Unavailable Unavailable LAROCK, Hilda MCGREGOR TRAFFIC EXPERT Unavailable Unavailable LAROCK, Hilda MCGREGOR TRAFFIC EXPERT Unavailable Unavailable LAROCK, Hilda MCGREGOR TRAFFIC EXPERT Unavailable Unavailable LAROCK, Hilda MCGREGOR TRAFFIC EXPERT Unavailable Unavailable LAROCK, Hilda MCGREGOR TRAFFIC EXPERT Unavailable Unavailable PICKERAL JR, J CESAR PA-C [...] Unavailable Gabriela Ruiz MD Unavailable Unavailable Gabriela uRiz MD Unavailable Unavailable Gabriela Ruiz MD Unavailable Unavailable Gabriela Ruiz MD Unavailable Unavailable Gabriela Ruiz MD Unavailable Unavailable Gabriela Ruiz MD Unavailable Unavailable Gabriela Ruiz MD Unavailable Unavailable Gabriela Ruiz MD Unavailable Unavailable JosephGabriela MD Unavailable Unavailable JosephGabriela MD Unavailable Unavailable JosephGabriela MD Unavailable Unavailable OmahaGabriela MD Unavailable Unavailable JosephGabriela MD Unavailable Unavailable OmahaGabriela MD Unavailable Unavailable JosephGabriela MD Unavailable Unavailable OmahaGabriela MD Unavailable Unavailable OmahaGabriela MD Unavailable Unavailable OmahaGabriela MD Unavailable Unavailable JosephGabriela MD Unavailable Unavailable JosephGabriela MD Unavailable Unavailable OmahaGabriela MD Unavailable Unavailable OmahaGabriela MD Unavailable Unavailable OmahaGabriela MD Unavailable Unavailable OmahaGabriela MD Unavailable Unavailable OmahaGabriela MD Unavailable Unavailable OmahaGabriela MD Unavailable Unavailable JosephGabriela MD Unavailable Unavailable OmahaGabriela MD Unavailable Unavailable OmahaGabriela MD Unavailable Unavailable JosephGabriela MD Unavailable Unavailable JosephGabriela MD Unavailable Unavailable JosephGabriela MD Unavailable Unavailable JosephGabriela MD Unavailable Unavailable JosephGabriela MD Unavailable Unavailable OmahaGabriela MD Unavailable Unavailable JosephGabriela MD Unavailable Unavailable OmahaGabriela MD Unavailable Unavailable OmahaGabriela MD Unavailable Unavailable OmahaGabriela MD Unavailable Unavailable JosephGabriela MD Unavailable Unavailable OmahaGabriela MD Unavailable Unavailable JosephGabriela MD Unavailable Unavailable JosephGabriela villar MD Unavailable Unavailable JosephGabriela villar MD Unavailable Unavailable JosephGabriela MD Unavailable Unavailable JosephGabriela MD Unavailable Unavailable OmahaGabriela villar MD Unavailable Unavailable JosephGabriela MD Unavailable Unavailable OmahaGabriela villar MD Unavailable Unavailable OmahaGabriela villar MD Unavailable Unavailable JosephGabriela villar MD Unavailable Unavailable OmahaGabriela MD Unavailable Unavailable OmahaGabriela MD Unavailable Unavailable OmahaGabriela MD Unavailable Unavailable OmahaGabriela MD Unavailable Unavailable JosephGabriela MD Unavailable Unavailable JosephGabriela MD Unavailable Unavailable JosephGabriela MD Unavailable Unavailable OmahaGabriela MD Unavailable Unavailable JosephGabriela MD Unavailable Unavailable OmahaGabriela MD Unavailable Unavailable JosephGabriela MD Unavailable Unavailable JosephGabriela MD Unavailable Unavailable OmahaGabriela MD Unavailable Unavailable Joseph, Gabriela Simmons MD Unavailable Unavailable Omaha, Gabriela Simmons MD Unavailable Unavailable Joseph, Gabriela Simmons MD Unavailable Unavailable Joseph, Gabriela Simmons MD Unavailable Unavailable Joseph, Gabriela Simmons MD Unavailable Unavailable [place], Gabriela Simmons MD Unavailable Unavailable OmahaGabriela MD Unavailable Unavailable [place], Gabriela Simmons MD Unavailable Unavailable [place], Gabriela Simmons MD Unavailable Unavailable Joseph, Gabriela Simmons MD Unavailable Unavailable [place], Gabriela Simmons MD Unavailable Unavailable [place], Gabriela Simmons MD Unavailable Unavailable [place], Gabriela Simmons MD Unavailable Unavailable [place], F rToy ROMERO Unavailable Unavailable Joseph, F Troy ROMERO Unavailable Unavailable Joseph, F Troy ROMERO Unavailable [...] is protected by Article 27-F of the [facility] Public Health law. If you continue you may have access to information: Regarding HIV / AIDS; Provided by facilities licensed or operated by the [facility] Office of Mental Health; or Provided by the [facility] Office for People With Developmental Disabilities. If such information is present, then the following [facility] mandated warning applies: This information has [...] law may result in a fine or correction sentence or both. A general authorization for the release of medical or other information is NOT sufficient authorization for further disc losure. Encounters Encounter Providers Location Date Indications Data Source(s ) Outpatient Attender: Troy Costa 0 03/10/2021 11:00:00 AM EDT [facility] ([facility] ) Outpatient Attender: MECHE VELEZ NP 09/2020 12:51:03 PM EDT - 01/20/2021 01:33:56 PM EDT [facility] ([facility] ) Outpatient Attender: ROSALIND BAILEY RPA 12/04 01:25:31 PM EDT - 12/04/2020 02:51:56 PM EDT [facility] ([facility] ) Outpatient Attender: Troy Costa 0 09/18/2020 10:20:00 AM EDT [facility] ([facility] ) Outpatient Attender: Mikaela Arita MD [facility] 09/17/2020 11:30:00 AM EDT [facility] ([facility]) Outpatient Attender: Troy Costa 0 06/25/2020 07:00:00 AM EST [facility] ([facility] ) Outpatient Attender: Mikaela Arita MD [facility] 06/15/2020 08:00:00 AM EST [facility] ([facility]) Outpatient Attender: Nuria cerda 05/27/2020 03:45:00 PM EST [facility]) Outpatient Attender: Troy Costa 1 10:40:00 AM EDT [facility] ([facility] ) Outpatient Attender: CESAR Costa 1 10:00:00 AM EDT [facility] ([facility] ) Immunizations Vaccine Date Status Description Data Source(s) Influenza, injectable, MDCK, preservative free, destiny valent 04/02/2020 10:14:00 AM EDT completed [facility] ([facility]) Medications Medication Brand Name Start Date Product Form Dose Route Admi nistrative Instructions Pharmacy Instructions Status Indications Reaction Description Data Source(s) midodrine hydrochloride 2.5 MG Oral Tablet Midodrine HCL 09/18/2020 12:00:00 AM EDT ORAL active [facility] ([facility]) Omeprazole 40 MG Delayed Release Oral Capsule Omeprazole 06/25/2020 12:00:00 AM EST ORAL active [facility] ([facility]) Omeprazole 40 MG Delayed Release Oral Capsule Omeprazole 06/25/2020 12:00:00 AM EST ORAL completed [facility] ([facility]) Theophylline 300 MG Extended Release Oral Capsule [Neil-24] Neil-24 06/25/2020 12:00:00 AM EST active M [facility] ([facility]) Doxycycline Monohydrate 100 MG Oral Tablet Doxycycline Monoh ydrate 05/27/2020 12:00:00 AM EST ORAL active [facility] Administration Of Flu Vaccine 04/02/2020 12:00:00 AM EDT completed [facility] ([facility]) Medication administered onsite pregabalin 100 MG Oral Capsule [Lyrica] Lyrica 12/11/2019 12:00:00 AM EDT completed [facility] ([facility]) Insurance Providers Payer name Policy type / Coverage type Policy ID Covered democrat ID Covered democrat's relationship to burr Policy Burr Plan Information [employer] Compensation [id number] Self B 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 [id number] Self [employer] Compensation [id number] Self [id number] [employer] Compensation [id number] [id number] Self B [id number] [employer] Compensation [id number] [id number] Self B [id number] [employer] Compensation [id number] 2.0.1.361882.3.227.99.4595.1836.0 Self B [id number] [employer] Compensation [id number] 2.0.1.263530.3.227.99.4595.1836.0 Self B [id number] [employer] Compensation [id number] 2.0.1.007585.3.227.99.4595.1836.0 Self B [id number] [employer] Compensation [id number] Self [id number] [employer] Compensation [id number] Self B [id number] [employer] Workers Compensation [id number] 2.0.1.446786.3.227.99.4595.1836.0 Self B [id number] [facility] Insurance [facility] Workers Compensation [id number] 2.16.840.1.016083.3.227.99.4595.1836.0 Self 1 [id number] [facility] Insurance [facility] Workers Compensation [id number] 2.16.840.1.560898.3.227.99.4595.1836.0 Self [id number] [facility] Insurance [facility] Workers Compensation [id number] Self [id number] [facility] Insurance [facility] Workers Compensation [id number] 2.16.840.1.108106.3.227.99.4595.1836.0 Self 1 [id number] [facility] Insurance [facility] Workers Compensation [id number] 2.16.840.1.145432.3.227.99.4595.1836.0 Self 1 [id number] [facility] Insurance [facility] Workers Compensation [id number] Self [id number] [facility] Insurance [facility] Workers Compensation [id number] 2.16.840.1.671445.3.227.99.4595.1836.0 Self 1 [id number] [facility] Insurance [facility] Workers Compensation [id number] 2.16.840.1.362012.3.227.99.4595.1836.0 Self 1 [id number] [facility] Insurance [facility] Workers Compensation [id number] 2.16.840.1.902005.3.227.99.4595.1836.0 Self 1 [id number] 138 [facility] Insurance [facility] Workers Compensation [id number] 2.16.840.1.411608.3.227.99.4595.1836.0 Self [id number] [facility] Insurance [facility] Workers Compensation [id number] Self [facility] Insurance [facility] Workers Compensation [id number] Self Medicare Natl Govt Servic Medicare Primary [id number] Self [id number] Medicare Natl Govt Servic Medicare Primary [id number] 2.16.840.1.341654.3.227.99.4595.1836.0 Self [id number] Medicare Natl Govt Servic Medicare Primary [id number] Self [id number] [facility] INSURANCE [facility] [id number] SP [id number] [facility] INSURANCE [facility] [id number] SP [id number] Medicare Natl Govt Servic Medicare Primary [id number] 2.16840.1.258047.3.227.99.4595.1836.0 Self [id number] Medicare Natl Govt Servic Medicare Primary [id number] 2.16840.1.202177.3.227.99.4595.1836.0 Self 1 [id number] Medicare Natl Govt Servic Medicare Primary [id number] 2.840.1.758228.3.227.99.4595.1836.0 Self [id number] Medicare Natl Govt Servic Medicare Primary [id number] 2.16840.1.057948.3.227.99.4595.1836.0 Self 9 [id number] Medicare Natl Govt Servic Medicare Primary [id number] Self Medicare Natl Govt Servic Medicare Primary [id number] 2.16840.1.624077.3.227.99.4595.1836.0 Self [id number] A Medicare Natl Govt Servic Medicare Primary [id number] 2.16840.1.391150.3.227.99.4595.1836.0 Self 9 [id number] Medicare Natl Govt Servic Medicare Primary [id number] 2.16840.1.302827.3.227.99.4595.1836.0 Self 1 [id number] [employer] [facility] [place] CCN Optum VA Plan/ 0751 Self [id number] [facility] Medicare Medicare Part B [id number] Self [id number] [facility] [employer] [id number] Self [id number] [facility] [id number] [facility] Opt [facility] Part B [id number] Self MEDICARE [id number] SP [id number] A95 'S ADMINISTRATION [id number] SP [id number] [facility] HEALTH CARE OPTIONS [id number] SP [id number] MEDICARE C [id number] S [id number] AAR O [id number] S [id number] [place] [facility] [id number] Self [id number] [facility] B [id number] 11 [id number] Self [id number] [employer] [id number] S [id number] ANSI-Other [id number] ANSI-Other [id number] [place] Medigap Part B [id number] Self [id number] [facility] [id number] 11 [id number] Self [id number] ANSI-Other [id number] ANSI-Other [id number] ANSI-Other [id number] ANSI-Other [id number] ANSI-Other [id number] [place] Medigap Part B [id number] 2.16.840.1.07411 3.3.227.99.4595.1836.0 Self [id number] [facility] Healthcare Opt Medigap Part B [id number] 11 2.16.840.1.753030.3.227.99.4595.1836.0 Self [id number] [place] Medigap Part B [id number] 2.16.840.1.88565 3.3.227.99.4595.1836.0 Self [id number] [facility] Healthcare Opt Medigap Part B [id number] 11 2.16.840.1.769465.3.227.99.4595.1836.0 Self 0 [id number] MEDICARE [id number] SP [id number] A MEDICARE C [id number] S [id number] A [place] Medigap Part B [id number] 2.16.840.1.29052 3.3.227.99.4595.1836.0 Self [id number] [facility] Healthcare Opt Medigap Part B [id number] 2.16.840.1.305760.3.227.99.4595.1836.0 Self [id number] [place] Medigap Part B [id number] 2.16.840.1.39206 3.3.227.99.4595.1836.0 Self [id number] [facility] Opt [facility] Part B [id number] 11 2.16.840.1.185969.3.227.99.4595.1836.0 Self [id number] 11 [place] Medigap Part B [id number] 2.16.840.1.73721 3.3.227.99.4595.1836.0 Self [id number] [facility] Opt [facility] Part B [id number] 11 2.16.840.1.760118.3.227.99.4595.1836.0 Self [id number] [place] Medigap Part B [id number] 2.16.840.1.67116 3.3.227.99.4595.1836.0 Self [id number] [facility] Opt [facility] Part B [id number] 11 2.16.840.1.567492.3.227.99.4595.1836.0 Self [id number] 11 [place] Medigap Part B [id number] 2.16.840.1.56509 3.3.227.99.4595.1836.0 Self [id number] [facility] Opt [facility] Part B [id number] 11 2.16.840.1.256161.3.227.99.4595.1836.0 Self [id number] 11 [place] Medigap Part B [id number] 2.16.840.1.27678 3.3.227.99.4595.1836.0 Self [id number] [facility] Opt [facility] Part B [id number] 11 2.16.840.1.817527.3.227.99.4595.1836.0 Self 0 [id number] [facility] CHOICE [id number] SP [id number] [employer] OPTIONS [id number] SP [id number] [employer] Workers Compensation [id number] [place] [facility] Part B [id number] Self G STATE INSURANCE FUND [id number] SP [id number] Problems, Conditions, and Diagnoses Code Display Name Description Problem Type Effective Dates Data Source(s) 114151745 Altered mental status Altered mental status Problem 06/15/2020 12:00:00 AM EST [facility] ([facility] ) [id number] Low back pain Low back pain Problem 06/15/2020 12:00:00 AM EST [facility] ([facility] ) [id number] Malaise and fatigue Malaise and fatigue Problem 1 08/16/2019 12:00:00 AM EST [facility] ([facility]) [id number] Abnormal gait Abnormal gait Problem 06/15/2020 12:00:00 AM EST [facility] ([facility]) Surgeries/Procedures Procedure Description Date Indications Data Source(s) OFFICE OUTPATIENT VISIT 25 MINUTES 03/10/2021 12:00:00 AM EDT [facility] ([facility]) OFFICE OUTPATIENT VISIT 25 MINUTES 09/18/2020 12:00:00 AM EDT [facility] ([facility]) TSTG ANS FUNCJ CARDIOVAGAL INNERVAJ PARASYMP 1 12:00:00 AM EST [facility] ([facility] ) TSTG ANS FUNCJ CARDIOVAGAL INNERVAJ PARASYMP 1 12:00:00 AM EST [facility] ([facility], ) TESTING AUTONOMIC NERVOUS SYSTEM FUNCTION 07/08/2020 1 2:00:00 AM EST [facility] ([facility] ) TESTING AUTONOMIC NERVOUS SYSTEM FUNCTION 07/08/2020 1 2:00:00 AM EST [facility] ([facility]) MRI BRAIN BRAIN STEM W/O CONTRAST MATERIAL 06/24/2020 12:00:00 AM EST [facility] ([facility], ) MRI BRAIN BRAIN STEM W/O CONTRAST MATERIAL 06/24/2020 12:00:00 AM EST [facility] ([facility]) MRI SPINAL CANAL CERVICAL W/O CONTRAST MATRL 1 12:00:00 AM EST [facility] ([facility] ) MRI SPINAL CANAL CERVICAL W/O CONTRAST MATRL 12:00:00 AM EST [facility] ([facility] ) MRI Spine Thoracic W/O Contrast 06/24/2020 12:00:00 AM EST [facility] ([facility] ) MRI Spine Thoracic W/O Contrast 06/24/2020 12:00:00 AM EST [facility] ([facility] ) FALLS RISK ASSESSMENT DOCUMENTED 06/15/2020 12:00:00 A M EST [facility] ([facility], ) Results ID Date Data Source [id number] 03/10/2021 11:40:00 AM EDT [facility] ([facility]) Name Value Range Interpretation Code Description Data Shira rce(s) Supporting Document(s) Theophylline [Mass/volume] in Serum or Plasma 9.3 UG/ML 10.0-20.0 [facility] ([facility]) ID Date Data Source [id number] 03/10/2021 11:38:00 AM EDT [facility] ([facility]) Name Value Range Interpretation Code Description Data Shira rce(s) Supporting Document(s) Cholesterol [Mass/volume] in Serum or Plasma 133 mg/dL 131-200 [facility] ([facility]) Triglyceride [Mass/volume] in Serum or Plasma 65 mg/dL 30-150 [facility] ([facility]) Cholesterol in HDL [Mass/volume] in Serum or Plasma 67 mg/dL 35-60 [facility] ([facility]) Cholesterol in LDL [Mass/volume] in Serum or Plasma by calcu lation 53 CALC 50-159 [facility] ([facility]) ID Date Data Source [id number] 03/10/2021 11:38:00 AM EDT [facility] ([facility]) Name Value Range Interpretation Code Description Data Sihra rce(s) Supporting Document(s) Urea nitrogen [Mass/volume] in Serum or Plasma 17 mg/dL 7-18 [facility] ([facility]) Glucose [Mass/volume] in Serum or Plasma 95 mg/dL 74-99 [facility] ([facility]) 100-125 mg/dL PRE-DIABETES/FASTING >126 mg/dL DIABETES/FASTING Creatinine 0.8 mg/dL 0.6-1.3 [facility] Sodium [Moles/volume] in Serum or Plasma 144 meq/L 136-145 [facility] ([facility]) Potassium [Moles/volume] in Serum or Plasma 3.7 meq/L 3.5-5.1 [facility] ([facility]) Carbon dioxide, total [Moles/volume] in Serum or Plasma 35 meq/L 21 -32 [facility] ([facility]) NOTE: RESULT VERIFIED. Chloride [Moles/volume] in Serum or Plasma 105 meq/L 98-107 [facility] ([facility]) Calcium [Mass/volume] in Serum or Plasma 9.6 mg/dL 8.5-10.1 [facility] ([facility]) Total Bilirubin 0.3 mg/dL 0.2-1.0 [facility] ([facility]) Alkaline phosphatase isoenzyme [Units/volume] in Serum or Pl asma 54 mg/dL 46-116 [facility] ([facility]) Aspartate aminotransferase [Enzymatic activity/volume] in Serum or Plasma 21 U/L 15-37 [facility] ([facility] ) Alanine aminotransferase [Enzymatic activity/volume] in Seru m or Plasma 23 U/L 12-78 [facility] ([facility]) Albumin [Mass/volume] in Serum or Plasma 3.8 g/dL 3.4-5.0 [facility] ([facility]) Proteinase 3 Ab [Units/volume] in Serum 6.6 g/dL 6.4-8.2 [facility] ([facility]) A/G Ratio 1.36 CALC 1.00-1.90 [facility]) Glomerular filtration rate/1.73 sq M pre dicted among blacks [Volume Rate/Area] in Serum or Plasma by Creatinine-based formula (MDRD) Laboratory test result [facility] <content>CHRONIC KIDNEY DISEASE STAGING PER NKF</content>
<content></content>
<content>STAGE I & II GFR >= 60 NORMAL TO MILDLY DECREASED</content>
<content>STAGE III GFR 30-59 MODERATELY DECREASED</content>
<content>STAGE IV GFR 15-29 SEVERELY DECREASED</content>
<content>STAGE V GFR <15 VERY LITTLE GFR LEFT</content>
<content>ESRD GFR <15 ON SIDING STAPLER</content>
<content></content> Glomerular filtration rate/1.73 sq M pre dicted among non-blacks [Volume Rate/Area] in Serum or Plasma by Creatinine-based formula (MDRD) Laboratory test result [facility] ([facility] ) ID Date Data Source [id number] 03/10/2021 11:38:00 AM EDT [facility] ([facility] Name Value Range Interpretation Code Description Data Shira rce(s) Supporting Document(s) Leukocytes [#/volume] in Blood by Automated count 7.3 x10*3/UL 4.1-10 .9 [facility] Erythrocytes [#/volume] in Blood by Automated count 3.28 x10*6/UL 4.2 0-6.30 [facility] Hemoglobin [Mass/volume] in Blood 10.9 g/dL 12.0-18.0 [facility] services) MCV 96.4 fL 80.0-97.0 [facility] ([place] [facility]) Hematocrit [Volume Fraction] of Blood by Automated count 31.6 % 3 7.0-51.0 [facility] [place] [facility] Erythrocyte distribution width [Ratio] by Automated count 13.4 % 11.6-13.7 [facility] ([facility]) MCH 33.4 pg 26.0-32.0 [facility] ([place] [facility]) MCHC 34.7 g/dL 31.0-38.0 [facility] ([place] [facility]) Lymph % 17.6 % 10.0-58.5 [facility] ([facility]) MPV 7.3 FL 7.8-11.0 [facility] ([facility]) Platelets [#/volume] in Blood by Automated count 277 x10*3/UL 140-440 [facility] ([facility]) Lymph # 1.2 x10*3/UL 0.6-4.1 [facility] ([facility]) Neut % 77.9 % 37.0-92.0 [facility] [place] [facility]) Mid % 4.5 % 1.7-9.3 [facility] [place] [facility]) Neut # 5.7 x10*3/UL 2.0-7.8 [facility] ([facility]) Mid # 0.4 x10*3/UL 0.1-0.6 [facility] ([facility]) ID Date Data Source [id number] 12/04/2020 12:40:00 PM EDT [facility] Name Value Range Interpretation Code Description Data Shira rce(s) Supporting Document(s) SARS-CoV-2 RNA Resp Ql MABEL+probe NOT DETECTED [facility] This lab was ordered by [place] and re ported by CT Ann. ID Date Data Source [id number] 09/18/2020 10:09:00 AM EDT [facility] ([facility]) Name Value Range Interpretation Code Description Data Shira rce(s) Supporting Document(s) Theophylline [Mass/volume] in Serum or Plasma 8.0 UG/ML 10.0-20.0 [facility] ([facility]) ID Date Data Source [id number] 09/18/2020 10:08:00 AM EDT [facility] ([facility]) Name Value Range Interpretation Code Description Data Shira rce(s) Supporting Document(s) Creatinine 0.8 mg/dL 0.6-1.3 [facility] ([place] [facility]) Glucose [Mass/volume] in Serum or Plasma 73 mg/dL 74-99 [facility] ([facility]) 100-125 mg/dL PRE-DIABETES/FASTING >126 mg/dL DIABETES/FASTING Urea nitrogen [Mass/volume] in Serum or Plasma 17 mg/dL 7-18 [facility] ([facility]) Potassium [Moles/volume] in Serum or Plasma 3.6 meq/L 3.5-5.1 [facility] ([facility]) Chloride [Moles/volume] in Serum or Plasma 104 meq/L 98-107 [facility] ([facility]) Sodium [Moles/volume] in Serum or Plasma 144 meq/L 136-145 [facility] [facility] Carbon dioxide, total [Moles/volume] in Serum or Plasma 31 meq/L 21 -32 [facility] ([facility]) Glomerular filtration rate/1.73 sq M pre dicted among non-blacks [Volume Rate/Area] in Serum or Plasma by Creatinine-based formula (MDRD) Laboratory test result [facility] ([facility] ) Calcium [Mass/volume] in Serum or Plasma 9.7 mg/dL 8.5-10.1 [facility] ([place] [facility] Glomerular filtration rate/1.73 sq M pre dicted among blacks [Volume Rate/Area] in Serum or Plasma by Creatinine-based formula (MDRD) Laboratory test result [facility] ([facility]) <content>CHRONIC KIDNEY DISEASE STAGING PER NKF</content>
<content></content>
<content>STAGE I & II GFR >= 60 NORMAL TO MILDLY DECREASED</content>
<content>STAGE III GFR 30-59 MODERATELY DECREASED</content>
<content>STAGE IV GFR 15-29 SEVERELY DECREASED</content>
<content>STAGE V GFR <15 VERY LITTLE GFR LEFT</content>
<content>ESRD GFR <15 ON SIDING STAPLER</content>
<content></content> ID Date Data Source [id number] 09/18/2020 10:08:00 AM EDT [facility] ([facility] Name Value Range Interpretation Code Description Data Shira rce(s) Supporting Document(s) Leukocytes [#/volume] in Blood by Automated count 6.6 x10*3/UL 4.1-10 .9 [facility] ([place] [facility] Erythrocytes [#/volume] in Blood by Automated count 3.72 x10*6/UL 4.2 0-6.30 [facility] ([facility] [place] [facility] Hemoglobin [Mass/volume] in Blood 11.5 g/dL 12.0-18.0 [facility] ([facility] [place] [facility] NOTE: RESULT VERIFIED. Hematocrit [Volume Fraction] of Blood by Automated count 33.6 % 3 7.0-51.0 [facility] ([place] [facility] MCV 90.2 fL 80.0-97.0 [facility] ([place] [facility]) Erythrocyte distribution width [Ratio] by Automated count 13.3 % 11.6-13.7 [facility] ([facility]) MCHC 34.2 g/dL 31.0-38.0 [facility] ([place] [facility]) MCH 30.8 pg 26.0-32.0 [facility] ([place] [facility]) Lymph % 20.2 % 10.0-58.5 [facility] ([place] [facility]) Platelets [#/volume] in Blood by Automated count 276 x10*3/UL 140-440 [facility] ([facility]) MPV 7.2 FL 7.8-11.0 [facility] ([place] [facility]) Neut % 74.3 % 37.0-92.0 [facility] ([facility]) Lymph # 1.3 x10*3/UL 0.6-4.1 [facility] ([facility]) Mid % 5.5 % 1.7-9.3 [facility] ([place] [facility]) Neut # 4.9 x10*3/UL 2.0-7.8 [facility] ([facility]) Mid # 0.4 x10*3/UL 0.1-0.6 [facility] ([facility]) ID Date Data Source [id number] 06/25/2020 08:33:00 AM EST [facility] ([facility]) Name Value Range Interpretation Code Description Data Shira rce(s) Supporting Document(s) Glucose [Mass/volume] in Serum or Plasma 94 mg/dL 74-99 [facility] ([facility]) 100-125 mg/dL PRE-DIABETES/FASTING >126 mg/dL DIABETES/FASTING Urea nitrogen [Mass/volume] in Serum or Plasma 14 mg/dL 7-18 [facility] ([facility]) Creatinine 0.8 mg/dL 0.6-1.3 [facility] ([facility]) Potassium [Moles/volume] in Serum or Plasma 4.1 meq/L 3.5-5.1 [facility] ([facility]) Sodium [Moles/volume] in Serum or Plasma 141 meq/L 136-145 [facility] ([facility]) Chloride [Moles/volume] in Serum or Plasma 102 meq/L 98-107 [facility] ([facility]) Carbon dioxide, total [Moles/volume] in Serum or Plasma 36 meq/L 21 -32 [facility] ([facility]) Calcium [Mass/volume] in Serum or Plasma 9.6 mg/dL 8.5-10.1 [facility] ([facility]) Alkaline phosphatase isoenzyme [Units/volume] in Serum or Pl asma 100 mg/dL 46-116 [facility] ([facility]) Aspartate aminotransferase [Enzymatic activity/volume] in Serum or Plasma 15 U/L 15-37 [facility] ([facility] ) Total Bilirubin 0.3 mg/dL 0.2-1.0 [facility] ([facility]) Alanine aminotransferase [Enzymatic activity/volume] in Seru m or Plasma 17 U/L 12-78 [facility] ([facility]) Albumin [Mass/volume] in Serum or Plasma 3.5 g/dL 3.4-5.0 [facility] ([facility]) Proteinase 3 Ab [Units/volume] in Serum 6.7 g/dL 6.4-8.2 [facility] ([facility]) A/G Ratio 1.09 CALC 1.00-1.90 [facility] ([place] [facility]) Glomerular filtration rate/1.73 sq M pre dicted among non-blacks [Volume Rate/Area] in Serum or Plasma by Creatinine-based formula (MDRD) Laboratory test result [facility] ([facility] ) Glomerular filtration rate/1.73 sq M pre dicted among blacks [Volume Rate/Area] in Serum or Plasma by Creatinine-based formula (MDRD) Laboratory test result [facility] ([facility]) <content>CHRONIC KIDNEY DISEASE STAGING PER NKF</content>
<content></content>
<content>STAGE I & II GFR >= 60 NORMAL TO MILDLY DECREASED</content>
<content>STAGE III GFR 30-59 MODERATELY DECREASED</content>
<content>STAGE IV GFR 15-29 SEVERELY DECREASED</content>
<content>STAGE V GFR <15 VERY LITTLE GFR LEFT</content>
<content>ESRD GFR <15 ON SIDING STAPLER</content>
<content></content> ID Date Data Source [id number] 06/25/2020 08:33:00 AM EST [facility] ([facility]) Name Value Range Interpretation Code Description Data Shira rce(s) Supporting Document(s) Leukocytes [#/volume] in Blood by Automated count 8.9 x10*3/UL 4.1-10 .9 [facility] ([facility]) Erythrocytes [#/volume] in Blood by Automated count 3.34 x10*6/UL 4.2 0-6.30 [facility] ([facility]) Hematocrit [Volume Fraction] of Blood by Automated count 30.2 % 3 7.0-51.0 [facility] ([facility]) Hemoglobin [Mass/volume] in Blood 10.6 g/dL 12.0-18.0 [facility] ([facility]) MCV 90.3 fL 80.0-97.0 [facility] [facility] MCH 31.8 pg 26.0-32.0 [facility] [facility] MCHC 35.2 g/dL 31.0-38.0 [facility] [facility] Erythrocyte distribution width [Ratio] by Automated count 13.0 % 11.6-13.7 [facility] ([facility]) Platelets [#/volume] in Blood by Automated count 293 x10*3/UL 140-440 [facility] ([facility]) MPV 7.4 FL 7.8-11.0 [facility] [facility] Mid % 4.7 % 1.7-9.3 [facility] [facility] Lymph % 16.4 % 10.0-58.5 [facility] [facility] Neut % 78.9 % 37.0-92.0 [facility] [facility] Lymph # 1.4 x10*3/UL 0.6-4.1 [facility] ([facility]) Neut # 7.0 x10*3/UL 2.0-7.8 [facility] ([facility]) Mid # 0.5 x10*3/UL 0.1-0.6 [facility] ([facility]) ID Date Data Source [id number] 06/01/2020 05:49:00 PM EST [facility] ([facility]) Name Value Range Interpretation Code Description Data Shira rce(s) Supporting Document(s) Influenza A Amplification Laboratory test result [facility] ([place] [facility] Negative results do not preclude influen za or RSV virus infection and should not be used as the sole basis for treatment or other patient management decisions. RSV Amplification Laboratory test result [facility] ([facility]) Negative results do not preclude influen za or RSV virus infection and should not be used as the sole basis for treatment or other patient management decisions. Influenza B Amplification Laboratory test result [facility] ([place] [facility] Negative results do not preclude influen za or RSV virus infection and should not be used as the sole basis for treatment or other patient management decisions. Laboratory test finding (navigational concept) Laboratory test result [facility] ([place] [facility] A false negative result may occur if [...] pathogens. DISCLAIMER: Testing was performed using the [employer] SARS-CoV-2 test. This test was developed and its performance characteristics determined by [employer]. This test has not been FDA cleared [...] or revoked sooner. ID Date Data Source [id number] 06/01/2020 05:49:00 PM EST [facility] Name Value Range Interpretation Code Description Data Shira rce(s) Supporting Document(s) SARS coronavirus 2 RNA [Presence] in Res piratory specimen by MABEL with probe detection [facility] This lab was ordered by [facility] a nd reported by [facility]. ID Date Data Source [id number] 06/01/2020 05:22:00 PM EST [facility] ([facility] Name Value Range Interpretation Code Description Data Shira rce(s) Supporting Document(s) Ammonia [Mass/volume] in Blood 16 uMOL/L [facility] ([place] [facility]) ID Date Data Source [id number] 06/01/2020 05:04:00 PM EST [facility] ([facility] Name Value Range Interpretation Code Description Data Shira rce(s) Supporting Document(s) Appearance, Urine RFX Laboratory test result [facility] ([place] [facility] Color, Urine RFX Laboratory test result [facility] ([place] [facility]) PH,Urine RFX 5.0 units 5.0-9.0 [facility] ([place] [facility]) Specific [place] Ur Auto RFX 1.024 1.002-1.035 [facility] ([place] [facility]) Protein, Urine Auto RFX Laboratory test result [facility] ([place] [facility]) Glucose, Urine (Ua) Auto RFX Laboratory test result [facility] ([place] [facility]) Urobilinogen, Urine Auto RFX 2.0 mg/dL 0.0-2.0 [facility] ([place] [facility]) Ketone, Urine Auto RFX Laboratory test result [facility] ([place] [facility]) Bilirubin, Urine Auto RFX Laboratory test result [facility] ([place] [facility]) Nitrite, Urine Auto RFX Laboratory test result [facility] ([place] [facility]) Leukocyte Esterase Ur Auto RFX Laboratory test result [facility] ([place] [facility]) Blood, Urine Blood RFX Laboratory test result [facility] ([place] [facility]) WBC, Urine Auto RFX 2 /HPF 0-3 [facility] ([facility]) RBC, Urine Auto RFX 13 /HPF 0-3 [facility] ([facility]) Bacteria, Urine Auto RFX Laboratory test result [facility] ([place] [facility]) Transitional Epithelial AU RFX 3 /HPF [facility] ([place] [facility]) Squam Epithelial Cell Ur Aurfx 0 /HPF 0-6 [facility] ([place] [facility]) Mucus, Urine RFX Laboratory test result [facility] ([place] [facility]) Hyaline Cast, Urine Auto RFX 1 /LPF 0-1 [facility] ([place] [facility]) Calcium Oxalate Crystals RFX Laboratory test result [facility] ([facility]) ID Date Data Source [id number] 06/01/2020 05:04:00 PM EST [facility] ([facility] Name Value Range Interpretation Code Description Data Shira rce(s) Supporting Document(s) Amphetamines Level Urine Laboratory test result [facility] ([place] [facility]) Barbiturates Urine Laboratory test result [facility] ([place] [facility]) Benzodiazepines Urine Laboratory test result [facility] ([place] [facility] Cannabinoids Urine Laboratory test result [facility] ([place] [facility] Cocaine Metabolite Urine Laboratory test result [facility] ([place] [facility] Methadone Urine Laboratory test result [facility] [facility] Phencyclidine Urine Laboratory test result [facility] ([place] [facility] ALL PRESUMPTIVE POSITIVE FINDINGS AR E UNCONFIRMED [...] Opiates Urine Laboratory test result [facility] ([place] [facility]) ID Date Data Source [id number] 06/01/2020 03:16:00 PM EST [facility] ([facility] Name Value Range Interpretation Code Description Data Shira rce(s) Supporting Document(s) ABG pH (Arterial) 7.397 units 7.350-7.450 [facility] ( [place] [facility] ABG Partial Pressure Co2 49.9 mmHg 35.0-45.0 [facility] ABG Partial Pressure O2 167.7 mmHg 75.0-100.0 [facility] ([facility]) ABG Total Co2 31.5 meq/L 23.0-31.0 [facility] ([facility]) ABG Hco3 30.0 meq/L 22.0-26.0 [facility] ([place] [facility]) ABG Base Excess 4.4 [facility] ([facility]) ABG Standard Hco3 28.4 meq/L 22.0-26.0 [facility] ([facility]) ABG O2 Saturation 99.2 % 95.0-99.0 [facility] ([facility]) ID Date Data Source [id number] 06/01/2020 03:14:00 PM EST [facility] ([facility]) Name Value Range Interpretation Code Description Data Shira rce(s) Supporting Document(s) White Blood Count 7.7 10 4.0-10.0 [facility] ([facility]) Red Blood Count 3.38 10 4.30-6.10 [facility] ([facility]) Hemoglobin 10.3 g/dL 13.5-17.5 [facility] ([facility]) Hematocrit 32.5 % 42.0-52.0 [facility] ([facility]) Mean Corpuscular Volume 96.2 fl 80.0-96.0 [facility] ([facility]) Mean Corpuscular Hemoglobin 30.5 pg 27.0-33.0 [facility] ([facility]) Mean Corpuscular HGB Conc 31.7 g/dL 32.0-36.5 [facility] ([facility]) Red Cell Distribution Width 12.3 % 11.5-14.5 [facility] ([facility]) Platelet Count, Automated 247 10 150-450 [facility] ([facility]) Lymph % 17.2 % 24.0-44.0 [facility] ([place] [facility]) Neutrophils % 68.7 % 36.0-66.0 [facility] ([facility]) [place] % 10.1 % 0.0-5.0 [facility] [facility] Eos % 2.7 % 0.0-3.0 [facility] [facility] Baso % 0.9 % 0.0-1.0 [facility] [facility] Nucleated Red Blood Cell % 0.0 % 0-0 [facility] ([facility]) Immature Granulocyte % 0.4 % 0-3.0 [facility] ([facility]) Neutrophils # 5.3 10 1.5-8.5 [facility] ([facility]) Lymph # 1.3 10 1.5-5.0 [facility] [facility] Eos # 0.2 10 0.0-0.5 [facility] [facility] [place] # 0.8 10 0.0-0.8 [facility] ([place] [facility]) Baso # 0.1 10 0.0-0.2 [facility] [facility] ID Date Data Source [id number] 06/01/2020 03:14:00 PM EST [facility] ([facility]) Name Value Range Interpretation Code Description Data Shira rce(s) Supporting Document(s) Ammonia [Mass/volume] in Blood 12 uMOL/L [facility] ([facility]) Lactate [Mass/volume] in Serum or Plasma 1.0 mmol/L 0.4-2.0 [facility] ([facility]) Y/N query for Sepsis Lactate Rule: Y ID Date Data Source [id number] 06/01/2020 03:14:00 PM EST [facility] ([facility]) Name Value Range Interpretation Code Description Data Shira rce(s) Supporting Document(s) CPK Creatine Phosphokinase 201 U/L 39-308 [facility] ([facility]) CK-MB Value Mass 2.0 ng/mL [facility] ([facility]) Troponin I Laboratory test result [facility] ([place] [facility] <content>Troponin I Reference Interval f or Siemens [place] LOCI:</content>
<content></content>
<content>99th Percentile= 0.00-0.045 ng/ml</content>
<content></content>
<content>Risk Stratification:</content>
<content><= 0.10 ng/ml Decreased Risk for Adverse Clinical</content>
<content>Events.</content>
<content>0.10-1.50 ng/ml Increased Risk for Adverse Clinical</content>
<content>Events. Evaluation of additional</content>
<content>criterion and/or repeat testing in 2-6</content>
<content>hours is suggested to rule out myocardial</content>
<content>damage.</content>
<content>>= 1.50 ng/ml Indicative of Myocardial Injury.</content>
<content></content> MB/CK Relative Index 1.00 [facility] ([facility]) <content>DIAGNOSIS CRITERIA</content>
<content>MMB ng/ml Relative Index (RI)</content>
<content>NON-AMI < or = 5 N/A</content>
<content>ESTRELLA ZONE > 5 < or = 4</content>
<content>AMI > 5 > 4</content>
<content></content> ID Date Data Source [id number] 06/01/2020 03:14:00 PM EST [facility] ([facility]) Name Value Range Interpretation Code Description Data Shira rce(s) Supporting Document(s) Blood Urea Nitrogen 17 mg/dL 7-18 [facility] ([facility]) Glucose, Fasting 84 mg/dL 70-100 [facility] ([facility]) Glomerular Filtration Rate Laboratory test result [facility] ([facility]) <content>Units are mL/min/1.73 m2</content>
<content></content>
<content>Chronic Kidney Disease Staging per NKF:</content>
<content></content>
<content>Stage I & II GFR >=60 Normal to Mildly Decreased</content>
<content>Stage III GFR 30- 59 Moderately Decreased</content>
<content>Stage IV GFR 15-29 Severely Decreased</content>
<content>Stage V GFR <15 Very Little GFR Left</content>
<content>ESRD GFR <15 on SIDING STAPLER</content>
<content></content> Creatinine For GFR 0.81 mg/dL 0.70-1.30 [facility] ([facility]) Potassium Serum 3.4 meq/L 3.5-5.1 [facility] ([facility]) Sodium Level 140 meq/L 136-145 [facility] ([facility]) Chloride Level 104 meq/L 98-107 [facility] ([facility]) Carbon Dioxide Level 33 meq/L 21-32 [facility] ([facility]) Calcium Level 9.8 mg/dL 8.8-10.2 [facility] ([facility]) Anion Gap 3 meq/L 8-16 [facility] ([facility]) ID Date Data Source [id number] 06/01/2020 03:14:00 PM EST [facility] ([facility]) Name Value Range Interpretation Code Description Data Shira rce(s) Supporting Document(s) Osmolality of Serum or Plasma 292 MOSM/KG 280-301 [facility] ([facility]) Ethanol [Mass/volume] in Serum or Plasma Laboratory test result 0.000 -0.010 [facility] ([facility]) Salicylates [Mass/volume] in Serum or Plasma Laboratory test result 5.0-30.0 [facility] ([facility]) Acetaminophen [Mass/volume] in Serum or Plasma Laboratory test r esult 10.0-30.0 [facility] ([place] [facility] Thyrotropin [Units/volume] in Serum or Plasma by Detec tion limit <= 0.05 mIU/L 0.729 uIU/ML 0.358-3.740 [facility] ([facility] ) ID Date Data Source [id number] 06/01/2020 03:14:00 PM EST [facility] ([facility]) Name Value Range Interpretation Code Description Data Shira rce(s) Supporting Document(s) Ast/Sgot 18 U/L 7-37 [facility] Alt/SGPT 20 U/L 12-78 [facility] ([facility]) Alkaline Phosphatase 87 U/L 45-117 [facility] Bilirubin,Total 0.4 mg/dL 0.2-1.0 [facility] Bilirubin,Direct 0.2 mg/dL 0.0-0.2 [facility] ([facility] Total Protein 6.8 GM/DL 6.4-8.2 [facility] ([facility] Albumin/Globulin Ratio 1.1 [facility] ([place] [facility] Albumin 3.6 GM/DL 3.2-5.2 [facility] ([facility]) ID Date Data Source [id number] 05/27/2020 12:00:00 AM EST [facility] Name Value Range Interpretation Code Description Data Shira rce(s) Supporting Document(s) SARS coronavirus 2 Ag [facility] This lab was ordered by [facility] and reported by [facility]. ID Date Data Source [id number] 04/02/2020 12:04:00 PM EDT [facility] ([facility]) Name Value Range Interpretation Code Description Data Shira rce(s) Supporting Document(s) Laboratory test finding (navigational concept) 0.00 ng/mL 0.00-0.08 [facility] ID Date Data Source [id number] 04/02/2020 12:00:00 PM EDT [facility] ([facility] Name Value Range Interpretation Code Description Data Shira rce(s) Supporting Document(s) Laboratory test finding (navigational concept) 28.0 % 38.0-51.0 [facility] ([facility]) Laboratory test finding (navigational concept) 83 mg/dL 70-105 [facility] ([facility]) Laboratory test finding (navigational concept) 143 meq/L 136-145 [facility] ([facility]) Laboratory test finding (navigational concept) 3.2 meq/L 3.5-5.1 [facility] ([facility]) Laboratory test finding (navigational concept) 4.9 mg/dL 4.5-5.3 [facility] ([facility]) Laboratory test finding (navigational concept) 98 meq/L 98-109 [facility] Laboratory test finding (navigational concept) 32.0 MM/L 23.0-27.0 [facility] ([facility] Laboratory test finding (navigational concept) 4 mg/dL 8-26 [facility] ([facility] Laboratory test finding (navigational concept) 0.6 mg/dL 0.6-1.3 [facility] ([facility] ID Date Data Source [id number] 04/02/2020 11:54:00 AM EDT [facility] ([facility] Name Value Range Interpretation Code Description Data Shira rce(s) Supporting Document(s) Appearance, Urine RFX Laboratory test result [facility] ([facility] Color, Urine RFX Laboratory test result [facility] ([facility] PH,Urine RFX 7.0 units 5.0-9.0 [facility] ([facility] Specific [place] Ur Auto RFX 1.003 1.002-1.035 [facility] ([facility] Protein, Urine Auto RFX Laboratory test result [facility] ([facility]) Glucose, Urine (Ua) Auto RFX Laboratory test result [facility] ([facility] Ketone, Urine Auto RFX Laboratory test result [facility] ([facility]) Urobilinogen, Urine Auto RFX 0.2 mg/dL 0.0-2.0 [facility] ([facility] Nitrite, Urine Auto RFX Laboratory test result [facility] ([facility]) Bilirubin, Urine Auto RFX Laboratory test result [facility] ([facility]) Leukocyte Esterase Ur Auto RFX Laboratory test result [facility] ([facility]) Blood, Urine Blood RFX Laboratory test result [facility] ([facility] WBC, Urine Auto RFX 1 /HPF 0-3 [facility] ([facility] RBC, Urine Auto RFX 2 /HPF 0-3 [facility] ([facility] Bacteria, Urine Auto RFX Laboratory test result [facility] ([facility]) Squam Epithelial Cell Ur Aurfx 0 /HPF 0-6 [facility] ([facility]) Hyaline Cast, Urine Auto RFX 0 /LPF 0-1 M [facility] ([facility]) ID Date Data Source [id number] 04/02/2020 11:42:00 AM EDT [facility] ([facility] Name Value Range Interpretation Code Description Data Shira rce(s) Supporting Document(s) Thyrotropin [Units/volume] in Serum or Plasma by Detec tion limit <= 0.05 mIU/L 1.250 uIU/ML 0.358-3.740 [facility] ([facility] ID Date Data Source [id number] 04/02/2020 11:42:00 AM EDT [facility] ([facility] Name Value Range Interpretation Code Description Data Shira rce(s) Supporting Document(s) Blood Urea Nitrogen 6 mg/dL 7-18 [facility] ([facility]) Glucose, Fasting 88 mg/dL 70-100 [facility] ([facility] Creatinine For GFR 0.76 mg/dL 0.70-1.30 [facility] ([facility] Glomerular Filtration Rate Laboratory test result [facility] ([facility]) <content>Units are mL/min/1.73 m2</content>
<content></content>
<content>Chronic Kidney Disease Staging per NKF:</content>
<content></content>
<content>Stage I & II GFR >=60 Normal to Mildly Decreased</content>
<content>Stage III GFR 30- 59 Moderately Decreased</content>
<content>Stage IV GFR 15-29 Severely Decreased</content>
<content>Stage V GFR <15 Very Little GFR Left</content>
<content>ESRD GFR <15 on SIDING STAPLER</content>
<content></content> Sodium Level 139 meq/L 136-145 [facility] ([facility]) Potassium Serum 3.7 meq/L 3.5-5.1 [facility] ([facility]) Chloride Level 98 meq/L 98-107 [facility] ([facility]) Carbon Dioxide Level 38 meq/L 21-32 [facility] ([facility]) Anion Gap 3 meq/L 8-16 [facility] ([facility]) Calcium Level 9.8 mg/dL 8.8-10.2 [facility] ([facility]) ID Date Data Source [id number] 04/02/2020 11:42:00 AM EDT [facility] ([facility] Name Value Range Interpretation Code Description Data Shira rce(s) Supporting Document(s) Ast/Sgot 21 U/L 7-37 [facility] ([facility]) Alkaline Phosphatase 78 U/L 45-117 [facility] Alt/SGPT 20 U/L 12-78 [facility] ([facility]) Bilirubin,Total 0.3 mg/dL 0.2-1.0 [facility] ([facility]) Bilirubin,Direct 0.1 mg/dL 0.0-0.2 [facility] ([facility]) Total Protein 6.5 GM/DL 6.4-8.2 [facility] ([facility]) Albumin/Globulin Ratio 1.3 [facility] ([facility] Albumin 3.7 GM/DL 3.2-5.2 [facility] ([facility]) ID Date Data Source [id number] 04/02/2020 11:42:00 AM EDT [facility] ([facility]) Name Value Range Interpretation Code Description Data Shira rce(s) Supporting Document(s) Lactate [Mass/volume] in Serum or Plasma 0.5 mmol/L 0.4-2.0 [facility] ([facility]) Y/N query for Sepsis Lactate Rule: Y Ammonia [Mass/volume] in Blood 11 uMOL/L [facility] ([facility] ID Date Data Source [id number] 04/02/2020 11:42:00 AM EDT [facility] ([facility] Name Value Range Interpretation Code Description Data Shira rce(s) Supporting Document(s) Venous PH 7.297 units 7.330-7.430 [facility] ([facility]) Venous Partial Pressure Co2 80.4 mmHg 38.0-50.0 [facility] ([facility]) Venous Partial Pressure O2 36.9 mmHg 30.0-50.0 [facility] ([facility]) Venous Total Co2 40.9 meq/L 24.0-28.0 [facility] ([facility]) Venous Hco3 38.4 meq/L 23.0-27.0 [facility] ([facility]) Venous Base Excess 9.3 [facility] ([facility]) Venous Standard Hco3 32.4 meq/L [facility] ( [facility]) Venous O2 Saturation 66.3 % 60.0-80.0 [facility] ([facility]) ID Date Data Source [id number] 04/02/2020 11:42:00 AM EDT [facility] ([facility]) Name Value Range Interpretation Code Description Data Shira rce(s) Supporting Document(s) White Blood Count 7.3 10 4.0-10.0 [facility] ([facility]) Hemoglobin 10.6 g/dL 13.5-17.5 [facility] [facility]) Red Blood Count 3.36 10 4.30-6.10 [facility] ([facility]) Hematocrit 33.3 % 42.0-52.0 [facility] [place] [facility]) Mean Corpuscular Volume 99.1 fl 80.0-96.0 [facility] ([facility]) Mean Corpuscular Hemoglobin 31.5 pg 27.0-33.0 [place] D[facility] ([facility]) Mean Corpuscular HGB Conc 31.8 g/dL 32.0-36.5 MEDE NT ([facility]) Red Cell Distribution Width 12.2 % 11.5-14.5 [place] [facility] ([facility]) Platelet Count, Automated 246 10 150-450 [facility] NT ([facility]) Neutrophils % 68.0 % 36.0-66.0 [facility] ([facility]) [place] % 10.2 % 0.0-5.0 [facility]) Lymph % 17.1 % 24.0-44.0 [facility]) Eos % 3.3 % 0.0-3.0 [facility]) Baso % 1.1 % 0.0-1.0 [facility] [facility]) Nucleated Red Blood Cell % 0.0 % 0-0 MED ENT ([facility]) Immature Granulocyte % 0.3 % 0-3.0 [facility] ([facility]) Neutrophils # 4.9 10 1.5-8.5 [facility] ([facility]) Lymph # 1.2 10 1.5-5.0 [facility] ([place] [facility]) [place] # 0.7 10 0.0-0.8 [facility] [place] [facility]) Eos # 0.2 10 0.0-0.5 [facility] ([facility] [place] [facility]) Baso # 0.1 10 0.0-0.2 [facility] ([facility] [place] [facility]) ID Date Data Source [id number] 04/02/2020 11:41:00 AM EDT [facility] ([facility]) Name Value Range Interpretation Code Description Data Shira rce(s) Supporting Document(s) Venous PH 7.297 units 7.330-7.430 [facility] ([facility]) Venous Partial Pressure O2 36.9 mmHg 30.0-50.0 [facility] ([facility]) Venous Partial Pressure Co2 80.4 mmHg 38.0-50.0 [facility] Venous Total Co2 40.9 meq/L 24.0-28.0 [facility] ([facility]) Venous Base Excess 9.3 [facility] ([facility]) Venous Hco3 38.4 meq/L 23.0-27.0 [facility] ([facility]) Venous Standard Hco3 32.4 meq/L [facility] ( [facility]) Venous O2 Saturation 66.3 % 60.0-80.0 [facility] Procedure Social History Code Duration Value Status Description Data Source(s ) Smoking 05/27/2020 12:00:00 AM EST Patient is a former smoker completed Patient is a former smoker [facility] ([facility]) Vital Signs ID Date Data Source UNK Name Value Range Interpretation Code Description Data Source(s) Diastolic blood pressure 70 mm[Hg] 70 mm[Hg] [facility] ([facility]) Systolic blood pressure 110 mm[Hg] 110 mm[Hg] M [facility]ENT ([facility]) Systolic blood pressure--supine 90 mm[Hg] 90 m m[Hg] [facility] ([facility]) laying down Diastolic blood pressure--supine 58 mm[Hg] 58 mm[Hg] [facility] ([facility]) laying down Oxygen saturation in Arterial blood by Pulse oximetry 99 % 99 % [facility] ([facility]) With O2 @ 3L Body mass index (BMI) [Ratio] 18.2 kg/m2 18.2 k g/m2 [facility] ([facility]) Systolic blood pressure--sitting 80 mm[Hg] 80 mm[Hg] [facility] ([facility]) sitting Diastolic blood pressure--sitting 50 mm[Hg] 50 mm[Hg] [facility] ([facility]) sitting Systolic blood pressure--standing 78 mm[Hg] 78 mm[Hg] [facility] ([facility]) standing Diastolic blood pressure--standing 60 mm[Hg] 6 0 mm[Hg] [facility] ([facility]) standing Heart rate 91 /min 91 /min [facility] ([facility]) Body height 67.5 [in_i] 67.5 [in_i] [facility] ([facility]) 5'7.50" Body weight 118.12 [lb_av] 118.12 [lb_av] [facility] T ([facility]) Systolic blood pressure 108 mm[Hg] 108 mm[Hg] [facility]) Diastolic blood pressure 68 mm[Hg] 68 mm[Hg] [facility] ([facility]) Heart rate 82 /min 82 /min [facility] ([facility]) Body height 67.5 [in_i] 67.5 [in_i] [facility] ([facility]) 5'7.50" Body weight 128.00 [lb_av] 128.00 [lb_av] [facility] T ([facility]) Oxygen saturation in Arterial blood by Pulse oximetry 94 % 94 % [facility] ([facility]) 3 liters Body mass index (BMI) [Ratio] 19.7 kg/m2 19.7 k g/m2 [facility] ([facility]) Respiratory rate 12 /min 12 /min [facility] ( [facility]) Body height 68 [in_i] 68 [in_i] [facility] ([facility]) 5'8" Body weight 135.00 [lb_av] 135.00 [lb_av] [facility] T ([facility]) Body mass index (BMI) [Ratio] 20.5 kg/m2 20.5 k g/m2 [facility] ([facility]) [place] body weight 154 [lb_av] 154 [lb_av] [facility] T ([facility]) Heart rate 98 /min 98 /min [facility] ([facility]) Diastolic blood pressure 58 mm[Hg] 58 mm[Hg] [facility] ([facility]) Systolic blood pressure 100 mm[Hg] 100 mm[Hg] [facility] ([facility]) Body height 67.5 [in_i] 67.5 [in_i] [facility] ([facility]) 5'7.50" Body mass index (BMI) [Ratio] 19.6 kg/m2 19.6 k g/m2 [facility] ([facility]) Body weight 127.00 [lb_av] 127.00 [lb_av] [facility] ([facility]) Oxygen saturation in Arterial blood by Pulse oximetry 92 % 92 % [facility] ([facility]) 4 liters Body height 68 [in_i] 68 [in_i] [facility] ([facility]) 5'8" Body weight 135.00 [lb_av] 135.00 [lb_av] [facility] ([facility]) Body mass index (BMI) [Ratio] 20.5 kg/m2 20.5 k g/m2 [facility] ([facility]) [place] body weight 154 [lb_av] 154 [lb_av] [facility] ([facility]) Body mass index (BMI) [Ratio] 20.1 kg/m2 20.1 k g/m2 [facility] ([facility], [facility]) Systolic blood pressure 124 mm[Hg] 124 mm[Hg] [facility]) Diastolic blood pressure 78 mm[Hg] 78 mm[Hg] [facility] ([facility], [facility]) Heart rate 86 /min 86 /min [facility] ([facility], [facility]) Respiratory rate 20 /min 20 /min [facility] ( [facility], [facility]) Oxygen saturation in Arterial blood by Pulse oximetry 96 % 96 % [facility] ([facility], [facility]) Body temperature 98.1 [degF] 98.1 [degF] [facility] ([facility], [facility]) Body weight 140.00 [lb_av] 140.00 [lb_av] [facility] T ([facility], [facility]) Body height 70 [in_i] 70 [in_i] [facility] ([facility]) 5'10" Body mass index (BMI) [Ratio] 20.1 kg/m2 20.1 k g/m2 [facility] ([facility]) Heart rate 74 /min 74 /min [facility] ([facility]) Body height 67.5 [in_i] 67.5 [in_i] [facility] ([facility]) 5'7.50" Body weight 130.00 [lb_av] 130.00 [lb_av] [facility] T ([facility]) Oxygen saturation in Arterial blood by Pulse oximetry 99 % 99 % [facility] ([facility]) Systolic blood pressure 92 mm[Hg] 92 mm[Hg] M [facility] ([facility]) Diastolic blood pressure 58 mm[Hg] 58 mm[Hg] [facility] ([facility]) Heart rate 80 /min 80 /min [facility] ([facility]) Body height 67.5 [in_i] 67.5 [in_i] [facility] ([facility]) 5'7.50" Body weight 129.00 [lb_av] 129.00 [lb_av] [facility] T ([facility]) Oxygen saturation in Arterial blood by Pulse oximetry 97 % 97 % [facility] ([facility]) 4 liters Body mass index (BMI) [Ratio] 19.9 kg/m2 19.9 k g/m2 [facility]
[2021-05-15] MEDS ORDERED: VANCOMYCIN HCL 1,000 MG, VIAL MATE ADAPTER 1 EACH in NS 250 ML IV ONE (22:00)
--- NOTE | 2021-05-15 22:28 | REPVR ---
PROCEDURE INFORMATION: Exam: US Retroperitoneal Limited, Kidneys Exam date and time: 05/15/2021 9:40 PM Age: 80 years old Clinical indication: Other: Wil TECHNIQUE: Imaging protocol: Real-time ultrasound of the retroperitoneum with image documentation. Examination was focused on the kidneys. COMPARISON: CT ABD/PEL W/IV CONTRAST ONLY 06/01/2020 5:32 PM FINDINGS: Right kidney: No stones. No hydronephrosis. Normal cortical thickness and echotexture. Left kidney: No stones. No hydronephrosis. Normal cortical thickness and echotexture. Bladder: There is mobile debris in the urinary bladder. No bladder wall thickening. IMPRESSION: 1. No hydronephrosis or acute findings. 2. Nonspecific debris in the urinary bladder. Correlation with urinalysis may be beneficial. Electronically signed by: Jon Paris On 05/15/2021 22:27:38 PM
[2021-05-15 22:57] VITALS: BP 102/65
[2021-05-15 23:02] LABS: INR 1.16; PROTHROMBIN TIME 15.2 SECONDS (12.7-14.5)
[2021-05-15 23:04] LABS: PARTIAL THROMBOPLASTIN TIME 53.3 SECONDS (25.9-37.0)
[2021-05-15 23:06] LABS: D-DIMER QUANT 1942.48 ng/ml (<500)
[2021-05-15 23:36] LABS: C REACTIVE PROTEIN QUANTITATIV 26.4 MG/DL (0.00-0.30); CALCIUM LEVEL 7.7 MG/DL (8.8-10.2); CREATININE FOR GFR 2.11 MG/DL (0.70-1.30); GLOMERULAR FILTRATION RATE 32.5 (>42)
[2021-05-15] MEDS ORDERED: D5W/0.9% SODIUM CHLORIDE 1,000 ML IV SCH (23:50)
[2021-05-16] VITALS (13 sets, daily range): BP systolic 89–104; BP diastolic 50–69; O2SAT 95–97
[2021-05-16] MEDS ORDERED: KCL 40MEQ IN D5/NS 1000ML 1,000 ML IV SCH (00:45)
[2021-05-16] MEDS: ENOXAPARIN 100MG/1ML SYRINGE (J1650 PER 10MG) SC SCH ×2 (00:55→07:54)
[2021-05-16] MEDS ORDERED: ALBUTEROL 90 MCG/ACT 8GM HFA INHALER INH PRN (01:20)
[2021-05-16] MEDS ORDERED: IPRATROPIUM 0.5MG/ALBUTEROL 2.5MG INH SOL UD 3ML (DUONEB) NEB SCH (02:00)
[2021-05-16] MEDS: DOXYCYCLINE HYCLATE 100 MG in D5W MINI-BAG PLUS 100 ML IV SCH ×2 (02:22→14:24)
[2021-05-16] MEDS ORDERED: REMDESIVIR 200 MG in NS 250 ML IV ONE (05:00)
[2021-05-16 05:08] LABS: BASO % 0.1 % (0.0-1.0); HEMATOCRIT 30.7 % (42.0-52.0); LYMPH # 0.4 10^3/uL (1.5-5.0); LYMPH % 3.6 % (24.0-44.0); MEAN CORPUSCULAR HEMOGLOBIN 32.2 pg (27.0-33.0); MEAN CORPUSCULAR HGB CONC 32.6 g/dl (32.0-36.5); MEAN CORPUSCULAR VOLUME 98.7 fl (80.0-96.0); MONO # 0.2 10^3/uL (0.0-0.8); NEUTROPHILS % 93.7 % (36.0-66.0); PLATELET COUNT, AUTOMATED 117 10^3/uL (150-450); RED BLOOD COUNT 3.11 10^6/uL (4.30-6.10); WHITE BLOOD COUNT 10.7 10^3/uL (4.0-10.0)
[2021-05-16 05:52] LABS: CALCIUM LEVEL 8.4 MG/DL (8.8-10.2); CREATININE FOR GFR 2.58 MG/DL (0.70-1.30); GLOMERULAR FILTRATION RATE 25.8 (>42); MAGNESIUM LEVEL 2.2 MG/DL (1.8-2.4); POTASSIUM SERUM 4.2 MEQ/L (3.5-5.1)
[2021-05-16] MEDS ORDERED: NS 1,000 ML IV ONE (06:30)
[2021-05-16] MEDS ORDERED: SODIUM CHLORIDE 0.9% INJ 10 ML SYR IV ONE (07:00)
[2021-05-16] MEDS: dexameTHASONE 4 MG/ML 1ML VIAL (J1100 PER 1MG) IV SCH (07:54)
[2021-05-16] MEDS: D5W 1,000 ML IV SCH (07:54)
[2021-05-16] MEDS: ASPIRIN 81MG ENTERIC TABLET PO SCH (07:54)
[2021-05-16] MEDS: BUDESONIDE 180MCG INHALER (PULMICORT FLEXHALER) INH SCH ×2 (08:00→18:22)
[2021-05-16] MEDS: IPRATROPIUM 0.5MG/ALBUTEROL 2.5MG INH SOL UD 3ML (DUONEB) NEB SCH ×4 (08:21→18:21)
--- NOTE | 2021-05-16 10:20 | IPNPDOC ---
Text Note Date of Service The patient was seen on 05/16/21. NOTE Subjective: 80-year-old male presented to the emergency room department due to increasing confusion, reported fevers, chills, decreased appetite, and diarrhea. He tested positive for COVID-19. He was seen and examined at bedside this morning. He had received steroids and IV fluids. He he is awake and able to answer questions appropriately and attempted to follow commands. He reported feeling short of breath. He denies chest pain, abdominal pain, nausea, vomiting, problem with urination or bowel movements. Was able to get in touch with patient's family. Patient normally conversive and able to follow commands without difficulty. Review of systems: 10 point review of system was negative except for what is noted in the HPI Physical exam: General: Lying in bed, no acute distress Head/Neck/Throat: Trachea midline, mucous membranes moist Eyes: Sclera anicteric, no erythema or discharge appreciated bilaterally Thorax: Creased respiratory effort on 3 L nasal cannula, bronchospastic Cardiovascular: Normal rate, regular rhythm, normal S1, S2 Abdomen: Bowel sounds present, soft/nontender/nondistended Genitourinary: No CVA tenderness, no Teague in place Skin: Warm, dry Neurologic: Awake, alert, oriented and he was able to state he is in the hospital and knew the president, he was unable to recall the date/time. He was following commands to the best of his ability. He complained of feeling weak when asked to move his lower extremities. Reports he normally uses a wheelchair at home. Labs: See below Imaging: Please see imaging section Assessment/plan: 80-year-old male with past medical history of hypertension, COPD on baseline 4 L nasal cannula, depression, and dementia present emergency room department complaints of increasing confusion, decreased appetite, and diarrhea. He tested positive for COVID-19. #COVID-19 -Patient is at baseline O2 requirements at this time. However, he would benefit from dexamethasone and remdesivir. Can to monitor respiratory status and inflammatory markers. #Sepsis -Plan as above. We will also continue with antibiotics until procalcitonin has resulted. #COPD exacerbation -Was bronchospastic on exam this morning. Will initiate duo nebs; continue ambulatory Pulmicort, albuterol as needed. Continue with steroids. #Acute kidney injury I's/O's -Likely due to prerenal azotemia. Continue with IV fluids. Avoid nephrotoxic medications. Monitor urine output. #DVT prophylaxis -Continue with Lovenox. VS,Fishbone, I+O VS, Fishbone, I+O Laboratory Tests 05/15/21 18:19 05/15/21 22:39 05/16/21 04:57 Vital Signs Date Time Temp Pulse Resp B/P (MAP) Pulse Ox O2 Delivery O2 Flow Rate FiO2 05/16/21 08:00 3.0 05/16/21 08:00 97.7 85 22 95/69 (78) 97 Nasal Cannula I&O- Last 24 Hours up to 6 AM 05/16/21 06:00 Intake Total 2375 ml Output Total 305 ml Balance 2070 ml CYNTHIA ALCANTARA M.D. May 16, 2021 10:20
[2021-05-16 16:10] LABS: CREATININE FOR GFR 2.65 MG/DL (0.70-1.30); POTASSIUM SERUM 3.3 MEQ/L (3.5-5.1)
--- NOTE | 2021-05-16 16:42 | ECGEPIP ---
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
[2021-05-16] MEDS: KCL 10MEQ/100ML SWI (KRUN) 10 MEQ in IV 1 EA IV SCH ×4 (17:45→22:33)
[2021-05-16] MEDS ORDERED: VANCOMYCIN HCL 750 MG, VIAL MATE ADAPTER 1 EACH in NS 250 ML IV SCH (21:00)
[2021-05-16] MEDS: cefTRIAXone SOD 1 GM in D5W MINI-BAG PLUS 50 ML IV SCH (21:07)
[2021-05-16] MEDS: HEPARIN SOD (PORCINE) 5000UNITS/ML 1ML VIAL/SYRINGE SQ SCH (21:08)
[2021-05-17] VITALS: O2SAT 95
[2021-05-17] MEDS: IPRATROPIUM 0.5MG/ALBUTEROL 2.5MG INH SOL UD 3ML (DUONEB) NEB SCH ×7 (00:21→23:08)
[2021-05-17 01:00] VITALS: O2SAT 97
[2021-05-17] MEDS: D5W 1,000 ML IV SCH ×3 (01:58→11:39)
[2021-05-17] MEDS: DOXYCYCLINE HYCLATE 100 MG in D5W MINI-BAG PLUS 100 ML IV SCH ×2 (01:59→14:43)
[2021-05-17 04:00] VITALS: BP 98/60
[2021-05-17] MEDS: REMDESIVIR 100 MG in NS 250 ML IV SCH (04:05)
[2021-05-17] MEDS: SODIUM CHLORIDE 0.9% INJ 10 ML SYR IV SCH (05:22)
[2021-05-17] MEDS: HEPARIN SOD (PORCINE) 5000UNITS/ML 1ML VIAL/SYRINGE SQ SCH ×3 (06:10→20:48)
[2021-05-17 07:57] LABS: HEMATOCRIT 29.2 % (42.0-52.0); HEMOGLOBIN 9.7 g/dl (13.5-17.5); MEAN CORPUSCULAR HEMOGLOBIN 32.3 pg (27.0-33.0); MEAN CORPUSCULAR HGB CONC 33.2 g/dl (32.0-36.5); MEAN CORPUSCULAR VOLUME 97.3 fl (80.0-96.0); PLATELET COUNT, AUTOMATED 118 10^3/uL (150-450); WHITE BLOOD COUNT 10.2 10^3/uL (4.0-10.0)
[2021-05-17] MEDS: BUDESONIDE 180MCG INHALER (PULMICORT FLEXHALER) INH SCH ×2 (08:00→20:00)
[2021-05-17 08:07] LABS: INR 1.13
[2021-05-17 08:09] LABS: PARTIAL THROMBOPLASTIN TIME 95.4 SECONDS (25.9-37.0)
[2021-05-17 09:09] LABS: ALBUMIN 2.2 GM/DL (3.2-5.2); BILIRUBIN,DIRECT 0.2 MG/DL (0.0-0.2); BILIRUBIN,TOTAL 0.3 MG/DL (0.2-1.0); CREATININE FOR GFR 3.07 MG/DL (0.70-1.30); GLOMERULAR FILTRATION RATE 21.1 (>42); MAGNESIUM LEVEL 1.9 MG/DL (1.8-2.4); PHOSPHORUS LEVEL 4.2 MG/DL (2.5-4.9); POTASSIUM SERUM 3.1 MEQ/L (3.5-5.1); TOTAL PROTEIN 5.3 GM/DL (6.4-8.2)
[2021-05-17] MEDS: dexameTHASONE 4 MG/ML 1ML VIAL (J1100 PER 1MG) IV SCH (09:44)
[2021-05-17] MEDS: ASPIRIN 81MG ENTERIC TABLET PO SCH (09:44)
[2021-05-17 12:00] VITALS: O2SAT 97
--- NOTE | 2021-05-17 15:22 | IPNPDOC ---
Text Note Date of Service The patient was seen on 05/17/21. NOTE Subjective: 80-year-old male presented to the emergency room department due to increasing confusion, reported fevers, chills, decreased appetite, and diarrhea. He tested positive for COVID-19. He was seen and examined at bedside this morning. He is awake alert and able to answer questions appropriately. Reported feeling tired and short of breath especially when he moves in bed. He denied chest pain, abdominal pain, nausea, vomiting. Review of systems: 10 point review of system was negative except for what is noted in the HPI Physical exam: General: Lying in bed, no acute distress Head/Neck/Throat: Trachea midline, mucous membranes moist Eyes: Sclera anicteric, no erythema or discharge appreciated bilaterally Thorax: Normal respiratory effort on 3 L nasal cannula, decreased breath sounds over the left lung field posteriorly Cardiovascular: Normal rate, regular rhythm, normal S1, S2 Abdomen: Bowel sounds present, soft/nontender/nondistended Genitourinary: No CVA tenderness, Teague draining yellow urine Skin: Warm, dry Neurologic: Awake, alert, oriented answering questions appropriately. Labs: See below Imaging: Please see imaging section Assessment/plan: 80-year-old male with past medical history of hypertension, COPD on baseline 4 L nasal cannula, depression, and dementia present emergency room department complaints of increasing confusion, decreased appetite, and diarrhea. He tested positive for COVID-19. #COVID-19 -Patient is at baseline O2 requirements at this time. However, he would benefit from dexamethasone and remdesivir. Continue to monitor respiratory status and inflammatory markers. #Pneumonia -Elevated procalcitonin. Continue with ceftriaxone and doxycycline. Follow-up on sputum cultures, and respiratory panel. #Sepsis -Plan as above. #COPD exacerbation -Continue with; continue ambulatory Pulmicort, albuterol as needed., And steroid #Acute kidney injury -Worsening creatinine. Likely due to prerenal azotemia. Hold IV fluids due to possible pulmonary edema, follow-up on chest x-ray. Avoid nephrotoxic medications. Urine output has been acceptable -Nephrology has been consulted due to worsening creatinine, appreciate input #Anemia -H/h remains stable. F/u on iron panel and retic count. #DVT prophylaxis -Continue with Lovenox. VS,Fishbone, I+O VS, Fishbone, I+O Laboratory Tests 05/17/21 07:33 Vital Signs Date Time Temp Pulse Resp B/P (MAP) Pulse Ox O2 Delivery O2 Flow Rate FiO2 05/17/21 12:00 3.0 05/17/21 12:00 97 Nasal Cannula 05/17/21 04:00 97.7 98 17 98/60 (73) I&O- Last 24 Hours up to 6 AM 05/17/21 05:59 Intake Total 2812.5 ml Output Total 1530 ml Balance 1282.5 ml CYNTHIA ALCANTARA M.D. May 17, 2021 15:22
--- NOTE | 2021-05-17 15:37 | REP ---
INDICATION: sob. COMPARISON: 05/15/2021. TECHNIQUE: Single portable AP view of the chest was performed. FINDINGS: There are diffuse right lung infiltrates which have increased superiorly. The left lung demonstrates no definite infiltrate. The heart is normal in size. The mediastinal silhouette is unchanged. Metallic prosthesis is noted in the proximal right humerus. IMPRESSION: Diffuse right lung infiltrate has increased superiorly. <Electronically signed by Adolfo Gonzales > 05/17/21 0160
[2021-05-17 16:00] VITALS: BP 93/59; O2SAT 96
[2021-05-17] MEDS ORDERED: POTASSIUM CHL PWD 20 MEQ PACKET PO ONE (16:00)
[2021-05-17 20:00] VITALS: BP 99/60; O2SAT 95
[2021-05-17] MEDS ORDERED: MIDODRINE 5 MG TAB PO ONE (20:05)
[2021-05-17] MEDS: cefTRIAXone SOD 1 GM in D5W MINI-BAG PLUS 50 ML IV SCH (20:43)
[2021-05-17 21:44] LABS: CHLORIDE,RANDOM URINE 36 MEQ/L; SODIUM,RANDOM URINE 42 MEQ/L
--- NOTE | 2021-05-17 21:47 | CR ---
NEPHROLOGY CONSULTATION DATE: 05/17/2021 REQUESTING PHYSICIAN: Dr. Christ Storey CONSULTING PHYSICIAN: Dr. Ynes Espinosa REASON FOR CONSULTATION: Non-oliguric renal failure. HISTORY OF PRESENT ILLNESS: History is obtained mostly from chart review and from discussion with healthcare providers. The patient is a poor historian with dementia. Mr. Eron Feliciano is a 80-year-old male with past medical history of chronic obstructive pulmonary disease with chronic oxygen dependence (4 liters via nasal cannula), also history of dementia, hypertension, emphysema, hearing loss, depression, anxiety and other conditions listed below. The patient was admitted to [facility] on May 15. He came in because he was eating less at home and was less interactive with family and was noted to be febrile and more confused than his usual baseline. In the Emergency Room, the patient was noted to be febrile with T-max of 102.6 and also mildly tachycardic. He was requiring his stable amounts of home oxygen. However blood pressures were quite soft with multiple readings of systolic 70's to 90's. Laboratory studies revealed acute kidney injury with creatinine of 1.9 on admission (prior labs revealed baseline creatinine less than 1). Over the course of this admission the patient has been treated with IV fluids but his renal function has worsened and creatinine is up to 3.0 on the latest labs and Nephrology evaluation was subsequently requested. PAST MEDICAL HISTORY: The patient's past medical history is significant for: 1. Essential hypertension. 2. Chronic obstructive pulmonary disease/emphysema. 3. Chronic hypoxemic respiratory failure, dependent on 4 liters nasal cannula at baseline. 4. Hearing loss. 5. Depression. 6. Anxiety. 7. Dementia. PAST SURGICAL HISTORY: The patient's past surgical history is significant for: 1. Right shoulder replacement. 2. Left hip replacement. 3. Hernia repair. 4. Cataract surgery. FAMILY HISTORY: The patient's family history is significant for heart disease in his mother and his brother. SOCIAL HISTORY: The patient is an ex-smoker, at least 60 pack year history. He lives with his daughter. ALLERGIES: NO KNOWN DRUG ALLERGIES. HOME MEDICATIONS: 1. Albuterol q. 6 hourly. 2. Abilify 15 mg p.o. daily. 3. Vitamin B complex one daily. 4. Dicyclomine 20 mg daily. 5. Vitamin D-2 every other week. 6. Ferrous Sulfate 324 mg p.o. twice daily. 7. Loratadine 10 mg p.o. daily. 8. Mometasone 2 puffs inhaled twice daily. 9. Montelukast 10 mg p.o. daily. 10. Olodaterol 2 puffs daily. 11. Fish Oil one capsule twice daily. 12. Omeprazole 40 mg daily. 13. Lyrica 100 mg p.o. daily. 14. Roflumilast 500 mcg p.o. daily. 15. Rosuvastatin 40 mg p.o. q. p.m. 16. Flomax 0.4 mg p.o. q. h.s. 17. Theophyline 300 mg p.o. twice daily. 18. Venlafaxine 300 mg p.o. daily. REVIEW OF SYSTEMS: The patient's review of systems was unable to be obtained secondary to dementia. PHYSICAL EXAMINATION: VITAL SIGNS: Temperature 98.6, pulse 91, respiratory rate 17-30, blood pressure 93/59, saturating 97% on 3 liters nasal cannula. INTAKE AND OUTPUT: Intake yesterday was 2.3 liters. Urine output yesterday was 1.2 liters. Weight in the bed scale today is 55 kg. GENERAL APPEARANCE: The patient was seen lying in bed in the COVID Unit. He is able to cooperate with the physical exam and he is answering simple questions appropriately and able to follow some simple commands. HEENT: The extraocular muscles are intact. Tongue is moist. NECK: Jugular veins are not elevated. HEART: Sounds are mildly tachycardic. There is no peripheral edema. There is no dependent edema. LUNGS: Diminished breath sounds with prolonged expiration, and there appears to be some crackles and rhonchi more on the right as compared to the left. ABDOMEN: Soft and nontender. GENITOURINARY: Teague catheter. EXTREMITIES: No edema. SKIN: Warm and dry. There is no pallor. LABORATORY STUDIES: White count 10.2, hemoglobin 9.7, platelet count 118. Sodium 143, potassium 3.1, bicarbonate 25, BUN 56, creatinine 3.0, ferratin 5,000, creatinine kinase 630, BNP 1,600, albumin 2.2. Blood cultures no growth for 48 hours times two sets. Urine culture pending. Respiratory panel is positive for COVID-19. IMAGING: Chest x-ray this afternoon shows increasing right lung infiltrate. INPATIENT MEDICATIONS: 1. Ceftriaxone one gram IV daily. 2. Doxycycline 100 mg IV twice daily. 3. Remdesivir 100 mg IV daily. 4. DuoNebs q. 4 hourly. 5. Aspirin 81 mg p.o. daily. 6. Pulmicort 2 puffs inhaled twice daily. 7. Decadron 6 mg IV daily. 8. Heparin 5,000 units subcutaneously q. 8 hourly. 9. Potassium Chloride 60 mEq p.o. times one and the patient also received 40 mEq of IV potassium today. He was on D5W at 125 mL an hour, but it is no longer running. PROBLEMS: 1. Acute non-oliguric renal failure - The patient's baseline creatinine is less than 1. His creatinine on admission was 1.9 and renal function has deteriorated despite IV fluid administration. Creatinine is 3.0 on the latest labs this morning. Renal ultrasound was negative for obstructive uropathy. The patient's chest x-ray today is consistent with probable right sided pneumonia (increasing infiltrate on right lung). The patient's blood pressures are soft, and I feel that hypotension is predominately causing his worsening kidney injury. I am going to start the patient on Midodrine. I will hold off on further IV fluids at this time, given that he is increasingly tachypneic and is also DNI and at baseline has advanced chronic obstructive pulmonary disease and is very fragile from a respiratory point of view. 2. Hypokalemia I advised against aggressive potassium supplementation given that the patient is in ongoing renal failure and potassium may over-correct. 3. Status post hypernatremia serum sodium was 146 to 147 the past couple of days. The patient was given D5W. His sodium level has normalized. While I would like to continue him on IV fluids given that he has soft blood pressures and likely renal hypoperfusion, but I will hold off on further IV fluids given that he has increasing tachypnea, increasing infiltrate on the right lung and already significant underlying chronic obstructive pulmonary disease and chronic oxygen dependence and is DNI. Encourage oral hydration and we will reevaluate for IV fluids tomorrow. 4. Pneumonia - The patient is on Ceftriaxone and Doxycycline by the Primary Team and the chest x-ray shows increasing infiltrate on the right lung. 5. Hypoxic respiratory failure - multifactorial secondary to COVID-19 pneumonia and underlying significant chronic obstructive pulmonary disease. The patient is on his home medications including inhaled steroids, bronchodilators. He is also receiving IV steroids. He is on Remdesivir for the COVID-19 and there is risk of worsening kidney injury. He is also on Ceftriaxone and Doxycycline for the pneumonia. 6. Sepsis - blood pressures are soft. The patient was febrile on admission. T-max was 102.6. His most recent systolic blood pressures have been in the 90's. I am starting him on Midodrine 5 mg three times daily.
[2021-05-18] VITALS (9 sets, daily range): BP systolic 100–120; BP diastolic 58–72; O2SAT 92–95
[2021-05-18] MEDS: DOXYCYCLINE HYCLATE 100 MG in D5W MINI-BAG PLUS 100 ML IV SCH ×2 (02:35→15:02)
[2021-05-18] MEDS: IPRATROPIUM 0.5MG/ALBUTEROL 2.5MG INH SOL UD 3ML (DUONEB) NEB SCH ×6 (02:47→23:18)
[2021-05-18] MEDS: REMDESIVIR 100 MG in NS 250 ML IV SCH (05:02)
[2021-05-18] MEDS: SODIUM CHLORIDE 0.9% INJ 10 ML SYR IV SCH (05:05)
[2021-05-18] MEDS: HEPARIN SOD (PORCINE) 5000UNITS/ML 1ML VIAL/SYRINGE SQ SCH ×3 (05:05→20:37)
[2021-05-18] MEDS: MIDODRINE 5 MG TAB PO SCH ×3 (08:00→16:19)
[2021-05-18] MEDS: BUDESONIDE 180MCG INHALER (PULMICORT FLEXHALER) INH SCH ×2 (08:00→20:00)
[2021-05-18 09:14] LABS: HEMATOCRIT 31.8 % (42.0-52.0); HEMOGLOBIN 10.6 g/dl (13.5-17.5); MEAN CORPUSCULAR HEMOGLOBIN 32.1 pg (27.0-33.0); MEAN CORPUSCULAR HGB CONC 33.3 g/dl (32.0-36.5); MEAN CORPUSCULAR VOLUME 96.4 fl (80.0-96.0); PLATELET COUNT, AUTOMATED 137 10^3/uL (150-450); WHITE BLOOD COUNT 12.8 10^3/uL (4.0-10.0)
[2021-05-18] MEDS ORDERED: ACETAMINOPHEN TAB 650MG DOSE (2X325MG) PO PRN (09:15)
[2021-05-18 09:52] LABS: ALBUMIN 2.5 GM/DL (3.2-5.2); BILIRUBIN,TOTAL 0.4 MG/DL (0.2-1.0); CALCIUM LEVEL 8.6 MG/DL (8.8-10.2); CREATININE FOR GFR 3.61 MG/DL (0.70-1.30); FOLATE 12.5 NG/ML (>5.4); GLOMERULAR FILTRATION RATE 17.5 (>42); MAGNESIUM LEVEL 1.8 MG/DL (1.8-2.4); PERCENT SATURATION 12.9 % (19.7-50.0); POTASSIUM SERUM 3.9 MEQ/L (3.5-5.1); TOTAL PROTEIN 5.7 GM/DL (6.4-8.2)
[2021-05-18] MEDS: dexameTHASONE 4 MG/ML 1ML VIAL (J1100 PER 1MG) IV SCH (10:59)
[2021-05-18] MEDS ORDERED: NS 0.45% 1,000 ML IV SCH (11:05)
[2021-05-18] MEDS ORDERED: ASPIRIN 81 MG CHEW TABLET PO ONE (12:00)
--- NOTE | 2021-05-18 12:36 | IPN ---
PROGRESS NOTE DATE: 05/18/2021 SUBJECTIVE: Mr. Feliciano is seen and examined this morning at the bedside. He does not look well, he is tremulous. He was awake, alert and was able to cooperate with physical exam. He was able to tell me his name, the year and knew that he was at [facility]. He has had suboptimal oral intake. Laboratory studies shows increased white count and worsening renal function. He continues to have good urine output to the Teague catheter. His blood pressures have improved since Midodrine was started yesterday, systolic is now in the 110s. He complains of labored breathing. OBJECTIVE: VITAL SIGNS: Temperature 99.8, pulse is 114, respiratory rate is 24, blood pressure is 120/71, saturating 92% on 3 liters nasal cannula. INTAKE AND OUTPUT: Intake yesterday was 1.8 liters, urine output was 1.8 liters, he is in even fluid balance. GENERAL: Patient is seen lying in the bed, elderly male, awake, alert, having tremors, cachetic appearing and frail. HEENT: Extraocular muscles are intact. Tongue and mucous membranes are dry. NECK: Jugular veins are flat. HEART: Heart sounds are tachycardic. S1 and S2. Ribs are prominent. EXTREMITIES: There is no peripheral edema. No dependent edema. LUNGS: Diminished breath sounds bilaterally with crackles on the right. ABDOMEN: Soft and nontender. GENITOURINARY: Teague catheter draining urine. EXTREMITIES: Decreased muscle mass and muscle wasting. There is no edema. LABORATORY DATA: White count is 12.8, hemoglobin is 10.6, platelets are 137,000, sodium is 144, potassium is 3.9, bicarbonate 21, BUN 68, creatinine 3.6, magnesium 1.8, transferrin saturation 12%, ferritin 4100, albumin 2.5. Blood cultures showed no growth. Sputum culture is pending. Chest x-ray yesterday showed increasing infiltrate on the right diffusely and CT of the chest without contrast is pending. INPATIENT MEDICATIONS: I started the patient on half normal saline at 100 ml/hr for one liter only. He is on IV Ceftriaxone and IV Doxycycline. He continues on Remdesivir. He was started on Midodrine 5 mg three times a day. The remainder of medications are unchanged as compared to yesterday. PROBLEMS: 1. Acute nonoliguric renal failure in the setting of dehydration, sepsis and pneumonia. Creatinine is up to 3.6 on the most recent labs, the patient looks dry on exam. His blood pressures have improved with Midodrine. I am going to give him just one liter of half normal saline. I would avoid aggressive IV fluid because he is a DNI and has advanced COPD and COVID and probable bacterial pneumonia as well and is tachypneic. 2. Hypoxic respiratory failure, multifactorial secondary to pneumonia and advanced COPD and COVID-19. Patient uses 4 liters of oxygen at baseline. His chest x-ray shows an increasing infiltrate. Sputum culture is pending. Antibiotics are as per primary team. White count has gone up. Blood pressures have been soft over this admission but now improved with Midodrine. Will only give gentle IV fluid for one liter only in view of his tenuous respiratory status. He is also on the usual IV steroids and Remdesivir and bronchodilators. 3. Hypotension in the setting of pneumonia, systolic yesterday was in the 80s to 90s and is a little bit better now with Midodrine. 4. Iron deficiency anemia. He is not suitable for IV iron at this time. Hemoglobin actually came up from 9.7 yesterday to 10.6 today. I think there is some hemoconcentration. We are giving 1 liter of IV fluid. His ferritin is markedly elevated at greater than 4000. 5. Status post hypernatremia. Serum sodium is down to 144. He is going to get one liter of hypotonic fluid today. His oral intake has been very poor on this admission.
--- NOTE | 2021-05-18 13:44 | REP ---
INDICATION: suspect bacterial pna. +covid. known copd/emphysema COMPARISON: 05/27/2018 the latest prior TECHNIQUE: Standard helical technique without contrast FINDINGS: There is evidence of mediastinal and hilar adenopathy difficult to evaluate without contrast. There are no pleural or pericardial effusions. Due to the lack of contrast and artifact the upper abdomen the seen in a markedly limited fashion but grossly unchanged from the prior exam. Bone window technique throughout the exam shows no change in the osseous structures. Evaluation of the lung almaraz shows a new rather extensive right lower lobe opacity the inferior portion of which has air bronchograms. This is all seen in limited fashion due to respiratory motion artifact. The left lung base opacity seen on the prior exam has improved. There is no significant change in appearance of the right upper lobe asymmetric density and pleural based density with calcifications. There is extensive emphysematous change status quo. There is peribronchial thickening particularly in the lower lobes but seen throughout and in a stable fashion. IMPRESSION: 1. The exam is limited. 2. New abnormal right lung field opacity as described above. Acute pneumonia superimposed upon chronic change cannot be ruled out. 3. Other chronic changes as described above. 4. Mediastinal and hilar adenopathy is suspected but seen in a markedly limited fashion without intravenous contrast. <Electronically signed by Meet Arnold > 05/18/21 [id number]
[2021-05-18] MEDS ORDERED: VANCOMYCIN HCL 500 MG in D5W MINI-BAG PLUS 100 ML IV SCH (19:50)
--- NOTE | 2021-05-18 20:03 | IPNPDOC ---
Subjective Date Seen The patient was seen on 05/18/21. Subjective Chief Complaint/HPI . Case is a 80 year old male with dementia and COPD chronically on 4L who is here with COVID PNA. This morning, patient reported SOB, but no chest pain. CT chest demonstrated possible new acute pneumonia and procalcitonin has increased. WBC elevated, will broaden antibiotic spectrum. Objective Physical Examination General Exam: Positive: Alert, Cooperative Eye Exam: Negative: Sclera icteric ENT Exam: Positive: Atraumatic Neck Exam: Positive: Supple Chest Exam: Positive: Diminished Heart Exam: Positive: Rate Normal, Regular Rhythm Abdomen Exam: Positive: Normal bowel sounds, Soft; Negative: Tenderness Extremity Exam: Negative: Edema Psych Exam: Positive: Mood NL Assessment /Plan Assessment . Case is a 80 year old male with dementia and COPD chronically on 4L who is here with COVID PNA. Despite appropriate antibiotics for CAP, patient's procalcitonin continued to increase. Will broaden the antibiotic spectrum. Otherwise, patient has JULIEN. Nephrology following and recommendations appreciated. Plan/VTE VTE Prophylaxis Ordered?: Yes Plan 1. COVID infection -Patient chronically on 4L at home -Continue with Remdesivir and dexamethasone 2. Pneumonia -Procalcitonin continued to increase despite appropriate antibiotics -Broaden spectrum with Zosyn and Vancomycin. Continue Doxycycline for atypical coverage -Antibiotic day 1 3. COPD exacerbation -Continue with dexamethasone, budesonide, and duonebs 4. Acute kidney injury -Nephrology following, recommendations appreciated -Continue IVF and midodrine 5. DVT ppx -Heparin subQ Disposition: Pending clinical improvement and improvement in renal function VS[facility] Sign[facility]/I&O Vital Signs Date Time Temp Pulse Resp B/P (MAP) Pulse Ox O2 Delivery O2 Flow Rate FiO2 05/18/21 16:00 2.0 05/18/21 16:00 97.8 95 20 103/58 (73) 94 Nasal Cannula I&O- Last 24 Hours up to 6 AM 05/18/21 06:00 Intake Total 1000 ml Output Total 1665 ml Balance -665 ml Laboratory Data 24H LABS Laboratory Tests 2 05/17/21 21:00: Urine Random Sodium 42, Urine Random Chloride 36 05/17/21 23:44: Bedside Glucose (Misc Panel) 136H 05/18/21 08:02: Reticulocyte # (auto) 14.9L, Nucleated Red Blood Cells % (auto) 0.0, Percent Reticulocyte Count 0.5, Reticulocyte Hemoglobin Equivalent 32.8, Anion Gap 12, Glomerular Filtration Rate 17.5L, Calcium Level 8.6L, Phosphorus Level 4.0, Magnesium Level 1.8, Iron Level 22L, Total Iron Binding Capacity 171L, Transferr in % Saturation 12.9L, Ferritin 4149H, Total Bilirubin 0.4, Aspartate Amino Transf (AST/SGOT) 154H, Alanine Aminotransferase (ALT/SGPT) 68, Alkaline Phosphatase 50, Total Protein 5.7L, Albumin 2.5L, Albumin/Globulin Ratio 0.8, Vitamin B12 Level 1319H, Folate 12.5 CBC/BMP Laboratory Tests 05/18/21 08:02 Microbiology Microbiology 05/15/21 Blood Culture - Preliminary, Resulted No Growth after 48 hours. All Specime... 05/15/21 Urine Culture - Final, Complete 05/15/21 Respiratory Virus Panel (PCR) ([facility]) - Final, Complete SARS-CoV-2 (COVID 19) 05/15/21 Blood Culture - Preliminary, Resulted No Growth after 72 hours. All specime... 05/15/21 Blood Culture - Preliminary, Resulted No Growth after 72 hours. All specime... SHANNAN MCDONALD DO May 18, 2021 20:03
[2021-05-18] MEDS: cefTRIAXone SOD 1 GM in D5W MINI-BAG PLUS 50 ML IV SCH (20:37)
[2021-05-18] MEDS ORDERED: VANCOMYCIN HCL 1,000 MG, VIAL MATE ADAPTER 1 EACH in NS 250 ML IV ONE (21:00)
[2021-05-18] MEDS: PIPERACILLIN/TAZOBACTAM SOD 4.5 GM in D5W MINI-BAG PLUS 50 ML IV SCH (21:13)
[2021-05-19] VITALS (8 sets, daily range): BP systolic 112–144; BP diastolic 64–78; O2SAT 95
[2021-05-19] MEDS: DOXYCYCLINE HYCLATE 100 MG in D5W MINI-BAG PLUS 100 ML IV SCH ×2 (02:25→14:49)
[2021-05-19] MEDS: IPRATROPIUM 0.5MG/ALBUTEROL 2.5MG INH SOL UD 3ML (DUONEB) NEB SCH ×6 (03:01→23:38)
[2021-05-19] MEDS: REMDESIVIR 100 MG in NS 250 ML IV SCH (04:33)
[2021-05-19] MEDS: HEPARIN SOD (PORCINE) 5000UNITS/ML 1ML VIAL/SYRINGE SQ SCH ×3 (04:33→20:58)
[2021-05-19] MEDS: SODIUM CHLORIDE 0.9% INJ 10 ML SYR IV SCH (04:40)
[2021-05-19 06:18] LABS: HEMATOCRIT 30.5 % (42.0-52.0); HEMOGLOBIN 10.4 g/dl (13.5-17.5); MEAN CORPUSCULAR HEMOGLOBIN 32.7 pg (27.0-33.0); MEAN CORPUSCULAR HGB CONC 34.1 g/dl (32.0-36.5); MEAN CORPUSCULAR VOLUME 95.9 fl (80.0-96.0); PLATELET COUNT, AUTOMATED 128 10^3/uL (150-450); RED BLOOD COUNT 3.18 10^6/uL (4.30-6.10); WHITE BLOOD COUNT 11.2 10^3/uL (4.0-10.0)
[2021-05-19 06:34] LABS: INR 1.33; PROTHROMBIN TIME 16.9 SECONDS (12.7-14.5)
[2021-05-19 06:35] LABS: PARTIAL THROMBOPLASTIN TIME 58.7 SECONDS (25.9-37.0)
[2021-05-19 06:41] LABS: CALCIUM LEVEL 8.5 MG/DL (8.8-10.2); CREATININE FOR GFR 3.75 MG/DL (0.70-1.30); GLOMERULAR FILTRATION RATE 16.7 (>42); POTASSIUM SERUM 3.9 MEQ/L (3.5-5.1); VANCOMYCIN RANDOM 22.2 UG/ML
[2021-05-19 07:07] LABS: ALBUMIN 2.3 GM/DL (3.2-5.2); BILIRUBIN,DIRECT 0.2 MG/DL (0.0-0.2); BILIRUBIN,TOTAL 0.4 MG/DL (0.2-1.0); TOTAL PROTEIN 6.2 GM/DL (6.4-8.2)
[2021-05-19] MEDS: ASPIRIN 81 MG CHEW TABLET PO SCH (08:20)
[2021-05-19] MEDS: dexameTHASONE 4 MG/ML 1ML VIAL (J1100 PER 1MG) IV SCH (08:20)
[2021-05-19] MEDS: D5W 1,000 ML IV SCH ×2 (08:20→16:22)
[2021-05-19] MEDS: PIPERACILLIN/TAZOBACTAM SOD 4.5 GM in D5W MINI-BAG PLUS 50 ML IV SCH ×2 (08:20→20:58)
[2021-05-19] MEDS: MIDODRINE 5 MG TAB PO SCH ×3 (08:20→16:22)
[2021-05-19] MEDS: BUDESONIDE 180MCG INHALER (PULMICORT FLEXHALER) INH SCH ×2 (09:42→19:50)
[2021-05-19 14:28] LABS: ABG BASE EXCESS -8.5 (-2.0-2.0); ABG HCO3 17.4 MEQ/L (22.0-26.0); ABG O2 SATURATION 93.6 % (95.0-99.0); ABG PARTIAL PRESSURE CO2 37.5 mmHg (35.0-45.0); ABG PARTIAL PRESSURE O2 79.9 mmHg (75.0-100.0); ABG STANDARD HCO3 17.5 MEQ/L (22.0-26.0); ABG TOTAL CO2 18.6 MEQ/L (23.0-31.0); ABG pH (ARTERIAL) 7.285 UNITS (7.350-7.450)
[2021-05-19 15:07] LABS: MYCOPLASMA PNEUMONIAE IgG <100 U/mL (0-99); MYCOPLASMA PNEUMONIAE IgM <770 U/mL (0-769)
[2021-05-19] MEDS: methylPREDNISolone 125MG 2ML VIAL IV SCH ×2 (16:17→20:58)
[2021-05-19 18:08] LABS: BODY FLUID CULTURE Not indicated. (.); LEGIONELLA ANTIGEN URINE Negative (Negative); ORGANISM ID Not indicated. (.); SPECIMEN SOURCE Urine (.); URINE STREP PNEUMONIAE ANTIGEN Negative (Negative)
[2021-05-19 19:13] LABS: CALCIUM LEVEL 8.6 MG/DL (8.8-10.2); CREATININE FOR GFR 3.73 MG/DL (0.70-1.30); GLOMERULAR FILTRATION RATE 16.8 (>42); POTASSIUM SERUM 4.1 MEQ/L (3.5-5.1)
--- NOTE | 2021-05-19 19:46 | IPN ---
PROGRESS NOTE DATE: 05/19/2021 SUBJECTIVE: Mr. Feliciano is seen and examined this morning in the COVID unit. The patient remains poorly communicative, looks clinically quite dry on examination. Continues to have poor oral intake. CT chest done yesterday was consistent with right-sided pneumonia, superimposed upon his advanced and extensive emphysema. His breathing has appeared labored. He continues to have good urine output to Teague catheter despite poor oral intake. Laboratory studies show worsening renal function. The patient is lethargic and does not response to questioning today, but is awake and follows simple commands. OBJECTIVE: Vital signs: Temperature 97.7, pulse 104, respiratory rate 26, blood pressure 144/77, saturating 96% on 3 liters nasal cannula. Intake yesterday was 1.6 liters. Urine output yesterday was 1.3 liters. Weight in the bed scale today is not recorded. General: The patient is seen lying in bed, elderly, frail, cachetic appearing male grossly tremulus. Clinically dry appearing. Dry tongue and dry mucous membranes. Makes eye contact. Jugular veins are not elevated. Heart sounds are tachycardiac. S1, S2. Ribs are prominent. Abdomen is soft. Genitourinary: Shows indwelling Teague catheter draining urine. Extremities show severe muscle wasting. There is no edema in the peripheries. No edema in the dependent area. Lungs show diminished breath sounds bilaterally with prolonged expiration and with crackles on the right. He is tachypneic. There is abdominal breathing. He looks more short of breath today. Neurologic: He follows simple commands, but does not converse. LABORATORY DATA: White count 11.2, hemoglobin 10.4, platelets 128. Sodium 149, potassium 3.9, bicarbonate 23, BUN 79, creatinine 3.7. CT of the chest yesterday shows extensive emphysematous changes with new right lung field opacification. INPATIENT MEDICATIONS: I started him on D5W at 150 mL an hour times 2 liters. He is on doxycycline and Zosyn. He is remdesivir and vancomycin. Primary team started him on Solu-Medrol The remainder of medications are unchanged as compared to yesterday. PROBLEMS: 1. Nonoliguric acute renal failure. The patient is clinically dehydrated. He has poor oral intake. He has hypoxic respiratory failure, but it is secondary to advanced underlying emphysema superimposed to pneumonia and COVID 19. His breathing issues are not compromised by any source of hypovolemia. I am going to increase his IV fluids. His oral intake is poor. He is in negative fluid balance. He is hypernatremia. He has a free water deficit. We will put him on D5W at 150 mL an hour for 2 liters. 2. Hypernatremia. The patient has a 2 liter free water deficit and D5W is ordered. He is clinically dehydrated. 3. Hypoxic respiratory failure, multifactorial and looks to be worsening. The patient has abdominal breathing and is more tachypneic today. He has advanced underlying emphysema/chronic obstructive pulmonary disease (COPD) and presently with superimposed pneumonia for which he is on broad-spectrum antibiotics and also being treated for COVID 19. I suggest to get an arterial blood gas (ABG). His CT chest yesterday shows a new right infiltrate. Antibiotics are as per primary team. Blood pressures have improved since midodrine was started and note he is now on IV steroids as well (Solu-Medrol). 4. Dementia, protein calorie malnutrition, advanced chronic obstructive pulmonary disease (COPD), pulmonary cachexia. There are no urgent indications for dialysis at this time. However, if the patient's renal function does not improve, I would consider him to be a poor candidate for dialysis.
--- NOTE | 2021-05-19 20:38 | IPNPDOC ---
Subjective Date Seen The patient was seen on 05/19/21. Subjective Chief Complaint/HPI Case is a 80 year old male with dementia and COPD chronically on 4L who is here with COVID PNA. This morning, he appeared to be in respiratory distress despite doing well on 3L. He could not speak much. I heart some wheezing and increased steroids from dexamethasone 6mg IV to solumedrol 40mg q6h. I reached out to the HCP. Although his procalcitonin is improving, it does not appear that he is getting better. HCP wanted to discuss with family. Otherwise I obtained ABG which demonstrated metabolic acidosis. Patient also has respiratory ac idosis. He may not be breathing fast enough to compensate for metabolic acidosis. Spoke with nephrology. Repeated BMP in the evening. Patient's acidosis is worsening. Patient was started on bicarb drip. Objective Physical Examination General Exam: Positive: Alert, Moderate Distress; Negative: Cooperative Eye Exam: Negative: Sclera icteric ENT Exam: Positive: Atraumatic Neck Exam: Positive: Supple Chest Exam: Positive: Wheezing, Diminished Heart Exam: Positive: Tachycardic, Regular Rhythm Abdomen Exam: Positive: Normal bowel sounds, Soft; Negative: Tenderness Extremity Exam: Negative: Edema Neuro Exam: Negative: Normal Speech Assessment /Plan Assessment Case is a 80 year old male with dementia and COPD chronically on 4L who is here with COVID PNA. Despite appropriate antibiotics for CAP, patient's procalcitonin continued to increase. Will broaden the antibiotic spectrum. Otherwise, patient has JULIEN. Nephrology following and recommendations appreciated. Patient's procalcitonin improved with broadened antibiotics, but he appears to be in respiratory distress. Obtain ABG which demonstrated metabolic acidosis. He may be breathing fast to compensate. Spoke with Nephrology and repeated BMP in evening. Due to worsening acidosis, bicarb drip was started. Plan/VTE VTE Prophylaxis Ordered?: Yes Plan 1. COVID infection -Patient chronically on 4L at home -Continue with Remdesivir and solumedrol 2. Metabolic acidosis with respiratory acidosis -Metabolic acidosis may be secondary to renal failure -Patient is breathing fast to compensate, but not able to breath fast enough -Nephrology started on bicarb drip 3. Pneumonia -Procalcitonin continued to increase despite appropriate antibiotics -Broaden spectrum with Zosyn. Continue Doxycycline for atypical coverage. MRSA swab negative -Procalcitonin improving -Antibiotic day 2 4. COPD exacerbation -Continue breathing treatments -Increase steroids to solumedrol q6h 5. Acute kidney injury -Nephrology following, recommendations appreciated -Continue IVF and midodrine 6. DVT ppx -Heparin subQ Disposition: Poor prognosis. Will discuss with HCP again tomorrow. Otherwise, pending clinical improvement VS, I&O, 24H, Fishbone Vital Signs/I&O Vital Signs Date Time Temp Pulse Resp B/P (MAP) Pulse Ox O2 Delivery O2 Flow Rate FiO2 05/19/21 16:18 96.8 97 28 113/66 (82) 96 Nasal Cannula 3.0 I&O- Last 24 Hours up to 6 AM 05/19/21 05:59 Intake Total 1740 ml Output Total 900 ml Balance 840 ml Laboratory Data 24H LABS Laboratory Tests 2 05/18/21 21:02: Bedside Glucose (Misc Panel) 126H 05/19/21 03:15: Methicillin-Resist S.aureus DNA PCR NOT DETECTED 05/19/21 06:03: Nucleated Red Blood Cells % (auto) 0.0, Prothrombin Time 16.9H, Prothromb Time International Ratio 1.33, Activated Partial Thromboplast Time 58.7H, Fibrinogen 693H, Anion Gap 13, Glomerular Filtration Rate 16.7L, Calcium Level 8.5L, Ferritin 2464H, Total Bilirubin 0.4, Direct Bilirubin 0.2, Aspartate Amino Transf (AST/SGOT) 127H, Alanine Aminotransferase (ALT/SGPT) 65, Alkaline Phosphatase 44L, Lactate Dehydrogenase 409H, Total Creatine Kinase 578H, Troponin I High Sensitivity 69.0, CW-Nqx-N-Type Natriuretic Peptide 5342H, Total Protein 6.2L, Albumin 2.3L, Albumin/Globulin Ratio 0.6, Procalcitonin 3.09, Random Vancomycin Level 22.2 05/19/21 12:09: Bedside Glucose (Misc Panel) 152H 05/19/21 14:16: Blood Gas Bicarbonate Standard 17.5L, Arterial Blood pH 7.285L, Arterial Blood Partial Pressure CO2 37.5, Arterial Blood Partial Pressure O2 79.9, Arterial Blood Total CO2 18.6L, Arterial Blood HCO3 17.4L, Arterial Blood Base Excess - 8.5L, Arterial Blood Oxygen Saturation 93.6L 05/19/21 18:21: Anion Gap 14, Glomerular Filtration Rate 16.8L, Calcium Level 8.6L CBC/BMP Laboratory Tests 05/19/21 06:03 05/19/21 18:21 Microbiology Microbiology 05/15/21 Blood Culture - Preliminary, Resulted No Growth after 72 hours. All specime... 05/15/21 Urine Culture - Final, Complete 05/15/21 Respiratory Virus Panel (PCR) ([facility]) - Final, Complete SARS-CoV-2 (COVID 19) 05/15/21 Blood Culture - Preliminary, Resulted No Growth after 72 hours. All specime... 05/15/21 Blood Culture - Preliminary, Resulted No Growth after 72 hours. All specime... SHANNAN MCDONALD DO May 19, 2021 20:38
[2021-05-19] MEDS ORDERED: VANCOMYCIN HCL 750 MG, VIAL MATE ADAPTER 1 EACH in NS 250 ML IV SCH (21:00)
[2021-05-19] MEDS ORDERED: SODIUM BICARBONATE 50 MEQ in D5W 1,000 ML IV SCH (22:00)
--- NOTE | 2021-05-19 22:51 | IPNPDOC ---
Text Note Date of Service Significant event NOTE Pt started ivf given poor po, bicarb had been added given his metabolic acidosis. Unfortunately, s/s overload after 1L. Plan to hold further fluids for now, recheck BMP; pend pt response for restart ivf at lower rate. VS,Fishbone, I+O VS, Fishbone, I+O Laboratory Tests 05/19/21 06:03 05/19/21 18:21 Vital Signs Date Time Temp Pulse Resp B/P (MAP) Pulse Ox O2 Delivery O2 Flow Rate FiO2 05/19/21 20:30 3.0 05/19/21 20:00 96.8 124 27 127/69 (88) 96 Nasal Cannula I&O- Last 24 Hours up to 6 AM 05/19/21 06:00 Intake Total 1740 ml Output Total 1400 ml Balance 340 ml ANUPAMA HERNANDEZ NP May 19, 2021 22:51
[2021-05-20] VITALS: BP 121/77
[2021-05-20 00:43] LABS: CALCIUM LEVEL 8.3 MG/DL (8.8-10.2); CREATININE FOR GFR 3.91 MG/DL (0.70-1.30); GLOMERULAR FILTRATION RATE 15.9 (>42); POTASSIUM SERUM 3.8 MEQ/L (3.5-5.1)
[2021-05-20] MEDS: methylPREDNISolone 40MG 1ML VIAL IV SCH ×2 (02:33→10:02)
[2021-05-20] MEDS: DOXYCYCLINE HYCLATE 100 MG in D5W MINI-BAG PLUS 100 ML IV SCH (02:33)
[2021-05-20] MEDS: IPRATROPIUM 0.5MG/ALBUTEROL 2.5MG INH SOL UD 3ML (DUONEB) NEB SCH ×5 (03:36→17:54)
[2021-05-20 04:00] VITALS: BP 121/90
[2021-05-20] MEDS: REMDESIVIR 100 MG in NS 250 ML IV SCH (04:21)
[2021-05-20] MEDS: HEPARIN SOD (PORCINE) 5000UNITS/ML 1ML VIAL/SYRINGE SQ SCH (04:21)
[2021-05-20] MEDS: SODIUM CHLORIDE 0.9% INJ 10 ML SYR IV SCH (05:31)
[2021-05-20 07:20] VITALS: BP 114/73
[2021-05-20] MEDS: BUDESONIDE 180MCG INHALER (PULMICORT FLEXHALER) INH SCH (07:32)
[2021-05-20 07:46] LABS: HEMATOCRIT 27.8 % (42.0-52.0); HEMOGLOBIN 9.3 g/dl (13.5-17.5); MEAN CORPUSCULAR HEMOGLOBIN 32.3 pg (27.0-33.0); MEAN CORPUSCULAR HGB CONC 33.5 g/dl (32.0-36.5); MEAN CORPUSCULAR VOLUME 96.5 fl (80.0-96.0); PLATELET COUNT, AUTOMATED 134 10^3/uL (150-450); RED BLOOD COUNT 2.88 10^6/uL (4.30-6.10)
[2021-05-20] MEDS: MIDODRINE 5 MG TAB PO SCH (08:00)
[2021-05-20 08:11] LABS: CALCIUM LEVEL 8.4 MG/DL (8.8-10.2); GLOMERULAR FILTRATION RATE 15.5 (>42); POTASSIUM SERUM 3.5 MEQ/L (3.5-5.1)
[2021-05-20] MEDS: ASPIRIN 81 MG CHEW TABLET PO SCH (09:00)
[2021-05-20] MEDS ORDERED: D5W 1,000 ML IV SCH (10:00)
[2021-05-20] MEDS: PIPERACILLIN/TAZOBACTAM SOD 4.5 GM in D5W MINI-BAG PLUS 50 ML IV SCH (10:02)
[2021-05-20] MEDS ORDERED: SCOPOLAMINE 1MG TRANSDERMAL PATCH TOP PRN (12:15)
[2021-05-20] MEDS ORDERED: ONDANSETRON 4MG/2ML VIAL IV PRN (12:15)
[2021-05-20] MEDS ORDERED: ATROPINE SULFATE 1% OP SOLN 2 ML BTL SL PRN (12:15)
--- NOTE | 2021-05-20 12:58 | IPN ---
PROGRESS NOTE DATE: 05/20/2021 SUBJECTIVE: Mr. Feliciano was seen and examined this morning at the bedside. He continues to do poorly. I note that the IV fluids that had ordered for him for his clinical dehydration were held overnight because of concern of worsening respiratory status. Patient has progressive renal failure and has become more hypernatremic given that his D5W was held. The nursing staff reports the patient has very lethargic, not having much oral intake and has had small volume loose stool. I have spoken to both of his daughters, (Theodora Liu and Tomasa Feliciano) regarding the patient's worsening clinical status and discussion regarding dialysis. REVIEW OF SYSTEMS: Unable to obtain secondary to clinical condition. OBJECTIVE: VITAL SIGNS: Temperature 97.5, pulse 104, respiratory rate 28, blood pressure is 114/73, saturating 94% on 3 liter nasal cannula. INTAKE AND OUTPUT: Intake yesterday was 2 liters, urine output was 1.6 liters. There were four bowel movements yesterday. GENERAL: Patient is seen lying in bed. He is an elderly male, frail appearing and in mild to moderate respiratory distress. Patient makes poor eye contact. He does not converse. His tongue is dry. NECK: Jugular veins are not elevated. HEART: Heart sounds are tachycardic and irregular. There is tachypnea with retractions and abdominal breathing. There is no edema neither in the peripheries nor in the dependent area. There is significant lean muscle wasting. There is a Teague catheter with urine. LABORATORY DATA: Sodium is 150, potassium is 3.5, bicarbonate 20, BUN 98, creatinine 4.0, hemoglobin 9.3, platelets 134,000. MEDICATIONS: The IV fluids that I had ordered yesterday were held overnight because of concern of his respiratory issues. This morning I reordered D5W now at 200 ml/hr. He is on doxycycline, Zosyn. The remainder of medications are unchanged as compared to yesterday. PROBLEMS: 1. Acute nonoliguric renal failure. Patient is clinically dry. IV fluids were ordered yesterday (D5W at 150 ml/hr), however IV fluids were held overnight because there was a concern regarding the patient's respiratory status. Patient certainly does have respiratory distress, however it is not secondary to any sort of hypervolemia, rather it is related to his advanced emphysema, COVID-19 pneumonia, right sided bacterial pneumonia. Patient is clinically dry. His serum sodium is up to 150. He is having loose stools. He is having no significant oral intake. I discussed with the nursing staff regarding need for continuation of IV fluids and orders are written again for D5W at 200 ml/hr. In any case, the patient has worsening renal parameters with BUN of almost 100 and creatinine of 4.0 and I spoke to his daughter, Theodora Liu last night regarding dialysis versus withdrawal of care and awaiting further decision making from the family. 2. Hypernatremia. Patient has a several liter free water deficit. He has poor oral intake. He is acutely ill with pneumonia. He is nonoliguric. He is clinically dehydrated and orders are written for D5W. 3. Metabolic acidosis. Serum bicarbonate is 20 and patient did receive some bicarbonate containing fluids yesterday. Acidosis is in the setting of renal failure. 4. Acute hypoxic respiratory failure. Patient is a DNI. He has underwent advanced emphysema and is chronically oxygen dependent on 4 to 5 liters at home. He currently is admit with COVID and also has a superimposed right sided bacterial pneumonia. He is in moderate respiratory distress and the primary team is managing antibiotics and steroids, suggest pulmonary evaluation. ADDENDUM: 11 a.m. May 20, I spoke with the patient's daughter Tomasa Case. Patient resides with Tomasa and discussed patient's renal failure and option of dialysis versus no dialysis. His daughter tells me the patient would not have wanted dialysis in any case and that he had a living will that stated no extraordinary measures were to be taken to prolong his life. Tomasa expressed an interest in transitioning her father to [facility]. I have informed the Hospitalist who will reach out to the patient's daughter to further discuss.
[2021-05-20] MEDS: MORPHINE 2 MG/ML 1ML VIAL (J2270) IV PRN ×3 (15:04→22:22)
--- NOTE | 2021-05-20 18:55 | IPNPDOC ---
Subjective Date Seen The patient was seen on 05/20/21. Subjective Chief Complaint/HPI Case is a 80 year old male with dementia and COPD chronically on 4L who is here with COVID PNA. The bicarb drip was held due to concerns of fluid overload. Patient's acidosis is not improving and has worsened his respiratory status. When I saw patient, he was noncommunicative and was not respiratory distress. Nephrology spoke with HCP (daughter) Tomasa In patient's living well, patient would not want dialysis. Daughter, decided on [employer]. Patient was made [employer] today. Following Covid visitation protocols, HCP was able to visit patient. Objective Physical Examination General Exam: Positive: Alert, Moderate Distress; Negative: Cooperative Eye Exam: Negative: Sclera icteric ENT Exam: Positive: Atraumatic Neck Exam: Positive: Supple Chest Exam: Positive: Wheezing, Diminished Heart Exam: Positive: Tachycardic, Regular Rhythm Abdomen Exam: Positive: Normal bowel sounds, Soft; Negative: Tenderness Extremity Exam: Negative: Edema Neuro Exam: Negative: Normal Speech Assessment /Plan Assessment Case is a 80 year old male with dementia and COPD chronically on 4L who is here with COVID PNA. Despite appropriate antibiotics for CAP, patient's procalcitonin continued to increase. Will broaden the antibiotic spectrum. Otherwise, patient has JULIEN. Nephrology following and recommendations appreciated. Patient's procalcitonin improved with broadened antibiotics, but he appears to be in respiratory distress. Obtain ABG which demonstrated metabolic acidosis. He may be breathing fast to compensate. Spoke with Nephrology and repeated BMP in evening. Due to worsening acidosis, bicarb drip was started. Bicarb drip was discontinued due to concerns of fluid overload. Patient's acidosis not improved and respiratory status worsening. Healthcare proxy revealed that patient's living will had said he did not want dialysis. Patient was made [employer] on 05/20/2021. Plan/VTE VTE Prophylaxis Ordered?: Yes Plan 1. COVID infection 2. Metabolic acidosis with respiratory acidosis 3. Pneumonia 4. COPD exacerbation 5. Acute kidney injury with uremic encephalopathy Disposition: Poor prognosis. Patient was made [employer] on 05/20/2021 VS, I&O, 24H, Fishbone Vital Signs/I&O Vital Signs Date Time Temp Pulse Resp B/P (MAP) Pulse Ox O2 Delivery O2 Flow Rate FiO2 05/20/21 07:40 3.0 05/20/21 07:20 97.5 104 28 114/73 (87) 94 Nasal Cannula I&O- Last 24 Hours up to 6 AM 05/20/21 06:00 Intake Total 1945 ml Output Total 1100 ml Balance 845 ml Laboratory Data 24H LABS Laboratory Tests 2 05/20/21 00:09: Anion Gap 14, Glomerular Filtration Rate 15.9L, Calcium Level 8.3L 05/20/21 06:55: Anion Gap 12, Glomerular Filtration Rate 15.5L, Calcium Level 8.4L, Nucleated Red Blood Cells % (auto) 0.0 CBC/BMP Laboratory Tests 05/20/21 00:09 05/20/21 06:55 Microbiology Microbiology 05/15/21 Blood Culture - Preliminary, Resulted No Growth after 72 hours. All specime... 05/15/21 Urine Culture - Final, Complete 05/15/21 Respiratory Virus Panel (PCR) ([facility]) - Final, Complete SARS-CoV-2 (COVID 19) 05/15/21 Blood Culture - Final, Complete NO GROWTH AFTER 5 DAYS 05/15/21 Blood Culture - Final, Complete NO GROWTH AFTER 5 DAYS SHANNAN MCDONALD DO May 20, 2021 18:55
[2021-05-21] MEDS: LORazepam 2 MG/ML VIAL IV PRN ×2 (00:08→18:00)
[2021-05-21] MEDS: IPRATROPIUM 0.5MG/ALBUTEROL 2.5MG INH SOL UD 3ML (DUONEB) NEB SCH ×6 (04:00→19:07)
[2021-05-21] MEDS: MORPHINE 2 MG/ML 1ML VIAL (J2270) IV PRN ×3 (09:14→15:47)
[2021-05-22] MEDS: LORazepam 2 MG/ML VIAL IV PRN (02:42)
[2021-05-22] MEDS: IPRATROPIUM 0.5MG/ALBUTEROL 2.5MG INH SOL UD 3ML (DUONEB) NEB SCH ×6 (04:00→20:00)
[2021-05-22] MEDS: MORPHINE 2 MG/ML 1ML VIAL (J2270) IV PRN (18:51)
[2021-05-23] MEDS: MORPHINE 2 MG/ML 1ML VIAL (J2270) IV PRN ×4 (00:33→18:32)
[2021-05-23] MEDS: LORazepam 2 MG/ML VIAL IV PRN (02:21)
[2021-05-23] MEDS: IPRATROPIUM 0.5MG/ALBUTEROL 2.5MG INH SOL UD 3ML (DUONEB) NEB SCH ×6 (04:00→20:55)
[2021-05-24] MEDS: MORPHINE 2 MG/ML 1ML VIAL (J2270) IV PRN ×3 (04:02→23:25)
[2021-05-24] MEDS: IPRATROPIUM 0.5MG/ALBUTEROL 2.5MG INH SOL UD 3ML (DUONEB) NEB SCH ×5 (07:24→19:38)
[2021-05-25] MEDS: LORazepam 2 MG/ML VIAL IV PRN (00:35)
[2021-05-25] MEDS: MORPHINE 2 MG/ML 1ML VIAL (J2270) IV PRN ×3 (02:01→10:56)
--- NOTE | 2021-05-25 18:15 | DS.PDOC ---
Discharge Summary General Date of Admission May 15, 2021 at 20:35 Date of Discharge 05/25/2021 Attending Physician: CHERRIE PICKARD MD Discharge Summary PROCEDURES PERFORMED DURING STAY: None ADMITTING DIAGNOSES: Covid-19 PNA DISCHARGE DIAGNOSES: covid-19 PNA Sepsis with superimposed R sided bacterial PNA JULIEN Uremia Hypernatremia Hypokalemia Metabolic acidosis Acute metabolic encephalopathy on dementia. Acute exacerbation of Chronic obstructive pulmonary disease/emphysema. Essential hypertension. Acute on chronic hypoxemic respiratory failure Hearing loss. Depression. Anxiety. COMPLICATIONS/CHIEF COMPLAINT: Julien, Copd, Covid-19, Pneumonia. HISTORY OF PRESENT ILLNESS: 80-year-old M with a past medical history of chronic obstructive pulmonary disease with chronic oxygen dependence on 4L at recent baseline, dementia, hypertension, emphysema, hearing loss, depression, anxiety was brought in by family reporting he was eating less at home and was less interactive with family and was noted to have a subjective fever and more confused than his usual baseline. HOSPITAL COURSE: In the Emergency Room, he had a fever to T-max of 102.6 and was tachycardic, and hypotensive with systolic 70's to 90's, with otherwise stable chronic hypoxemia. He was clinically dry on exam and a poor historian, Laboratory studies revealed acute kidney injury with creatinine of 1.9 on admission, and he was given IV fluids but his renal function worsened and creatinine titi to 3.0 at which point Nephrology evaluation was requested. Renal ultrasound was negative for obstructive uropathy, while chest x-ray was consistent with probable right sided pneumonia (with an increasing infiltrate on right lung) and he was placed on CAP coverage with ceftriaxone/doxy. Despite fluids, his BPs remained soft, and nephrology noting his WOB and tachypnea i/s/o covid-19 PNA with superimposed bacterial PNA, they decided to hold off more hydration with IVF and gave midodrine instead. He also had likely hypovolemic hypernatremia that briefly improved after initial hydration with the D5W that was held i/s/o respiratory distress. He was clinically septic, on antibiotic therapy, encephalopathic and renal function ultimately worsened. Upon further discussion between nephrology and the family, he was ultimately made [employer] as they did not desire to pursue impending dialysis given renal failure, uremia and electrolyte derrangments. He was made [employer] on 05/20 and on 05/25/2021 at 12.19 from cardiovascular collapse 2/2 respiratory arrest i/s/o covid-19 PNA with superimposed bacterial PNA. DISCHARGE MEDICATIONS: Please see below. ALLERGIES: Please see below. PHYSICAL EXAMINATION ON DISCHARGE: NOT EXAMINED AT TIME OF EXPIRATION LABORATORY DATA: Please see below. IMAGING: Chest xray "IMPRESSION: Right lower lobe infiltrate." Renal US "IMPRESSION: 1. No hydronephrosis or acute findings. 2. Nonspecific debris in the urinary bladder. Correlation with urinalysis may be beneficial." Chest CT: There is evidence of mediastinal and hilar adenopathy difficult to evaluate without contrast. There are no pleural or pericardial effusions. Due to the lack of contrast and artifact the upper abdomen the seen in a markedly limited fashion but grossly unchanged from the prior exam. Bone window technique throughout the exam shows no change in the osseous structures. Evaluation of the lung almaraz shows a new rather extensive right lower lobe opacity the inferior portion of which has air bronchograms. This is all seen in limited fashion due to respiratory motion artifact. The left lung base opacity seen on the prior exam has improved. There is no significant change in appearance of the right upper lobe asymmetric density and pleural based density with calcifications. There is extensive emphysematous change status quo. There is peribronchial thickening particularly in the lower lobes but seen throughout and in a stable fashion. IMPRESSION: 1. The exam is limited. 2. New abnormal right lung field opacity as described above. Acute pneumonia superimposed upon chronic change cannot be ruled out. 3. Other chronic changes as described above. 4. Mediastinal and hilar adenopathy is suspected but seen in a markedly limited fashion without intravenous contrast. PROGNOSIS: ACTIVITY: DIET: DISCHARGE PLAN: DISPOSITION: 20 . DISCHARGE INSTRUCTIONS: ITEMS TO FOLLOWUP ON ON OUTPATIENT: DISCHARGE CONDITION: TIME SPENT ON DISCHARGE: 47 minutes. Vital Signs/I&Os Vital Signs Date Time Temp Pulse Resp B/P (MAP) Pulse Ox O2 Delivery O2 Flow Rate FiO2 05/25/21 09:16 3.0 05/24/21 20:29 Room Air 05/22/21 19:15 16 05/20/21 07:20 97.5 104 114/73 (87) 94 I&O- Last 24 Hours up to 6 AM 05/25/21 06:00 Intake Total 0 ml Balance 0 ml Microbiology Microbiology 05/15/21 Blood Culture - Final, Complete NO GROWTH AFTER 5 DAYS 05/15/21 Urine Culture - Final, Complete 05/15/21 Respiratory Virus Panel (PCR) ([facility]) - Final, Complete SARS-CoV-2 (COVID 19) 05/15/21 Blood Culture - Final, Complete NO GROWTH AFTER 5 DAYS 05/15/21 Blood Culture - Final, Complete NO GROWTH AFTER 5 DAYS Discharge Medications Scheduled Albuterol Sulf (Albuterol Sulfate) 2.5 Mg/3 Ml Nebu, 2.5 MG INH Q6H, (Reported) Aripiprazole (Abilify) 15 Mg Tablet, 15 MG PO DAILY, (Reported) B-Complex with Vitamin C (Vitamin B Complex-Vitamin C) 1 Each Tablet, 1 TAB PO DAILY, (Reported) Cyanocobalamin (Vitamin B-12) (B-12) 1,000 Mcg Tablet, 1,000 MCG PO BID, (Reported) Dicyclomine HCl (Dicyclomine HCl) 10 Mg Capsule, 20 MG PO DAILY, (Reported) Ergocalciferol (Vitamin D2) (Vitamin D2) 50,000 Units Cap, 1 CAP PO Q2WK, (Reported) Ferrous Gluconate (Ferrous Gluconate) 324 Mg Tab, 324 MG PO BID, (Reported) Fluticasone Propionate (Flonase Allergy Relief) 9.9 Ml [place].susp, 2 SPRAY NARES QHS, (Reported) Loratadine (Loratadine) 10 Mg Tablet, 10 MG PO DAILY, (Reported) Mometasone Furoate (Asmanex) 220 Mcg Aer.pow.ba, 2 PUFFS INH BID, (Reported) Montelukast Sodium (Montelukast Sodium) 10 Mg Tab, 10 MG PO DAILY, (Reported) Olodaterol HCl (Striverdi Respimat) 4 Gm Mist.inhal, 2 PUFFS INH DAILY, (Reported) Everest-3 Fatty Acids/Fish Oil (Fish Oil 1,000 mg Capsule) 1,000 Mg Cap, 1,000 MG PO BID, (Reported) Omeprazole (Omeprazole) 40 Mg Cap, 40 MG PO DAILY, (Reported) Pregabalin (Lyrica) 100 Mg Capsule, 100 MG PO DAILY, (Reported) Roflumilast (Daliresp) 500 Mcg Tab, 500 MCG PO DAILY, (Reported) Rosuvastatin Calcium (Crestor) 40 Mg Tab, 40 MG PO QPM, (Reported) DINNERTIME Tamsulosin HCl (Flomax) 0.4 Mg Capsule, 0.4 MG PO QHS, (Reported) Theophylline Anhydrous (Neil-24) 300 Mg Cap.er.24h, 300 MG PO BID, (Reported) Venlafaxine HCl (Effexor Xr) 150 Mg Cap.er.24h, 300 MG PO DAILY, (Reported) Scheduled PRN Albuterol Sulfate (Ventolin Hfa) 108 Mcg/Act Aer, 2 PUFFS INH Q4H PRN for SHORTNESS OF BREATH, (Reported) Sodium Chloride ([place]) 104 Ml [place], 2 SPRAY NA QID PRN for CONGE, (Reported) EACH NOSTRIL Allergies Coded Allergies: No Known Allergies (Unverified , 04/02/20) CHERRIE PICKARD MD May 25, 2021 18:15
== END 2021-05-25 13:35 | disposition expired | DRG 871 ==
LOC: EDBD 17:38 → M ED 17:38 → M ED INP 20:35 → M ICU 22:58 → M 4MAIN 05-16 18:30
PROVIDERS: ADMIT Internal Medicine; ATTEND Internal Medicine
PROC: XW033E5 Introduction of Remdesivir Anti-infective into Peripheral Vein, Percutaneous Approach, New Technology Group 5 (ICD-10-PCS; principal; 2021-05-15)
PROC: 3E0333Z Introduction of Anti-inflammatory into Peripheral Vein, Percutaneous Approach (ICD-10-PCS; 2021-05-15)
DX: A41.9 Sepsis, unspecified organism (principal); U07.1 COVID-19; J12.82 Pneumonia due to coronavirus disease 2019; J96.21 Acute and chronic respiratory failure with hypoxia; J15.9 Unspecified bacterial pneumonia; G93.40 Encephalopathy, unspecified; J44.1 Chronic obstructive pulmonary disease with (acute) exacerbation; E87.0 Hyperosmolality and hypernatremia; J44.0 Chronic obstructive pulmonary disease with (acute) lower respiratory infection; N17.9 Acute kidney failure, unspecified; E46 Unspecified protein-calorie malnutrition; E87.4 Mixed disorder of acid-base balance; Z51.5 Encounter for palliative care; Z66 Do not resuscitate; E87.6 Hypokalemia; F03.90 Unspecified dementia, unspecified severity, without behavioral disturbance, psychotic disturbance, mood disturbance, and anxiety; I10 Essential (primary) hypertension; E86.0 Dehydration; H91.93 Unspecified hearing loss, bilateral; F41.9 Anxiety disorder, unspecified; F32.A Depression, unspecified; Z96.611 Presence of right artificial shoulder joint; Z96.642 Presence of left artificial hip joint; Z98.49 Cataract extraction status, unspecified eye; Z87.891 Personal history of nicotine dependence; Z79.899 Other long term (current) drug therapy; Z99.81 Dependence on supplemental oxygen